=== PATIENT | female | born 1950 | race Caucasian/White ===

== ENCOUNTER 2023-09-10 13:25 | Inpatient (IN) | payer MEDICARE, OTHER, SELFPAY ==
[2023-09-10 09:55] VITALS: BP 156/87
--- NOTE | 2023-09-10 10:18 | ED.GENMED ---
History of Present Illness
General
Chief Complaint: Cough
Source: patient and family
Exam Limitations: none
Time Seen by Provider: 09/10/23 10:03
Nursing documentation reviewed up to this point in time: agreed with
Travel History
Have you had any contact with someone who has COVID-19?: No
Do you have any symptoms of coronavirus? Fever > 100 degrees, chills, cough, shortness of breath, sore throat, loss of taste or smell, muscle aches, or headache?: Yes
Symptoms:: cough
History of Present Illness
History of Present Illness:
73-year-old female with past medical history of cardiac disease CABG x 3 in 2012 as well as cardiac stents hypertension diabetes high cholesterol presenting to the emergency department today with concerns of a productive cough over the past 2 months
recently treated with azithromycin concluded today without relief. Has had generalized weakness fatigue and mainly concerned of coughing has a mild chest achiness only with coughing. Has had some mild shortness of breath has noted some wheezing.
Does occasionally use an inhaler has not been on steroids. Denies nausea vomiting or fevers.
Review of Systems
Review of Systems
Allergies reviewed?: Yes
All Other Systems: ROS reviewed and negative except as documented in HPI and ROS
Phy Exam
Physical Exam
Physical Exam:
GENERAL: Alert , in no apparent distress
EYE: pupils equal and reactive
NECK: Supple, no significant adenopathy.
ENT: o/p clr, mmm.
CARDIAC: Regular rate and rhythm .
LUNGS: Diffuse inspiratory and expiratory wheezing but good air movement otherwise able to speak in full sentences
ABDOMEN: Soft, without focal tenderness, no r/g, no cvat
NEUROLOGICAL: Alert and oriented, no focal neuro deficits
SKIN: Warm and dry, skin intact.
MUSCULOSKELETAL: No edema, well perfused.
PSYCH: Normal and appropriate interaction.
Course
Orders/Labs/Results
Orders:
Orders
03/08/24 10:05
Electrocardiogram (*1) Stat
Reason for Study: Other
Other Reason for Exam: chest pain
EKG- Treatment ONCE
CR Chest - 2 Views Urgent
Comment:
Reason For Exam: cough
09/10/23 10:17
Dexamethasone Sod Phosphate [Decadron] 10 mg IV NOW STA
Ipratropium/Albuterol Sulfate [Duoneb] 3 ml INH R NOW ONE
09/10/23 10:22
Thoracic Spine 3 Views CR [CR Thoracic Spine 3 Views] Urgent
Comment:
Reason For Exam: back pain
09/10/23 10:42
Complete Blood Count/With Diff Urgent
Comprehensive Metabolic Panel Urgent
Troponin I Urgent
09/10/23 10:58
Oxycodone [Roxicodone] 15 mg PO NOW STA
Abnormal Lab Results
09/10/23
10:42
RBC 3.30 L 10^6/uL
(4.20-5.40)
Hgb 8.4 L g/dL
(12.0-16.0)
Hct 27.0 L %
(37.0-47.0)
MCH 25.5 L pg
(27.0-31.0)
MCHC 31.1 L g/dL
(33.0-37.0)
RDW 25.2 H %
(11.5-14.5)
Absolute Neuts (auto) 7.8 H 10^3/uL
(1.4-6.5)
Absolute Lymphs (auto) 0.6 L 10^3/uL
(1.2-3.4)
Absolute Monos (auto) 0.8 H 10^3/uL
(0.1-0.6)
Neutrophils % 83.4 H %
(42.2-75.2)
Lymphocytes % 6.6 L %
(20.5-51.1)
Glucose 291 H mg/dl
(70-99)
AST 39 H U/L
(14-36)
Alkaline Phosphatase 402 H U/L
(38-126)
Albumin 3.3 L g/dl
(3.5-5.0)
09/10/23 10:42
09/10/23 10:42
Vital Signs
Initial and Last Documented VS:
Initial Vital Signs
Temp Pulse Resp BP Pulse Ox
98 F 87 16 156/87 97
09/10/23 09:55 09/10/23 09:55 09/10/23 09:55 09/10/23 09:55 09/10/23 09:55
Last Documented Vital Signs
Temp Pulse Resp BP Pulse Ox
98 F 87 16 156/87 97
09/10/23 09:55 09/10/23 09:55 09/10/23 09:55 09/10/23 09:55 09/10/23 09:55
MDM/Problems Addressed
MDM/Problems Addressed:
73-year-old female presenting to the emergency department today with concerns of ongoing cough wheezing over the past few months. Recently treated with azithromycin without relief. Claims to have some intermittent chest pain only with coughing
mainly to the left side of her chest. On arrival here vital signs are normal afebrile pulse ox in the high 90s blood pressure slightly elevated. Lungs have diffuse inspiratory next very wheezing. Patient started on steroid and given a DuoNeb
patient labs showing anemia of 8.4 she does have a history of such. Glucose elevated to 291 but no signs of DKA. Patient was reassessed after receiving treatments with some slight improvement pulse ox in the low 90s she was walks claims that she
did not feel well was lightheaded short of breath pulse ox into the 80s. Concerning this plan to admit for further treatment monitoring.
*Critical Care Note
Total Time (30-74mins, 75-104mins- exclusive of procedures): Not Applicable
ED Attending Note
-
Portions of this chart may have been created with voice recognition software.� Occasional wrong word or��sound alike� substitutions may have occurred due to the inherent limitations of voice recognition software.
Discharge Plan
Departure
Patient Disposition: Admit
Date of Disposition: 09/10/23
Time of Disposition: 12:31
Admit to: Med/Surg
Admit to doctor: Charou
Presentation/result/management discussed w/ accepting MD/DO: Hospitalist
Patient with high blood pressure during this ER visit?: No
Condition: Good
Covid-19: Not Applicable
Discharge Problem:
Diffuse wheezing
Referrals:
Jaspreet Echeverria, [Family Provider] -
Interventions
Interventions:
*Risk Screen - Suicide Last Done: 09/10/23 09:59
*General Assessment Last Done: 09/10/23 09:59
*Neglect/Abuse Screening Last Done: 09/10/23 09:59
*ED COVID-19 Vaccine History Last Done: 09/10/23 10:28
[2023-09-10 10:27] VITALS: BMI 22.3
[2023-09-10] MEDS: DECADRON 10 MG IV (10:38)
[2023-09-10] MEDS: DUONEB 3 ML INH ×3 (10:41→21:07)
[2023-09-10 10:54] LABS: % Basophils 0.5 % (0-2); % Eosinophils 0.7 % (0-6); % Immature Granulocytes 0.3 % (0-0.5); % Lymphocytes 6.6 % (20.5-51.1); % Monocytes 8.5 % (1.7-9.3); % Neutrophils 83.4 % (42.2-75.2); Absolute Basophils 0.1 10^3/uL (0-0.2); Absolute Eosinophils 0.1 10^3/uL (0-0.7); Absolute Lymphocytes 0.6 10^3/uL (1.2-3.4); Absolute Monocytes 0.8 10^3/uL (0.1-0.6); Absolute Neutrophils 7.8 10^3/uL (1.4-6.5); Hemoglobin 8.4 g/dL (12.0-16.0); Mean Corp Hgb Conc. 31.1 g/dL (33.0-37.0); Mean Corpuscular Hgb 25.5 pg (27.0-31.0); Mean Corpuscular Volume 81.8 fL (81.0-99.0); Nucleated Red Blood Cells % 0 %; Platelet Count 170 10^3/uL (130-400); Red Cell Dist. Width 25.2 % (11.5-14.5); White Blood Cell Count 9.4 10^3/uL (4.8-10.8)
[2023-09-10 11:07] LABS: ALT (SGPT) 22 U/L (0-35); AST (SGOT) 39 U/L (14-36); Albumin 3.3 g/dl (3.5-5.0); Alkaline Phosphatase 402 U/L (38-126); Blood Urea Nitrogen 14 mg/dl (7-17); Carbon Dioxide 26 mmol/L (22-30); Chloride 106 mmol/L (98-107); Estimated Creatinine Clearance 60 ml/min; Glucose 291 mg/dl (70-99); Potassium 4.1 mmol/L (3.5-5.1); Sodium 135 mmol/L (135-145); Total Protein 6.6 g/dl (6.3-8.2); eGFR > 60.00
[2023-09-10] MEDS: ROXICODONE 15 MG PO ×2 (11:12→20:51)
[2023-09-10 11:13] LABS: Anisocytosis 1+; Hypochromasia 1+; Normal RBC Morphology No
[2023-09-10 11:14] LABS: Polychromasia Slight; Troponin I 0.025 ng/ml
--- NOTE | 2023-09-10 13:13 | HPS.HSE ---
Family Physician
-
Family Physician: Jaspreet Echeverria
Chief Complaint
-
shortness breath/cough
History of Present Illness
Patient is a 73F with past medical history of nonalcoholic fatty liver disease and cirrhosis, history of GI bleed and multiple endoscopic procedure, coronary disease and bypass, history of peripheral artery disease, tobacco use, hypertension,
hypothyroidism came to ER with ongoing shortness of breath for 2 months. Patient usually gets her medical care at [facility]. For last 2 months patient has been noticing progressive shortness of breath and unable to walk 15-20 feet without
getting short of breath. Patient also having excessive cough up to the point where having bilateral lower rib cage pain. Patient also noted herself wheezing at times. Patient also having some balance problems and a mechanical fall. Patient has
been losing weight for some time and primary care physician ordered protein supplements. No abdominal pain/nausea/vomiting.
Medical History
Past Medical History
Past Medical History: Reports Other
Additional Past Medical History:
nonalcoholic fatty liver disease and cirrhosis, history of GI bleed and multiple endoscopic procedure, coronary disease and bypass, history of peripheral artery disease, tobacco use, hypertension, hypothyroidism
Past Surgical History: Reports Other
Social History
Tobacco: Smoker
Alcohol: None
Living: With Family
Family History
Family History: Not pertinent
Allergies / Home Medications
Allergies reflects when Allergies were last updated in [facility].
Home Medications with original date entered in [facility]
Allergy/Medication List:
Allergies
Allergy/AdvReac Type Severity Reaction Status Date / Time
No Known Allergies Allergy Unverified 09/10/23 09:55
Home Medications
albuterol sulfate 90 mcg/actuation aerosol inhaler 2 puff inhalation R Q4HPRN PRN sob/wheezing 09/10/23
azithromycin 250 mg tablet 0 mg PO .COMPLEX 09/10/23
diazepam 10 mg tablet 10 mg PO BIDPRN PRN anxiety 09/10/23
ezetimibe 10 mg tablet 10 mg PO DAILY 09/10/23
furosemide 20 mg tablet 20 mg PO DAILY@1400 09/10/23
gabapentin 100 mg capsule 100 mg PO TID PRN nerve pain 09/10/23
insulin glargine 100 unit/mL (3 mL) subcutaneous pen (Lantus Solostar U-100 Insulin) 12 - 15 unit SC HS 09/10/23
insulin lispro 100 unit/mL subcutaneous pen (Humalog KwikPen (U-100) Insulin) 15 unit SC AC 09/10/23
lactulose 10 gram/15 mL oral solution 15 ml PO .SEE BELOW 09/10/23
levothyroxine 50 mcg tablet 50 mcg PO DAILY 09/10/23
metoprolol succinate 25 mg tablet,extended release 24 hr 25 mg PO DAILY 09/10/23
omeprazole 20 mg capsule,delayed release 20 mg PO DAILY 09/10/23
oxycodone 15 mg tablet 15 mg PO QID 09/10/23
rifaximin 550 mg tablet (Xifaxan) 550 mg PO Q12H 09/10/23
Review of Systems
-
A 12 point ROS was completed and negative except as noted: Yes
Physical Exam
Vital Signs
Vital Signs
Temp Pulse Resp BP Pulse Ox
98 F 87 16 156/87 97
09/10/23 09:55 09/10/23 09:55 09/10/23 09:55 09/10/23 09:55 09/10/23 09:55
Physical Exam
General: No Apparent Distress
HEENT: Atraumatic; No Oxygen
Respiratory: Wheezes; No Crackles
Cardiac: S1/S2 and Regular Rhythm; No Murmur or Rub
GI: Soft, Non Tender, Non Distended and Normal Bowel Sounds; No Organomegaly
Musculoskeletal: No Clubbing, No Cyanosis and No Edema
Skin: No Rash
Neuro: Awake, Alert, Oriented and Nonfocal/grossly intact
Laboratory Results
-
09/10/23 10:42
09/10/23 10:42
Laboratory Results
Total Bilirubin 1.0 mg/dl (0.2-1.3) 09/10/23 10:42
AST 39 U/L (14-36) H 09/10/23 10:42
ALT 22 U/L (0-35) 09/10/23 10:42
Alkaline Phosphatase 402 U/L (38-126) H 09/10/23 10:42
Troponin I 0.025 ng/ml 09/10/23 10:42
Data Reviewed
-
Lab Data: Labs Reviewed by me, Discussed with Patient and Discussed with Family
Impression/Plan
-
1. COPD flare up
Tobacco use disorder
-Patient active smoker and has been smoking for many years
-Patient was provided course of azithromycin by primary care physician without much help
-Chest x-ray relatively clear besides small trace pleural effusion
-Patient wheezing on examination
-No formal diagnosis of COPD although likely have it with history of smoking and ongoing wheezing
-Patient got IV dexamethasone 10 mg in ER, continue 4 mg every 8 hours
-Provide nebulizer therapy
2. Nonalcoholic fatty liver disease
Cirrhosis
-Maintain on home dose of rifaximin/lactulose
-No signs of decompensated cirrhosis
3. Chronic normocytic anemia
History of GI bleed
-Patient have history of recurrent GI bleed requiring Endoscopic intervention
-Patient gets her care at [facility] usually
4. Essential HTN
-Continue metoprolol, once pharmacy confirms dose
5. Hypothyroidism
-Continue home dose of Euthyrox and
DVT PPX - lovenox
Full code
Total time spent : 77 mins
I personally saw and examined the patient.
I have reviewed all diagnostic interpretations and treatment plans as written.
Time includes patient management by me, time spent at the patients bedside, time to review lab and imaging results, discussing patient care, documentation in the medical record, and time spent with the family or caregiver and discussing care plan
with RN/Consultants.
[2023-09-10 13:34] LABS: NT-proBNP 7190 pg/ml
[2023-09-10] MEDS: ROCEPHIN 2000 MG IV (14:00)
[2023-09-10 15:45] VITALS: BP 120/85
[2023-09-10 15:46] LABS: Glucose - Point of Care 417 mg/dl (70-99)
[2023-09-10 16:34] LABS: Glucose 397 mg/dl (70-99)
--- NOTE | 2023-09-10 16:44 | PTCARENOTE ---
Rec'd Pt from ED to Room 419-1, [address]. Pt is AAOx3. Oriented to room with call pacheco in place.
[2023-09-10] MEDS: NOVOLOG FLEXPEN 5 UNITS SC (16:48)
[2023-09-10] MEDS: NOVOLOG FLEXPEN-LOW RESISTANCE 5 UNITS SC (16:51)
[2023-09-10] MEDS: LOVENOX 40 MG SC (16:52)
--- NOTE | 2023-09-10 18:32 | PTCARENOTE ---
BG check upon txfr from ED- finger stick was 417. STAT Glucose was 397. Pt got 10 units of insulin. Asymptomatic. Dr. Reyes notified via TT.
[2023-09-10 18:41] LABS: Glucose - Point of Care 490 mg/dl (70-99)
[2023-09-10 19:25] LABS: Glucose 490 mg/dl (70-99)
[2023-09-10] MEDS: NOVOLOG FLEXPEN 6 UNITS SC (20:35)
[2023-09-10] MEDS: XIFAXAN 550 MG PO (20:51)
[2023-09-10 21:39] LABS: Glucose - Point of Care 513 mg/dl (70-99)
[2023-09-10 21:43] LABS: Glucose - Point of Care 503 mg/dl (70-99)
[2023-09-10] MEDS: DUPHALAC/CHRONULAC 15 GRAMS PO (21:54)
[2023-09-10 22:38] LABS: Glucose - Point of Care 476 mg/dl (70-99)
[2023-09-10 22:40] LABS: Glucose - Point of Care 535 mg/dl (70-99)
[2023-09-10 23:00] VITALS: BP 140/72
[2023-09-10 23:59] LABS: Glucose 457 mg/dl (70-99)
[2023-09-11] VITALS (8 sets, daily range): BP systolic 126–174; BP diastolic 57–79; PULSE 89; O2SAT 98
[2023-09-11] MEDS: NOVOLOG FLEXPEN 6 UNITS SC (00:16)
[2023-09-11] MEDS: LANTUS 0.149999999999999994 UNITS SC (00:16)
[2023-09-11 02:40] LABS: Glucose - Point of Care 351 mg/dl (70-99)
[2023-09-11 03:59] LABS: % Basophils 0.1 % (0-2); % Immature Granulocytes 0.3 % (0-0.5); % Lymphocytes 7.7 % (20.5-51.1); % Monocytes 11.9 % (1.7-9.3); Absolute Lymphocytes 0.6 10^3/uL (1.2-3.4); Absolute Monocytes 0.9 10^3/uL (0.1-0.6); Absolute Neutrophils 5.8 10^3/uL (1.4-6.5); Hemoglobin 7.1 g/dL (12.0-16.0); Mean Corp Hgb Conc. 30.9 g/dL (33.0-37.0); Mean Corpuscular Hgb 25.4 pg (27.0-31.0); Mean Corpuscular Volume 82.1 fL (81.0-99.0); Mean Platelet Volume 10.1 fL (7.4-10.4); Nucleated Red Blood Cells % 0 %; Platelet Count 147 10^3/uL (130-400); Red Cell Dist. Width 24.9 % (11.5-14.5); White Blood Cell Count 7.2 10^3/uL (4.8-10.8)
[2023-09-11 04:16] LABS: Blood Urea Nitrogen 24 mg/dl (7-17); Calcium 8.9 mg/dl (8.4-10.2); Carbon Dioxide 25 mmol/L (22-30); Chloride 105 mmol/L (98-107); Estimated Creatinine Clearance 38 ml/min; Glucose 285 mg/dl (70-99); Potassium 4.5 mmol/L (3.5-5.1); Sodium 137 mmol/L (135-145); eGFR 53.39
[2023-09-11] MEDS: SYNTHROID 50 MCG PO (06:08)
[2023-09-11 07:50] LABS: Glucose - Point of Care 268 mg/dl (70-99)
[2023-09-11] MEDS: DUPHALAC/CHRONULAC 15 GRAMS PO ×2 (07:51→21:08)
[2023-09-11] MEDS: ZETIA 10 MG PO (07:51)
[2023-09-11] MEDS: XIFAXAN 550 MG PO ×2 (07:51→21:09)
[2023-09-11] MEDS: DECADRON 4 MG IV ×3 (07:52→23:23)
[2023-09-11] MEDS: NOVOLOG FLEXPEN-LOW RESISTANCE 3 UNITS SC ×3 (07:53→15:50)
[2023-09-11] MEDS: NOVOLOG FLEXPEN 5 UNITS SC (07:53)
[2023-09-11] MEDS: TOPROL XL 25 MG PO (07:54)
[2023-09-11] MEDS: PROTONIX 40 MG PO (07:54)
[2023-09-11] MEDS: DUONEB 3 ML INH ×4 (08:10→20:19)
[2023-09-11] MEDS: ROXICODONE 15 MG PO ×2 (08:38→14:43)
[2023-09-11 09:39] LABS: Glycohemoglobin (HgbA1c) 7.4 % (4.0-5.6)
--- NOTE | 2023-09-11 11:13 | W.PN.HOSP.TC ---
Today's Communication/Plan
-
see note
Assessment / Plan
Assessment / Plan
1. COPD flare up
� � Tobacco use disorder
-Patient active smoker and has been smoking for many years
-Patient was provided course of azithromycin by primary care physician without much help
-Chest x-ray relatively clear besides small trace pleural effusion
-Continues to wheeze on exam
-No formal diagnosis of COPD although likely have it with history of smoking and ongoing wheezing
-Patient got IV dexamethasone 10 mg in ER, continue 4 mg every 8 hours
-Provide nebulizer therapy
2.� Nonalcoholic fatty liver disease
�� � Cirrhosis
-Maintain on home dose of rifaximin/lactulose
-No signs of decompensated cirrhosis
3.� Acute on chronic normocytic anemia
�� � History of GI bleed
-Patient have history of recurrent GI bleed requiring Endoscopic intervention
-Patient gets her care at [facility] usually
-Hemoglobin drifted down to 7.1 today. No reported melena/emesis
-Check Hemoccult stool test
-Providing 1 unit of blood transfusion
4. Essential HTN
-Continue metoprolol, once pharmacy confirms dose
5.� Hypothyroidism
-Continue home dose of Euthyrox and
6. IDDM - uncontrolled
-Blood glucose significantly elevated due to IV steroid use in ER
-Increasing insulin Premeal and lantus dose
DVT PPX - lovenox
Full code
Anticipated Discharge: 24 - 48 hours
Subjective/Interval History
-
Date of Service: September 11, 2023
Patient having ongoing cough and bilateral flank pain from excessive coughing
Breathing subjectively bit better although not much improvement
No hypoxia overnight
Objective Data
-
Labs:
Laboratory Results
09/10/23 09/11/23 09/11/23
23:16 03:40 03:40
WBC 7.2
Hgb 7.1 L
Hct 23.0 L
Plt Count 147
Sodium Cancelled 137
Potassium Cancelled
Chloride
Carbon Dioxide
BUN
Creatinine
Glucose 457 H*
Calcium
09/11/23 09/11/23 09/11/23
03:40 03:40 03:40
WBC
Hgb
Hct
Plt Count
Sodium
Potassium 4.5
Chloride Cancelled 105
Carbon Dioxide Cancelled 25
BUN Cancelled
Creatinine
Glucose
Calcium
09/11/23 09/11/23 09/11/23
03:40 03:40 03:40
WBC
Hgb
Hct
Plt Count
Sodium
Potassium
Chloride
Carbon Dioxide
BUN 24 H
Creatinine Cancelled 1.1 H
Glucose Cancelled 285 H
Calcium Cancelled
09/11/23
03:40
WBC
Hgb
Hct
Plt Count
Sodium
Potassium
Chloride
Carbon Dioxide
BUN
Creatinine
Glucose
Calcium 8.9
Vital Signs:
Vital Signs
Temp Pulse Resp BP Pulse Ox
97.9 F 89 18 126/70 98
09/11/23 08:17 09/11/23 10:48 09/11/23 10:48 09/11/23 10:48 09/11/23 08:17
I&O
09/10/23 09/11/23 09/12/23
06:59 06:59 07:59
Intake Total 480 / 480
Balance 480 / 480
Review of Systems
-
Respiratory: Reports Cough
Cardiac: Reports No Symptoms
Abdomen/GI: Reports No Symptoms
Physical Exam
-
General: No Apparent Distress and Comfortable
HEENT: Negative Oxygen
Respiratory: Wheezes
Cardiac: Regular Rhythm and S1/S2; Negative Murmur or Rub
GI: Soft, Nontender and Nondistended
Musculoskeletal: No Edema
Neuro: Awake, Alert, Oriented, No Motor Deficits and Nonfocal/Grossly Intact
Psych: Calm
[2023-09-11 11:25] LABS: Glucose - Point of Care 299 mg/dl (70-99)
[2023-09-11] MEDS: ALDACTONE 25 MG PO (11:54)
[2023-09-11] MEDS: NOVOLOG FLEXPEN 10 UNITS SC ×2 (11:56→15:50)
--- NOTE | 2023-09-11 15:24 | CM ---
IA completed with pt at bedside.
Pt is a 73yr old female admitted with COPD Flare up.
At baseline, pt lives in her own home that has 6 steps to enter and a 1st floor set up. Pts daughter and nephew live with her and provide support with cooking and cleaning.
Pt is independent with mobility without device but does have a cane, RW, W/c, and shower bars.
Per pt, her granddaughter is a caregiver to her through the [employer] and is in the home to assist with ADLs, transportation, and supervision 8a-3p daily.
Pt has not been to SNF, and does not think she has used VN in the past.
Pt will need nebulizer at dc.
SW did place call and voicemail to daughter to confirm dc details.
PCP; Jaspreet Echeverria
Pharm; Curt Carroll
PLAN; Dc to home with VN
*needs nebulizer machine
[2023-09-11 15:58] LABS: Glucose - Point of Care 297 mg/dl (70-99)
[2023-09-11] MEDS: LOVENOX 40 MG SC (16:53)
[2023-09-11 21:04] LABS: Glucose - Point of Care 322 mg/dl (70-99)
[2023-09-11] MEDS: LANTUS 0.200000000000000011 UNITS SC (21:10)
[2023-09-12] MEDS: SYNTHROID 50 MCG PO (06:00)
[2023-09-12 06:16] LABS: % Basophils 0.1 % (0-2); % Immature Granulocytes 0.6 % (0-0.5); % Lymphocytes 3.9 % (20.5-51.1); % Monocytes 2.6 % (1.7-9.3); % Neutrophils 92.8 % (42.2-75.2); Absolute Immature Granulocytes 0.1 10^3/uL (0-0.05); Absolute Lymphocytes 0.4 10^3/uL (1.2-3.4); Absolute Monocytes 0.3 10^3/uL (0.1-0.6); Absolute Neutrophils 10.2 10^3/uL (1.4-6.5); Hematocrit 26.6 % (37.0-47.0); Hemoglobin 8.5 g/dL (12.0-16.0); Mean Corpuscular Hgb 26.5 pg (27.0-31.0); Mean Corpuscular Volume 82.9 fL (81.0-99.0); Mean Platelet Volume 10.4 fL (7.4-10.4); Nucleated Red Blood Cells % 0 %; Platelet Count 141 10^3/uL (130-400); Red Blood Cell Count 3.21 10^6/uL (4.20-5.40); Red Cell Dist. Width 22.7 % (11.5-14.5)
[2023-09-12 06:48] LABS: Blood Urea Nitrogen 31 mg/dl (7-17); Calcium 8.8 mg/dl (8.4-10.2); Carbon Dioxide 25 mmol/L (22-30); Chloride 105 mmol/L (98-107); Estimated Creatinine Clearance 38 ml/min; Glucose 347 mg/dl (70-99); Potassium 4.7 mmol/L (3.5-5.1); Sodium 133 mmol/L (135-145); eGFR 53.39
[2023-09-12 07:00] VITALS: BP 172/80
[2023-09-12] MEDS: DUONEB 3 ML INH ×4 (07:53→19:46)
[2023-09-12 08:09] LABS: Glucose - Point of Care 373 mg/dl (70-99)
[2023-09-12] MEDS: ZETIA 10 MG PO (09:05)
[2023-09-12] MEDS: PROTONIX 40 MG PO (09:05)
[2023-09-12] MEDS: XIFAXAN 550 MG PO ×2 (09:05→21:15)
[2023-09-12] MEDS: TOPROL XL 25 MG PO (09:06)
[2023-09-12] MEDS: ALDACTONE 25 MG PO (09:06)
[2023-09-12] MEDS: DUPHALAC/CHRONULAC 15 GRAMS PO (09:06)
[2023-09-12] MEDS: DECADRON 4 MG IV ×3 (09:06→23:19)
[2023-09-12] MEDS: NOVOLOG FLEXPEN SC (09:14)
[2023-09-12] MEDS: ROXICODONE 15 MG PO (09:17)
[2023-09-12] MEDS: NOVOLOG FLEXPEN-LOW RESISTANCE 5 UNITS SC (09:19)
[2023-09-12] MEDS: NOVOLOG FLEXPEN 15 UNITS SC ×3 (09:19→18:21)
[2023-09-12] MEDS: TYLENOL 650 MG PO (10:30)
[2023-09-12 11:46] LABS: Glucose - Point of Care 189 mg/dl (70-99)
[2023-09-12] MEDS: ROBITUSSIN DM 10 ML PO ×2 (11:49→18:11)
--- NOTE | 2023-09-12 11:52 | W.PN.HOSP.TC ---
Today's Communication/Plan
-
Continue steroids/neb
Symptomatic care for cough
Increase dose of insulin
Assessment / Plan
Assessment / Plan
1. COPD flare up
� � Tobacco use disorder
-Patient active smoker and has been smoking for many years
-Patient was provided course of azithromycin by primary care physician without much help
-Chest x-ray relatively clear besides small trace pleural effusion
-Continues to wheeze on exam
-No formal diagnosis of COPD although likely have it with history of smoking and ongoing wheezing
-Patient got IV dexamethasone 10 mg in ER, continue 4 mg every 8 hours
-Provide nebulizer therapy
-Significant cough and causing bilateral flank pain. Cough medication/lidocaine patch ordered
2.� Nonalcoholic fatty liver disease
�� � Cirrhosis
-Maintain on home dose of rifaximin/lactulose
-No signs of decompensated cirrhosis
3.� Acute on chronic normocytic anemia
�� � History of GI bleed
-Patient have history of recurrent GI bleed requiring Endoscopic intervention
-Patient gets her care at [facility] usually
-Hemoglobin drifted down to 7.1. No reported melena/emesis
-Check Hemoccult stool test - pending
-s/p 1 U prbc on sat. hbg 8.5 , continue monitor.
4. Essential HTN
-Continue metoprolol, once pharmacy confirms dose
5.� Hypothyroidism
-Continue home dose of Euthyrox and
6. IDDM - uncontrolled
-Blood glucose significantly elevated due to IV steroid use in ER
-Continue Lantus/Premeal insulin further. Diabetic nurse petitioner consulted.
DVT PPX - lovenox
Full code
Anticipated Discharge: > 48 hours
Subjective/Interval History
-
Date of Service: September 12, 2023
Continues to have significant cough and dyspnea
No reported melena
No acute issues
Objective Data
-
Labs:
Laboratory Results
09/12/23
05:39
WBC 11.0 H
Hgb 8.5 L
Hct 26.6 L
Plt Count 141
Sodium 133 L
Potassium 4.7
Chloride 105
Carbon Dioxide 25
BUN 31 H
Creatinine 1.1 H
Glucose 347 H
Calcium 8.8
Vital Signs:
Vital Signs
Temp Pulse Resp BP Pulse Ox
97.8 F 86 16 172/80 96
09/12/23 07:00 09/12/23 11:20 09/12/23 11:20 09/12/23 07:00 09/12/23 08:00
I&O
09/11/23 09/12/23 09/13/23
05:59 06:59 06:59
Intake Total
Balance
Review of Systems
-
Respiratory: Reports Cough, Trouble Breathing, Wheezing and Pleurisy
Cardiac: Reports No Symptoms
Abdomen/GI: Reports No Symptoms
Physical Exam
-
General: No Apparent Distress and Comfortable
HEENT: Negative Oxygen
Respiratory: Wheezes
Cardiac: Regular Rhythm and S1/S2; Negative Murmur or Rub
GI: Soft, Nontender and Nondistended
Musculoskeletal: No Edema
Neuro: Awake, Alert, Oriented, No Motor Deficits and Nonfocal/Grossly Intact
Psych: Calm
[2023-09-12] MEDS: NOVOLOG FLEXPEN-LOW RESISTANCE 1 UNITS SC (11:54)
[2023-09-12] MEDS: LIDOCAINE 4% PATCH 2 PATCH TOPICAL (12:08)
[2023-09-12 13:55] VITALS: BMI 22.3
[2023-09-12] MEDS: TESSALON PERLES 200 MG PO ×2 (14:57→23:19)
[2023-09-12 15:45] VITALS: BP 132/71
[2023-09-12 16:19] LABS: Glucose - Point of Care 89 mg/dl (70-99)
[2023-09-12] MEDS: NOVOLOG FLEXPEN-LOW RESISTANCE SC (16:48)
[2023-09-12] MEDS: LOVENOX 40 MG SC (18:11)
[2023-09-12 18:16] LABS: Glucose - Point of Care 143 mg/dl (70-99)
[2023-09-12 21:05] LABS: Glucose - Point of Care 113 mg/dl (70-99)
[2023-09-12] MEDS: LANTUS 0.25 UNITS SC (21:15)
[2023-09-12] MEDS: DUPHALAC/CHRONULAC PO (21:15)
[2023-09-12 23:04] VITALS: BP 128/73
[2023-09-13] MEDS: ROBITUSSIN DM 10 ML PO ×2 (02:12→10:53)
[2023-09-13] MEDS: SYNTHROID 50 MCG PO (06:06)
[2023-09-13] MEDS: DUONEB 3 ML INH ×4 (07:36→19:49)
[2023-09-13 07:43] LABS: Glucose - Point of Care 179 mg/dl (70-99)
[2023-09-13 07:45] VITALS: BP 157/101
[2023-09-13 08:14] LABS: % Basophils 0.1 % (0-2); % Immature Granulocytes 0.7 % (0-0.5); % Lymphocytes 3.8 % (20.5-51.1); % Monocytes 3.6 % (1.7-9.3); % Neutrophils 91.8 % (42.2-75.2); Absolute Immature Granulocytes 0.1 10^3/uL (0-0.05); Absolute Lymphocytes 0.6 10^3/uL (1.2-3.4); Absolute Monocytes 0.5 10^3/uL (0.1-0.6); Absolute Neutrophils 13.5 10^3/uL (1.4-6.5); Hematocrit 29.4 % (37.0-47.0); Hemoglobin 9.2 g/dL (12.0-16.0); Mean Corp Hgb Conc. 31.3 g/dL (33.0-37.0); Mean Corpuscular Volume 83.1 fL (81.0-99.0); Nucleated Red Blood Cells % 0 %; Platelet Count 173 10^3/uL (130-400); Red Blood Cell Count 3.54 10^6/uL (4.20-5.40); Red Cell Dist. Width 22.7 % (11.5-14.5); White Blood Cell Count 14.7 10^3/uL (4.8-10.8)
[2023-09-13 08:54] LABS: Blood Urea Nitrogen 34 mg/dl (7-17); Calcium 9.2 mg/dl (8.4-10.2); Carbon Dioxide 23 mmol/L (22-30); Chloride 103 mmol/L (98-107); Estimated Creatinine Clearance 42 ml/min; Glucose 156 mg/dl (70-99); Potassium 4.5 mmol/L (3.5-5.1); Sodium 135 mmol/L (135-145); eGFR 59.86
[2023-09-13] MEDS: NOVOLOG FLEXPEN 15 UNITS SC ×3 (10:00→18:03)
[2023-09-13] MEDS: NOVOLOG FLEXPEN-LOW RESISTANCE 1 UNITS SC ×3 (10:01→18:04)
[2023-09-13] MEDS: ZETIA 10 MG PO (10:02)
[2023-09-13] MEDS: ALDACTONE 25 MG PO (10:02)
[2023-09-13] MEDS: PROTONIX 40 MG PO (10:02)
[2023-09-13] MEDS: TESSALON PERLES 200 MG PO ×3 (10:03→21:30)
[2023-09-13] MEDS: LIDOCAINE 4% PATCH 2 PATCH TOPICAL (10:03)
[2023-09-13] MEDS: TOPROL XL 25 MG PO (10:03)
[2023-09-13] MEDS: XIFAXAN 550 MG PO ×2 (10:05→21:29)
[2023-09-13] MEDS: DECADRON 4 MG IV ×2 (10:05→18:05)
[2023-09-13] MEDS: DUPHALAC/CHRONULAC PO ×3 (10:08→22:06)
--- NOTE | 2023-09-13 10:27 | PN.DE.MGMTRT ---
Insulin Management
- -
09/13/2023: Diabetes Management Consult
73 year old male presented to the ER on 09/09 with SOB due to COPD flare up with know active Tobacco use.
PMH includes: CAD s/p stent, HTN, PAD, Hypothyroidism, NAFLD, Cirrhosis, H/o GI bleed and IDDM, A1C 7.4%.
Pt seen this morning, sitting up in bed, c/o back pain from coughing.
Pt states she routinely follows with Endo- doesn't remember the name.
Reports was taking Lantus 20 units @HS and NovoLog 15 units AC, and uses a CGM-Mary 2 for glucose monitoring at home.
Glucose on admission was 291, trended up to 490 with initiation of IV steroids use.
Her insulin regimen was adjusted and glucose has improved to FBG of 156 this AM and premeal 89 to 189
She remains on Dexamethasone 4mg Q8h with plans to taper dose to q12H.
Will make no changes to current regimen: Cont Lantus 25 units @ HS and AC NovoLog 15 units with low corrective
Diabetes History
- -
Type of Diabetes: 2 requiring insulin
Pre-Admission Diabetes Regimen
09/13/23
07:32
Creatinine 1.0
Lab Results
Hemoglobin A1c 7.4 % (4.0-5.6) H 09/11/23 03:40
Insulin Pump Settings
IP Diabetes Regimen
09/12/23 09/12/23 09/12/23
11:45 16:18 18:14
Glucose
POC Glucose 189 H 89 143 H
09/12/23 09/13/23 09/13/23
21:04 07:14 07:32
Glucose 156 H
POC Glucose 113 H 179 H
Meal type: Lunch
Amount consumed: 100%
Patient Education
[2023-09-13 11:00] VITALS: BP 146/55
--- NOTE | 2023-09-13 11:25 | W.PN.HOSP.TC ---
Today's Communication/Plan
-
Decrease steroids
CT chest non con
ECHO pending
Assessment / Plan
Assessment / Plan
1. COPD flare up
� � Tobacco use disorder
-Patient active smoker and has been smoking for many years
-Patient was provided course of azithromycin by primary care physician without much help
-Chest x-ray There are small bilateral pleural effusions There is mild hazy soft tissue density in the posterior inferior aspect of the right middle layering along the major fissure which may be pneumonia or loculated effusion.
-Check CT chest non contrast to better assess effusion. If with loculation may need Pulm/CT
-No formal diagnosis of COPD although likely have it with history of smoking and ongoing wheezing
-Patient got IV dexamethasone 10 mg in ER, decrease to 4mg q12h.
-Provide nebulizer therapy
-Significant cough and causing bilateral flank pain. Cough medication/lidocaine patch ordered
2.� Nonalcoholic fatty liver disease
�� � Cirrhosis
-Maintain on home dose of rifaximin/lactulose and diuretics lasix/aldactone
-No signs of decompensated cirrhosis
3.� Acute on chronic normocytic anemia
�� � History of GI bleed
-Patient have history of recurrent GI bleed requiring Endoscopic intervention
-Patient gets her care at [facility] usually
-Hemoglobin drifted down to 7.1. No reported melena/emesis
-Check Hemoccult stool test - pending
-s/p 1 U prbc on sat. hbg 9.2 , continue monitor.
4. Essential HTN
-Continue metoprolol, once pharmacy confirms dose
5.� Hypothyroidism
-Continue home dose of Euthyrox and
6. IDDM - uncontrolled
-Blood glucose significantly elevated due to IV steroid use in ER
-Continue 25u Lantus/15unites Premeal insulin. Diabetic nurse petitioner consulted.
DVT PPX - lovenox
Full code
Anticipated Discharge: > 48 hours
Subjective/Interval History
-
Date of Service: September 13, 2023
states of feeling jittery and tremors
did not sleep much overnight
Objective Data
-
Labs:
Laboratory Results
09/13/23
07:32
WBC 14.7 H
Hgb 9.2 L
Hct 29.4 L
Plt Count 173 D
Sodium 135
Potassium 4.5
Chloride 103
Carbon Dioxide 23
BUN 34 H
Creatinine 1.0
Glucose 156 H
Calcium 9.2
Vital Signs:
Vital Signs
Temp Pulse Resp BP Pulse Ox
97.6 F 88 16 157/101 97
09/13/23 07:45 09/13/23 11:22 09/13/23 11:22 09/13/23 10:02 09/13/23 11:22
I&O
09/12/23 09/13/23 09/14/23
06:59 06:59 06:59
Intake Total 1440 / 1440
Balance 1440 / 1440
Physical Exam
-
General: Well Developed and No Apparent Distress
HEENT: Normocephalic, Atraumatic and Moist Mucous Membranes
Respiratory: Rales
Cardiac: Regular Rhythm and S1/S2; Negative Murmur, Rub or Gallop
GI: Soft, Nontender, Nondistended and Normal Bowel Sounds; Negative Organomegaly
Rectal: Deferred by Provider
Musculoskeletal: No Clubbing, No Cyanosis and No Edema
Skin: Negative Rash
Neuro: Awake, Alert, Oriented, AO x 3, No Motor Deficits and Nonfocal/Grossly Intact
Psych: Calm
Data Reviewed
-
Total Time Spent with Patient (in minutes): 55
[2023-09-13 12:00] LABS: Glucose - Point of Care 197 mg/dl (70-99)
--- NOTE | 2023-09-13 12:04 | CM ---
Patient seen bedside.
PT recommending home with home care.
Patient declined home care needs, family member will assist.
Patient does not have a nebulizer, will need a script and will pick pulling machine tender at the pharmacy.
Plan: home with (needs) script for nebulizer.
[2023-09-13] MEDS: LASIX 20 MG PO (15:08)
[2023-09-13] MEDS: ROXICODONE 15 MG PO ×2 (15:11→21:29)
[2023-09-13 17:03] LABS: Glucose - Point of Care 192 mg/dl (70-99)
[2023-09-13] MEDS: LOVENOX 40 MG SC (18:05)
[2023-09-13 21:25] LABS: Glucose - Point of Care 88 mg/dl (70-99)
[2023-09-13] MEDS: LANTUS SC (22:30)
[2023-09-13] MEDS: TYLENOL 650 MG PO (22:44)
[2023-09-13 23:00] VITALS: BP 154/74
[2023-09-14] MEDS: SYNTHROID 50 MCG PO (06:09)
[2023-09-14] MEDS: DECADRON 4 MG IV ×2 (06:10→17:45)
[2023-09-14 06:58] LABS: Glucose - Point of Care 362 mg/dl (70-99)
[2023-09-14 07:00] VITALS: BP 189/97
[2023-09-14] MEDS: DUONEB 3 ML INH ×4 (07:29→19:37)
--- NOTE | 2023-09-14 08:08 | PN.DE.MGMTRT ---
Insulin Management
- -
09/14/2023: Diabetes Management F/U:
73 year old female with COPD flare up, PMH includes: Active Tobacco use and T2DM, A1C 7.4%.
Pt seen this morning, sitting up in bed, c/o generalized body aches from coughing.
FBG 395, Lantus was held last night due to HS blood sugar of 88.
She remains on Dexamethasone 4mg Q12H. Spoke to nursing staff and instructed NOT to hold Lantus if pt is not hypoglycemic at <70 and is eating all her meals
Will make no changes to current regimen: Cont Lantus 25 units @ HS and AC NovoLog 15 units with low corrective
Diabetes History
- -
Type of Diabetes: 2 requiring insulin
Pre-Admission Diabetes Regimen
09/13/23
07:32
Creatinine 1.0
Lab Results
Hemoglobin A1c 7.4 % (4.0-5.6) H 09/11/23 03:40
Insulin Pump Settings
IP Diabetes Regimen
09/13/23 09/13/23 09/13/23
07:32 11:58 17:01
Glucose 156 H
POC Glucose 197 H 192 H
09/13/23 09/14/23
21:24 06:54
Glucose
POC Glucose 88 362 H
Meal type: Breakfast
Amount consumed: 100%
Patient Education
[2023-09-14] MEDS: NOVOLOG FLEXPEN-LOW RESISTANCE 5 UNITS SC (08:13)
[2023-09-14] MEDS: NOVOLOG FLEXPEN 15 UNITS SC ×3 (08:13→17:44)
[2023-09-14] MEDS: LIDOCAINE 4% PATCH 2 PATCH TOPICAL (08:14)
[2023-09-14] MEDS: ALDACTONE 25 MG PO (08:15)
[2023-09-14] MEDS: ZETIA 10 MG PO (08:15)
[2023-09-14] MEDS: TESSALON PERLES 200 MG PO ×3 (08:15→20:30)
[2023-09-14] MEDS: DUPHALAC/CHRONULAC PO ×3 (08:15→20:32)
[2023-09-14] MEDS: PROTONIX 40 MG PO (08:15)
[2023-09-14] MEDS: XIFAXAN 550 MG PO ×2 (08:15→20:31)
[2023-09-14] MEDS: TOPROL XL 25 MG PO (08:15)
[2023-09-14 08:33] LABS: % Basophils 0.1 % (0-2); % Immature Granulocytes 0.8 % (0-0.5); % Lymphocytes 2.8 % (20.5-51.1); % Monocytes 6.1 % (1.7-9.3); % Neutrophils 90.2 % (42.2-75.2); Absolute Immature Granulocytes 0.1 10^3/uL (0-0.05); Absolute Lymphocytes 0.4 10^3/uL (1.2-3.4); Absolute Monocytes 0.9 10^3/uL (0.1-0.6); Hematocrit 30.9 % (37.0-47.0); Hemoglobin 9.8 g/dL (12.0-16.0); Mean Corp Hgb Conc. 31.7 g/dL (33.0-37.0); Mean Corpuscular Hgb 26.6 pg (27.0-31.0); Mean Corpuscular Volume 83.7 fL (81.0-99.0); Mean Platelet Volume 10.3 fL (7.4-10.4); Nucleated Red Blood Cells % 0 %; Platelet Count 176 10^3/uL (130-400); Red Blood Cell Count 3.69 10^6/uL (4.20-5.40); Red Cell Dist. Width 22.7 % (11.5-14.5); White Blood Cell Count 15.5 10^3/uL (4.8-10.8)
--- NOTE | 2023-09-14 09:02 | CON.PUL ---
Consultation
Consultation Request
Date/Time Consultation Requested: 09/14/2023747
Date/Time Consultation Performed: 09/14/2023899
Requesting Provider: Dr. Bruno
Performing Provider: Dr. Sharif
Reason for Consultation: COPD exacerbation
Medical History
-
Chief Complaint: SOB/Cough
History of Present Illness:
73-year-old female with a past medical history of tobacco use disorder, ?COPD, nonalcoholic fatty liver disease with cirrhosis, and CAD s/p CABG who presents with shortness of breath ongoing for 2 months. Patient reported a productive cough with a
'cold' for 2 months and then developed severe left-sided rib/back pain. She had completed a Z-Fredrick prior to arrival but she's not feeling any better. Patient also endorsed increased generalized weakness. In the ER patient was afebrile to 98 �F,
pulse rate 87, respiratory rate 16 and BP 156/87. SpO2 was 97% on room air. Labs showed glucose 291, ALP elevated at 402, WBC normal at 9.4, Hb 8.4 and platelets [address] Chest CT was performed showing paraseptal emphysema, patchy groundglass
opacities in the right upper lobe and in lingula, and a mild�moderate sized right pleural effusion, trace left-sided pleural effusion and fluid in the right horizontal fissure. Patient was given DuoNebs, Decadron and oxycodone and admitted to the
hospital service. Pulmonary now consulted for additional management/recommendations regarding her abnormal imaging.
When I saw the patient she was sitting up in bed, in no acute distress, said that she was concerned because her blood pressure was elevated earlier today x 2. After I reviewed her EMR, it does appear that her SBP rises to the 170�180s infrequently.
She denies SOB during these events, but she does get scared/anxious. She says she last smoked a cigarette 10 days ago and that she is serious about quitting this time. When I spoke about her diagnosis of COPD, she said that she was not quite sure
if she had that. She says she had PFTs done at [facility], but she was not sure when she had that done. She also had gone to [place] in the past as well, but she was not able to tell me if she saw a waste oil pumper there or had PFTs there.
She denies shortness of breath/chest pain currently, denies abdominal pain, fevers or chills.
PMHx: Nonalcoholic fatty liver disease and cirrhosis, history of GI bleed, CAD s/p CABG x3, history of PAD, tobacco use disorder, hypertension, hypothyroidism, DM type II, hyperlipidemia
PSHx: CABG, Coronary stents, tonsillectomy
Past Medical History
Past Medical History: Other (Above as per HPI)
Past Surgical History: Other (Above as per HPI)
Social History
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
Alcohol: None
Drug: None
Living: With Family
Family History
Family History: Reviewed & Not Pertinent
Allergies / Home Medications
Allergies
Allergy/AdvReac Type Severity Reaction Status Date / Time
adhesive Allergy Itching Verified 09/10/23 17:59
Home Medications
Medication Instructions Recorded Confirmed Last Taken Type
albuterol sulfate 90 mcg/actuation 2 puff inhalation R Q4HPRN PRN 09/10/23 09/10/23 09/10/23 History
aerosol inhaler sob/wheezing
azithromycin 250 mg tablet 0 mg PO .COMPLEX Infection 09/10/23 09/10/23 09/10/23 History
diazepam 10 mg tablet 10 mg PO BIDPRN PRN anxiety 09/10/23 09/10/23 09/09/23 History
ezetimibe 10 mg tablet 10 mg PO DAILY High Cholesterol 09/10/23 09/10/23 09/10/23 History
furosemide 20 mg tablet 20 mg PO DAILY@1400 Fluid 09/10/23 09/10/23 09/09/23 History
Retention/Swelling
gabapentin 100 mg capsule 100 mg PO TID PRN nerve pain 09/10/23 09/10/23 3 Days Ago History
~09/07/23
insulin glargine 100 unit/mL (3 12 - 15 unit SC HS diabetes 09/10/23 09/10/23 09/08/23 History
mL) subcutaneous pen (Lantus
Solostar U-100 Insulin)
insulin lispro 100 unit/mL 15 unit SC AC diabetes 09/10/23 09/10/23 09/09/23 History
subcutaneous pen (Humalog KwikPen
(U-100) Insulin)
lactulose 10 gram/15 mL oral 15 ml PO .SEE BELOW fatty 09/10/23 09/10/23 Unknown History
solution liver disease/cirrhosis
levothyroxine 50 mcg tablet 50 mcg PO DAILY Thyroid 09/10/23 09/10/23 09/10/23 History
metoprolol succinate 25 mg 25 mg PO DAILY Blood Pressure 09/10/23 09/10/23 09/10/23 History
tablet,extended release 24 hr
omeprazole 20 mg capsule,delayed 20 mg PO DAILY Gastrointestinal 09/10/23 09/10/23 09/10/23 History
release Issue
oxycodone 15 mg tablet 15 mg PO QID pain 09/10/23 09/10/23 09/10/23 History
rifaximin 550 mg tablet (Xifaxan) 550 mg PO Q12H fatty liver 09/10/23 09/10/23 09/10/23 History
disease/cirrhosis
Review of Systems
-
History Source: Patient
All other systems: Negative unless noted (12 point ROS performed and is negative unless mentioned above.)
Vitals / Labs / Diagnostic Testing
Vital Signs
Temp Pulse Resp BP Pulse Ox
97.3 F 87 20 164/71 96
09/14/23 07:00 09/14/23 11:40 09/14/23 11:40 09/14/23 09:28 09/14/23 11:40
Lab Data
09/14/23 07:59
09/14/23 07:59
Diagnostic Testing:
Physical Exam
-
HEENT: Normocephalic and Anicteric
Cardiovascular: S1/S2 and Peripheral Edema (negative)
Respiratory: Wheeze (negative), Rales (negative), Rhonchi (negative), Non-Labored Respirations and Other (Coarse breath sounds bilaterally)
GI: Soft, Non Distended and Non Tender
Neurology: Awake and Alert
Skin: Warm and Dry
General: Comfortable, Chills (negative) and Sweats (negative)
Assessment
-
Assessment: 73-year-old female with a past medical history of tobacco use disorder, ?COPD, nonalcoholic fatty liver disease with reported history of cirrhosis, and CAD s/p CABG who presents with shortness of breath ongoing for 2 months. Patient
reported a productive cough for 2 months and now developed left-sided rib pain. He had completed a Z-Fredrick prior to arrival but is not feeling any better. Patient is also endorsing increased generalized weakness. In the ER patient was afebrile to
98 �F, pulse rate 87, respiratory rate 16 and BP 156/87. SpO2 was 97% on room air. Labs showed glucose 291, ALP elevated at 402, WBC normal at 9.4, Hb 8.4 and platelets 170. Chest CT was performed showing paraseptal emphysema, patchy groundglass
opacities in the right upper lobe and in lingula, and a mild�moderate sized right pleural effusion, trace left-sided pleural effusion and fluid in the right horizontal fissure. Patient was given DuoNebs, Decadron and oxycodone and admitted to the
hospital service. Pulmonary consulted on 09/12 for additional management/recommendations regarding her abnormal imaging.
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
Impression:
#COPD exacerbation (no PFTs on file, but there is paraseptal emphysema seen on CT chest)
#RUL 7mm solid nodule with GGO in RUL and reticular/nodular opacities in lingula - seen on CT Chest from 09/13/2023
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
#Leukocytosis
#Hyperglycemia
#Acute kidney injury
#Hypothyroidism
#KRAFT cirrhosis
#DM type II (uncontrolled - A1C: 7.4)
#Former tobacco use disorder - quit 10 days ago, as per patient
Plan:
- Continue systemic steroids and wean as tolerated - currently on Decadron 4mg IV q12hr (started 09/12 s/p 4mg IV q8hr from 09/10 - 09/12) --> can change to prednisone tomorrow starting at 40mg with taper by 10mg every 4th day until off
- continue prn Duonebs in addition to standing Duonebs QID --> once she is ready for discharge, would DC on Stiolto respimat and I will arrange for outpatient follow up with me
- Maintain SpO2 >88% and <96%
- Encourage incentive spirometer 10x/hr for at least 4 hrs a day
- She will need repeat chest CT (without contrast) imaging in 6 weeks to assure the GGO/reticular opacities and RUL nodule are stable
- Considering pt has RLL pleural effusion in setting of cirrhosis, would check abd US to assess for ascites as this is likely a hepatohydrothorax
- If patient spikes fever then start Abx w/ rocephin x7 days and azithromycin x 5 days with ware-Cx prior to starting Abx; check procal (for trending purposes)
- Maintain MAP>65
- Goal BG 140-180
- Replete electrolytes with goal K>4, Mg>2
- ProBNP elevated --> TTE shows stage II diastolic dysfunction with abnormal relaxation and increased pulm pressures. PASP 49 mmHg, normal LV function with septal hypokinesis. Normal RA size and normal RV size/function --> it would not be
unreasonable to diurese more aggressively over next 1-2 days given her echo findings with proBNP of 7190
- Pt will need outpatient follow up for full PFTs
- DVT ppx
Pulmonary service will continue to follow along. Outpatient follow-up is recommended for PFTs and management of her suspected COPD. She lives in [place] so she would like to remain local, however she says she would not be opposed to seeing us
at [facility]. Our office information will be placed into her chart and then she can decide following discharge if she wants to see us or not.
A moderate level of medical decision making was utilized for this encounter.
Data:
CT Chest w/o IV contrast 09-13-2023:
Impression:
1. Trace left and small right pleural effusions.
2. Right upper lobe solid and groundglass nodules, likely infectious/inflammatory in etiology. Recommend follow-up imaging after treatment. Follow-up noncontrast CT chest could be obtained in 6-10 weeks.
CXR 09-10-2023:
There are small bilateral pleural effusions
There is mild hazy soft tissue density in the posterior inferior aspect of the right middle layering along the major fissure which may be pneumonia or loculated effusion.
TTE 09-13-2023:
Normal LV size and function with septal hypokinesis.
�EF of 55 to 60% by visual estimation.
�No LVH.
�Stage II diastolic dysfunction suggestive of abnormal relaxation and increased
�filling pressures.
�Mildly dilated left atrium.
�Mild to moderate mitral regurgitation.
�Mild tricuspid regurgitation.
�Mildly elevated estimated PASP of 49 mmHg assuming a right atrial pressure of 3
�mmHg.
�No prior study for comparison.
[2023-09-14 09:04] LABS: Blood Urea Nitrogen 40 mg/dl (7-17); Calcium 9.2 mg/dl (8.4-10.2); Carbon Dioxide 24 mmol/L (22-30); Chloride 98 mmol/L (98-107); Estimated Creatinine Clearance 35 ml/min; Glucose 395 mg/dl (70-99); Potassium 5.2 mmol/L (3.5-5.1); Sodium 130 mmol/L (135-145); eGFR 48.09
[2023-09-14 09:28] VITALS: BP 164/71
[2023-09-14] MEDS: APRESOLINE 10 MG IV (09:35)
--- NOTE | 2023-09-14 10:52 | W.PN.HOSP.TC ---
Today's Communication/Plan
-
IV steroids
monitor BP
monitor mentation
Pulm eval
sputum sample
Assessment / Plan
Assessment / Plan
#COPD flare up
#Tobacco use disorder
-Patient active smoker and has been smoking for many years
-Patient was provided course of azithromycin by primary care physician without much help
-Chest x-ray There are small bilateral pleural effusions There is mild hazy soft tissue density in the posterior inferior aspect of the right middle layering along the major fissure which may be pneumonia or loculated effusion.
-Check CT chest Right upper lobe solid and groundglass nodules, likely infectious/inflammatory in etiology. Recommend follow-up imaging after treatment. Follow-up noncontrast CT chest could be obtained in 6-10 weeks.
-No formal diagnosis of COPD although likely have it with history of smoking and ongoing wheezing
-Patient got IV dexamethasone 10 mg in ER, decrease to 4mg q12h.
-Provide nebulizer therapy
-Significant cough and causing bilateral flank pain. Cough medication/lidocaine patch ordered
-Sputum sample. Acapella
-Pulm eval.
#Nonalcoholic fatty liver disease
# Cirrhosis
-Maintain on home dose of rifaximin/lactulose and diuretics lasix/aldactone
-No signs of decompensated cirrhosis
#Acute on chronic normocytic anemia
#History of GI bleed
-Patient have history of recurrent GI bleed requiring Endoscopic intervention
-Patient gets her care at [facility] usually
-Hemoglobin drifted down to 7.1. No reported melena/emesis
-Check Hemoccult stool test - pending
-s/p 1 U prbc on sat. hbg 9.2 , continue monitor.
#Essential HTN-elevated.
-Continue metoprolol and increase dose 37.5mg
-Cont aldactone/lasix.
-may need to adjust dose further
-prn meds
#Hypothyroidism
-Continue home dose of Euthyrox and
#IDDM - uncontrolled
-Blood glucose significantly elevated due to IV steroid use in ER
-Continue 25u Lantus/15unites Premeal insulin. Diabetic nurse petitioner consulted.
#Chronic HFpEF
-Cont lasix. euvolemic.
-cont bb.
-ECHO noted
DVT PPX - lovenox
Full code
Anticipated Discharge: 24 - 48 hours
Subjective/Interval History
-
Date of Service: September 14, 2023
states of persistent dry cough
Objective Data
-
Labs:
Laboratory Results
09/14/23
07:59
WBC 15.5 H
Hgb 9.8 L
Hct 30.9 L
Plt Count 176
Sodium 130 L
Potassium 5.2 H
Chloride 98
Carbon Dioxide 24
BUN 40 H
Creatinine 1.2 H
Glucose 395 H
Calcium 9.2
Vital Signs:
Vital Signs
Temp Pulse Resp BP Pulse Ox
97.3 F 91 18 164/71 100
09/14/23 07:00 09/14/23 07:00 09/14/23 07:00 09/14/23 09:28 09/14/23 07:00
I&O
09/13/23 09/14/23 09/15/23
06:59 06:59 06:59
Intake Total 1440 / 1440 480 / 480
Balance 1440 / 1440 480 / 480
Physical Exam
-
General: Well Developed and No Apparent Distress
HEENT: Normocephalic, Atraumatic and Moist Mucous Membranes
Respiratory: Rales
Cardiac: Regular Rhythm and S1/S2; Negative Murmur, Rub or Gallop
GI: Soft, Nontender, Nondistended and Normal Bowel Sounds; Negative Organomegaly
Rectal: Deferred by Provider
Musculoskeletal: No Clubbing, No Cyanosis and No Edema
Skin: Negative Rash
Neuro: Awake, Alert, Oriented, AO x 3, No Motor Deficits and Nonfocal/Grossly Intact
Psych: Calm
Data Reviewed
-
Total Time Spent with Patient (in minutes): 55
[2023-09-14] MEDS: TOPROL XL 12.5 MG PO (11:05)
--- NOTE | 2023-09-14 11:06 | PN.CDI ---
CDI
- -
CDI:
Physician Documentation Request
Admit Date: 09/10/23 13:25
Dear Doctor Damion,
Patient admitted for COPD.
Laboratory Tests
09/10/23 09/11/23 09/12/23
10:42 03:40 05:39
Creatinine 0.7 1.1 H 1.1 H
Clarify which of the following accurately represents the patient's renal status:
ALIX
Rise in creatinine only
Other
Criteria for ALIX*
1 Increase in serum creatinine by > or = to 0.3 mg/dL (> or = to 26.5 micromol/L) within 48 hours, OR
2 Increase in serum creatinine to > or = to 1.5 times baseline, which is known or presumed to have occurred within 7 days, OR
3 Urine volume < 0.5 nL/kg/hour for six hours
Use of terms such as suspected, likely, concern for, or probable (associated with a specific diagnosis that is being evaluated, monitored, or treated as if it exists) are acceptable and can be coded in the inpatient setting, when documented at the
time of discharge.
Thank you,
Suzan Gore RN, BSN
CDI Specialist
Available via [employer] text
Please use your independent medical judgment in providing your response.
*Source: Kidney Disease: Improving Global Outcomes (KDIGO) 2012
[2023-09-14 11:27] LABS: Glucose - Point of Care 261 mg/dl (70-99)
[2023-09-14] MEDS: NOVOLOG FLEXPEN-LOW RESISTANCE 3 UNITS SC (12:41)
[2023-09-14] MEDS: LASIX 20 MG PO (12:42)
[2023-09-14 13:05] VITALS: BP 134/78; BP 167/70; PULSE 94
[2023-09-14 15:00] VITALS: BP 128/51
--- NOTE | 2023-09-14 16:45 | PTCARENOTE ---
Per TT from Coating Machine Operator Tameka Douse- floor RN should not hold (or request order to hold) HS lantus 25 u dose unless Pt is Hypoglycemic with a blood sugar < 70. Will pass along in report to weight shifter.
--- NOTE | 2023-09-14 16:49 | PTCARENOTE ---
Pt w high BP @ 0700 this AM- 189/97. AM BP meds administered. Repeat BP 162/74. PRN Hydralazine administered per order for SBP >160. TT to Dr. Bruno to notify as well as advise that Pt is refusing Lactulose. New orders rec'd for increase in
Metoprolol. Repeat BP 125/60.
[2023-09-14 16:51] LABS: Glucose - Point of Care 132 mg/dl (70-99)
[2023-09-14] MEDS: NOVOLOG FLEXPEN-LOW RESISTANCE SC (16:54)
[2023-09-14] MEDS: LOVENOX 40 MG SC (17:43)
[2023-09-14 21:19] LABS: Glucose - Point of Care 86 mg/dl (70-99)
[2023-09-14 21:47] VITALS: BP 114/52
[2023-09-14] MEDS: LANTUS 0.25 UNITS SC (21:49)
[2023-09-14 23:23] VITALS: BP 145/59
[2023-09-14] MEDS: TYLENOL 650 MG PO (23:45)
[2023-09-15] MEDS: SYNTHROID 50 MCG PO (05:24)
[2023-09-15 07:00] VITALS: BP 174/76
[2023-09-15] MEDS: DUONEB 3 ML INH ×4 (07:28→19:59)
[2023-09-15 08:05] LABS: Glucose - Point of Care 218 mg/dl (70-99)
[2023-09-15] MEDS: NOVOLOG FLEXPEN-LOW RESISTANCE 2 UNITS SC (08:34)
[2023-09-15] MEDS: NOVOLOG FLEXPEN 15 UNITS SC ×3 (08:35→17:15)
[2023-09-15] MEDS: XIFAXAN 550 MG PO ×2 (08:36→21:23)
[2023-09-15] MEDS: TOPROL XL 37.5 MG PO (08:36)
[2023-09-15] MEDS: DELTASONE 40 MG PO (08:36)
[2023-09-15] MEDS: ZETIA 10 MG PO (08:36)
[2023-09-15] MEDS: LIDOCAINE 4% PATCH 2 PATCH TOPICAL (08:36)
[2023-09-15] MEDS: TESSALON PERLES 200 MG PO ×3 (08:36→21:23)
[2023-09-15] MEDS: TYLENOL 650 MG PO (08:37)
[2023-09-15] MEDS: PROTONIX 40 MG PO (08:37)
[2023-09-15] MEDS: DUPHALAC/CHRONULAC PO ×2 (08:38→21:24)
[2023-09-15] MEDS: ALDACTONE 25 MG PO (08:38)
[2023-09-15] MEDS: ROXICODONE 15 MG PO ×2 (08:50→21:23)
--- NOTE | 2023-09-15 09:08 | W.PN.PUL3 ---
Addendum entered and electronically signed by Damir Sharif MD 09/15/23 17:52:
She also has poor pulmonary toilet with inadequate cough. I believe that the RUL nodular opacities are due to mucoid impaction. She has areas of bronchial wall thickening as well on her CT chest from 09/13/2023. I will start with mucinex, but if
she still cannot effectly bring up her phlegm, then will try mucomyst with nebs and vest therapy.
Original Note:
Today's Communication / Plan
-
BP control
Check Chest US --> if significant pleural fluid seen then send to IR for thora
Just because there is minimal ascitic fluid does not mean it is not a hepatohydrothorax
Low sodium, fluid restricted diet
Would start to diurese given her echo findings and elevated BNP
If pt spikes fever then ware-cx and start Abx
Pulmonary will continue to follow.
Assessment
-
Assessment: 73-year-old female with a past medical history of tobacco use disorder, ?COPD, nonalcoholic fatty liver disease with reported history of cirrhosis, and CAD s/p CABG who presents with shortness of breath ongoing for 2 months. Patient
reported a productive cough for 2 months and now developed left-sided rib pain. He had completed a Z-Fredrick prior to arrival but is not feeling any better. Patient is also endorsing increased generalized weakness. In the ER patient was afebrile to
98 �F, pulse rate 87, respiratory rate 16 and BP 156/87. SpO2 was 97% on room air. Labs showed glucose 291, ALP elevated at 402, WBC normal at 9.4, Hb 8.4 and platelets [address]. Chest CT was performed showing paraseptal emphysema, patchy groundglass
opacities in the right upper lobe and in lingula, and a mild�moderate sized right pleural effusion, trace left-sided pleural effusion and fluid in the right horizontal fissure. Patient was given DuoNebs, Decadron and oxycodone and admitted to the
hospital service. Pulmonary consulted on 09/12 for additional management/recommendations regarding her abnormal imaging.
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
Impression:
#COPD exacerbation (no PFTs on file, but there is paraseptal emphysema seen on CT chest)
#RUL 7mm solid nodule with GGO in RUL and reticular/nodular opacities in lingula - seen on CT Chest from 09/13/2023
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
#Leukocytosis
#Hyperglycemia
#Acute kidney injury
#Hypothyroidism
#KRAFT cirrhosis
#DM type II (uncontrolled - A1C: 7.4)
#Former tobacco use disorder - quit 10 days ago, as per patient
Plan:
- Continue systemic steroids and wean as tolerated - currently on Decadron 4mg IV q12hr (started 09/12 s/p 4mg IV q8hr from 09/10 - 09/12) --> today I changed to prednisone starting at 40mg with taper by 10mg every 4th day until off
- continue prn Duonebs in addition to standing Duonebs QID --> once she is ready for discharge, would DC on Stiolto respimat and I will arrange for outpatient follow up with me (or she can see a technical services assistant near her in [place])
- Maintain SpO2 >88% and <96%
- Encourage incentive spirometer 10x/hr for at least 4 hrs a day
- She will need repeat chest CT (without contrast) imaging in 6 weeks to assure the GGO/reticular opacities and RUL nodule are stable
- Abd US does not show significant ascites, hence a paracentesis would not be possible or helpul here. Check Chest US to assess pleural effusions --> if large then would send to IR for thora
- If patient spikes fever then start Abx w/ rocephin x7 days and azithromycin x 5 days with ware-Cx prior to starting Abx; check procal (for trending purposes)
- Maintain MAP>65
- Goal BG 140-180
- Replete electrolytes with goal K>4, Mg>2
- ProBNP elevated --> TTE shows stage II diastolic dysfunction with abnormal relaxation and increased pulm pressures. PASP 49 mmHg, normal LV function with septal hypokinesis. Normal RA size and normal RV size/function --> it would not be
unreasonable to diurese more aggressively over next 1-2 days given her echo findings with proBNP of 7190
- Pt will need outpatient follow up for full PFTs
- DVT ppx
Pulmonary service will continue to follow along. Outpatient follow-up is recommended for PFTs and management of her suspected COPD. She lives in [place] so she would like to remain local, however she says she would not be opposed to seeing us
at [facility]. Our office information will be placed into her chart and then she can decide following discharge if she wants to see us or not.
A moderate level of medical decision making was utilized for this encounter.
Data:
CT Chest w/o IV contrast 09-13-2023:
Impression:
1. Trace left and small right pleural effusions.
2. Right upper lobe solid and groundglass nodules, likely infectious/inflammatory in etiology. Recommend follow-up imaging after treatment. Follow-up noncontrast CT chest could be obtained in 6-10 weeks.
CXR 09-10-2023:
There are small bilateral pleural effusions
There is mild hazy soft tissue density in the posterior inferior aspect of the right middle layering along the major fissure which may be pneumonia or loculated effusion.
TTE 09-13-2023:
Normal LV size and function with septal hypokinesis.
�EF of 55 to 60% by visual estimation.
�No LVH.
�Stage II diastolic dysfunction suggestive of abnormal relaxation and increased
�filling pressures.
�Mildly dilated left atrium.
�Mild to moderate mitral regurgitation.
�Mild tricuspid regurgitation.
�Mildly elevated estimated PASP of 49 mmHg assuming a right atrial pressure of 3
�mmHg.
�No prior study for comparison.
Abdominal US 09-15-2023:No significant ascites is identified with ultrasound.
Bilateral pleural effusions, right greater than left.
Subjective Data
-
Date of Service:
Date of Service: September 15, 2023
Chief Complaint: Pulmonary Follow Up
Subjective:
Patient seen and evaluated today at bedside. She still feels short of breath, has some phlegm within insufficient cough. Still having occasional episodes of hypertension. She denies any chest pain, headache, fevers or chills.
Review of Systems
General: Other (Negative unless mentioned above)
Objective Data
Data Reviewed
Vital Signs / I&O / Oxygen:
Vital Signs
Temp Pulse Resp BP Pulse Ox
98.0 F 82 16 174/76 98
09/15/23 07:00 09/15/23 11:31 09/15/23 11:31 09/15/23 07:00 09/15/23 11:31
Intake and Output
09/14/23 09/15/23 09/16/23
06:59 06:59 06:59
Intake Total 480 / 480
Balance 480 / 480
SaO2 98
Physical Exam
General: Comfortable and Sweats (negative)
HEENT: Normocephalic and Anicteric
Cardiovascular: S1-S2 and Peripheral Edema (negative)
Respiratory: Wheeze (negative), Crackles (negative), Rhonchi (negative), Non-Labored Respirations and Other (Coarse breath sounds bilaterally)
GI: Soft, Non Distended and Non Tender
Neurology: Awake and Alert
Skin: Warm and Dry
Labs/Micro/Reports
Lab Data
09/14/23 07:59
09/15/23 08:33
[2023-09-15 09:30] LABS: Blood Urea Nitrogen 48 mg/dl (7-17); Carbon Dioxide 24 mmol/L (22-30); Chloride 102 mmol/L (98-107); Estimated Creatinine Clearance 32 ml/min; Glucose 252 mg/dl (70-99); Potassium 5.3 mmol/L (3.5-5.1); Sodium 130 mmol/L (135-145); eGFR 43.69
[2023-09-15 11:00] VITALS: BP 146/55
[2023-09-15 11:20] VITALS: BP 173/76; PULSE 79; O2SAT 97
[2023-09-15 11:50] LABS: Glucose - Point of Care 180 mg/dl (70-99)
[2023-09-15] MEDS: LASIX 40 MG IV (11:53)
[2023-09-15] MEDS: NOVOLOG FLEXPEN-LOW RESISTANCE 1 UNITS SC (11:54)
--- NOTE | 2023-09-15 12:01 | PN.DE.MGMTRT ---
Insulin Management
- -
09/15/2023 Diabetes Management Follow up
73 year old female with COPD flare up, PMH includes: CABG x 3 2011, HTN, HCL, hypothyroid, KRAFT, GI bleed, active Tobacco use and T2DM, A1C 7.4%.
Prior to admission she reports she was taking 15 units of Humalog ac with 12 to 15 units lantus @ HS. Patient is receiving prednisone 40 mg daily po.
AC novolog remains @ 15 units, hs glucose 86. Lantus dose has been increased to 25 units last HS, fasting glucose this AM 252 venous. Will increase HS lantus to 28 units.
Will follow.
Diabetes History
- -
Type of Diabetes: 2 requiring insulin
Pre-Admission Diabetes Regimen
09/15/23
08:33
Creatinine 1.3 H
Lab Results
Hemoglobin A1c 7.4 % (4.0-5.6) H 09/11/23 03:40
Insulin Pump Settings
IP Diabetes Regimen
09/14/23 09/14/23 09/15/23
16:47 21:18 08:03
Glucose
POC Glucose 132 H 86 218 H
09/15/23 09/15/23
08:33 11:48
Glucose 252 H
POC Glucose 180 H
Patient Education
--- NOTE | 2023-09-15 12:21 | W.PN.HOSP.TC ---
Today's Communication/Plan
-
US chest
Hydralazine
po steroids
IV lasix
Assessment / Plan
Assessment / Plan
#COPD flare up
#Tobacco use disorder
-Patient active smoker and has been smoking for many years
-Patient was provided course of azithromycin by primary care physician without much help
-Chest x-ray There are small bilateral pleural effusions There is mild hazy soft tissue density in the posterior inferior aspect of the right middle layering along the major fissure which may be pneumonia or loculated effusion.
-Check CT chest Right upper lobe solid and groundglass nodules, likely infectious/inflammatory in etiology. Recommend follow-up imaging after treatment. Follow-up noncontrast CT chest could be obtained in 6-10 weeks.
-No formal diagnosis of COPD although likely have it with history of smoking and ongoing wheezing
-Patient got IV dexamethasone 10 mg in ER, decrease to 4mg q12h and now po [id number] with slow taper.
-Provide nebulizer therapy
-Significant cough and causing bilateral flank pain. Cough medication/lidocaine patch ordered
-Sputum sample. Acapella
-Check US chest to assess pleural effusions
-Pulm recs
#Nonalcoholic fatty liver disease
# Cirrhosis
-Maintain on home dose of rifaximin/lactulose and diuretics lasix/aldactone
-US abd to assess for ascites
#Acute on chronic normocytic anemia
#History of GI bleed
-Patient have history of recurrent GI bleed requiring Endoscopic intervention
-Patient gets her care at [facility] usually
-Hemoglobin drifted down to 7.1. No reported melena/emesis
-s/p 1 U prbc on sat. hbg 9.2 , continue monitor.
#Mild hyperkalemia
-IV lasix ordered
#Essential HTN-elevated.
-Continue metoprolol and increase dose 37.5mg
-Cont aldactone/lasix.
-may need to adjust dose further
-hydralazine standing added. reduce afterload
#Hypothyroidism
-Continue home dose of Euthyrox and
#Pseduhyponatremia
-trend bmp for now
#IDDM - uncontrolled
-Blood glucose significantly elevated due to IV steroid use in ER
-Continue 25u Lantus/15unites Premeal insulin. Diabetic nurse petitioner consulted.
#Acute on Chronic HFpEF
-dose of IV lasix today.
-cont bb.
-ECHO noted
#ALIX
-Probnp elevated
-Bladder scan
-IV lasix
-Trend cr
DVT PPX - lovenox
Full code
Anticipated Discharge: > 48 hours
Subjective/Interval History
-
Date of Service: September 15, 2023
states of severe cough
Objective Data
-
Labs:
Laboratory Results
09/15/23
08:33
Sodium 130 L
Potassium 5.3 H
Chloride 102
Carbon Dioxide 24
BUN 48 H
Creatinine 1.3 H
Glucose 252 H
Calcium 9.0
Vital Signs:
Vital Signs
Temp Pulse Resp BP Pulse Ox
98.0 F 82 16 174/76 98
09/15/23 07:00 09/15/23 11:31 09/15/23 11:31 09/15/23 07:00 09/15/23 11:31
I&O
09/14/23 09/15/23 09/16/23
06:59 06:59 06:59
Intake Total 480 / 480
Balance 480 / 480
Physical Exam
-
General: Well Developed and No Apparent Distress
HEENT: Normocephalic, Atraumatic and Moist Mucous Membranes
Respiratory: Rhonchi
Cardiac: Regular Rhythm and S1/S2; Negative Murmur, Rub or Gallop
GI: Soft, Nontender, Normal Bowel Sounds and Distended; Negative Organomegaly
Rectal: Deferred by Provider
Musculoskeletal: No Clubbing, No Cyanosis and No Edema
Skin: Negative Rash
Neuro: Awake, Alert, Oriented, AO x 3, No Motor Deficits and Nonfocal/Grossly Intact
Psych: Calm
Data Reviewed
-
Total Time Spent with Patient (in minutes): 55
--- NOTE | 2023-09-15 13:37 | CM ---
Patient seen bedside.
Patient off the floor this am for testing.
Plan: home with (needs) script for nebulizer.
[2023-09-15] MEDS: APRESOLINE 10 MG PO ×2 (14:14→21:23)
--- NOTE | 2023-09-15 15:24 | PTCARENOTE ---
TT To Dr. Bruno to advise that Pt K+ is 5.3 today. N/O for Lasix 40 mg IV now rec'd and administered.
[2023-09-15 16:00] VITALS: BP 150/69
[2023-09-15 17:01] LABS: Glucose - Point of Care 297 mg/dl (70-99)
[2023-09-15] MEDS: NOVOLOG FLEXPEN-LOW RESISTANCE 3 UNITS SC (17:14)
[2023-09-15] MEDS: LOVENOX 40 MG SC (17:17)
[2023-09-15 21:22] VITALS: BP 131/70
[2023-09-15] MEDS: MUCINEX 1200 MG PO (21:23)
[2023-09-15 21:43] LABS: Glucose - Point of Care 301 mg/dl (70-99)
[2023-09-15] MEDS: LANTUS 0.280000000000000027 UNITS SC (22:09)
[2023-09-15] MEDS: NOVOLOG FLEXPEN 10 UNITS SC (22:09)
[2023-09-15 23:23] VITALS: BP 124/64
[2023-09-16] MEDS: PHENERGAN WITH CODEINE SYRUP 5 ML PO (02:59)
[2023-09-16] MEDS: SYNTHROID 50 MCG PO (06:11)
[2023-09-16 07:32] LABS: Glucose - Point of Care 339 mg/dl (70-99)
[2023-09-16 07:50] VITALS: BP 155/59
[2023-09-16] MEDS: DUONEB 3 ML INH ×4 (08:00→19:48)
[2023-09-16] MEDS: NOVOLOG FLEXPEN-LOW RESISTANCE 4 UNITS SC (08:30)
[2023-09-16] MEDS: NOVOLOG FLEXPEN 15 UNITS SC (08:31)
[2023-09-16] MEDS: LIDOCAINE 4% PATCH 2 PATCH TOPICAL (08:32)
[2023-09-16] MEDS: MUCINEX 1200 MG PO ×2 (08:33→21:10)
[2023-09-16] MEDS: TOPROL XL 37.5 MG PO (08:33)
[2023-09-16] MEDS: DUPHALAC/CHRONULAC PO (08:34)
[2023-09-16] MEDS: TESSALON PERLES 200 MG PO ×3 (08:34→21:09)
[2023-09-16] MEDS: ZETIA 10 MG PO (08:34)
[2023-09-16] MEDS: APRESOLINE 10 MG PO ×2 (08:34→21:09)
[2023-09-16] MEDS: DELTASONE 40 MG PO (08:34)
[2023-09-16] MEDS: PROTONIX 40 MG PO (08:34)
[2023-09-16] MEDS: XIFAXAN 550 MG PO ×2 (08:34→21:10)
[2023-09-16] MEDS: ALDACTONE 25 MG PO (08:34)
--- NOTE | 2023-09-16 08:58 | W.PN.PUL3 ---
Today's Communication / Plan
-
BP control
Check Chest US --> if significant pleural fluid seen then send to IR for thora
Just because there is minimal ascitic fluid does not mean it is not a hepatohydrothorax
Low sodium, fluid restricted diet
Continue IV lasix given her echo findings and elevated BNP
Given her wet, ineffective cough, I will start mucomyst with vest as a trial
If pt spikes fever then ware-cx and start Abx
Pulmonary will continue to follow.
Assessment
-
Assessment: 73-year-old female with a past medical history of tobacco use disorder, ?COPD, nonalcoholic fatty liver disease with reported history of cirrhosis, and CAD s/p CABG who presents with shortness of breath ongoing for 2 months. Patient
reported a productive cough for 2 months and now developed left-sided rib pain. He had completed a Z-Fredrick prior to arrival but is not feeling any better. Patient is also endorsing increased generalized weakness. In the ER patient was afebrile to
98 �F, pulse rate 87, respiratory rate 16 and BP 156/87. SpO2 was 97% on room air. Labs showed glucose 291, ALP elevated at 402, WBC normal at 9.4, Hb 8.4 and platelets 170. Chest CT was performed showing paraseptal emphysema, patchy groundglass
opacities in the right upper lobe and in lingula, and a mild�moderate sized right pleural effusion, trace left-sided pleural effusion and fluid in the right horizontal fissure. Patient was given DuoNebs, Decadron and oxycodone and admitted to the ""hospital service. Pulmonary consulted on 09/12 for additional management/recommendations regarding her abnormal imaging.
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
Impression:
#COPD exacerbation (no PFTs on file, but there is paraseptal emphysema seen on CT chest)
#RUL 7mm solid nodule with GGO in RUL and reticular/nodular opacities in lingula - seen on CT Chest from 09/13/2023
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
#Leukocytosis
#Hyperglycemia
#Acute kidney injury
#Hypothyroidism
#KRAFT cirrhosis
#DM type II (uncontrolled - A1C: 7.4)
#Former tobacco use disorder - quit 10 days ago, as per patient
Plan:
- Continue systemic steroids and wean as tolerated - currently on Decadron 4mg IV q12hr (started 09/12 s/p 4mg IV q8hr from 09/10 - 09/12) --> today I changed to prednisone starting at 40mg with taper by 10mg every 4th day until off
- continue prn Duonebs in addition to standing Duonebs QID --> once she is ready for discharge, would DC on Stiolto respimat and I will arrange for outpatient follow up with me (or she can see a metal neutralizer near her in [place])
- Given her ineffective cough which sounds wet, I added mucinex that does not seem to be helping. I will thus order Mucomyst with Vest.
- Maintain SpO2 >88% and <96%
- Encourage incentive spirometer 10x/hr for at least 4 hrs a day
- She will need repeat chest CT (without contrast) imaging in 6 weeks to assure the GGO/reticular opacities and RUL nodule are stable
- Abd US does not show significant ascites, hence a paracentesis would not be possible or helpul here. Check Chest US to assess pleural effusions --> if large then would send to IR for thora
- If patient spikes fever then start Abx w/ rocephin x7 days and azithromycin x 5 days with ware-Cx prior to starting Abx; check procal (for trending purposes)
- Maintain MAP>65
- Goal BG 140-180
- Replete electrolytes with goal K>4, Mg>2
- ProBNP elevated --> TTE shows stage II diastolic dysfunction with abnormal relaxation and increased pulm pressures. PASP 49 mmHg, normal LV function with septal hypokinesis. Normal RA size and normal RV size/function --> it would not be
unreasonable to diurese more aggressively over next 1-2 days given her echo findings with proBNP of 7190 --> lasix 40mg IV lasix started since 09/14; trend UOP, I/O
- Pt will need outpatient follow up for full PFTs
- DVT ppx
Pulmonary service will continue to follow along. Outpatient follow-up is recommended for PFTs and management of her suspected COPD. She lives in [place] so she would like to remain local, however she says she would not be opposed to seeing us
at [facility]. Our office information will be placed into her chart and then she can decide following discharge if she wants to see us or not.
A moderate level of medical decision making was utilized for this encounter.
Data:
CT Chest w/o IV contrast 09-13-2023:
Impression:
1. Trace left and small right pleural effusions.
2. Right upper lobe solid and groundglass nodules, likely infectious/inflammatory in etiology. Recommend follow-up imaging after treatment. Follow-up noncontrast CT chest could be obtained in 6-10 weeks.
CXR 09-10-2023:
There are small bilateral pleural effusions
There is mild hazy soft tissue density in the posterior inferior aspect of the right middle layering along the major fissure which may be pneumonia or loculated effusion.
TTE 09-13-2023:
Normal LV size and function with septal hypokinesis.
�EF of 55 to 60% by visual estimation.
�No LVH.
�Stage II diastolic dysfunction suggestive of abnormal relaxation and increased
�filling pressures.
�Mildly dilated left atrium.
�Mild to moderate mitral regurgitation.
�Mild tricuspid regurgitation.
�Mildly elevated estimated PASP of 49 mmHg assuming a right atrial pressure of 3
�mmHg.
�No prior study for comparison.
Abdominal US 09-15-2023:No significant ascites is identified with ultrasound.
Bilateral pleural effusions, right greater than left.
Subjective Data
-
Date of Service:
Date of Service: September 16, 2023
Chief Complaint: Pulmonary Follow Up
Subjective:
Pt seen today. She says she still feels 'out of sorts.' She seems to be breathing comfortably. She is on room air. She still has a cough that she cannot bring up her phlegm. She denies chest pain, TOVAR, abd pain, N, V/f/c.
Review of Systems
General: Other (negative unless mentioned above)
Objective Data
Data Reviewed
Vital Signs / I&O / Oxygen:
Vital Signs
Temp Pulse Resp BP Pulse Ox
97.7 F 88 16 155/59 97
09/16/23 07:50 09/16/23 07:50 09/16/23 07:50 09/16/23 07:50 09/16/23 07:50
Intake and Output
09/15/23 09/16/23 09/17/23
06:59 06:59 06:59
Intake Total 480 / 480
Balance 480 / 480
SaO2 97
Physical Exam
General: Comfortable and Sweats (negative)
HEENT: Normocephalic and Anicteric
Cardiovascular: S1-S2 and Peripheral Edema (negative)
Respiratory: Wheeze (negative), Crackles (negative), Rhonchi (bilaterally (posterior lung brannon)), Non-Labored Respirations and Other (Coarse breath sounds bilaterally)
GI: Soft, Non Distended and Non Tender
Neurology: Awake and Alert
Skin: Warm and Dry
Labs/Micro/Reports
Lab Data
09/14/23 07:59
09/16/23 08:31
[2023-09-16 09:19] LABS: Procalcitonin 0.12 ng/ml (0.0-0.25)
[2023-09-16 09:38] LABS: Blood Urea Nitrogen 55 mg/dl (7-17); Calcium 9.1 mg/dl (8.4-10.2); Carbon Dioxide 27 mmol/L (22-30); Chloride 97 mmol/L (98-107); Estimated Creatinine Clearance 35 ml/min; Glucose 334 mg/dl (70-99); Sodium 132 mmol/L (135-145); eGFR 48.09
--- NOTE | 2023-09-16 10:01 | PN.DE.MGMTRT ---
Insulin Management
- -
09/16/2023 Diabetes Management Follow up
Spoke with patient this AM, she is awake alert and oriented. Discussed glucoses trending up to >300. She states that happens at home also.
73 year old female with COPD flare up, PMH includes: CABG x 3 2011, HTN, HCL, hypothyroid, KRAFT, GI bleed, active Tobacco use and T2DM, A1C 7.4%.
Prior to admission she reports she was taking 15 units of Humalog ac with 12 to 15 units lantus @ HS. Patient continues receiving prednisone 40 mg daily po.
Lantus dose increased to 28 units las hs, fasting glucose this AM 339. Will again increase hS lantus to 32 units and check 3AM glucose. Pre meal glucose yesterday trended up to 297, HS 301. Will increase AC novolog to 18 units with corrective
insulin. Will follow.
Diabetes History
- -
Type of Diabetes: 2 requiring insulin
Pre-Admission Diabetes Regimen
09/16/23
08:31
Creatinine 1.2 H
Lab Results
Hemoglobin A1c 7.4 % (4.0-5.6) H 09/11/23 03:40
Insulin Pump Settings
IP Diabetes Regimen
09/15/23 09/15/23 09/15/23
11:48 16:59 21:42
Glucose
POC Glucose 180 H 297 H 301 H
09/16/23 09/16/23
07:31 08:31
Glucose 334 H
POC Glucose 339 H
Patient Education
[2023-09-16 11:18] LABS: Glucose - Point of Care 207 mg/dl (70-99)
--- NOTE | 2023-09-16 11:29 | W.PN.HOSP.TC ---
Today's Communication/Plan
-
IV lasix again
US chest pending
Pulm recs
Assessment / Plan
Assessment / Plan
#COPD flare up
#Tobacco use disorder
-Patient active smoker and has been smoking for many years
-Patient was provided course of azithromycin by primary care physician without much help
-Chest x-ray There are small bilateral pleural effusions There is mild hazy soft tissue density in the posterior inferior aspect of the right middle layering along the major fissure which may be pneumonia or loculated effusion.
-Check CT chest Right upper lobe solid and groundglass nodules, likely infectious/inflammatory in etiology. Recommend follow-up imaging after treatment. Follow-up noncontrast CT chest could be obtained in 6-10 weeks.
-No formal diagnosis of COPD although likely have it with history of smoking and ongoing wheezing
-Patient got IV dexamethasone 10 mg in ER, decrease to 4mg q12h and now po [id number] with slow taper.
-Provide nebulizer therapy
-Significant cough and causing bilateral flank pain. Cough medication/lidocaine patch ordered
-Sputum sample. Acapella
-Check US chest to assess pleural effusions pending
-Pulm recs
#Nonalcoholic fatty liver disease
# Cirrhosis
-Maintain on home dose of rifaximin/lactulose and diuretics lasix/aldactone
-US abd to assess for ascites -negative.
#Acute on chronic normocytic anemia
#History of GI bleed
-Patient have history of recurrent GI bleed requiring Endoscopic intervention
-Patient gets her care at [facility] usually
-Hemoglobin drifted down to 7.1. No reported melena/emesis
-s/p 1 U prbc on sat. hbg 9.2 , continue monitor.
#Mild hyperkalemia
-IV lasix ordered
#Acute on Chronic HFpEF
-IV lasix 40mg again today.
-cont bb.
-ECHO noted
#Essential HTN-elevated.
-Continue metoprolol and increase dose 37.5mg
-Cont aldactone/lasix.
-may need to adjust dose further
-hydralazine standing added. reduce afterload
#Hypothyroidism
-Continue home dose of Euthyrox and
#Pseduhyponatremia
-trend bmp for now. Improving
#IDDM - uncontrolled
-Blood glucose significantly elevated due to IV steroid use in ER
-Continue 32 u Lantus/18 unites Premeal insulin. Diabetic nurse petitioner consulted.
#ALIX
-Probnp elevated
-Bladder scan
-IV lasix
-Trend cr
DVT PPX - lovenox
Full code
Anticipated Discharge: 24 - 48 hours
Subjective/Interval History
-
Date of Service: September 16, 2023
states of abd distention
intermittent cough
Objective Data
-
Labs:
Laboratory Results
09/16/23
08:31
Sodium 132 L
Potassium 5.0
Chloride 97 L
Carbon Dioxide 27
BUN 55 H
Creatinine 1.2 H
Glucose 334 H
Calcium 9.1
Vital Signs:
Vital Signs
Temp Pulse Resp BP Pulse Ox
97.7 F 88 16 155/59 97
09/16/23 07:50 09/16/23 07:50 09/16/23 07:50 09/16/23 07:50 09/16/23 07:50
I&O
09/15/23 09/16/23 09/17/23
06:59 06:59 06:59
Intake Total 480 / 480
Balance 480 / 480
Physical Exam
-
General: Well Developed and No Apparent Distress
HEENT: Normocephalic, Atraumatic and Moist Mucous Membranes
Respiratory: Rhonchi (improving )
Cardiac: Regular Rhythm and S1/S2; Negative Murmur, Rub or Gallop
GI: Soft, Nontender, Normal Bowel Sounds and Distended; Negative Organomegaly
Rectal: Deferred by Provider
Musculoskeletal: No Clubbing, No Cyanosis and No Edema
Skin: Negative Rash
Neuro: Awake, Alert, Oriented, AO x 3, No Motor Deficits and Nonfocal/Grossly Intact
Psych: Calm
Data Reviewed
-
Total Time Spent with Patient (in minutes): 55
[2023-09-16] MEDS: NOVOLOG FLEXPEN-LOW RESISTANCE 2 UNITS SC (12:03)
[2023-09-16] MEDS: NOVOLOG FLEXPEN 18 UNITS SC ×2 (12:03→17:09)
[2023-09-16] MEDS: LASIX 40 MG IV (12:09)
[2023-09-16 14:30] VITALS: BP 124/74; PULSE 78
[2023-09-16 14:57] VITALS: BP 124/62
[2023-09-16] MEDS: ROBITUSSIN 200 MG PO (16:28)
[2023-09-16 16:46] LABS: Glucose - Point of Care 151 mg/dl (70-99)
--- NOTE | 2023-09-16 16:50 | CM ---
Patient seen bedside.
Ambulating in room.
PT recommending outpatient therapy.
Plan: home with outpatient PT will need script, patient also needs a script for nebulizer.
Daughter will transport.
[2023-09-16] MEDS: LOVENOX 40 MG SC (17:05)
[2023-09-16] MEDS: NOVOLOG FLEXPEN-LOW RESISTANCE 1 UNITS SC (17:09)
[2023-09-16] MEDS: MUCOMYST 10% 4 ML INH (19:48)
[2023-09-16] MEDS: DUPHALAC/CHRONULAC 15 GRAMS PO (21:08)
[2023-09-16] MEDS: ROXICODONE 15 MG PO (21:15)
[2023-09-16 21:50] LABS: Glucose - Point of Care 91 mg/dl (70-99)
[2023-09-16] MEDS: LANTUS 0.320000000000000007 UNITS SC (21:50)
[2023-09-16 23:00] VITALS: BP 151/62
[2023-09-17] MEDS: TYLENOL 650 MG PO (01:20)
[2023-09-17 05:54] VITALS: BMI 23.8
[2023-09-17] MEDS: SYNTHROID 50 MCG PO (06:10)
[2023-09-17 06:35] LABS: Blood Urea Nitrogen 58 mg/dl (7-17); Calcium 8.7 mg/dl (8.4-10.2); Carbon Dioxide 28 mmol/L (22-30); Chloride 106 mmol/L (98-107); Estimated Creatinine Clearance 22 ml/min; Glucose 158 mg/dl (70-99); Potassium 4.8 mmol/L (3.5-5.1); Sodium 138 mmol/L (135-145); eGFR 27.71
--- NOTE | 2023-09-17 07:23 | PN.DE.MGMTRT ---
Insulin Management
- -
09/17/2023 Diabetes Management F/U:
73 year old female with COPD flare up, PMH includes: CAD/CABG x 3 2011, HTN, HCL, hypothyroid, KRAFT, GI bleed, active Tobacco use and T2DM, A1C 7.4%. 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
Pt A/O x3, resting in bed, offers no complaints. Remains on oral steroids- Prednisone 40 mg daily.
Lantus dose increased yesterday to 32 units @HS, Glucose improved, FBG 158 this AM. 3AM glucose was not checked.
Will make no changes to current regimen: Lantus to 32 units and AC NovoLog 18 units with corrective insulin.
Will follow.
Diabetes History
- -
Type of Diabetes: 2 requiring insulin
Pre-Admission Diabetes Regimen
09/16/23 09/17/23
08:31 05:42
Creatinine 1.2 H 1.9 H
Lab Results
Hemoglobin A1c 7.4 % (4.0-5.6) H 09/11/23 03:40
Insulin Pump Settings
IP Diabetes Regimen
09/16/23 09/16/23 09/16/23
07:31 08:31 11:17
Glucose 334 H
POC Glucose 339 H 207 H
09/16/23 09/16/23 09/17/23
16:45 21:48 05:42
Glucose 158 H
POC Glucose 151 H 91
Meal type: Lunch
Meal type: Breakfast
Amount consumed: 100%
Amount consumed: 100%
Amount consumed: 100%
Patient Education
[2023-09-17] MEDS: DUONEB 3 ML INH ×4 (07:38→19:34)
[2023-09-17] MEDS: MUCOMYST 10% 4 ML INH ×3 (07:38→19:34)
[2023-09-17 07:42] VITALS: BP 197/77
[2023-09-17] MEDS: XIFAXAN 550 MG PO ×2 (07:46→20:39)
[2023-09-17] MEDS: DUPHALAC/CHRONULAC 15 GRAMS PO ×2 (07:46→20:36)
[2023-09-17] MEDS: PROTONIX 40 MG PO (07:47)
[2023-09-17] MEDS: ZETIA 10 MG PO (07:47)
[2023-09-17] MEDS: TESSALON PERLES 200 MG PO ×3 (07:47→22:16)
[2023-09-17] MEDS: APRESOLINE 10 MG PO ×2 (07:48→12:02)
[2023-09-17] MEDS: ALDACTONE 25 MG PO (07:48)
[2023-09-17] MEDS: MUCINEX 1200 MG PO ×2 (07:48→20:38)
[2023-09-17] MEDS: DELTASONE 40 MG PO (07:49)
[2023-09-17] MEDS: TOPROL XL 37.5 MG PO (07:49)
[2023-09-17] MEDS: LASIX 40 MG IV (07:50)
[2023-09-17] MEDS: LIDOCAINE 4% PATCH 2 PATCH TOPICAL (07:53)
[2023-09-17] MEDS: NOVOLOG FLEXPEN-LOW RESISTANCE 1 UNITS SC (08:09)
[2023-09-17] MEDS: NOVOLOG FLEXPEN 18 UNITS SC (08:09)
[2023-09-17 08:10] LABS: Glucose - Point of Care 169 mg/dl (70-99)
[2023-09-17] MEDS: ROXICODONE 15 MG PO (08:47)
--- NOTE | 2023-09-17 08:57 | W.PN.PUL3 ---
Today's Communication / Plan
-
BP control
Low sodium, fluid restricted diet
Hold lasix and aldactone given her ALIX
Given her wet, ineffective cough, I started mucomyst with vest as a trial, and she seems to be benefiting from this
If pt spikes fever then ware-cx and start Abx
Pulmonary will continue to follow.
Assessment
-
Assessment: 73-year-old female with a past medical history of tobacco use disorder, ?COPD, nonalcoholic fatty liver disease with reported history of cirrhosis, and CAD s/p CABG who presents with shortness of breath ongoing for 2 months. Patient
reported a productive cough for 2 months and now developed left-sided rib pain. He had completed a Z-Fredrick prior to arrival but is not feeling any better. Patient is also endorsing increased generalized weakness. In the ER patient was afebrile to
98 �F, pulse rate 87, respiratory rate 16 and BP 156/87. SpO2 was 97% on room air. Labs showed glucose 291, ALP elevated at 402, WBC normal at 9.4, Hb 8.4 and platelets 170. Chest CT was performed showing paraseptal emphysema, patchy groundglass
opacities in the right upper lobe and in lingula, and a mild�moderate sized right pleural effusion, trace left-sided pleural effusion and fluid in the right horizontal fissure. Patient was given DuoNebs, Decadron and oxycodone and admitted to the
hospital service. Pulmonary consulted on 09/12 for additional management/recommendations regarding her abnormal imaging.
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
Impression:
#COPD exacerbation (no PFTs on file, but there is paraseptal emphysema seen on CT chest)
#RUL 7mm solid nodule with GGO in RUL and reticular/nodular opacities in lingula - seen on CT Chest from 09/13/2023
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
#Leukocytosis
#Hyperglycemia
#Acute kidney injury - worsening
#Hypothyroidism
#KRAFT cirrhosis
#DM type II (uncontrolled - A1C: 7.4)
#Former tobacco use disorder - quit 10 days ago, as per patient
Plan:
- Continue systemic steroids and wean as tolerated - currently on Decadron 4mg IV q12hr (started 09/12 s/p 4mg IV q8hr from 09/10 - 09/12) --> on 09/14 I changed to prednisone starting at 40mg with taper by 10mg every 4th day until off
- continue prn Duonebs in addition to standing Duonebs QID --> once she is ready for discharge, would DC on Stiolto respimat and I will arrange for outpatient follow up with me (or she can see a student assistance counselor near her in [place])
- Given her ineffective cough which sounds wet, I added mucinex, and mucomyst with Vest --> she is reporting a benefit with these interventions
- Maintain SpO2 >88% and <96%
- Encourage incentive spirometer 10x/hr for at least 4 hrs a day
- She will need repeat chest CT (without contrast) imaging in 6 weeks to assure the GGO/reticular opacities and RUL nodule are stable
- Abd US does not show significant ascites, hence a paracentesis would not be possible or helpul here. Chest US shows small right pleural effusion and trace left pleural effusion � too small to tap
- If patient spikes fever then start Abx w/ rocephin x7 days and azithromycin x 5 days with ware-Cx prior to starting Abx; procal 0.12 (09/16/2023)
- Maintain MAP>65
- Goal BG 140-180
- Replete electrolytes with goal K>4, Mg>2
- ProBNP elevated --> TTE shows stage II diastolic dysfunction with abnormal relaxation and increased pulm pressures. PASP 49 mmHg, normal LV function with septal hypokinesis. Normal RA size and normal RV size/function --> it would not be
unreasonable to diurese more aggressively given her echo findings with proBNP of 7190 --> lasix 40mg IV lasix started on 09/14, unfortunately she devleoped ALIX. Nephrology now consulted. Lasix on hold, so is aldactone. Trend UOP, I/O; Renal US is
pending. I am hopeful that holding her diuretics will result in her Cr coming back down .
- Pt will need outpatient follow up for full PFTs
- DVT ppx
Pulmonary service will continue to follow along. Outpatient follow-up is recommended for PFTs and management of her suspected COPD. She lives in [place] so she would like to remain local, however she says she would not be opposed to seeing us
at [facility]. Our office information will be placed into her chart and then she can decide following discharge if she wants to see us or not.
A moderate level of medical decision making was utilized for this encounter.
Data:
CT Chest w/o IV contrast 09-13-2023:
Impression:
1. Trace left and small right pleural effusions.
2. Right upper lobe solid and groundglass nodules, likely infectious/inflammatory in etiology. Recommend follow-up imaging after treatment. Follow-up noncontrast CT chest could be obtained in 6-10 weeks.
CXR 09-10-2023:
There are small bilateral pleural effusions
There is mild hazy soft tissue density in the posterior inferior aspect of the right middle layering along the major fissure which may be pneumonia or loculated effusion.
Chest US 09-16-2023: Small right pleural effusion. Trace left pleural effusion.
TTE 09-13-2023:
Normal LV size and function with septal hypokinesis.
�EF of 55 to 60% by visual estimation.
�No LVH.
�Stage II diastolic dysfunction suggestive of abnormal relaxation and increased
�filling pressures.
�Mildly dilated left atrium.
�Mild to moderate mitral regurgitation.
�Mild tricuspid regurgitation.
�Mildly elevated estimated PASP of 49 mmHg assuming a right atrial pressure of 3
�mmHg.
�No prior study for comparison.
Abdominal US 09-15-2023:No significant ascites is identified with ultrasound.
Bilateral pleural effusions, right greater than left.
Subjective Data
-
Date of Service:
Date of Service: September 17, 2023
Chief Complaint: Pulmonary Follow Up
Subjective:
Patient seen today. She says she is feeling much better today. Breathing better as well. The vest is helping her a lot. She denies any overnight events. Her creatinine is worsening. Nephrology consulted, renal ultrasound pending. Patient
denies chest pain, headache, abdominal pain, fevers or chills. Even her right-sided back pain is also improved. She is eager to go home.
Review of Systems
General: Other (Negative unless mentioned above)
Objective Data
Data Reviewed
Vital Signs / I&O / Oxygen:
Vital Signs
Temp Pulse Resp BP Pulse Ox
97.7 F 69 16 143/55 99
09/17/23 11:51 09/17/23 12:02 09/17/23 11:51 09/17/23 12:02 09/17/23 11:51
Intake and Output
09/16/23 09/17/23 09/18/23
06:59 06:59 06:59
Intake Total 480 / 480 600 / 600
Balance 480 / 480 600 / 600
SaO2 99
Physical Exam
General: Comfortable and Sweats (negative)
HEENT: Normocephalic and Anicteric
Cardiovascular: S1-S2 and Peripheral Edema (negative)
Respiratory: Wheeze (negative), Crackles (Bibasilar), Rhonchi (bilaterally in bases (posterior lung brannon)), Non-Labored Respirations and Other (Coarse breath sounds bilaterally)
GI: Soft, Non Distended and Non Tender
Neurology: Awake and Alert
Skin: Warm and Dry
Labs/Micro/Reports
Lab Data
09/14/23 07:59
09/17/23 05:42
[2023-09-17 10:08] LABS: Urine Albumin Trace (Neg - Trace); Urine Bilirubin Negative (Negative); Urine Character Clear (Clear); Urine Color Yellow; Urine Glucose Negative (Negative); Urine Ketone Negative (Negative); Urine Leukocyte Negative (Negative); Urine Nitrite Negative (Negative); Urine Occult Blood Negative (Negative); Urine Urobilinogen Negative (Neg - 1+)
[2023-09-17 10:28] LABS: Urine Sodium 138 mmol/L (30-90)
[2023-09-17 11:23] LABS: Glucose - Point of Care 62 mg/dl (70-99)
[2023-09-17] MEDS: NOVOLOG FLEXPEN SC (11:24)
[2023-09-17] MEDS: NOVOLOG FLEXPEN-LOW RESISTANCE SC (11:25)
--- NOTE | 2023-09-17 11:29 | W.PN.HOSP.TC ---
Today's Communication/Plan
-
Adjust BP meds
hold lasix
nephro
vest therapy
cont steroids
Assessment / Plan
Assessment / Plan
#COPD flare up
#Tobacco use disorder
-Patient active smoker and has been smoking for many years
-Patient was provided course of azithromycin by primary care physician without much help
-Chest x-ray There are small bilateral pleural effusions There is mild hazy soft tissue density in the posterior inferior aspect of the right middle layering along the major fissure which may be pneumonia or loculated effusion.
-Check CT chest Right upper lobe solid and groundglass nodules, likely infectious/inflammatory in etiology. Recommend follow-up imaging after treatment. Follow-up noncontrast CT chest could be obtained in 6-10 weeks.
-No formal diagnosis of COPD although likely have it with history of smoking and ongoing wheezing
-Patient got IV dexamethasone 10 mg in ER, decrease to 4mg q12h and now po prednisone 40mg with slow taper.
-Provide nebulizer therapy
-On vest therapy
-cough is improving. Cough medication/lidocaine patch ordered
-Sputum sample. Acapella
-Ultrasound chest with small right and trace left pleural effusion
-Pulm recs
#Nonalcoholic fatty liver disease
# Cirrhosis
-Maintain on home dose of rifaximin/lactulose. Refusing lactulose intermittently.
-US abd to assess for ascites -negative.
#Acute on chronic normocytic anemia
#History of GI bleed
-Patient have history of recurrent GI bleed requiring Endoscopic intervention
-Patient gets her care at [facility] usually
-Hemoglobin drifted down to 7.1. No reported melena/emesis
-s/p 1 U prbc on sat. hbg 9.2 , continue monitor.
#ALIX on likely CKD.
-Unknown baseline. Obtain records.
-Doubt HRS.
-Probnp elevated
-Bladder scan
-Cr bumped to 1.9.
-Trend cr
-FENA with intrinsic. Eos pending. Holding diuretics.
-Ua with no cast. [place].
-ask nephro for input.
#Mild hyperkalemia
-resolved
#Acute on Chronic HFpEF
-hold lasix
-cont bb.
-ECHO noted
#Essential HTN-elevated.
-Continue metoprolol and increase dose 37.5mg
-Cont aldactone/lasix.
-may need to adjust dose further
-hydralazine standing added and will increase dose. reduce afterload
#Hypothyroidism
-Continue home dose of synthroid
#Pseduhyponatremia
-resolved.
#IDDM - uncontrolled
-Blood glucose significantly elevated due to IV steroid use in ER
-Continue 32 u Lantus/18 unites Premeal insulin. Diabetic nurse petitioner consulted.
-POC am 169. Lunch 62 may need to decrease insulin.
DVT PPX - lovenox
Full code
Anticipated Discharge: > 48 hours
Subjective/Interval History
-
Date of Service: September 17, 2023
States improvement in cough
States overall weakness
States passing increasing amount of urine
Objective Data
-
Labs:
Laboratory Results
09/17/23
05:42
Sodium 138
Potassium 4.8
Chloride 106
Carbon Dioxide 28
BUN 58 H
Creatinine 1.9 H
Glucose 158 H
Calcium 8.7
Vital Signs:
Vital Signs
Temp Pulse Resp BP Pulse Ox
97.9 F 78 16 197/77 97
09/17/23 07:42 09/17/23 07:42 09/17/23 07:42 09/17/23 07:42 09/17/23 07:45
I&O
09/16/23 09/17/23 09/18/23
06:59 06:59 06:59
Intake Total 480 / 480 600 / 600
Balance 480 / 480 600 / 600
Physical Exam
-
General: Well Developed and No Apparent Distress
HEENT: Normocephalic, Atraumatic and Moist Mucous Membranes
Respiratory: Rhonchi (improving )
Cardiac: Regular Rhythm and S1/S2; Negative Murmur, Rub or Gallop
GI: Soft, Nontender, Normal Bowel Sounds and Distended; Negative Organomegaly
Rectal: Deferred by Provider
Musculoskeletal: No Clubbing, No Cyanosis and No Edema
Skin: Negative Rash
Neuro: Awake, Alert, Oriented, AO x 3, No Motor Deficits and Nonfocal/Grossly Intact
Psych: Calm
Data Reviewed
-
Total Time Spent with Patient (in minutes): 54
[2023-09-17 11:42] LABS: Glucose - Point of Care 72 mg/dl (70-99)
[2023-09-17 11:51] VITALS: BP 143/55
[2023-09-17 12:08] LABS: Glucose - Point of Care 99 mg/dl (70-99)
[2023-09-17 15:10] VITALS: BP 144/54
--- NOTE | 2023-09-17 15:31 | W.CON.NEPH ---
Consultation
-
Date/Time Consultation Requested: 09/17/23 1140
Date/Time Consultation Performed: 09/17/23 1400
Requesting Provider: Sukumar Hou
Performing Provider: Suze Avila
Reason for Consultation: ALIX
Medical History
-
Chief Complaint: SOB, cough
History of Present Illness:
Yesenia is a 73-year-old female with a history of nonalcoholic fatty liver, cirrhosis on Lasix, spironolactone, rifaximin, lactulose follows at [place], insulin-dependent diabetes mellitus, known history of GI bleeding and multiple endoscopies and
colonoscopy, CAD with prior history of CABG, PAd, active smoker hypertension on metoprolol, hypothyroidism on levothyroxine who usually gets her care at [facility].� For last 2 months patient has been noticing progressive shortness of breath
and unable to walk 15-20 feet without getting short of breath.� Patient also having excessive cough up to the point where having bilateral lower rib cage pain.� Patient also noted herself wheezing at times.� Patient also having some balance problems
and had a mechanical fall.� Patient has been losing weight for some time and primary care physician ordered protein supplements. No abdominal pain/nausea/vomiting.She was diagnosed with a COPD exacerbation and also noted pleural effusion receiving
IV Lasix for CHF noted to have elevated creatinine on admission 09/11 was at 0.7-1, now up to 1.9 hence nephrology consulted and Lasix has been held. Patient reports mild lightheadedness but no dizziness. Denies any chest pain. Shortness of breath
is improving, denies any dysuria. She also mentions of increasing abdominal girth prior to the admission and ultrasound found no significant ascites to tap.
Past Medical History
nonalcoholic fatty liver disease and cirrhosis, history of GI bleed and multiple endoscopic procedure, coronary disease and bypass, history of peripheral artery disease, tobacco use, hypertension, hypothyroidism
Social History
Tobacco: Smoker
Alcohol: None
Living: With Family
Family History
no h/o CKD
Family History: Not Pertinent
Allergies / Home Medications
Allergy/AdvReac Type Severity Reaction Status Date / Time
adhesive Allergy Itching Verified 09/10/23 17:59
Medication Instructions Recorded Confirmed Type
albuterol sulfate 90 mcg/actuation 2 puff inhalation R Q4HPRN PRN 09/10/23 09/10/23 History
aerosol inhaler sob/wheezing
azithromycin 250 mg tablet 0 mg PO .COMPLEX Infection 09/10/23 09/10/23 History
diazepam 10 mg tablet 10 mg PO BIDPRN PRN anxiety 09/10/23 09/10/23 History
ezetimibe 10 mg tablet 10 mg PO DAILY High Cholesterol 09/10/23 09/10/23 History
furosemide 20 mg tablet 20 mg PO DAILY@1400 Fluid 09/10/23 09/10/23 History
Retention/Swelling
gabapentin 100 mg capsule 100 mg PO TID PRN nerve pain 09/10/23 09/10/23 History
insulin glargine 100 unit/mL (3 12 - 15 unit SC HS diabetes 09/10/23 09/10/23 History
mL) subcutaneous pen (Lantus
Solostar U-100 Insulin)
insulin lispro 100 unit/mL 15 unit SC AC diabetes 09/10/23 09/10/23 History
subcutaneous pen (Humalog KwikPen
(U-100) Insulin)
lactulose 10 gram/15 mL oral 15 ml PO .SEE BELOW fatty 09/10/23 09/10/23 History
solution liver disease/cirrhosis
levothyroxine 50 mcg tablet 50 mcg PO DAILY Thyroid 09/10/23 09/10/23 History
metoprolol succinate 25 mg 25 mg PO DAILY Blood Pressure 09/10/23 09/10/23 History
tablet,extended release 24 hr
omeprazole 20 mg capsule,delayed 20 mg PO DAILY Gastrointestinal 09/10/23 09/10/23 History
release Issue
oxycodone 15 mg tablet 15 mg PO QID pain 09/10/23 09/10/23 History
rifaximin 550 mg tablet (Xifaxan) 550 mg PO Q12H fatty liver 09/10/23 09/10/23 History
disease/cirrhosis
Review of Systems
-
All complete 12 point of ROS have been inquired and found negative other than stated in HPI
Physical Exam
Vital Signs
Vital Signs
Temp Pulse Resp BP Pulse Ox
97.7 F 69 16 143/55 99
09/17/23 11:51 09/17/23 12:02 09/17/23 11:51 09/17/23 12:02 09/17/23 11:51
Lab Results
WBC 15.5 10^3/uL (4.8-10.8) H 09/14/23 07:59
RBC 3.69 10^6/uL (4.20-5.40) L 09/14/23 07:59
Hgb 9.8 g/dL (12.0-16.0) L 09/14/23 07:59
Hct 30.9 % (37.0-47.0) L 09/14/23 07:59
Plt Count 176 10^3/uL (130-400) 09/14/23 07:59
Sodium 138 mmol/L (135-145) 09/17/23 05:42
Potassium 4.8 mmol/L (3.5-5.1) 09/17/23 05:42
Chloride 106 mmol/L (98-107) 09/17/23 05:42
Carbon Dioxide 28 mmol/L (22-30) 09/17/23 05:42
BUN 58 mg/dl (7-17) H 09/17/23 05:42
Creatinine 1.9 mg/dL (0.6-1.0) H 09/17/23 05:42
eGFR 27.71 09/17/23 05:42
Glucose 158 mg/dl (70-99) H 09/17/23 05:42
Calcium 8.7 mg/dl (8.4-10.2) 09/17/23 05:42
Oen-V-Slsewxgzieg Pept 7190 pg/ml 09/10/23 10:42
Albumin 3.3 g/dl (3.5-5.0) L 09/10/23 10:42
Exams:� US Abdomen Limited
EXAMINATION: Ultrasound abdomen limited.
INDICATION: 73-year-old with cirrhosis and pleural effusion. Evaluation for ascites.
COMPARISON: CT of the chest from September 13, 2023.
FINDINGS: Ultrasound of the abdomen is performed, with evaluation of all 4 quadrants to assess for ascites.
Bilateral pleural effusions are noted, right greater than left.
No significant ascites is identified by ultrasound. Of note, there was a small amount of ascites within the right and left upper quadrants adjacent to the liver and spleen on CT scan on September 13, 2023.
IMPRESSION: No significant ascites is identified with ultrasound.
Bilateral pleural effusions, right greater than left.
�
Electronically signed by Brian Riley MD 09/15/2023 11:12 AM
chest US:
FINDINGS/IMPRESSION:
Small right pleural effusion. Trace left pleural effusion.
Electronically signed by Car Jones 09/16/2023 9:[address] chest:
IMPRESSION:
1. Trace left and small right pleural effusions.
2. Right upper lobe solid and groundglass nodules, likely infectious/inflammatory in etiology. Recommend follow-up imaging after treatment. Follow-up noncontrast CT chest could be obtained in 6-10 weeks.
Electronically signed by Juve Clements 09/13/2023 1:58 PM
Echo:
CONCLUSIONS
�Normal LV size and function with septal hypokinesis.
�EF of 55 to 60% by visual estimation.
�No LVH.
�Stage II diastolic dysfunction suggestive of abnormal relaxation and increased
�filling pressures.
�Mildly dilated left atrium.
�Mild to moderate mitral regurgitation.
�Mild tricuspid regurgitation.
�Mildly elevated estimated PASP of 49 mmHg assuming a right atrial pressure of 3
�mmHg.
�No prior study for comparison.
Physical Exam
General: Awake, Alert, Oriented, AOx3, No Distress and Nontoxic
HEENT: EOMI and Anicteric
Respiratory: Wheezes, Crackels, Normal Excursion and Nonlabored Respirations
Cardiac: S1/S2 and Regular Rate/Rhythm
Abdomen: Soft and Nontender (distended)
Musculoskeletal: No Cyanosis and No Edema
Skin: No Rash
Neuro: Nonfocal/Grossly Intact
Psych: Mood/afflect pleasant, Insight/judgement good and Appropriate
Assessment/Plan
-
IMP:
ALIX-baseline cr unknown but on admit was 0.7
COPD exacerbation
Tobacco use disorder
small bilateral pleural effusions
Nonalcoholic fatty liver disease with Cirrhosis
Acute on chronic normocytic anemia
History of GI bleed
Mild hyperkalemia-resolved
Pseudohyponatremia from hyperglycemia
Acute on Chronic HFpEF
Essential HTN
Hypothyroidism
IDDM - uncontrolled
Plan:
A/w COPD flare and CHF
cr no clear baseline but has been 0.7 on admit
significantly increased today at 1.9, suspect from diuresis unlikely HRS
UA is bland, U na high with lasix
BP stable with out hypotension
check renal US and follow bladder scan
cont to hold Aldactone, k normalized
avoid nephrotoxins
hb stable pos t pRBC
d/w pt
Data Reviewed
-
Radiology: Report Reviewed by me
CT Scan: Report Reviewed by me
Ultrasound: Report Reviewed by me
Labs: Labs Reviewed by me and Discussed with Patient
Old Records: Reviewed
[2023-09-17 16:54] LABS: Glucose - Point of Care 224 mg/dl (70-99)
[2023-09-17] MEDS: NOVOLOG FLEXPEN 16 UNITS SC (17:04)
[2023-09-17] MEDS: NOVOLOG FLEXPEN-LOW RESISTANCE 2 UNITS SC (17:04)
[2023-09-17] MEDS: LOVENOX SC ×2 (17:05→17:08)
--- NOTE | 2023-09-17 18:49 | CM ---
patiient with copd exac,cont duonebs,prednisone,vest therapy,adjusting bp meds.plan is dc home with op physical therapy.
[2023-09-17] MEDS: APRESOLINE 20 MG PO (20:36)
[2023-09-17 22:11] LABS: Glucose - Point of Care 267 mg/dl (70-99)
[2023-09-17] MEDS: LANTUS 0.320000000000000007 UNITS SC (22:15)
[2023-09-17 23:00] VITALS: BP 135/52
[2023-09-18] MEDS: TYLENOL 650 MG PO (01:05)
[2023-09-18 01:11] LABS: Glucose - Point of Care 205 mg/dl (70-99)
[2023-09-18 05:06] VITALS: BMI 23.8
[2023-09-18] MEDS: SYNTHROID 50 MCG PO (06:01)
[2023-09-18 07:00] VITALS: BP 158/67
[2023-09-18] MEDS: DUPHALAC/CHRONULAC 15 GRAMS PO ×2 (07:17→20:34)
[2023-09-18] MEDS: MUCINEX 1200 MG PO ×2 (07:18→20:33)
[2023-09-18] MEDS: ZETIA 10 MG PO (07:18)
[2023-09-18] MEDS: TOPROL XL 37.5 MG PO (07:19)
[2023-09-18] MEDS: DELTASONE 30 MG PO (07:19)
[2023-09-18] MEDS: PROTONIX 40 MG PO (07:19)
[2023-09-18 07:22] LABS: Glucose - Point of Care 120 mg/dl (70-99)
[2023-09-18] MEDS: XIFAXAN 550 MG PO ×2 (07:22→20:33)
[2023-09-18] MEDS: APRESOLINE 20 MG PO ×2 (07:22→20:33)
[2023-09-18] MEDS: TESSALON PERLES 200 MG PO ×3 (07:23→22:06)
[2023-09-18] MEDS: LIDOCAINE 4% PATCH 2 PATCH TOPICAL (07:23)
[2023-09-18] MEDS: LOVENOX SC (07:24)
[2023-09-18] MEDS: NOVOLOG FLEXPEN-LOW RESISTANCE SC ×2 (07:26→12:29)
[2023-09-18] MEDS: NOVOLOG FLEXPEN 16 UNITS SC ×2 (07:27→17:07)
[2023-09-18] MEDS: DUONEB 3 ML INH ×4 (07:56→19:35)
[2023-09-18] MEDS: MUCOMYST 10% 4 ML INH ×3 (07:56→19:35)
[2023-09-18 08:21] LABS: Blood Urea Nitrogen 55 mg/dl (7-17); Calcium 8.7 mg/dl (8.4-10.2); Carbon Dioxide 27 mmol/L (22-30); Chloride 107 mmol/L (98-107); Estimated Creatinine Clearance 30 ml/min; Glucose 90 mg/dl (70-99); Potassium 4.4 mmol/L (3.5-5.1); Sodium 137 mmol/L (135-145); eGFR 39.97
[2023-09-18 08:26] LABS: Body Fluid for Eosinophils No Eosinophils seen
--- NOTE | 2023-09-18 11:16 | W.PN.NEPH.PH ---
Today's Communication / Plan
-
observe off lasix
Assessment/Plan
-
IMP:
ALIX-baseline cr unknown but on admit was 0.7
COPD exacerbation
Tobacco use disorder
small bilateral pleural effusions
Nonalcoholic fatty liver disease with Cirrhosis
Acute on chronic normocytic anemia
History of GI bleed
Mild hyperkalemia-resolved
Pseudohyponatremia from hyperglycemia
Acute on Chronic HFpEF
Essential HTN
Hypothyroidism
IDDM - uncontrolled
Plan:
A/w COPD flare and CHF
cr no clear baseline but has been 0.7 on admit
ALIX felt to be from overdiuresis
cr improving with holding lasix and Aldactone
UA is bland, U na high with lasix
normal renal US, no hydro
BP mildly elevated expect to improve with weaning steroids
avoid nephrotoxins
d/w pt
-
-
Date of Service: September 18, 2023
CC / HPI / ROS
-
Chief Complaint:
ALIX
History of Present Illness:
cr improving to 1.4, UO P not recorded
wt no change
BP mildly high
Review of Systems:
feels well, still with cough
abd distension better since BMx2
no n/v
Labs
-
Labs:
WBC 15.5 10^3/uL (4.8-10.8) H 09/14/23 07:59
RBC 3.69 10^6/uL (4.20-5.40) L 09/14/23 07:59
Hgb 9.8 g/dL (12.0-16.0) L 09/14/23 07:59
Hct 30.9 % (37.0-47.0) L 09/14/23 07:59
Plt Count 176 10^3/uL (130-400) 09/14/23 07:59
Sodium 137 mmol/L (135-145) 09/18/23 07:03
Potassium 4.4 mmol/L (3.5-5.1) 09/18/23 07:03
Chloride 107 mmol/L (98-107) 09/18/23 07:03
Carbon Dioxide 27 mmol/L (22-30) 09/18/23 07:03
BUN 55 mg/dl (7-17) H 09/18/23 07:03
Creatinine 1.4 mg/dL (0.6-1.0) H 09/18/23 07:03
eGFR 39.97 09/18/23 07:03
Glucose 90 mg/dl (70-99) 09/18/23 07:03
Calcium 8.7 mg/dl (8.4-10.2) 09/18/23 07:03
Elr-U-Gwthxbeiedo Pept 7190 pg/ml 09/10/23 10:42
Albumin 3.3 g/dl (3.5-5.0) L 09/10/23 10:42
Physical Exam
-
Vital Signs:
Vital Signs
Temp Pulse Resp BP Pulse Ox
97.5 F 74 16 158/67 99
09/18/23 07:00 09/18/23 08:02 09/18/23 08:02 09/18/23 07:19 09/18/23 08:02
Cardiovascular:: Regular rate and rhythm
Respiratory:: Bilateral: Coarse
Lung Excursion:: Normal
Abdomen:: Nontender and Soft
Extremity Edema:: None: Bilateral:
Bravo Catheter: No
[2023-09-18 11:42] LABS: Glucose - Point of Care 91 mg/dl (70-99)
--- NOTE | 2023-09-18 12:02 | W.PN.HOSP.TC ---
Today's Communication/Plan
-
IRAD for para
holding lasix/aldactone
trend bp
Assessment / Plan
Assessment / Plan
#COPD flare up
#Tobacco use disorder
-Patient active smoker and has been smoking for many years
-Patient was provided course of azithromycin by primary care physician without much help
-Chest x-ray There are small bilateral pleural effusions There is mild hazy soft tissue density in the posterior inferior aspect of the right middle layering along the major fissure which may be pneumonia or loculated effusion.
-Check CT chest Right upper lobe solid and groundglass nodules, likely infectious/inflammatory in etiology. Recommend follow-up imaging after treatment. Follow-up noncontrast CT chest could be obtained in 6-10 weeks.
-No formal diagnosis of COPD although likely have it with history of smoking and ongoing wheezing
-Patient got IV dexamethasone 10 mg in ER, decrease to 4mg q12h and now po prednisone 30mg with slow taper.
-Provide nebulizer therapy
-On vest therapy
-cough is improving. Cough medication/lidocaine patch ordered
-Sputum sample. Acapella
-Ultrasound chest with small right and trace left pleural effusion
-Pulm recs
#Nonalcoholic fatty liver disease
# Cirrhosis
-Maintain on home dose of rifaximin/lactulose. Refusing lactulose intermittently.
-Renal US with ascites-Will ask IRAD for para.
#Acute on chronic normocytic anemia
#History of GI bleed
-Patient have history of recurrent GI bleed requiring Endoscopic intervention
-Patient gets her care at [facility] usually
-Hemoglobin drifted down to 7.1. No reported melena/emesis
-s/p 1 U prbc on sat. hbg 9.2 , continue monitor.
#ALIX on likely CKD.
-Unknown baseline. Obtain records.
-Doubt HRS.
-Probnp elevated
-Bladder scan
-Cr slowly downtrending. Cr 1.4.
-Trend cr
-FENA with intrinsic. Eos pending. Holding diuretics.
-Ua with no cast. [place].
-nephro on board.
#Mild hyperkalemia
-resolved
#Acute on Chronic HFpEF
-hold lasix
-cont bb.
-ECHO noted
#Essential HTN-elevated.
-Continue metoprolol and increase dose 37.5mg
-Cont aldactone/lasix.
-may need to adjust dose further
-hydralazine standing added and will increase dose. reduce afterload
#Hypothyroidism
-Continue home dose of synthroid
#Pseduhyponatremia
-resolved.
#IDDM - uncontrolled
-Blood glucose significantly elevated due to IV steroid use in ER
-Continue 32 u Lantus/18 unites Premeal insulin. Diabetic nurse petitioner consulted.
-POC am 169. Lunch 62 may need to decrease insulin.
DVT PPX - lovenox
Full code
Anticipated Discharge: 24 - 48 hours
Subjective/Interval History
-
Date of Service: September 18, 2023
states feeling better
Objective Data
-
Labs:
Laboratory Results
09/18/23
07:03
Sodium 137
Potassium 4.4
Chloride 107
Carbon Dioxide 27
BUN 55 H
Creatinine 1.4 H
Glucose 90
Calcium 8.7
Vital Signs:
Vital Signs
Temp Pulse Resp BP Pulse Ox
97.5 F 74 16 158/67 99
09/18/23 07:00 09/18/23 08:02 09/18/23 08:02 09/18/23 07:19 09/18/23 08:02
I&O
09/17/23 09/18/23 09/19/23
06:59 06:59 06:59
Intake Total 600 / 600 1020 / 1020
Balance 600 / 600 1020 / 1020
Physical Exam
-
General: Well Developed and No Apparent Distress
HEENT: Normocephalic, Atraumatic and Moist Mucous Membranes
Respiratory: Rhonchi (improved)
Cardiac: Regular Rhythm and S1/S2; Negative Murmur, Rub or Gallop
GI: Soft, Nontender, Normal Bowel Sounds and Distended; Negative Organomegaly
Rectal: Deferred by Provider
Musculoskeletal: No Clubbing, No Cyanosis and No Edema
Skin: Negative Rash
Neuro: Awake, Alert, Oriented, AO x 3, No Motor Deficits and Nonfocal/Grossly Intact
Psych: Calm
Data Reviewed
-
Total Time Spent with Patient (in minutes): 55
[2023-09-18] MEDS: NOVOLOG FLEXPEN SC (12:28)
[2023-09-18 14:58] VITALS: PULSE 78; O2SAT 96
[2023-09-18 15:00] VITALS: BP 174/77
--- NOTE | 2023-09-18 15:58 | W.PN.PUL3 ---
Today's Communication / Plan
-
Continue nebulizer therapy
Mucomyst nebulized as well
Continue to hold antibiotics
For paracentesis
Pleural effusion not amenable for thoracentesis
Continue secretion clearance interventions- VEST etc
Prednisone taper
Assessment
-
Assessment: 73-year-old female with a past medical history of tobacco use disorder, ?COPD, nonalcoholic fatty liver disease with reported history of cirrhosis, and CAD s/p CABG who presents with shortness of breath ongoing for 2 months. Patient
reported a productive cough for 2 months and now developed left-sided rib pain. He had completed a Z-Fredrick prior to arrival but is not feeling any better. Patient is also endorsing increased generalized weakness. In the ER patient was afebrile to
98 �F, pulse rate 87, respiratory rate 16 and BP 156/87. SpO2 was 97% on room air. Labs showed glucose 291, ALP elevated at 402, WBC normal at 9.4, Hb 8.4 and platelets 170. Chest CT was performed showing paraseptal emphysema, patchy groundglass
opacities in the right upper lobe and in lingula, and a mild�moderate sized right pleural effusion, trace left-sided pleural effusion and fluid in the right horizontal fissure. Patient was given DuoNebs, Decadron and oxycodone and admitted to the
hospital service. Pulmonary consulted on 09/12 for additional management/recommendations regarding her abnormal imaging.
Chronic conditions RECORDER GRAVITY PROSPECTING: Nonalcoholic fatty liver disease and cirrhosis, history of GI bleed, CAD s/p CABG x3, history of PAD, tobacco use disorder, hypertension, hypothyroidism, DM type II, hyperlipidemia
Impression:
#COPD exacerbation (no PFTs on file, but there is paraseptal emphysema seen on CT chest)
#RUL 7mm solid nodule with GGO in RUL and reticular/nodular opacities in lingula - seen on CT Chest from 09/13/2023
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
#Leukocytosis
#Hyperglycemia
#Acute kidney injury - worsening
#Hypothyroidism
#KRAFT cirrhosis
#DM type II (uncontrolled - A1C: 7.4)
#Former tobacco use disorder - quit 10 days ago, as per patient
Plan:
Clinically better, reports improvement in cough and wheezing.
Not requiring oxygen supplementation.
She likely has chronic bronchitis component.
- Continue systemic steroids and wean as tolerated - on 09/14-changed to prednisone starting at 40mg with taper by 10mg every 4th day until off
- continue prn Duonebs in addition to standing Duonebs QID --> once she is ready for discharge, would DC on Stiolto respimat and I will arrange for outpatient follow up with me (or she can see a bull rider near her in [place])
Continue antitussives.
Monitor blood sugars on high-dose of steroids- Goal BG 140-180
- Given her ineffective cough which sounds wet continue: mucinex, and mucomyst nebulizer with Vest --> she is reporting a benefit with these interventions-can continue while in the hospital.
- Maintain SpO2 >88% and <96%
- Encourage incentive spirometer 10x/hr for at least 4 hrs a day
-
- She will need repeat chest CT (without contrast) imaging in 6 weeks to assure the GGO/reticular opacities and RUL nodule are stable-patient aware.
So far No evidence for infection. Monitor for fevers. No indication for antibiotics at this point.
-
Small bilateral pleural effusions. Not amenable for thoracentesis.
Patient is going for paracentesis
-
ProBNP elevated --> TTE shows stage II diastolic dysfunction with abnormal relaxation and increased pulm pressures. PASP 49 mmHg, normal LV function with septal hypokinesis. Normal RA size and normal RV size/function -status post diuresis
currently on hold. Follow electrolytes and renal function.
-
Ongoing smoking cessation encouraged. Quit smoking before coming to the hospital.
-
In the outpatient setting:will need outpatient follow up for full PFTs
- DVT ppx
Pulmonary service will continue to follow along. Outpatient follow-up is recommended for PFTs and management of her suspected COPD. She lives in [place] so she would like to remain local, however she says she would not be opposed to seeing us
at [facility]. Our office information will be placed into her chart and then she can decide following discharge if she wants to see us or not.
A moderate level of medical decision making was utilized for this encounter.

Data:
CT Chest w/o IV contrast 09-13-2023:
Impression:
1. Trace left and small right pleural effusions.
2. Right upper lobe solid and groundglass nodules, likely infectious/inflammatory in etiology. Recommend follow-up imaging after treatment. Follow-up noncontrast CT chest could be obtained in 6-10 weeks.
CXR 09-10-2023:
There are small bilateral pleural effusions
There is mild hazy soft tissue density in the posterior inferior aspect of the right middle layering along the major fissure which may be pneumonia or loculated effusion.
Chest US 09-16-2023: Small right pleural effusion. Trace left pleural effusion.
TTE 09-13-2023:
Normal LV size and function with septal hypokinesis.
�EF of 55 to 60% by visual estimation.
�No LVH.
�Stage II diastolic dysfunction suggestive of abnormal relaxation and increased
�filling pressures.
�Mildly dilated left atrium.
�Mild to moderate mitral regurgitation.
�Mild tricuspid regurgitation.
�Mildly elevated estimated PASP of 49 mmHg assuming a right atrial pressure of 3
�mmHg.
�No prior study for comparison.
Abdominal US 09-15-2023:No significant ascites is identified with ultrasound.
Bilateral pleural effusions, right greater than left.
Subjective Data
-
Date of Service:
Date of Service: September 18, 2023
Chief Complaint: Pulmonary Follow Up
Subjective:
Patient reports that the cough is improving.
Sputum production also better.
Review of Systems
Cardiopulmonary: Cough, Sputum Production and Chest Pain (n)
Objective Data
Data Reviewed
Vital Signs / I&O / Oxygen:
Vital Signs
Temp Pulse Resp BP Pulse Ox
97.5 F 74 16 158/67 99
09/18/23 07:00 09/18/23 08:02 09/18/23 08:02 09/18/23 07:19 09/18/23 08:02
Intake and Output
09/17/23 09/18/23 09/19/23
06:59 06:59 06:59
Intake Total 600 / 600 1020 / 1020
Balance 600 / 600 1020 / 1020
SaO2 99
Physical Exam
General: Comfortable and Sweats (negative)
HEENT: Normocephalic and Anicteric
Cardiovascular: S1-S2 and Peripheral Edema (negative)
Respiratory: Wheeze (negative), Crackles (Bibasilar), Rhonchi (bilaterally in bases (posterior lung brannon)), Non-Labored Respirations and Other (Coarse breath sounds bilaterally)
GI: Soft, Non Distended and Non Tender
Neurology: Awake and Alert
Skin: Warm and Dry
Labs/Micro/Reports
Lab Data
09/14/23 07:59
09/18/23 07:03
[2023-09-18 17:06] LABS: Glucose - Point of Care 323 mg/dl (70-99)
[2023-09-18] MEDS: NOVOLOG FLEXPEN-LOW RESISTANCE 4 UNITS SC (17:07)
[2023-09-18] MEDS: ROXICODONE 15 MG PO (20:38)
[2023-09-18 21:37] LABS: Glucose - Point of Care 212 mg/dl (70-99)
[2023-09-18] MEDS: LANTUS 0.320000000000000007 UNITS SC (22:06)
[2023-09-18 23:00] VITALS: BP 175/74
[2023-09-19 03:46] VITALS: BMI 24.0
[2023-09-19] MEDS: SYNTHROID 50 MCG PO (06:19)
[2023-09-19 07:35] VITALS: BP 137/75
[2023-09-19] MEDS: DUONEB 3 ML INH ×4 (07:56→19:33)
[2023-09-19] MEDS: MUCOMYST 10% 4 ML INH ×3 (07:56→19:33)
[2023-09-19] MEDS: DUPHALAC/CHRONULAC 15 GRAMS PO (07:59)
[2023-09-19] MEDS: MUCINEX 1200 MG PO ×2 (08:00→19:32)
[2023-09-19] MEDS: DELTASONE 30 MG PO (08:01)
[2023-09-19] MEDS: PROTONIX 40 MG PO (08:01)
[2023-09-19] MEDS: TESSALON PERLES 200 MG PO ×3 (08:01→21:39)
[2023-09-19] MEDS: XIFAXAN 550 MG PO ×2 (08:01→19:32)
[2023-09-19] MEDS: TOPROL XL 37.5 MG PO (08:01)
[2023-09-19] MEDS: APRESOLINE 20 MG PO ×2 (08:03→19:32)
[2023-09-19] MEDS: ZETIA 10 MG PO (08:03)
[2023-09-19] MEDS: NOVOLOG FLEXPEN 16 UNITS SC ×3 (08:04→17:03)
[2023-09-19] MEDS: LIDOCAINE 4% PATCH 2 PATCH TOPICAL (08:06)
[2023-09-19] MEDS: LOVENOX SC (08:08)
[2023-09-19 08:10] LABS: Glucose - Point of Care 93 mg/dl (70-99)
[2023-09-19] MEDS: NOVOLOG FLEXPEN-LOW RESISTANCE SC ×3 (08:11→17:04)
[2023-09-19] MEDS: ROXICODONE 15 MG PO ×3 (09:15→23:19)
[2023-09-19 09:16] LABS: Blood Urea Nitrogen 55 mg/dl (7-17); Calcium 8.9 mg/dl (8.4-10.2); Carbon Dioxide 25 mmol/L (22-30); Chloride 107 mmol/L (98-107); Estimated Creatinine Clearance 35 ml/min; Glucose 95 mg/dl (70-99); Potassium 4.1 mmol/L (3.5-5.1); Sodium 139 mmol/L (135-145); eGFR 48.09
--- NOTE | 2023-09-19 09:25 | W.PN.UPDATE ---
Update Note
Progress Note Update
- Imaging reviewed. Trace ascites on recent Renal US. Not enough fluid to safely perform paracentesis.
[2023-09-19 11:18] LABS: Glucose - Point of Care 116 mg/dl (70-99)
--- NOTE | 2023-09-19 12:10 | W.PN.HOSP.TC ---
Today's Communication/Plan
-
diuretics on hold
Nephro recs
monitor bp
start dispo
Assessment / Plan
Assessment / Plan
#COPD flare up
#Tobacco use disorder
-Patient active smoker and has been smoking for many years
-Patient was provided course of azithromycin by primary care physician without much help
-Chest x-ray There are small bilateral pleural effusions There is mild hazy soft tissue density in the posterior inferior aspect of the right middle layering along the major fissure which may be pneumonia or loculated effusion.
-Check CT chest Right upper lobe solid and groundglass nodules, likely infectious/inflammatory in etiology. Recommend follow-up imaging after treatment. Follow-up noncontrast CT chest could be obtained in 6-10 weeks.
-No formal diagnosis of COPD although likely have it with history of smoking and ongoing wheezing
-Patient got IV dexamethasone 10 mg in ER, decrease to 4mg q12h and now po prednisone 30mg with slow taper.
-Provide nebulizer therapy
-On vest therapy
-cough is improving. Cough medication/lidocaine patch ordered
-Sputum sample. Acapella
-Ultrasound chest with small right and trace left pleural effusion
-Pulm recs
#Nonalcoholic fatty liver disease
# Cirrhosis
-Maintain on home dose of rifaximin/lactulose. Refusing lactulose intermittently.
-Renal US with ascites-d/w with IRAD not enough fluid for paracentesis
#Acute on chronic normocytic anemia
#History of GI bleed
-Patient have history of recurrent GI bleed requiring Endoscopic intervention
-Patient gets her care at [facility] usually
-Hemoglobin drifted down to 7.1. No reported melena/emesis
-s/p 1 U prbc on sat. hbg 9.2 , continue monitor.
#ALIX on likely CKD.
-Unknown baseline. Obtain records.
-Doubt HRS.
-Probnp elevated
-Bladder scan
-Cr slowly downtrending. Cr 1.42
-Trend cr
-FENA with intrinsic. Eos pending. Holding diuretics.
-Ua with no cast. [place].
-nephro on board.
#Mild hyperkalemia
-resolved
#Acute on Chronic HFpEF
-hold lasix
-cont bb.
-ECHO noted
#Essential HTN-elevated.
-Continue metoprolol and increase dose 37.5mg
-holding aldactone/lasix.
-may need to adjust dose further
-hydralazine standing added and will increase dose. reduce afterload. BP improved.
#Hypothyroidism
-Continue home dose of synthroid
#Pseduhyponatremia
-resolved.
#IDDM - uncontrolled
-Blood glucose significantly elevated due to IV steroid use in ER
-Continue 32 u Lantus/18 unites Premeal insulin. Diabetic nurse petitioner consulted.
-POC am 169. Lunch 62 may need to decrease insulin.
DVT PPX - lovenox
Full code
Anticipated Discharge: Within 24 hours
Subjective/Interval History
-
Date of Service: September 19, 2023
severe cough overnight
Objective Data
-
Labs:
Laboratory Results
09/19/23
08:45
Sodium 139
Potassium 4.1
Chloride 107
Carbon Dioxide 25
BUN 55 H
Creatinine 1.2 H
Glucose 95
Calcium 8.9
Vital Signs:
Vital Signs
Temp Pulse Resp BP Pulse Ox
97.9 F 76 16 137/75 100
09/19/23 07:35 09/19/23 11:46 09/19/23 11:46 09/19/23 07:35 09/19/23 08:56
I&O
09/18/23 09/19/23 09/20/23
06:59 06:59 06:59
Intake Total 1020 / 1020 1500 / 1500
Balance 1020 / 1020 1500 / 1500
Physical Exam
-
General: Well Developed and No Apparent Distress
HEENT: Normocephalic, Atraumatic and Moist Mucous Membranes
Respiratory: Rhonchi (improvement )
Cardiac: Regular Rhythm and S1/S2; Negative Murmur, Rub or Gallop
GI: Soft, Nontender, Normal Bowel Sounds and Distended; Negative Organomegaly
Rectal: Deferred by Provider
Musculoskeletal: No Clubbing, No Cyanosis and No Edema
Skin: Negative Rash
Neuro: Awake, Alert, Oriented, AO x 3, No Motor Deficits and Nonfocal/Grossly Intact
Psych: Calm
--- NOTE | 2023-09-19 13:47 | W.PN.PUL3 ---
Today's Communication / Plan
-
Prednisone taper
Nebulizer
Secretion clearance interventions
Hopefully discharge soon
Assessment
-
Assessment: 73-year-old female with a past medical history of tobacco use disorder, ?COPD, nonalcoholic fatty liver disease with reported history of cirrhosis, and CAD s/p CABG who presents with shortness of breath ongoing for 2 months. Patient
reported a productive cough for 2 months and now developed left-sided rib pain. He had completed a Z-Fredrick prior to arrival but is not feeling any better. Patient is also endorsing increased generalized weakness. In the ER patient was afebrile to
98 �F, pulse rate 87, respiratory rate 16 and BP 156/87. SpO2 was 97% on room air. Labs showed glucose 291, ALP elevated at 402, WBC normal at 9.4, Hb 8.4 and platelets 170. Chest CT was performed showing paraseptal emphysema, patchy groundglass
opacities in the right upper lobe and in lingula, and a mild�moderate sized right pleural effusion, trace left-sided pleural effusion and fluid in the right horizontal fissure. Patient was given DuoNebs, Decadron and oxycodone and admitted to the
hospital service. Pulmonary consulted on 09/12 for additional management/recommendations regarding her abnormal imaging.
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
Impression:
#COPD exacerbation (no PFTs on file, but there is paraseptal emphysema seen on CT chest)
#RUL 7mm solid nodule with GGO in RUL and reticular/nodular opacities in lingula - seen on CT Chest from 09/13/2023
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
#Leukocytosis
#Hyperglycemia
#Acute kidney injury - worsening
#Hypothyroidism
#KRAFT cirrhosis
#DM type II (uncontrolled - A1C: 7.4)
#Former tobacco use disorder - quit 10 days ago, as per patient
Plan:
Clinically improved. Not bronchospastic on exam but has a wet cough. Suspect chronic bronchitic component from smoking. Quit smoking recently.
-
Not requiring oxygen supplementation.
-
Continue oral steroids on 09/14-changed to prednisone starting at 40mg with taper by 10mg every 4th day until off-currently 30 mg.
continue prn Duonebs in addition to standing Duonebs QID --> once she is ready for discharge, would DC on Stiolto respimat and I will arrange for outpatient follow up with Dr. Sharif (or she can see a machine grainer near her in [place])
information will be left in the chart.
Continue antitussives.
Monitor blood sugars on high-dose of steroids- Goal BG 140-180
Continue: mucinex, and mucomyst nebulizer with Vest --> she is reporting a benefit with these interventions-can continue while in the hospital.
- Encourage incentive spirometer
- She will need repeat chest CT (without contrast) imaging in 6 weeks to assure the GGO/reticular opacities and RUL nodule are stable-patient aware.
So far No evidence for infection. Monitor for fevers. No indication for antibiotics at this point.
-
Small bilateral pleural effusions. Not amenable for thoracentesis.
Abdominal fluid not significant enough for paracentesis.
-
ProBNP elevated --> TTE shows stage II diastolic dysfunction with abnormal relaxation and increased pulm pressures. PASP 49 mmHg, normal LV function with septal hypokinesis. Normal RA size and normal RV size/function
-status post diuresis currently on hold.
Follow electrolytes and renal function.
-
Ongoing smoking cessation encouraged. Quit smoking before coming to the hospital.
-
In the outpatient setting:will need outpatient follow up for full PFTs
- DVT ppx
Hopefully patient can be discharged soon. At that time we will decide whether she would benefit from long-acting bronchodilators. The complicating factor is that this patient does not follow-up in our office.
-
Outpatient follow-up is recommended for PFTs and management of her suspected COPD. She lives in [place] so she would like to remain local, however she says she would not be opposed to seeing us at [facility]. Our office information will be placed
into her chart and then she can decide following discharge if she wants to see us or not.

Data:
CT Chest w/o IV contrast 09-13-2023:
Impression:
1. Trace left and small right pleural effusions.
2. Right upper lobe solid and groundglass nodules, likely infectious/inflammatory in etiology. Recommend follow-up imaging after treatment. Follow-up noncontrast CT chest could be obtained in 6-10 weeks.
CXR 09-10-2023:
There are small bilateral pleural effusions
There is mild hazy soft tissue density in the posterior inferior aspect of the right middle layering along the major fissure which may be pneumonia or loculated effusion.
Chest US 09-16-2023: Small right pleural effusion. Trace left pleural effusion.
TTE 09-13-2023:
Normal LV size and function with septal hypokinesis.
�EF of 55 to 60% by visual estimation.
�No LVH.
�Stage II diastolic dysfunction suggestive of abnormal relaxation and increased
�filling pressures.
�Mildly dilated left atrium.
�Mild to moderate mitral regurgitation.
�Mild tricuspid regurgitation.
�Mildly elevated estimated PASP of 49 mmHg assuming a right atrial pressure of 3
�mmHg.
�No prior study for comparison.
Abdominal US 09-15-2023:No significant ascites is identified with ultrasound.
Bilateral pleural effusions, right greater than left.
Subjective Data
-
Date of Service:
Date of Service: September 19, 2023
Chief Complaint: Pulmonary Follow Up
Subjective:
Reports that wheezing has improved.
Denies significant hemoptysis.
Review of Systems
Cardiopulmonary: Dyspnea (n), Dyspnea on Exertion (n), Cough and Wheezing (improved)
GI: Abdominal Pain (n) and Nausea (n)
Neuro: Headache (n)
Objective Data
Data Reviewed
Vital Signs / I&O / Oxygen:
Vital Signs
Temp Pulse Resp BP Pulse Ox
97.9 F 76 16 137/75 100
09/19/23 07:35 09/19/23 11:46 09/19/23 11:46 09/19/23 07:35 09/19/23 08:56
Intake and Output
09/18/23 09/19/23 09/20/23
06:59 06:59 06:59
Intake Total 1020 / 1020 1500 / 1500
Balance 1020 / 1020 1500 / 1500
SaO2 100
Physical Exam
General: Comfortable and Sweats (negative)
HEENT: Normocephalic and Anicteric
Cardiovascular: S1-S2 and Peripheral Edema (negative)
Respiratory: Wheeze (negative), Crackles (Bibasilar), Rhonchi (bilaterally in bases (posterior lung brannon)), Non-Labored Respirations and Other (Coarse breath sounds bilaterally)
GI: Soft, Non Distended and Non Tender
Neurology: Awake and Alert
Skin: Warm and Dry
Labs/Micro/Reports
Lab Data
09/14/23 07:59
09/19/23 08:45
--- NOTE | 2023-09-19 15:09 | W.PN.NEPH.PH ---
Today's Communication / Plan
-
monitor labs
Assessment/Plan
-
IMP:
ALIX-baseline cr unknown but on admit was 0.7
COPD exacerbation
Tobacco use disorder
small bilateral pleural effusions
Nonalcoholic fatty liver disease with Cirrhosis
Acute on chronic normocytic anemia
History of GI bleed
Mild hyperkalemia-resolved
Pseudohyponatremia from hyperglycemia
Acute on Chronic HFpEF
Essential HTN
Hypothyroidism
IDDM - uncontrolled
Plan:
A/w COPD flare and CHF
cr no clear baseline but has been 0.7 on admit
ALIX felt to be from overdiuresis
cr improving with holding lasix and Aldactone
UA is bland, U na high with lasix
normal renal US, no hydro
BP stable
avoid nephrotoxins
resume po lasix when renal function return baseline
will s/o, call with ?s
-
-
Date of Service: September 19, 2023
CC / HPI / ROS
-
Chief Complaint:
ALIX
History of Present Illness:
cr improving to 1.2, UO P not recorded
wt no change
BP mildly high
Review of Systems:
abd distension and pain+
no n/v
Labs
-
Labs:
WBC 15.5 10^3/uL (4.8-10.8) H 09/14/23 07:59
RBC 3.69 10^6/uL (4.20-5.40) L 09/14/23 07:59
Hgb 9.8 g/dL (12.0-16.0) L 09/14/23 07:59
Hct 30.9 % (37.0-47.0) L 09/14/23 07:59
Plt Count 176 10^3/uL (130-400) 09/14/23 07:59
Sodium 139 mmol/L (135-145) 09/19/23 08:45
Potassium 4.1 mmol/L (3.5-5.1) 09/19/23 08:45
Chloride 107 mmol/L (98-107) 09/19/23 08:45
Carbon Dioxide 25 mmol/L (22-30) 09/19/23 08:45
BUN 55 mg/dl (7-17) H 09/19/23 08:45
Creatinine 1.2 mg/dL (0.6-1.0) H 09/19/23 08:45
eGFR 48.09 09/19/23 08:45
Glucose 95 mg/dl (70-99) 09/19/23 08:45
Calcium 8.9 mg/dl (8.4-10.2) 09/19/23 08:45
Yzf-B-Kvfcccxjcdt Pept 7190 pg/ml 09/10/23 10:42
Albumin 3.3 g/dl (3.5-5.0) L 09/10/23 10:42
Physical Exam
-
Vital Signs:
Vital Signs
Temp Pulse Resp BP Pulse Ox
97.9 F 76 16 137/75 100
09/19/23 07:35 09/19/23 11:46 09/19/23 11:46 09/19/23 07:35 09/19/23 08:56
Cardiovascular:: Regular rate and rhythm
Lung Excursion:: Normal (decreased)
Abdomen:: Distended and Soft
Extremity Edema:: None: Bilateral:
Bravo Catheter: No
[2023-09-19 15:36] VITALS: BP 128/54
[2023-09-19 15:50] VITALS: BP 130/85
--- NOTE | 2023-09-19 15:50 | PTCARENOTE ---
09/18- Patient reports clamminess, chills and new lower abdominal pain. She states her abdomen is getting more distended and firm. Skin=warm/pink but mildly clammy; Skin=dry, no tremors or shakes currently observed; HX=349/85; HR=85; T=98;
POX=99%. Abdomen is increased in distention, nontender to touch, soft but less soft that prior assessment; +BSX4. Notified Physician. Continue to Monitor.
[2023-09-19 15:58] LABS: Glucose - Point of Care 148 mg/dl (70-99)
[2023-09-19] MEDS: ZOFRAN 4 MG IV (17:08)
[2023-09-19] MEDS: DUPHALAC/CHRONULAC PO (19:24)
[2023-09-19] MEDS: TYLENOL 650 MG PO (19:38)
[2023-09-19 21:38] LABS: Glucose - Point of Care 216 mg/dl (70-99)
[2023-09-19] MEDS: LANTUS 0.320000000000000007 UNITS SC (21:39)
[2023-09-19 22:50] VITALS: BP 137/56
[2023-09-20] MEDS: SYNTHROID 50 MCG PO (04:59)
[2023-09-20 06:00] VITALS: BMI 24.4
[2023-09-20 07:30] VITALS: BP 140/92
[2023-09-20 07:46] LABS: Glucose - Point of Care 125 mg/dl (70-99)
[2023-09-20] MEDS: DUONEB 3 ML INH ×2 (07:48→19:46)
[2023-09-20] MEDS: MUCOMYST 10% 4 ML INH (07:48)
[2023-09-20] MEDS: NOVOLOG FLEXPEN-LOW RESISTANCE SC ×2 (07:58→11:06)
--- NOTE | 2023-09-20 08:06 | PN.DE.MGMTRT ---
Insulin Management
- -
09/20/2023 Diabetes Management F/U:
73 year old female with COPD flare up, PMH includes: CAD/CABG x 3 2011, HTN, HCL, hypothyroid, KRAFT, GI bleed, active Tobacco use and T2DM, A1C 7.4%. 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
Pt A/O x3, resting in bed, offers no complaints. Remains on oral steroids- reduced to Prednisone 30 mg daily.
NovoLog AC dose decreased to 16 units over the weekend.
Glucose stable with elevation at HS >200, receive Lantus 32 units @HS, FBG 126 this AM
Will cont Lantus 32 units @HS and NovoLog 18 units AC with corrective insulin. Will follow.
Diabetes History
- -
Type of Diabetes: 2 requiring insulin
Pre-Admission Diabetes Regimen
09/19/23
08:45
Creatinine 1.2 H
Lab Results
Hemoglobin A1c 7.4 % (4.0-5.6) H 09/11/23 03:40
Insulin Pump Settings
IP Diabetes Regimen
09/19/23 09/19/23 09/19/23
08:09 08:45 11:17
Glucose 95
POC Glucose 93 116 H
09/19/23 09/19/23 09/20/23
15:56 21:36 07:44
Glucose
POC Glucose 148 H 216 H 125 H
Meal type: Lunch
Meal type: Breakfast
Amount consumed: 90%
Amount consumed: 100%
Patient Education
[2023-09-20] MEDS: NOVOLOG FLEXPEN 16 UNITS SC (08:16)
[2023-09-20] MEDS: DUPHALAC/CHRONULAC 15 GRAMS PO ×2 (08:16→19:28)
[2023-09-20] MEDS: ZETIA 10 MG PO (08:16)
[2023-09-20] MEDS: DELTASONE 30 MG PO (08:17)
[2023-09-20] MEDS: MUCINEX 1200 MG PO (08:17)
[2023-09-20] MEDS: APRESOLINE 20 MG PO ×2 (08:17→19:27)
[2023-09-20] MEDS: TESSALON PERLES 200 MG PO ×3 (08:17→21:33)
[2023-09-20] MEDS: PROTONIX 40 MG PO (08:17)
[2023-09-20] MEDS: XIFAXAN 550 MG PO ×2 (08:17→19:28)
[2023-09-20] MEDS: TOPROL XL 37.5 MG PO (08:18)
[2023-09-20] MEDS: LIDOCAINE 4% PATCH 2 PATCH TOPICAL (08:20)
[2023-09-20 09:06] LABS: % Basophils 0.1 % (0-2); % Eosinophils 2.5 % (0-6); % Immature Granulocytes 0.5 % (0-0.5); % Lymphocytes 9.6 % (20.5-51.1); % Monocytes 9.5 % (1.7-9.3); % Neutrophils 77.8 % (42.2-75.2); Absolute Eosinophils 0.3 10^3/uL (0-0.7); Absolute Immature Granulocytes 0.1 10^3/uL (0-0.05); Absolute Lymphocytes 1.2 10^3/uL (1.2-3.4); Absolute Monocytes 1.2 10^3/uL (0.1-0.6); Absolute Neutrophils 9.7 10^3/uL (1.4-6.5); Hematocrit 32.6 % (37.0-47.0); Hemoglobin 9.8 g/dL (12.0-16.0); Mean Corp Hgb Conc. 30.1 g/dL (33.0-37.0); Mean Corpuscular Hgb 25.2 pg (27.0-31.0); Mean Corpuscular Volume 83.8 fL (81.0-99.0); Nucleated Red Blood Cells % 0 %; Platelet Count 145 10^3/uL (130-400); Red Blood Cell Count 3.89 10^6/uL (4.20-5.40); Red Cell Dist. Width 22.9 % (11.5-14.5); White Blood Cell Count 12.4 10^3/uL (4.8-10.8)
--- NOTE | 2023-09-20 09:12 | W.PN.PUL3 ---
Today's Communication / Plan
-
Decrease prednisone to 20 mg, continue taper
PT/OT, ambulate
No indication for antibiotics
Plan for resuming outpatient regimen, see below
Follow blood sugars
Disposition efforts
Assessment
-
Assessment: 73-year-old female with a past medical history of tobacco use disorder, ?COPD, nonalcoholic fatty liver disease with reported history of cirrhosis, and CAD s/p CABG who presents with shortness of breath ongoing for 2 months. Patient
reported a productive cough for 2 months and now developed left-sided rib pain. He had completed a Z-Fredrick prior to arrival but is not feeling any better. Patient is also endorsing increased generalized weakness. In the ER patient was afebrile to
98 �F, pulse rate 87, respiratory rate 16 and BP 156/87. SpO2 was 97% on room air. Labs showed glucose 291, ALP elevated at 402, WBC normal at 9.4, Hb 8.4 and platelets 170. Chest CT was performed showing paraseptal emphysema, patchy groundglass
opacities in the right upper lobe and in lingula, and a mild�moderate sized right pleural effusion, trace left-sided pleural effusion and fluid in the right horizontal fissure. Patient was given DuoNebs, Decadron and oxycodone and admitted to the
hospital service. Pulmonary consulted on 09/12 for additional management/recommendations regarding her abnormal imaging.
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
Impression:
#COPD exacerbation (no PFTs on file, but there is paraseptal emphysema seen on CT chest)
#RUL 7mm solid nodule with GGO in RUL and reticular/nodular opacities in lingula - seen on CT Chest from 09/13/2023
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
#Leukocytosis
#Hyperglycemia
#Acute kidney injury - worsening
#Hypothyroidism
#KRAFT cirrhosis
#DM type II (uncontrolled - A1C: 7.4)
#Former tobacco use disorder - quit 10 days ago, as per patient
Plan:
At this time, patient appears to be comfortable, currently on room air
Primary complaint is fatigue, dry cough, feeling weak
Presently on in no respiratory distress
Chest exam is clear with minimal wheeze
patient quit smoking 10 days ago
Moving forward
Continue with steroid taper, currently on 30 mg, taper down from 40 mg 09/14
Decreased to 20 mg, decrease by 10 mg every 3 days until off
continue prn Duonebs in addition to standing Duonebs QID --> once she is ready for discharge, would DC on Stiolto respimat and I will arrange for outpatient follow up with Dr. Sharif (or she can see a handwriting expert near her in [place])
information will be left in the chart.
Continue antitussives.
Monitor blood sugars on high-dose of steroids- Goal BG 140-180
Continue: mucinex, and mucomyst nebulizer with Vest --> she is reporting a benefit with these interventions-can continue while in the hospital.
Encourage incentive spirometer
PT/OT, ambulate
She will need repeat chest CT (without contrast) imaging in 6 weeks to assure the GGO/reticular opacities and RUL nodule are stable-patient aware.
No indication for antibiotics
Follow-up pleural effusions as outpatient
Abdominal fluid not significant enough for paracentesis.
ProBNP elevated --> TTE shows stage II diastolic dysfunction with abnormal relaxation and increased pulm pressures. PASP 49 mmHg, normal LV function with septal hypokinesis. Normal RA size and normal RV size/function
Follow electrolytes and renal function.
Check ambulatory saturation
Ongoing smoking cessation encouraged. Quit smoking before coming to the hospital.
In the outpatient setting:will need outpatient follow up for full PFTs
DVT prophylaxis: Remains on Lovenox
GI prophylaxis: On Protonix while on steroids
Hopefully patient can be discharged soon. At that time we will decide whether she would benefit from long-acting bronchodilators. The complicating factor is that this patient does not follow-up in our office.
Outpatient follow-up is recommended for PFTs and management of her suspected COPD. She lives in [place] so she would like to remain local, however she says she would not be opposed to seeing us at [facility]. Our office information will be placed
into her chart and then she can decide following discharge if she wants to see us or not.
Disposition efforts

Data:
CT Chest w/o IV contrast 09-13-2023:
Impression:
1. Trace left and small right pleural effusions.
2. Right upper lobe solid and groundglass nodules, likely infectious/inflammatory in etiology. Recommend follow-up imaging after treatment. Follow-up noncontrast CT chest could be obtained in 6-10 weeks.
CXR 09-10-2023:
There are small bilateral pleural effusions
There is mild hazy soft tissue density in the posterior inferior aspect of the right middle layering along the major fissure which may be pneumonia or loculated effusion.
Chest US 09-16-2023: Small right pleural effusion. Trace left pleural effusion.
TTE 09-13-2023:
Normal LV size and function with septal hypokinesis.
�EF of 55 to 60% by visual estimation.
�No LVH.
�Stage II diastolic dysfunction suggestive of abnormal relaxation and increased
�filling pressures.
�Mildly dilated left atrium.
�Mild to moderate mitral regurgitation.
�Mild tricuspid regurgitation.
�Mildly elevated estimated PASP of 49 mmHg assuming a right atrial pressure of 3
�mmHg.
�No prior study for comparison.
Abdominal US 09-15-2023:No significant ascites is identified with ultrasound.
Bilateral pleural effusions, right greater than left.
Subjective Data
-
Date of Service:
Date of Service: September 20, 2023
Chief Complaint: Pulmonary Follow Up
Subjective:
Patient not feeling well, did not sleep. Remains fatigued. Complaining of dry cough. Otherwise denies nausea, abdominal pain, diarrhea
Objective Data
Data Reviewed
Vital Signs / I&O / Oxygen:
Vital Signs
Temp Pulse Resp BP Pulse Ox
97.6 F 80 14 140/92 97
09/20/23 07:30 09/20/23 07:51 09/20/23 07:51 09/20/23 07:30 09/20/23 07:51
Intake and Output
09/19/23 09/20/23 09/21/23
06:59 06:59 06:59
Intake Total 1500 / 1500 1800 / 1800
Balance 1500 / 1500 1800 / 1800
SaO2 97
Physical Exam
General: Comfortable
HEENT: Normocephalic, Anicteric and Other (Edentulous)
Cardiovascular: S1-S2, Regular Rhythm, Murmur (n), Rub (n) and Peripheral Edema (negative)
Respiratory: Wheeze (Few), Crackles (Bibasilar), Rhonchi (bilaterally in bases (posterior lung brannon)), Non-Labored Respirations and Stridor (n)
GI: Soft, Distended (Slightly distended) and Non Tender
Neurology: Awake, Alert and No Motor Deficits
Skin: Cyanosis (n), Jaundice (n) and Rash (n)
[2023-09-20 09:52] LABS: Blood Urea Nitrogen 51 mg/dl (7-17); Calcium 8.1 mg/dl (8.4-10.2); Carbon Dioxide 24 mmol/L (22-30); Chloride 109 mmol/L (98-107); Estimated Creatinine Clearance 32 ml/min; Glucose 126 mg/dl (70-99); Potassium 4.9 mmol/L (3.5-5.1); Sodium 133 mmol/L (135-145); eGFR 43.69
[2023-09-20 10:49] LABS: Glucose - Point of Care 38 mg/dl (70-99)
[2023-09-20 11:06] LABS: Glucose - Point of Care 103 mg/dl (70-99)
[2023-09-20] MEDS: DUONEB INH ×3 (11:09→15:29)
[2023-09-20] MEDS: MUCOMYST 10% INH (11:12)
--- NOTE | 2023-09-20 11:54 | CM ---
Chart reviewed and community case manager will follow with patient progress to assist with discharge planning needs, patient will need script for Nebulizer and out patient physical therapy.
Plan; Home when stable.
--- NOTE | 2023-09-20 12:07 | W.PN.HOSP.TC ---
Today's Communication/Plan
-
dedicated abdominal US
resume lasix with increased distention
decreasing prednisone dose
decrease lantus to home dosing
Assessment / Plan
Assessment / Plan
#COPD flare up
#Tobacco use disorder
-Patient active smoker and has been smoking for many years
-Patient was provided course of azithromycin by primary care physician without much help
-Chest x-ray There are small bilateral pleural effusions There is mild hazy soft tissue density in the posterior inferior aspect of the right middle layering along the major fissure which may be pneumonia or loculated effusion.
-Check CT chest Right upper lobe solid and groundglass nodules, likely infectious/inflammatory in etiology. Recommend follow-up imaging after treatment. Follow-up noncontrast CT chest could be obtained in 6-10 weeks.
-No formal diagnosis of COPD although likely have it with history of smoking and ongoing wheezing
-s/p IV steroids; continue prednisone taper
-Provide nebulizer therapy
-On vest therapy
-cough is improving. Cough medication/lidocaine patch ordered
-Sputum sample. Acapella
-Ultrasound chest with small right and trace left pleural effusion
-Pulm recs
#Nonalcoholic fatty liver disease
# Cirrhosis
-Maintain on home dose of rifaximin/lactulose. Refusing lactulose intermittently.
-with increased abdominal distention will repeat dedicated US
-resume CAUSTICISER lasix
#Acute on chronic normocytic anemia
#History of GI bleed
-Patient have history of recurrent GI bleed requiring Endoscopic intervention
-Patient gets her care at [facility] usually
-Hemoglobin drifted down to 7.1. No reported melena/emesis
-s/p 1 U prbc on sat. hbg 9.2 , continue monitor.
#ALIX on likely CKD.
-Unknown baseline. Obtain records.
-creatinine stable
-resume diuretics given increased distention
-Ua with no cast. [place].
-appreciate renal consult
-repeat BMP tomorrow AM
#Mild hyperkalemia
-resolved
#Acute on Chronic HFpEF
-resume lasix
-cont bb.
-ECHO noted
#Essential HTN-elevated.
-Continue metoprolol and increase dose 37.5mg
-holding aldactone
-resume lasix
-may need to adjust dose further
-hydralazine standing added and will increase dose. reduce afterload. BP improved.
#Hypothyroidism
-Continue home dose of synthroid
#Pseduhyponatremia
-resolved.
#IDDM - uncontrolled
-Blood glucose significantly elevated due to IV steroid use in ER
-A1c 7.4
-with decreasing prednisone dose will resume home regimen (episosde hypoglycemia this AM)
DVT PPX - lovenox
Full code
Anticipated Discharge: 24 - 48 hours
Subjective/Interval History
-
Date of Service: September 20, 2023
felt unwell this morning with BGL 30's
eating and drinking OK
states over past few days abdomen significantly more distended, usually it's flat
Objective Data
-
Labs:
Laboratory Results
09/20/23
08:29
WBC 12.4 H
Hgb 9.8 L
Hct 32.6 L
Plt Count 145
Sodium 133 L
Potassium 4.9
Chloride 109 H
Carbon Dioxide 24
BUN 51 H
Creatinine 1.3 H
Glucose 126 H
Calcium 8.1 L
Vital Signs:
Vital Signs
Temp Pulse Resp BP Pulse Ox
97.6 F 82 14 140/92 97
09/20/23 07:30 09/20/23 11:09 09/20/23 11:09 09/20/23 07:30 03/18/24 07:51
I&O
09/19/23 09/20/23 09/21/23
06:59 06:59 06:59
Intake Total 1500 / 1500 1800 / 1800
Balance 1500 / 1500 1800 / 1800
Review of Systems
-
History Source: Patient
All other systems: Reviewed and negative
Physical Exam
-
General: Well Developed and No Apparent Distress
HEENT: Normocephalic, Atraumatic and Moist Mucous Membranes
Respiratory: Rhonchi (improvement )
Cardiac: Regular Rhythm and S1/S2; Negative Murmur, Rub or Gallop
GI: Soft, Nontender, Normal Bowel Sounds and Distended; Negative Organomegaly
Rectal: Deferred by Provider
Musculoskeletal: No Clubbing, No Cyanosis and No Edema
Skin: Negative Rash
Neuro: Awake, Alert, Oriented, AO x 3, No Motor Deficits and Nonfocal/Grossly Intact
Psych: Calm
Data Reviewed
-
Diagnostic Radiology: Report Reviewed by me
Labs: Labs Reviewed by me
[2023-09-20] MEDS: LASIX 20 MG PO (13:13)
[2023-09-20] MEDS: NOVOLOG FLEXPEN 12 UNITS SC (13:14)
[2023-09-20 13:18] VITALS: BP 166/61
[2023-09-20 14:53] VITALS: BP 146/31; BP_SYST 71
[2023-09-20 15:26] VITALS: BP 139/44; BP_SYST 70
[2023-09-20 16:18] LABS: Body Fluid Mononuclear 68.8 %; Body Fluid Polymorphonuclear 31.2 %; Body Fluid WBC 266 /CUMM
[2023-09-20 16:19] LABS: Body Fluid Second Tech EYM
[2023-09-20 16:54] LABS: Glucose - Point of Care 162 mg/dl (70-99)
[2023-09-20 17:04] LABS: Body Fluid Albumin < 1.0 g/dl; Body Fluid LDH < 90 U/L; Body Fluid Protein < 2.0 g/dl
[2023-09-20] MEDS: NOVOLOG FLEXPEN SC (17:58)
[2023-09-20] MEDS: LOVENOX 40 MG SC (18:24)
[2023-09-20] MEDS: NOVOLOG FLEXPEN-LOW RESISTANCE 1 UNITS SC (18:25)
[2023-09-20] MEDS: ZOFRAN 4 MG IV (18:37)
[2023-09-20 21:23] LABS: Glucose - Point of Care 221 mg/dl (70-99)
[2023-09-20] MEDS: LANTUS 0.149999999999999994 UNITS SC (21:33)
[2023-09-20 23:35] VITALS: BP 125/49
[2023-09-21 06:00] VITALS: BMI 24.0
[2023-09-21] MEDS: SYNTHROID 50 MCG PO (06:31)
[2023-09-21] MEDS: DUONEB 3 ML INH (07:29)
[2023-09-21 07:47] LABS: Hematocrit 28.9 % (37.0-47.0); Mean Corp Hgb Conc. 31.1 g/dL (33.0-37.0); Mean Corpuscular Hgb 25.6 pg (27.0-31.0); Mean Corpuscular Volume 82.1 fL (81.0-99.0); Platelet Count 130 10^3/uL (130-400); Red Blood Cell Count 3.52 10^6/uL (4.20-5.40); Red Cell Dist. Width 22.5 % (11.5-14.5); White Blood Cell Count 9.4 10^3/uL (4.8-10.8)
[2023-09-21 08:01] LABS: Glucose - Point of Care 220 mg/dl (70-99)
[2023-09-21 08:05] LABS: ALT (SGPT) 53 U/L (0-35); AST (SGOT) 60 U/L (14-36); Albumin 2.7 g/dl (3.5-5.0); Alkaline Phosphatase 277 U/L (38-126); Blood Urea Nitrogen 53 mg/dl (7-17); Calcium 8.1 mg/dl (8.4-10.2); Carbon Dioxide 24 mmol/L (22-30); Chloride 107 mmol/L (98-107); Estimated Creatinine Clearance 30 ml/min; Glucose 205 mg/dl (70-99); Magnesium 2.7 mg/dl (1.6-2.3); Potassium 4.7 mmol/L (3.5-5.1); Sodium 131 mmol/L (135-145); Total Bilirubin 0.5 mg/dl (0.2-1.3); Total Protein 5.5 g/dl (6.3-8.2); eGFR 39.97
[2023-09-21 08:44] VITALS: BP 102/64
[2023-09-21 09:00] VITALS: BP 111/48
[2023-09-21] MEDS: NOVOLOG FLEXPEN-LOW RESISTANCE 2 UNITS SC (09:04)
[2023-09-21] MEDS: NOVOLOG FLEXPEN 12 UNITS SC ×3 (09:04→18:28)
[2023-09-21] MEDS: XIFAXAN 550 MG PO ×2 (09:05→19:57)
[2023-09-21] MEDS: LASIX 20 MG PO (09:05)
[2023-09-21] MEDS: TESSALON PERLES 200 MG PO ×3 (09:05→21:30)
[2023-09-21] MEDS: DUPHALAC/CHRONULAC 15 GRAMS PO ×2 (09:05→19:56)
[2023-09-21] MEDS: PROTONIX 40 MG PO (09:06)
[2023-09-21] MEDS: DELTASONE 20 MG PO (09:06)
[2023-09-21] MEDS: ZETIA 10 MG PO (09:06)
[2023-09-21] MEDS: LIDOCAINE 4% PATCH 2 PATCH TOPICAL (09:06)
[2023-09-21 09:10] VITALS: BP 169/65
[2023-09-21] MEDS: ROXICODONE 15 MG PO ×2 (09:20→18:35)
[2023-09-21] MEDS: ZOFRAN 4 MG IV (09:20)
[2023-09-21] MEDS: TOPROL XL PO (09:26)
[2023-09-21] MEDS: APRESOLINE PO (09:26)
--- NOTE | 2023-09-21 09:41 | W.PN.PUL3 ---
Today's Communication / Plan
-
continue with steroid taper
Hold off on maintenance inhaler therapy
Would recommend outpatient follow-up evaluation, spirometry/PFT
Tobacco cessation is critical
PT/OT
Recommend follow-up imaging as outpatient per below instructions
Assessment
-
Assessment: 73-year-old female with a past medical history of tobacco use disorder, ?COPD, nonalcoholic fatty liver disease with reported history of cirrhosis, and CAD s/p CABG who presents with shortness of breath ongoing for 2 months. Patient
reported a productive cough for 2 months and now developed left-sided rib pain. He had completed a Z-Fredrick prior to arrival but is not feeling any better. Patient is also endorsing increased generalized weakness. In the ER patient was afebrile to
98 �F, pulse rate 87, respiratory rate 16 and BP 156/87. SpO2 was 97% on room air. Labs showed glucose 291, ALP elevated at 402, WBC normal at 9.4, Hb 8.4 and platelets 170[address] CT was performed showing paraseptal emphysema, patchy groundglass
opacities in the right upper lobe and in lingula, and a mild�moderate sized right pleural effusion, trace left-sided pleural effusion and fluid in the right horizontal fissure. Patient was given DuoNebs, Decadron and oxycodone and admitted to the ""hospital service. Pulmonary consulted on 09/12 for additional management/recommendations regarding her abnormal imaging.
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
Impression:
#COPD exacerbation (no PFTs on file, but there is paraseptal emphysema seen on CT chest)
#RUL 7mm solid nodule with GGO in RUL and reticular/nodular opacities in lingula - seen on CT Chest from 09/13/2023
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
#Leukocytosis
#Hyperglycemia
#Acute kidney injury - worsening
#Hypothyroidism
#KRAFT cirrhosis
#DM type II (uncontrolled - A1C: 7.4)
#Former tobacco use disorder - quit 10 days ago, as per patient
Plan:
At this time, patient appears to be comfortable, currently on room air
Primary complaint is fatigue, dry cough, feeling weak
Presently on in no respiratory distress
Chest exam has improved
patient quit smoking 10 days ago
Abdominal distention noted, status post paracentesis 350 cc removed 09/19
Moving forward
Continue with steroid taper, currently on 30 mg, taper down from 40 mg 09/14
Decreased to 20 mg, decrease by 10 mg every 3 days until off
continue prn Duonebs in addition to standing Duonebs QID --> once she is ready for discharge, would DC on Stiolto respimat and I will arrange for outpatient follow up with Dr. Sharif (or she can see a plate glass installer helper near her in [place])
information will be left in the chart.
Continue antitussives.
Monitor blood sugars on high-dose of steroids- Goal BG 140-180
Continue: mucinex, and mucomyst nebulizer with Vest --> she is reporting a benefit with these interventions-can continue while in the hospital.
Encourage incentive spirometer
PT/OT, ambulate
She will need repeat chest CT (without contrast) imaging in 6 weeks to assure the GGO/reticular opacities and RUL nodule are stable-patient aware.
No indication for antibiotics
Follow-up pleural effusions as outpatient
Abdominal fluid not significant enough for paracentesis.
ProBNP elevated --> TTE shows stage II diastolic dysfunction with abnormal relaxation and increased pulm pressures. PASP 49 mmHg, normal LV function with septal hypokinesis. Normal RA size and normal RV size/function
Follow electrolytes and renal function.
Check ambulatory saturation
Ongoing smoking cessation encouraged. Quit smoking before coming to the hospital.
In the outpatient setting:will need outpatient follow up for full PFTs
DVT prophylaxis: Remains on Lovenox
GI prophylaxis: On Protonix while on steroids
Hopefully patient can be discharged soon.
Hold off on starting maintenance inhaler therapy for now
Instead would recommend follow-up in pulmonary office post discharge
Absolute critical that she stopped smoking
Outpatient follow-up is recommended for PFTs and management of her suspected COPD. She lives in [place] so she would like to remain local, however she says she would not be opposed to seeing us at [facility]. Our office information will be placed
into her chart and then she can decide following discharge if she wants to see us or not.
Disposition efforts

Data:
CT Chest w/o IV contrast 09-13-2023:
Impression:
1. Trace left and small right pleural effusions.
2. Right upper lobe solid and groundglass nodules, likely infectious/inflammatory in etiology. Recommend follow-up imaging after treatment. Follow-up noncontrast CT chest could be obtained in 6-10 weeks.
CXR 09-10-2023:
There are small bilateral pleural effusions
There is mild hazy soft tissue density in the posterior inferior aspect of the right middle layering along the major fissure which may be pneumonia or loculated effusion.
Chest US 09-16-2023: Small right pleural effusion. Trace left pleural effusion.
TTE 09-13-2023:
Normal LV size and function with septal hypokinesis.
�EF of 55 to 60% by visual estimation.
�No LVH.
�Stage II diastolic dysfunction suggestive of abnormal relaxation and increased
�filling pressures.
�Mildly dilated left atrium.
�Mild to moderate mitral regurgitation.
�Mild tricuspid regurgitation.
�Mildly elevated estimated PASP of 49 mmHg assuming a right atrial pressure of 3
�mmHg.
�No prior study for comparison.
Abdominal US 09-15-2023:No significant ascites is identified with ultrasound.
Bilateral pleural effusions, right greater than left.
Subjective Data
-
Date of Service:
Date of Service: September 21, 2023
Chief Complaint: Pulmonary Follow Up
Subjective:
Patient just completed physical therapy. States she felt like she was going fall down but did not fall down. He has mild abdominal discomfort, lower, denies nausea, diarrhea, hemoptysis. Still feeling fatigued but shortness of breath not bad
Objective Data
Data Reviewed
Vital Signs / I&O / Oxygen:
Vital Signs
Temp Pulse Resp BP Pulse Ox
97 F 82 20 102/64 95
09/21/23 08:44 09/21/23 08:44 09/21/23 08:44 09/21/23 08:44 09/21/23 08:44
Intake and Output
09/20/23 09/21/23 09/22/23
06:59 06:59 06:59
Intake Total 1800 / 1800 720 / 720
Balance 1800 / 1800 720 / 720
SaO2 95
Physical Exam
General: Comfortable
HEENT: Normocephalic, Anicteric and Other (Edentulous)
Cardiovascular: S1-S2, Regular Rhythm, Murmur (n), Rub (n) and Peripheral Edema (negative)
Respiratory: Wheeze (Few), Crackles ( minimal), Rhonchi ( improved), Non-Labored Respirations and Stridor (n)
GI: Soft, Distended (Slightly distended) and Non Tender
Neurology: Awake, Alert and No Motor Deficits
Skin: Cyanosis (n), Jaundice (n) and Rash (n)
Labs/Micro/Reports
Lab Data
09/21/23 07:13
09/21/23 07:13
Microbiology
09/20/23 15:20 Peritoneal Fluid Gram Stain - Preliminary
[2023-09-21 10:04] VITALS: BP 169/65
--- NOTE | 2023-09-21 11:05 | W.PN.HOSP.TC ---
Today's Communication/Plan
-
anticipate discharge tomorrow
montior BP off hydralazine
lasix resumed
Assessment / Plan
Assessment / Plan
#COPD flare up
#Tobacco use disorder
-Patient active smoker and has been smoking for many years
-Patient was provided course of azithromycin by primary care physician without much help
-Chest x-ray There are small bilateral pleural effusions There is mild hazy soft tissue density in the posterior inferior aspect of the right middle layering along the major fissure which may be pneumonia or loculated effusion.
-CT chest Right upper lobe solid and groundglass nodules, likely infectious/inflammatory in etiology. Recommend follow-up imaging after treatment. Follow-up noncontrast CT chest could be obtained in 6-10 weeks.
-No formal diagnosis of COPD although likely have it with history of smoking and ongoing wheezing
-s/p IV steroids; continue prednisone taper
-nebs
-acapella/vest therapy
-Ultrasound chest with small right and trace left pleural effusion
-Pulm recs appreciated
#Nonalcoholic fatty liver disease
# Cirrhosis
-Maintain on home dose of rifaximin/lactulose. Refusing lactulose intermittently.
-with increased abdominal distention will repeat dedicated US --> s/p paracentesis on 09/19; no e/o SBP
-resume ETCHER ENAMELING lasix
#Acute on chronic normocytic anemia
#History of GI bleed
-Patient have history of recurrent GI bleed requiring Endoscopic intervention
-Patient gets her care at [facility] usually
-Hemoglobin drifted down to 7.1. No reported melena/emesis
-s/p 1 U prbc on sat. hbg 9.2 , continue monitor.
#ALIX on likely CKD.
-Unknown baseline. Obtain records.
-creatinine stable; initial creatinine likely outlier? patient if anything now hypervolemic with build up ascitic fluid
-resume diuretics given increased distention (discussed briefly with renal)
-monitor renal function closely as outpatient (requested records but haven't come)
#Mild hyperkalemia
-resolved
#Acute on Chronic HFpEF
-resume lasix
-cont bb.
-ECHO noted
#Essential HTN-elevated.
-low BP this AM --> stop hydral and decrease metop back to home dose
-resume lasix
#Hypothyroidism
-Continue home dose of synthroid
#Pseduhyponatremia
-resolved.
#IDDM - uncontrolled
-Blood glucose significantly elevated due to IV steroid use in ER
-A1c 7.4
-with decreasing prednisone dose will resume home regimen (episosde hypoglycemia this AM); OK to have mildly elevated BGL in-house
DVT PPX - lovenox
Full code
Anticipated Discharge: Within 24 hours
Subjective/Interval History
-
Date of Service: September 21, 2023
she is feeling better
breathing is better
Objective Data
-
Labs:
Laboratory Results
09/21/23
07:13
WBC 9.4
Hgb 9.0 L
Hct 28.9 L
Plt Count 130
Sodium 131 L
Potassium 4.7
Chloride 107
Carbon Dioxide 24
BUN 53 H
Creatinine 1.4 H
Glucose 205 H
Calcium 8.1 L
Total Bilirubin 0.5
AST 60 H
ALT 53 H
Alkaline Phosphatase 277 H
Vital Signs:
Vital Signs
Temp Pulse Resp BP Pulse Ox
97 F 82 20 111/48 95
09/21/23 08:44 09/21/23 08:44 09/21/23 08:44 09/21/23 09:00 09/21/23 08:44
I&O
09/20/23 09/21/2309/21/24
06:59 06:59 06:59
Intake Total 1800 / 1800 720 / 720
Balance 1800 / 1800 720 / 720
Review of Systems
-
History Source: Patient
All other systems: Reviewed and negative
Physical Exam
-
General: Well Developed and No Apparent Distress
HEENT: Normocephalic, Atraumatic and Moist Mucous Membranes
Respiratory: Negative Wheezes
Cardiac: Regular Rhythm and S1/S2; Negative Murmur, Rub or Gallop
GI: Soft, Nontender, Normal Bowel Sounds and Distended; Negative Organomegaly
Rectal: Deferred by Provider
Musculoskeletal: No Clubbing, No Cyanosis and No Edema
Skin: Negative Rash
Neuro: Awake, Alert, Oriented, AO x 3, No Motor Deficits and Nonfocal/Grossly Intact
Psych: Calm
Data Reviewed
-
Diagnostic Radiology: Report Reviewed by me
Labs: Labs Reviewed by me
--- NOTE | 2023-09-21 11:55 | PN.DE.MGMTRT ---
Insulin Management
- -
09/21/2023 Diabetes Management Follow Up:
73 year old female with COPD flare up, PMH includes: CAD/CABG x 3 2011, HTN, HCL, hypothyroid, KRAFT, GI bleed, active Tobacco use and T2DM, A1C 7.4%. 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
Pt A/O x3, sitting on side of bed, offers no complaints. Remains on oral steroids- reduced to Prednisone 20 mg daily.
Steroids have been tapered down, insulin has also been reduced to pre admission doses. Patient refused dinner last evening, glucose stable with elevation at HS >201. Received Lantus 15 units @HS, FBG 220 this AM.
Will follow additional day before changing lantus dose.
Diabetes History
- -
Type of Diabetes: 2 requiring insulin
Pre-Admission Diabetes Regimen
09/21/23
07:13
Creatinine 1.4 H
Lab Results
Hemoglobin A1c 7.4 % (4.0-5.6) H 09/11/23 03:40
Insulin Pump Settings
IP Diabetes Regimen
09/20/23 09/20/23 09/21/23
16:52 21:22 07:13
Glucose 205 H
POC Glucose 162 H 221 H
09/21/23
07:59
Glucose
POC Glucose 220 H
Patient Education
[2023-09-21 11:58] LABS: Glucose - Point of Care 177 mg/dl (70-99)
[2023-09-21] MEDS: NOVOLOG FLEXPEN-LOW RESISTANCE 1 UNITS SC (12:26)
[2023-09-21 15:22] VITALS: BP 149/65
[2023-09-21 16:58] LABS: Glucose - Point of Care 123 mg/dl (70-99)
[2023-09-21] MEDS: NOVOLOG FLEXPEN-LOW RESISTANCE SC (17:03)
[2023-09-21] MEDS: LOVENOX 40 MG SC (18:29)
[2023-09-21 21:28] LABS: Glucose - Point of Care 203 mg/dl (70-99)
[2023-09-21] MEDS: LANTUS 0.149999999999999994 UNITS SC (21:30)
[2023-09-21 23:24] VITALS: BP 102/52
[2023-09-22 05:58] VITALS: BMI 24.5
[2023-09-22] MEDS: SYNTHROID 50 MCG PO (06:13)
[2023-09-22 07:30] VITALS: BP 110/51
[2023-09-22 07:51] LABS: Glucose - Point of Care 238 mg/dl (70-99)
[2023-09-22] MEDS: ZETIA 10 MG PO (08:00)
[2023-09-22] MEDS: PROTONIX 40 MG PO (08:00)
[2023-09-22] MEDS: NOVOLOG FLEXPEN-LOW RESISTANCE 2 UNITS SC (08:00)
[2023-09-22] MEDS: XIFAXAN 550 MG PO (08:00)
[2023-09-22] MEDS: NOVOLOG FLEXPEN 12 UNITS SC (08:00)
[2023-09-22] MEDS: DUPHALAC/CHRONULAC 15 GRAMS PO (08:00)
[2023-09-22] MEDS: TOPROL XL 25 MG PO (08:00)
[2023-09-22] MEDS: DELTASONE 20 MG PO (08:00)
[2023-09-22] MEDS: LASIX 20 MG PO (08:00)
[2023-09-22] MEDS: TESSALON PERLES 200 MG PO (08:00)
[2023-09-22] MEDS: LIDOCAINE 4% PATCH 2 PATCH TOPICAL (08:00)
--- NOTE | 2023-09-22 08:44 | W.PN.PUL3 ---
Today's Communication / Plan
-
Continue with prednisone taper as below. Chest exam is clear
PT/OT, muscle strengthening
Plan to start Stiolto inhaler at time of admission. Resp to review technique
Will need repeat CT chest in 6 weeks for nodular infiltrates and effusions
Reinforced importance of tobacco cessation
We will sign off. Please call with question
Assessment
-
Assessment: 73-year-old female with a past medical history of tobacco use disorder, ?COPD, nonalcoholic fatty liver disease with reported history of cirrhosis, and CAD s/p CABG who presents with shortness of breath ongoing for 2 months. Patient
reported a productive cough for 2 months and now developed left-sided rib pain. He had completed a Z-Fredrick prior to arrival but is not feeling any better. Patient is also endorsing increased generalized weakness. In the ER patient was afebrile to
98 �F, pulse rate 87, respiratory rate 16 and BP 156/87. SpO2 was 97% on room air. Labs showed glucose 291, ALP elevated at 402, WBC normal at 9.4, Hb 8.4 and platelets 170[address] CT was performed showing paraseptal emphysema, patchy groundglass
opacities in the right upper lobe and in lingula, and a mild�moderate sized right pleural effusion, trace left-sided pleural effusion and fluid in the right horizontal fissure. Patient was given DuoNebs, Decadron and oxycodone and admitted to the
hospital service. Pulmonary consulted on 09/12 for additional management/recommendations regarding her abnormal imaging.
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
Impression:
#COPD exacerbation (no PFTs on file, but there is paraseptal emphysema seen on CT chest)
#RUL 7mm solid nodule with GGO in RUL and reticular/nodular opacities in lingula - seen on CT Chest from 09/13/2023
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
#Leukocytosis
#Hyperglycemia
#Acute kidney injury - worsening
#Hypothyroidism
#KRAFT cirrhosis
#DM type II (uncontrolled - A1C: 7.4)
#Former tobacco use disorder - quit 10 days ago, as per patient
Plan:
At this time, patient appears to be comfortable, currently on room air
Chest exam is clear
Primary complaint is fatigue
Presently on in no respiratory distress
We will sign off. Please call with questions patient quit smoking 10 days ago
Abdominal distention noted, status post paracentesis 350 cc removed 09/19
Moving forward
Continue with steroid taper, currently on 30 mg, taper down from 40 mg 09/14
Decreased to 20 mg, decrease by 10 mg every 3 days until off
continue prn Duonebs in addition to standing Duonebs QID --> once she is ready for discharge, would DC on Stiolto respimat and I will arrange for outpatient follow up with Dr. Sharif (or she can see a cartography technician near her in [place])
information will be left in the chart.
Continue antitussives.
Monitor blood sugars on high-dose of steroids- Goal BG 140-180
Encourage incentive spirometer
PT/OT, ambulate
She will need repeat chest CT (without contrast) imaging in 6 weeks to assure the GGO/reticular opacities and RUL nodule are stable-patient aware.
No indication for antibiotics
Follow-up pleural effusions as outpatient
Abdominal fluid not significant enough for paracentesis.
Echocardiogram reviewed PASP 49 mmHg, normal LV function with septal hypokinesis. Normal RA size and normal RV size/function
Ongoing smoking cessation encouraged. Quit smoking before coming to the hospital.
Will need outpatient follow up for full PFTs
DVT prophylaxis: Remains on Lovenox
GI prophylaxis: On Protonix while on steroids
Hopefully patient can be discharged soon.
Absolute critical that she stopped smoking
Outpatient follow-up is recommended for PFTs and management of her suspected COPD. She lives in [place] so she would like to remain local, however she says she would not be opposed to seeing us at [facility]. Our office information will be placed
into her chart and then she can decide following discharge if she wants to see us or not.
Disposition efforts
We will sign off. Please call with questions

Data:
CT Chest w/o IV contrast 09-13-2023:
Impression:
1. Trace left and small right pleural effusions.
2. Right upper lobe solid and groundglass nodules, likely infectious/inflammatory in etiology. Recommend follow-up imaging after treatment. Follow-up noncontrast CT chest could be obtained in 6-10 weeks.
CXR 09-10-2023:
There are small bilateral pleural effusions
There is mild hazy soft tissue density in the posterior inferior aspect of the right middle layering along the major fissure which may be pneumonia or loculated effusion.
Chest US 09-16-2023: Small right pleural effusion. Trace left pleural effusion.
TTE 09-13-2023:
Normal LV size and function with septal hypokinesis.
�EF of 55 to 60% by visual estimation.
�No LVH.
�Stage II diastolic dysfunction suggestive of abnormal relaxation and increased
�filling pressures.
�Mildly dilated left atrium.
�Mild to moderate mitral regurgitation.
�Mild tricuspid regurgitation.
�Mildly elevated estimated PASP of 49 mmHg assuming a right atrial pressure of 3
�mmHg.
�No prior study for comparison.
Abdominal US 09-15-2023:No significant ascites is identified with ultrasound.
Bilateral pleural effusions, right greater than left.
Subjective Data
-
Date of Service:
Date of Service: September 22, 2023
Chief Complaint: Pulmonary Follow Up
Subjective:
Patient with persistent fatigue. Still has a variety complaints including nonspecific chest discomfort, lower abdominal pain. Patient slept okay. Feels breathing has improved since admission. Denies hemoptysis. On room air
Objective Data
Data Reviewed
Vital Signs / I&O / Oxygen:
Vital Signs
Temp Pulse Resp BP Pulse Ox
97.9 F 81 20 110/51 96
09/22/23 07:30 09/22/23 07:30 09/22/23 07:30 09/22/23 07:30 09/22/23 07:30
Intake and Output
09/21/23 09/22/23 09/23/23
06:59 06:59 06:59
Intake Total 720 / 720 360 / 360
Balance 720 / 720 360 / 360
SaO2 96
Physical Exam
General: Comfortable
HEENT: Normocephalic, Anicteric and Other (Edentulous)
Cardiovascular: S1-S2, Regular Rhythm, Murmur (n), Rub (n) and Peripheral Edema (negative)
Respiratory: Wheeze (n), Crackles (n), Rhonchi (n), Non-Labored Respirations and Stridor (n)
GI: Soft, Distended (Slightly distended) and Non Tender
Neurology: Awake, Alert and No Motor Deficits
Skin: Cyanosis (n), Jaundice (n) and Rash (n)
Labs/Micro/Reports
Lab Data
09/21/23 07:13
Microbiology
09/20/23 15:20 Peritoneal Fluid Body Fluid Culture - Preliminary
No Growth After 18-24 Hours
09/20/23 15:20 Peritoneal Fluid Gram Stain - Preliminary
[2023-09-22 09:04] LABS: ALT (SGPT) 53 U/L (0-35); AST (SGOT) 58 U/L (14-36); Albumin 2.7 g/dl (3.5-5.0); Alkaline Phosphatase 285 U/L (38-126); Blood Urea Nitrogen 56 mg/dl (7-17); Calcium 8.2 mg/dl (8.4-10.2); Carbon Dioxide 26 mmol/L (22-30); Chloride 102 mmol/L (98-107); Estimated Creatinine Clearance 30 ml/min; Glucose 221 mg/dl (70-99); Potassium 5.1 mmol/L (3.5-5.1); Sodium 132 mmol/L (135-145); Total Bilirubin 0.4 mg/dl (0.2-1.3); Total Protein 5.4 g/dl (6.3-8.2); eGFR 39.97
--- NOTE | 2023-09-22 09:32 | PN.DE.MGMTRT ---
Insulin Management
- -
09/22/2023 Diabetes Management Follow Up:
73 year old female with COPD flare up, PMH includes: CAD/CABG x 3 2011, HTN, HCL, hypothyroid, KRAFT, GI bleed, active Tobacco use and T2DM, A1C 7.4%. 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
Pt A/O x3, sitting on side of bed, offers no complaints. Remains on oral steroids- reduced to Prednisone 20 mg daily.
Steroids have been tapered down, insulin has also been reduced to pre admission doses.
Glucose stable with elevation at HS >203. Received Lantus 15 units @HS, FBG 220 this AM.
Per Hospitalist, pt for dc home today at tapered dose of steroids- will be on 2 more days of steroids.
Will make no changes to current regimen.
Diabetes History
- -
Type of Diabetes: 2 requiring insulin
Pre-Admission Diabetes Regimen
09/22/23
07:51
Creatinine 1.4 H
Lab Results
Hemoglobin A1c 7.4 % (4.0-5.6) H 09/11/23 03:40
Insulin Pump Settings
IP Diabetes Regimen
09/21/23 09/21/23 09/21/23
11:57 16:57 21:23
Glucose
POC Glucose 177 H 123 H 203 H
09/22/23 09/22/23
07:49 07:51
Glucose 221 H
POC Glucose 238 H
Meal type: Dinner
Meal type: Lunch
Amount consumed: 100%
Amount consumed: 100%
Patient Education
[2023-09-22] MEDS: ROXICODONE 15 MG PO (10:12)
--- NOTE | 2023-09-22 11:20 | CM ---
Patient seen bedside.
Per patient hoping for d/c home today, daughter will transport.
Patient will need script for Nebulizer and out patient physical therapy.
IMM completed.
Plan: Home when stable.
--- NOTE | 2023-09-22 12:04 | W.PN.HOSP.TC ---
Today's Communication/Plan
-
Ok for DC today
Assessment / Plan
Assessment / Plan
#COPD flare up
#Tobacco use disorder
-Patient active smoker and has been smoking for many years
-Patient was provided course of azithromycin by primary care physician without much help
-Chest x-ray There are small bilateral pleural effusions There is mild hazy soft tissue density in the posterior inferior aspect of the right middle layering along the major fissure which may be pneumonia or loculated effusion.
-CT chest Right upper lobe solid and groundglass nodules, likely infectious/inflammatory in etiology. Recommend follow-up imaging after treatment. Follow-up noncontrast CT chest could be obtained in 6-10 weeks.
-No formal diagnosis of COPD although likely have it with history of smoking and ongoing wheezing
-s/p IV steroids; continue prednisone taper
-nebs
-acapella/vest therapy
-Ultrasound chest with small right and trace left pleural effusion
-Pulm recs appreciated
#Nonalcoholic fatty liver disease
# Cirrhosis
-Maintain on home dose of rifaximin/lactulose. Refusing lactulose intermittently.
-with increased abdominal distention will repeat dedicated US --> s/p paracentesis on 09/19; no e/o SBP
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
#Acute on chronic normocytic anemia
#History of GI bleed
-Patient have history of recurrent GI bleed requiring Endoscopic intervention
-Patient gets her care at [facility] usually
-Hemoglobin drifted down to 7.1. No reported melena/emesis
-s/p 1 U prbc on sat. hbg 9.2 , continue monitor.
#ALIX on likely CKD.
-Unknown baseline. Obtain records.
-creatinine stable; initial creatinine likely outlier? patient if anything now hypervolemic with build up ascitic fluid
-resume diuretics given increased distention (discussed briefly with renal)
-monitor renal function closely as outpatient (requested records but haven't come)
#Mild hyperkalemia
-resolved
#Acute on Chronic HFpEF
-resume lasix
-cont bb.
-ECHO noted
#Essential HTN-elevated.
-low BP AM of 09/20 --> stop hydral and decrease metop back to home dose - BP has been OK on home regimen
-resume lasix
#Hypothyroidism
-Continue home dose of synthroid
#Pseduhyponatremia
-resolved.
#IDDM - uncontrolled
-Blood glucose significantly elevated due to IV steroid use in ER
-A1c 7.4
-with decreasing prednisone dose will resume home regimen (episosde hypoglycemia this AM); OK to have mildly elevated BGL in-house
DVT PPX - lovenox
Full code
Anticipated Discharge: Today
Subjective/Interval History
-
Date of Service: September 22, 2023
feeling well
no new complaints
feels ready to go home
Objective Data
-
Labs:
Laboratory Results
09/22/23
07:51
Sodium 132 L
Potassium 5.1
Chloride 102
Carbon Dioxide 26
BUN 56 H
Creatinine 1.4 H
Glucose 221 H
Calcium 8.2 L
Total Bilirubin 0.4
AST 58 H
ALT 53 H
Alkaline Phosphatase 285 H
Vital Signs:
Vital Signs
Temp Pulse Resp BP Pulse Ox
97.9 F 81 20 110/51 96
09/22/23 07:30 09/22/23 08:00 09/22/23 07:30 09/22/23 08:00 09/22/23 07:30
I&O
09/21/23 09/22/23 09/23/23
06:59 06:59 06:59
Intake Total 720 / 720 360 / 360
Balance 720 / 720 360 / 360
Review of Systems
-
History Source: Patient
All other systems: Reviewed and negative
Physical Exam
-
General: Well Developed and No Apparent Distress
HEENT: Normocephalic, Atraumatic and Moist Mucous Membranes
Respiratory: Negative Wheezes
Cardiac: Regular Rhythm and S1/S2; Negative Murmur, Rub or Gallop
GI: Soft, Nontender, Normal Bowel Sounds and Distended; Negative Organomegaly
Rectal: Deferred by Provider
Musculoskeletal: No Clubbing, No Cyanosis and No Edema
Skin: Negative Rash
Neuro: Awake, Alert, Oriented, AO x 3, No Motor Deficits and Nonfocal/Grossly Intact
Psych: Calm
Data Reviewed
-
Diagnostic Radiology: Report Reviewed by me
Labs: Labs Reviewed by me
[2023-09-22] MEDS: NOVOLOG FLEXPEN SC (12:07)
[2023-09-22 12:13] LABS: Glucose - Point of Care 60 mg/dl (70-99)
--- NOTE | 2023-09-22 12:17 | W.DS.TRANS ---
DC Summary - [employer]
-
Discharge Instructions:
Discharge Diagnosis/Procedures Acute COPD exacerbation
Leukocytosis
Acute kidney injury
Hypertension urgency
Groundglass opacity with lung nodules
Diabetes mellitus uncontrolled
Diet Diabetic, Carb Controlled
Activity With assistance,As tolerated
Blood Work BMP in 1 week with primary doctor
Others Tests repeat chest CT (without contrast) imaging in 6
weeks to assure the GGO/reticular opacities and
RUL nodule are stable (to be ordered by
Pulmonary)
Specialty Instructions Weigh Daily
Instructions:
Stand-Alone Forms:
Changes to Home Medications: Yes
Discharge Medications:
DC Medications w/original date entered in [employer]
albuterol sulfate 90 mcg/actuation aerosol inhaler 2 puff inhalation R Q4HPRN PRN sob/wheezing 09/10/23
diazepam 10 mg tablet 10 mg PO BIDPRN PRN anxiety 09/10/23
ezetimibe 10 mg tablet 10 mg PO DAILY High Cholesterol 09/10/23
furosemide 20 mg tablet 20 mg PO DAILY@1400 Fluid Retention/Swelling 09/10/23
gabapentin 100 mg capsule 100 mg PO TID PRN nerve pain 09/10/23
insulin glargine 100 unit/mL (3 mL) subcutaneous pen (Lantus Solostar U-100 Insulin) 12 - 15 unit SC HS diabetes 09/10/23
insulin lispro 100 unit/mL subcutaneous pen (Humalog KwikPen (U-100) Insulin) 15 unit SC AC diabetes 09/10/23
lactulose 10 gram/15 mL oral solution 15 ml PO .SEE BELOW fatty liver disease/cirrhosis 09/10/23
levothyroxine 50 mcg tablet 50 mcg PO DAILY Thyroid 09/10/23
metoprolol succinate 25 mg tablet,extended release 24 hr 25 mg PO DAILY Blood Pressure 09/10/23
omeprazole 20 mg capsule,delayed release 20 mg PO DAILY Gastrointestinal Issue 09/10/23
rifaximin 550 mg tablet (Xifaxan) 550 mg PO Q12H fatty liver disease/cirrhosis 09/10/23
lidocaine 4 % topical patch 1 patch topical DAILY #30 ea 09/22/23
oxycodone 15 mg tablet 15 mg PO QID PRN pain #0 tabs 09/22/23
prednisone 10 mg tablet 10 mg PO DIRECTED #5 tabs 09/22/23
umeclidinium 62.5 mcg-vilanterol 25 mcg/actuation powdr for inhalation (Anoro Ellipta) 1 inh inhalation DAILY #14 ea 09/22/23
Home Medication Changes
Only take Oxycodone as needed for pain.
You can also use a lidocaine patch for pain.
complete prednisone taper as prescribed. Take 20mg (2 tabs) tomorrow followed by 10mg (1 tab) daily x 3 days.
You are prescribed a new inhaler: Anoro Ellipta. Take one puff daily.
Continue your prior insulin regimen.
Pending Results: No
[2023-09-22 12:35] LABS: Glucose - Point of Care 98 mg/dl (70-99)
[2023-09-22] MEDS: NOVOLOG FLEXPEN-LOW RESISTANCE SC (12:36)
[2023-09-22 13:09] VITALS: BP 157/61
--- NOTE | 2023-09-22 14:50 | W.DCSUMMARY ---
Discharge Summary
Discharge Data
Date of Admission: 09/10/23
Date of Discharge: 09/22/23
-
Pending Results: No
Hospital Course
Discharging Physician : Dr. Sophie Nguyen
Disposition : Home with Home Health
Primary care physician : Dr. Jaspreet Echeverria
Principal Discharge diagnosis : Acute COPD exacerbation, Acute kidney injury, Groundglass opacity with lung nodules
Hospital Course :
Ms. Lucinda Patterson is a 73 yo woman with hx nonalcoholic fatty liver disease and cirrhosis, history of GI bleed and multiple endoscopic procedure, coronary disease and bypass, history of peripheral artery disease, tobacco use, hypertension,
hypothyroidism came to ER with ongoing shortness of breath for 2 months.�Vitals stable, SpO2 97% room air. Labs with hyperglycemia. Patient with wheezing on exam. CXR with small trace pleural effusion. �Chest CT was performed showing paraseptal
emphysema, patchy groundglass opacities in the right upper lobe and in lingula, and a mild�moderate sized right pleural effusion, trace left-sided pleural effusion and fluid in the right horizontal fissure.�She was admitted for acute COPD
exacerbation. Pulmonary consulted. Patient improved on IV steroids and nebs as well as mucus clearing techniques. She was transitioned to a prednisone taper and discharged with 4 final days of taper. She is newly prescribed Anoro Ellipta and
will have close follow up with pulmonary. She will obtain spirometry/PFT's as outpatient. Additionally, patient will need repeat CT in 6 weeks to assure GGO/reticular opacities and RUL stable.
Creatinine on admission 0.9 then increased to 1.1, peaked at 1.9. Etiology of ALIX thought pre-renal and improved with holding diuretics. Creatinine improved to 1.3-1.4 which is likely true baseline. She started retaining fluid and per nephrology,
OK to resume diuretics. She will have close follow up labs.
She had build up of ascitic fluid in-house and underwent paracentesis. PMN count = 79. SAAG suggestive portal hypertension.
She was hyperglycemic on high dose steroids, insulin adjusted and improved with decreasing prednisone dose. She will be discharged on her home insulin regimen, A1c = 7.4.
Time spent on discharge was 35 minutes.
Important imaging findings :
CXR 09/10/23
IMPRESSION:
There are small bilateral pleural effusions
There is mild hazy soft tissue density in the posterior inferior aspect of the right middle layering along the major fissure which may be pneumonia or loculated effusion.
CHEST CT 09/13/23
IMPRESSION:
1. Trace left and small right pleural effusions.
2. Right upper lobe solid and groundglass nodules, likely infectious/inflammatory in etiology. Recommend follow-up imaging after treatment. Follow-up noncontrast CT chest could be obtained in 6-10 weeks.
RENAL US 09/18/23
IMPRESSION:
Normal kidneys
Ascites.
Procedure findings :
Discharge Plan
-
Patient Disposition: Home with Home Care
Discharge Diagnosis/Procedures: Acute COPD exacerbation
Leukocytosis
Acute kidney injury
Hypertension urgency
Groundglass opacity with lung nodules
Diabetes mellitus uncontrolled
Condition: Fair
Diet: Diabetic, Carb Controlled
Activity: With assistance and As tolerated
Blood Work: BMP in 1 week with primary doctor
Others Tests: repeat chest CT (without contrast) imaging in 6 weeks to assure the GGO/reticular opacities and RUL nodule are stable (to be ordered by Pulmonary)
Specialty Instructions: Weigh Daily- Call MD for wt gain/loss 3 lbs overnight/5 lbs in 1 week
Referrals:
Jaspreet Echeverria, DO [Family Provider] - in less than 1 week
Cain Weiss MD [Active] -
(3-4 weeks ([place] or [place])
Will need follow up CT to confirm resolution of lung nodules given high risk for lung cancer)
Additional Discharge Medication Instructions: Only take Oxycodone as needed for pain.
You can also use a lidocaine patch for pain.
complete prednisone taper as prescribed. Take 20mg (2 tabs) tomorrow followed by 10mg (1 tab) daily x 3 days.
You are prescribed a new inhaler: Anoro Ellipta. Take one puff daily.
Continue your prior insulin regimen.
Prescriptions:
New
lidocaine 4 % Adhesive Patch,Medicated
1 patch topical DAILY Qty: 30 0RF
prednisone 10 mg tablet
10 mg PO DIRECTED Qty: 5 0RF
Rx Instructions:
Take 20mg (2 tabs) on 09/22 then 10mg (1 tab) x 3 days then stop
Anoro Ellipta 62.5-25 mcg/actuation blister with device
1 inh inhalation DAILY Qty: 14 0RF
Continued
levothyroxine 50 mcg Tablet
50 mcg PO DAILY
omeprazole 20 mg Capsule,Delayed Release(Dr/Ec)
20 mg PO DAILY
furosemide 20 mg Tablet
20 mg PO DAILY@1400
gabapentin 100 mg Capsule
100 mg PO TID PRN (Reason: nerve pain)
metoprolol succinate 25 mg Tablet Extended Release 24 Hr
25 mg PO DAILY
diazepam 10 mg Tablet
10 mg PO BIDPRN PRN (Reason: anxiety)
Patient Comments:
09/10/2023, pt. filled this med. on 08/31/2023 for 90 tablets per PDMP.
albuterol sulfate 90 mcg/actuation Hfa Aerosol Inhaler
2 puff INHALATION R Q4HPRN PRN (Reason: sob/wheezing)
insulin lispro [Humalog KwikPen Insulin] 100 unit/mL Insulin Pen
15 unit SC AC
ezetimibe 10 mg Tablet
10 mg PO DAILY
lactulose 10 gram/15 mL Solution
15 ml PO .SEE BELOW
Patient Comments:
09/10/2023, per daughter, pt. does not like taking this med.; it is prescribed TID but daughter states that pt. should be taking it BID but when daughter is not around, pt. does not take it.
insulin glargine [Lantus Solostar U-100 Insulin] 100 unit/mL (3 mL) Insulin Pen
12 - 15 unit SC HS
Xifaxan 550 mg Tablet
550 mg PO Q12H
Changed
oxycodone 15 mg Tablet
15 mg PO QID PRN (Reason: pain ) Qty: 0 0RF
Patient Comments:
09/10/2023, pt. filled this med. on 08/31/2023 for 150 tablets per PDMP.
Discontinued
azithromycin 250 mg Tablet
0 mg PO .COMPLEX
Patient Comments:
09/10/2023, per pt., last dose is tomorrow (09/11/2023).
Rx Instructions:
09/10/2023, for 250 mg dose pack: take 500 mg today (day 1), then 250 mg for 4 days (days 2-5).
Discharge Orders:
Discharge Patient (As Directed); Ordered 09/22/23
Ordered By: Sophie Nguyen
Discharge Date and Time
Discharge Date/Time: 09/22/23 13:26
== END 2023-09-22 13:26 | disposition home or self-care (01) | DRG 190 ==
LOC: 4 WEST ACU 13:25
PROVIDERS: Hospitalist; Physician Assistant; Radiology Vascular & Interventional Radiology; ADMITTING PHYSICIAN Hospitalist; ATTENDING PHYSICIAN Student in an Organized Health Care Education/Training Program; CONSULT PHYSICIAN Internal Medicine; CONSULT PHYSICIAN Internal Medicine Critical Care Medicine; EMERGENCY PHYSICIAN Emergency Medicine; FAMILY PHYSICIAN Family Medicine
PROC: 30233N1 Transfusion of Nonautologous Red Blood Cells into Peripheral Vein, Percutaneous Approach (ICD-10-PCS; 2023-09-11)
PROC: 0W9G3ZZ Drainage of Peritoneal Cavity, Percutaneous Approach (ICD-10-PCS; 2023-09-20)
DX: J43.8 Other emphysema (principal); I50.33 Acute on chronic diastolic (congestive) heart failure; N17.9 Acute kidney failure, unspecified; R18.8 Other ascites; J90 Pleural effusion, not elsewhere classified; I13.0 Hypertensive heart and chronic kidney disease with heart failure and stage 1 through stage 4 chronic kidney disease, or unspecified chronic kidney disease; E11.65 Type 2 diabetes mellitus with hyperglycemia; E78.00 Pure hypercholesterolemia, unspecified; D72.829 Elevated white blood cell count, unspecified; E87.5 Hyperkalemia; D64.9 Anemia, unspecified; F17.200 Nicotine dependence, unspecified, uncomplicated; E11.51 Type 2 diabetes mellitus with diabetic peripheral angiopathy without gangrene; K74.60 Unspecified cirrhosis of liver; I16.0 Hypertensive urgency; E11.22 Type 2 diabetes mellitus with diabetic chronic kidney disease; N18.9 Chronic kidney disease, unspecified; E03.9 Hypothyroidism, unspecified; I25.10 Atherosclerotic heart disease of native coronary artery without angina pectoris; K75.81 Nonalcoholic steatohepatitis (NASH); Z95.1 Presence of aortocoronary bypass graft; Z95.5 Presence of coronary angioplasty implant and graft; Z79.4 Long term (current) use of insulin; Z79.890 Hormone replacement therapy; Z91.048 Other nonmedicinal substance allergy status
CPT/HCPCS: 88305; 49083; 71046; 71250; 72072; 76604; 76705; 76775; 80048; 80053; 81003; 81099; 82042; 82570; 82947; 82962; 83036; 83615; 83735; 83880; 84145; 84157; 84300; 84484; 85025; 85027; 86850; 86900; 86901; 86920; 87015; 87070; 87205; 88112; 89051; 93005; 93306; 94640; 94669; 96374; 96375; 97116; 97162; 97165; 99285; P9016

== ENCOUNTER 2023-12-14 21:11 | Emergency (ER) | payer MEDICARE, OTHER, SELFPAY ==
[2023-12-14 21:11] VITALS: BMI 27.5
[2023-12-14 21:20] VITALS: BP 190/72
[2023-12-14 21:32] LABS: Glucose - Point of Care 401 mg/dl (70-99)
[2023-12-14 21:40] VITALS: BP 186/69
[2023-12-14 22:00] VITALS: BP 177/64
--- NOTE | 2023-12-14 22:21 | ED.GENMED ---
History of Present Illness
General
Chief Complaint: Fall
Source: patient and family (Daughter)
Exam Limitations: none
Time Seen by Provider: 12/14/23 21:53
Travel History
Have you had any contact with someone who has COVID-19?: No
Do you have any symptoms of coronavirus? Fever > 100 degrees, chills, cough, shortness of breath, sore throat, loss of taste or smell, muscle aches, or headache?: No
History of Present Illness
History of Present Illness:
This is a 73 year old female that comes in with c/o fall. State that she tripped in a hole in the yard falling. States that she has pain in the right ribs and her left foot and ankle. States that this happened at 5:30pm. Denies any LOC. States that
this was in the grass. Patient also states that she took her AM insulin but forgot to take her insulin at lunch and did not have dinner to she did not get her evening insulin. States that her blood sugar is always high. Denies any fever, chills,
chest pain, SOB, abd pain, nausea, vomiting, diarrhea, headache, dizziness, urinary burning.
Past History
Past History
ED Past Medical History: CAD, COPD, HTN, Hypercholesterolemia, IDDM, Hypothyroidism, Psychiatric (Anxiety, Depression) and Other (Back and neck pain, Cirrhosis of the liver, glaucoma, Anemia, )
ED Past Surgical History: Cardiac (CABG X 3, cardia stents) and Tonsilectomy
Social History
Tobacco: Smoker (2 daily)
Alcohol: None
Drug: None
Personal:
Living: with family
Review of Systems
Review of Systems
All Other Systems: ROS reviewed and negative except as documented in HPI and ROS
Constitutional: Reports no symptoms; Denies fever or chills
EENT: Reports no symptoms
Respiratory: Reports other (Right sided rib pain); Denies cough or trouble breathing
Cardiac: Reports no symptoms; Denies chest pain
ABD/GI: Reports no symptoms; Denies abdominal pain, nausea, vomiting or diarrhea
: Reports no symptoms; Denies dysuria, frequency or urgency
Musculoskeletal: Reports joint pain (Left ankle pain, foot pain)
Skin: Reports no symptoms
Neurological: Reports no symptoms; Denies dizzy or headache
Psychiatric: Reports no symptoms
Phy Exam
General Physical Exam
General Presentation: no apparent distress
General age: appears stated age
General Skin: warm and dry
General Habitus: elderly
General Mental: alert
General Hydration: dry mucous membranes
ENT Exam
ENT Exam: TM's normal, pharynx normal and neck supple
Eye Exam
Eye Exam: EOMI
Cardiovascular Exam
Cardiovascular Exam: regular rate/rhythm, no edema and normal peripheral pulses
Pulmonary Exam
Pulmonary Exam: no respiratory distress, chest non tender, no rhonchi, no cough and other (Exp wheezing throughout, Fine crackles at right base)
Gastrointestinal Exam
Gastrointestinal Exam: normal bowel sounds, non tender, soft, no organomegaly, no pulsatile mass and non distended
Musculoskeletal Exam
Musculoskeletal Exam: no edema and other (Limited ROM of the left foot. Negative for any spinal tenderness or low back with palpation. Right rib tenderness with palpation on the lower rib cage. )
Skin Exam
Skin Exam: normal color, warm/dry, no rash and no petechia
Psychiatric Exam
Psychiatric Exam: normal mood/affect
Course
Orders/Labs/Results
Orders:
Orders
12/14/23 22:20
Ankle, left 3 view CR [CR Ankle - Left Min 3 Views ] Urgent
Comment:
Reason For Exam: fall pain
Foot, Left 3 View [CR Foot - Left Min 3 Views] Urgent
Comment:
Reason For Exam: pain, fall
Ribs, Right 3 View W/PA Chest [CR Ribs-right 3 Vw W/pa Chest*] Urgent
Comment:
Reason For Exam: Right rib pain, fall
12/14/23 22:21
0.9% Sodium Chloride 1000 ml [Nss] 1,000 ml IV BOLUS
12/14/23 23:25
Ortho Boot Left- Treatment ONCE
Short or tall?: Short
Complete Blood Count/With Diff Urgent
Comprehensive Metabolic Panel Urgent
12/15/23 00:11
Insulin Aspart [NOVOLOG vial] 10 units SC NOW STA
12/15/23 00:35
Oxycodone [Roxicodone] 15 mg PO NOW STA
Abnormal Lab Results
12/14/23 12/14/23
21:30 23:25
RBC 3.36 L 10^6/uL
(4.20-5.40)
Hgb 8.7 L g/dL
(12.0-16.0)
Hct 27.6 L %
(37.0-47.0)
MCH 25.9 L pg
(27.0-31.0)
MCHC 31.5 L g/dL
(33.0-37.0)
RDW 23.1 H %
(11.5-14.5)
Absolute Lymphs (auto) 0.8 L 10^3/uL
(1.2-3.4)
Absolute Monos (auto) 0.9 H 10^3/uL
(0.1-0.6)
Neutrophils % 75.3 H %
(42.2-75.2)
Lymphocytes % 10.0 L %
(20.5-51.1)
Monocytes % 11.0 H %
(1.7-9.3)
BUN 21 H mg/dl
(7-17)
Glucose 356 H mg/dl
(70-99)
AST 46 H U/L
(14-36)
Alkaline Phosphatase 327 H U/L
(38-126)
Total Protein 6.1 L g/dl
(6.3-8.2)
Albumin 3.0 L g/dl
(3.5-5.0)
POC Glucose 401 H mg/dl
(70-99)
12/14/23 23:25
12/14/23 23:25
H/H low but consistent with prior labs, Dehydration. Hyperglycemia, AST mildly elevated. Alk phos elevation. Total protein slightly low. Albumin slightly low.
Vital Signs
Initial and Last Documented VS:
Initial Vital Signs
Temp Pulse Resp BP Pulse Ox
99 F 83 20 190/72 98
12/14/23 21:20 12/14/23 21:20 12/14/23 21:20 12/14/23 21:20 12/14/23 21:20
Last Documented Vital Signs
Temp Pulse Resp BP Pulse Ox
98.4 F 83 20 186/69 98
12/14/23 23:40 12/14/23 21:20 12/14/23 21:20 12/14/23 21:40 12/14/23 21:45
MDM/Problems Addressed
Differential Diagnosis Includes:
Foot sprain, Ankle sprain. Rib Fracture. DKA
MDM/Problems Addressed:
This is a 73 year old female that comes in with c/o fall in her yard. Patient also states that she forgot to take her insulin in the afternoon and then she didn't eat dinner so she did not have her Insulin at night.
Will check labs, Give IV fluids and X-rays of the left foot, ankle and right ribs.
Back into see patient and daughter. Explained that there is no rib fractures. There is a very small fracture in the left foot. Will place patient in a boot. Will check labs, give IV fluids and get her blood sugar down.
Back into see patient. Patient is going to go home and take her HS insulin. Daughter is with patient and explained that she may need an insulin pump that will give her the insulin if she is going to forget to take her Insulin. Patient to increase
her water intake to 8-8oz glasses daily. Follow up with the fire fighting equipment specialist. Patient to return with any concerns.
Chronic conditions affecting care: DM
Acute Exacerbation and/or Progression of Chronic Illness: DM
*Radiology
Radiology exam reviewed: radiology read reviewed (Ribs-No radiographic evidence for an acute, displaced rib fracture within the limitations of diffuse osseous demineralization Foot-Small displaced fracture of the dorsal talar head. Ankle-Small
displaced fracture of the dorsal talar head )
*Pulse Oximetry
Patient hypoxic: no
*EKG
Interpreted by ED Provider?: NA
Rate: EKG- N/A
*Bandmill Operator Interpretation
Rate: Bandmill Operator- N/A
*Critical Care Note
Total Time (30-74mins, 75-104mins- exclusive of procedures): Not Applicable
ED Attending Note
-
Portions of this chart may have been created with voice recognition software.� Occasional wrong word or��sound alike� substitutions may have occurred due to the inherent limitations of voice recognition software.
Discharge Plan
Departure
Patient Disposition: Home (Routine Discharge)
Date of Disposition: 12/15/23
Time of Disposition: 01:10
Patient with high blood pressure during this ER visit?: Yes
Condition: Good
Covid-19: Not Applicable
Discharge Problem:
Fracture of left foot, Acute hyperglycemia, Contusion of rib on right side
Instructions: Type 1 diabetes, Foot Fracture (DC), Bruised Rib (DC), BLOOD PRESSURE, RICE Therapy
Prescriptions:
No Action
levothyroxine 50 mcg Tablet
50 mcg PO DAILY
omeprazole 20 mg Capsule,Delayed Release(Dr/Ec)
20 mg PO DAILY
furosemide 20 mg Tablet
20 mg PO DAILY@1400
gabapentin 100 mg Capsule
100 mg PO TID PRN (Reason: nerve pain)
metoprolol succinate 25 mg Tablet Extended Release 24 Hr
25 mg PO DAILY
diazepam 10 mg Tablet
10 mg PO BIDPRN PRN (Reason: anxiety)
Patient Comments:
09/10/2023, pt. filled this med. on 08/31/2023 for 90 tablets per PDMP.
albuterol sulfate 90 mcg/actuation Hfa Aerosol Inhaler
2 puff INHALATION R Q4HPRN PRN (Reason: sob/wheezing)
insulin lispro [Humalog KwikPen Insulin] 100 unit/mL Insulin Pen
15 unit SC AC
ezetimibe 10 mg Tablet
10 mg PO DAILY
lactulose 10 gram/15 mL Solution
15 ml PO .SEE BELOW
Patient Comments:
09/10/2023, per daughter, pt. does not like taking this med.; it is prescribed TID but daughter states that pt. should be taking it BID but when daughter is not around, pt. does not take it.
insulin glargine [Lantus Solostar U-100 Insulin] 100 unit/mL (3 mL) Insulin Pen
12 - 15 unit SC HS
Xifaxan 550 mg Tablet
550 mg PO Q12H
lidocaine 4 % Adhesive Patch,Medicated
1 patch topical DAILY Qty: 30 0RF
prednisone 10 mg tablet
10 mg PO DIRECTED Qty: 5 0RF
Rx Instructions:
Take 20mg (2 tabs) on 09/22 then 10mg (1 tab) x 3 days then stop
oxycodone 15 mg Tablet
15 mg PO QID PRN (Reason: pain ) Qty: 0 0RF
Patient Comments:
09/10/2023, pt. filled this med. on 08/31/2023 for 150 tablets per PDMP.
Anoro Ellipta 62.5-25 mcg/actuation blister with device
1 inh inhalation DAILY Qty: 14 0RF
Referrals:
NONE,* [Active] -
Regan Lacy MD [Active] - Follow up in 2-3 days
Activity Restrictions/Additional Instructions:
As discussed your blood work shows your anemia and there is some dehydration. You have Hyperglycemia. YOU NEED TO TAKE YOUR INSULIN DIRECTED. Please discuss with your provider about an insulin pump. Please take your HS insulin when you get home.
Follow up with the fire fighting equipment specialist for your foot fracture. You may use Ibuprofen as needed for any discomfort. Ice to any area that is sore tomorrow. Rest and elevated your foot. Keep the boat on until seen by the fire fighting equipment specialist. IF
YOU HAVE ANY OTHER CONCERNS PLEASE RETURN TO THE EMERGENCY ROOM.
Interventions
Interventions:
*Risk Screen - Suicide Last Done: 12/14/23 21:20
*General Assessment Last Done: 12/14/23 21:20
*Neglect/Abuse Screening Last Done: 12/14/23 21:20
ED- Fall Risk Assessment Last Done: 12/14/23 21:20
*ED COVID-19 Vaccine History Last Done: 12/14/23 21:20
ED-Musculoskeletal Assessment Last Done: 12/14/23 21:49
ED- Neurological Assessment Last Done: 12/14/23 21:49
ED-Skin Assessment Last Done: 12/14/23 21:49
Discharge Date and Time
Print Language: CYMRO
[2023-12-14] MEDS: NSS 1000 IV (23:31)
[2023-12-14 23:43] LABS: % Basophils 0.6 % (0-2); % Eosinophils 2.7 % (0-6); % Immature Granulocytes 0.4 % (0-0.5); % Neutrophils 75.3 % (42.2-75.2); Absolute Basophils 0.1 10^3/uL (0-0.2); Absolute Eosinophils 0.2 10^3/uL (0-0.7); Absolute Lymphocytes 0.8 10^3/uL (1.2-3.4); Absolute Monocytes 0.9 10^3/uL (0.1-0.6); Absolute Neutrophils 6.1 10^3/uL (1.4-6.5); Hematocrit 27.6 % (37.0-47.0); Hemoglobin 8.7 g/dL (12.0-16.0); Mean Corp Hgb Conc. 31.5 g/dL (33.0-37.0); Mean Corpuscular Hgb 25.9 pg (27.0-31.0); Mean Corpuscular Volume 82.1 fL (81.0-99.0); Mean Platelet Volume 10.4 fL (7.4-10.4); Nucleated Red Blood Cells % 0 %; Platelet Count 135 10^3/uL (130-400); Red Blood Cell Count 3.36 10^6/uL (4.20-5.40); Red Cell Dist. Width 23.1 % (11.5-14.5); White Blood Cell Count 8.1 10^3/uL (4.8-10.8)
[2023-12-14 23:56] LABS: ALT (SGPT) 22 U/L (0-35); AST (SGOT) 46 U/L (14-36); Alkaline Phosphatase 327 U/L (38-126); Blood Urea Nitrogen 21 mg/dl (7-17); Calcium 8.7 mg/dl (8.4-10.2); Carbon Dioxide 28 mmol/L (22-30); Chloride 106 mmol/L (98-107); Estimated Creatinine Clearance 46 ml/min; Glucose 356 mg/dl (70-99); Sodium 138 mmol/L (135-145); Total Bilirubin 0.4 mg/dl (0.2-1.3); Total Protein 6.1 g/dl (6.3-8.2); eGFR 59.86
[2023-12-15 00:24] LABS: Normal RBC Morphology No
[2023-12-15 00:30] LABS: Anisocytosis 2+; Hypochromasia 2+
[2023-12-15 00:31] LABS: Polychromasia Occasional
[2023-12-15 00:32] LABS: Ovalocytes Occasional; Schistocytes Occasional; Target Cells 1+; Tear Drop Red Blood Cells Occasional
[2023-12-15] MEDS: NOVOLOG vial 10 UNITS SC (00:32)
[2023-12-15] MEDS: ROXICODONE 15 MG PO (00:59)
[2023-12-15 01:05] LABS: Glucose - Point of Care 363 mg/dl (70-99)
[2023-12-15 01:19] VITALS: BP 165/56
== END 2023-12-15 01:28 | disposition home or self-care (01) ==
LOC: EMR 21:11
PROVIDERS: Clinical Nurse Specialist Family Health; EMERGENCY PHYSICIAN Emergency Medicine; FAMILY PHYSICIAN Family Medicine
DX: S92.122A Displaced fracture of body of left talus, initial encounter for closed fracture (principal); S20.211A Contusion of right front wall of thorax, initial encounter; W01.0XXA Fall on same level from slipping, tripping and stumbling without subsequent striking against object, initial encounter; F17.200 Nicotine dependence, unspecified, uncomplicated; E11.65 Type 2 diabetes mellitus with hyperglycemia; I10 Essential (primary) hypertension
CPT/HCPCS: 99285; 96360; 96361; 96372; 71101; 73610; 73630; 80053; 82962; 85025

== ENCOUNTER 2024-02-29 05:40 | Inpatient (IN) | payer MEDICARE, SELFPAY ==
[2024-02-28 22:52] VITALS: BP 138/56
[2024-02-29] VITALS (25 sets, daily range): BP systolic 71–187; BP diastolic 40–84; PULSE 78–84; BMI 26.8
--- NOTE | 2024-02-29 01:59 | ED.GENMED ---
History of Present Illness
General
Chief Complaint: Abdominal Symptoms
Source: patient and family
Exam Limitations: none
Time Seen by Provider: 02/29/24 01:37
Nursing documentation reviewed up to this point in time: agreed with
History of Present Illness
History of Present Illness:
73-year-old female history of nonalcoholic cirrhosis presents with shortness of breath abdominal distention was at [facility] few weeks ago had a cardiac stent placed, some GI bleeding currently had esophageal varices which were banded,
paracentesis, prior smoker never drinker feels that her abdomen is getting distended she had a hard time breathing, but overall improved from when she was in [facility] a few weeks ago
Past History
Past History
ED Past Medical History: CAD, COPD, HTN, Hypercholesterolemia, IDDM, Hypothyroidism, Psychiatric (Anxiety, Depression) and Other (Back and neck pain, Cirrhosis of the liver, glaucoma, Anemia, )
ED Past Surgical History: Cardiac (CABG X 3, cardia stents) and Tonsilectomy
Social History
Tobacco: Smoker (2 daily)
Alcohol: None
Drug: None
Personal:
Living: with family
Employment: Retired
Review of Systems
Review of Systems
Other source history: family
All Other Systems: Not applicable
Constitutional: Denies fever or fatigue
Respiratory: Reports trouble breathing; Denies cough
Cardiac: Denies chest pain
ABD/GI: Reports abdominal pain; Denies nausea or vomiting
: Reports no symptoms
Musculoskeletal: Reports no symptoms
Skin: Reports no symptoms
Neurological: Reports no symptoms
Endocrine: Reports no symptoms
Phy Exam
Physical Exam
Physical Exam:
Physical Exam
General: Chronically ill-appearing female
Neck: No jaundice
Heart: Regular
Lungs: Bibasilar
Abdomen: Distended with ascites nontender
Rectal: External hemorrhoids, not excoriated dark brown guaiac positive stool
Neuro: alert and oriented. no focal neurological deficits
Skin: no rash
Psychiatric: cooperative
Extremities: Trace edema
Course
Orders/Labs/Results
Orders:
Orders
02/28/24 22:57
Complete Blood Count/With Diff Urgent
Comprehensive Metabolic Panel Urgent
02/28/24 22:58
Type+Screen Urgent
Electrocardiogram (*1) Urgent
Reason for Study: Shortness of Breath
EKG- Treatment ONCE
Prothrombin Time Urgent
02/29/24 01:52
CR Chest - 2 Views Urgent
Comment:
Reason For Exam: sob
02/29/24 02:41
Blood Bank Products [* Blood Bank Products] Urgent
Blood Bank Products: *Packed RBC Leuko(PRBC's)
Quantity: 1
Transfuse Today: Yes
Reason: Anemia
Abnormal Lab Results
02/29/24
02:09
RBC 2.12 L 10^6/uL
(4.20-5.40)
Hgb 5.8 L* g/dL
(12.0-16.0)
Hct 18.8 L* %
(37.0-47.0)
MCHC 30.9 L g/dL
(33.0-37.0)
RDW 16.9 H %
(11.5-14.5)
MPV 11.4 H fL
(7.4-10.4)
Absolute Neuts (auto) 6.6 H 10^3/uL
(1.4-6.5)
Absolute Lymphs (auto) 0.7 L 10^3/uL
(1.2-3.4)
Absolute Monos (auto) 1.0 H 10^3/uL
(0.1-0.6)
Lymphocytes % 8.2 L %
(20.5-51.1)
Monocytes % 11.6 H %
(1.7-9.3)
PT 15.4 H Sec
(11.4-14.6)
BUN 31 H mg/dl
(7-17)
Creatinine 1.3 H mg/dL
(0.6-1.0)
Glucose 231 H mg/dl
(70-99)
AST 103 H U/L
(14-36)
ALT 50 H U/L
(0-35)
Alkaline Phosphatase 338 H U/L
(38-126)
Albumin 3.0 L g/dl
(3.5-5.0)
02/29/24 02:09
02/29/24 02:09
Vital Signs
Initial and Last Documented VS:
Initial Vital Signs
Temp Pulse Resp BP Pulse Ox
98.8 F 82 18 138/56 100
02/28/24 22:52 02/28/24 22:52 02/28/24 22:52 02/28/24 22:52 02/28/24 22:52
Last Documented Vital Signs
Temp Pulse Resp BP Pulse Ox
98.8 F 83 20 145/54 99
02/28/24 22:52 02/29/24 02:53 02/29/24 02:53 02/29/24 02:01 02/29/24 02:53
MDM/Problems Addressed
Differential Diagnosis Includes:
Ascites, heart failure pneumonia less likely ACS SBP
MDM/Problems Addressed:
Abdominal distention
Chronic conditions affecting care:
Liver disease heart disease
Chronic conditions affecting care: CAD
Acute Exacerbation and/or Progression of Chronic Illness: CAD
*Radiology
Radiology exam reviewed: preliminary read by ED provider
*Pulse Oximetry
Patient hypoxic: no
*[employer] Interpretation
Rate: normal and tachycardiac
Interpretation: normal
Heart Rate: 78
Rhythm: sinus
*Critical Care Note
Total Time (30-74mins, 75-104mins- exclusive of procedures): 30
Update Note
Update Note:
Records from [facility] have been requested apparently not available at this time today
H&H noted reviewed granddaughter who is an RN, consented for blood
ED Attending Note
-
Portions of this chart may have been created with voice recognition software.� Occasional wrong word or��sound alike� substitutions may have occurred due to the inherent limitations of voice recognition software.
Discharge Plan
Departure
Patient Disposition: Admit
Date of Disposition: 02/29/24
Time of Disposition: 02:59
Admit to: Telemetry
Presentation/result/management discussed w/ accepting MD/DO: Hospitalist
Patient with high blood pressure during this ER visit?: No
Condition: Fair
Covid-19: Not Applicable
Discharge Problem:
Anemia, Ascites
Prescriptions:
No Action
levothyroxine 50 mcg Tablet
50 mcg PO DAILY
omeprazole 20 mg Capsule,Delayed Release(Dr/Ec)
20 mg PO DAILY
furosemide 20 mg Tablet
20 mg PO DAILY@1400
gabapentin 100 mg Capsule
100 mg PO TID PRN (Reason: nerve pain)
metoprolol succinate 25 mg Tablet Extended Release 24 Hr
25 mg PO DAILY
diazepam 10 mg Tablet
10 mg PO BIDPRN PRN (Reason: anxiety)
Patient Comments:
09/10/2023, pt. filled this med. on 08/31/2023 for 90 tablets per PDMP.
albuterol sulfate 90 mcg/actuation Hfa Aerosol Inhaler
2 puff INHALATION R Q4HPRN PRN (Reason: sob/wheezing)
insulin lispro [Humalog KwikPen Insulin] 100 unit/mL Insulin Pen
15 unit SC AC
ezetimibe 10 mg Tablet
10 mg PO DAILY
lactulose 10 gram/15 mL Solution
15 ml PO .SEE BELOW
Patient Comments:
09/10/2023, per daughter, pt. does not like taking this med.; it is prescribed TID but daughter states that pt. should be taking it BID but when daughter is not around, pt. does not take it.
insulin glargine [Lantus Solostar U-100 Insulin] 100 unit/mL (3 mL) Insulin Pen
12 - 15 unit SC HS
Xifaxan 550 mg Tablet
550 mg PO Q12H
lidocaine 4 % Adhesive Patch,Medicated
1 patch topical DAILY Qty: 30 0RF
prednisone 10 mg tablet
10 mg PO DIRECTED Qty: 5 0RF
Rx Instructions:
Take 20mg (2 tabs) on 09/22 then 10mg (1 tab) x 3 days then stop
oxycodone 15 mg Tablet
15 mg PO QID PRN (Reason: pain ) Qty: 0 0RF
Patient Comments:
09/10/2023, pt. filled this med. on 08/31/2023 for 150 tablets per PDMP.
Anoro Ellipta 62.5-25 mcg/actuation blister with device
1 inh inhalation DAILY Qty: 14 0RF
Referrals:
Jaspreet Echeverria, DO [Family Provider] -
Interventions
Interventions:
*Risk Screen - Suicide Last Done: 02/28/24 22:52
*General Assessment Last Done: 02/28/24 22:52
*Neglect/Abuse Screening Last Done: 02/28/24 22:52
LJ-Hpbajx-[id number] Assessment Last Done: 02/29/24 02:32
Discharge Date and Time
Print Language: BARBADIAN
[2024-02-29 02:29] LABS: INR 1.24; PT 15.4 Sec (11.4-14.6)
[2024-02-29 02:32] LABS: % Basophils 0.6 % (0-2); % Eosinophils 5.2 % (0-6); % Immature Granulocytes 0.3 % (0-0.5); % Lymphocytes 8.2 % (20.5-51.1); % Monocytes 11.6 % (1.7-9.3); % Neutrophils 74.1 % (42.2-75.2); Absolute Basophils 0.1 10^3/uL (0-0.2); Absolute Eosinophils 0.5 10^3/uL (0-0.7); Absolute Lymphocytes 0.7 10^3/uL (1.2-3.4); Absolute Neutrophils 6.6 10^3/uL (1.4-6.5); Hematocrit 18.8 % (37.0-47.0); Hemoglobin 5.8 g/dL (12.0-16.0); Mean Corp Hgb Conc. 30.9 g/dL (33.0-37.0); Mean Corpuscular Hgb 27.4 pg (27.0-31.0); Mean Corpuscular Volume 88.7 fL (81.0-99.0); Mean Platelet Volume 11.4 fL (7.4-10.4); Nucleated Red Blood Cells % 0 %; Platelet Count 209 10^3/uL (130-400); Red Blood Cell Count 2.12 10^6/uL (4.20-5.40); Red Cell Dist. Width 16.9 % (11.5-14.5); White Blood Cell Count 8.9 10^3/uL (4.8-10.8)
[2024-02-29 02:39] LABS: ALT (SGPT) 50 U/L (0-35); AST (SGOT) 103 U/L (14-36); Alkaline Phosphatase 338 U/L (38-126); Blood Urea Nitrogen 31 mg/dl (7-17); Calcium 8.6 mg/dl (8.4-10.2); Carbon Dioxide 23 mmol/L (22-30); Chloride 107 mmol/L (98-107); Estimated Creatinine Clearance 34 ml/min; Glucose 231 mg/dl (70-99); Potassium 4.6 mmol/L (3.5-5.1); Sodium 139 mmol/L (135-145); Total Bilirubin 0.7 mg/dl (0.2-1.3); Total Protein 6.3 g/dl (6.3-8.2); eGFR 43.69
[2024-02-29] MEDS: TYLENOL 650 MG PO (04:28)
[2024-02-29 05:10] LABS: NT-proBNP 2000 pg/ml; Troponin I 0.028 ng/ml
--- NOTE | 2024-02-29 05:11 | HPS.HSE ---
Family Physician
-
Family Physician: Jaspreet Echeverria
Chief Complaint
-
Abdominal Distention
History of Present Illness
Patient is a 73y F with PMH significant for NAFLD, cirrhosis, hypertension and DM-II who presents to ED complaining of abdominal distention. Patient states that she presented to about 2 weeks ago with similar complaints. She
underwent a paracentesis at that facility where they removed '4 bottles' of fluid. This was her first paracentesis. Also during that stay, she underwent percutaneous angiography with stent placement. She knows that they accessed the L groin, but
she cannot say where the stent was placed (coronary or peripheral artery). She states that they changed many medications - though she does not have the list with her at this time (family reportedly gave list to someone earlier, but it is not on her
chart and her medication list in the computer has not been updated).
On evaluation here, patient is noted to have abdominal distention / evident ascites, LE edema and on labs has significant anemia - Hgb decreased from prior baseline.
Patient states that her bowels have been at times red and at times very dark, black.
She has tightness in the abdomen and complains of lower back discomfort.
Medical History
Past Medical History
Past Medical History: Reports Other
Additional Past Medical History:
ASCVD
Hypertension
DM-II
NAFLD
Cirrhosis with Ascites
Chronic HFpEF
Hypothyroidism
History of GI Bleeding
Past Surgical History: Reports Other
Additional Past Surgical History:
CABG
Bilateral Humerus ORIF
Percutaneous Angiography with Stent (2 weeks ago)
Left Foot Surgery (one month ago)
Social History
Tobacco: Former Smoker (Quit smoking 1 month ago. > 40 pack years total use.)
Alcohol: None
Drug: None
Family History
Family History: Not pertinent
Allergies / Home Medications
Allergies reflects when Allergies were last updated in [employer].
Home Medications with original date entered in [employer]
Allergy/Medication List:
Patient cannot recite her current medications and notes that several changes were mad during recent hospital stay at [facility].
If medication reconciliation has not been performed, why?: Medication List N/A
Review of Systems
-
History Source: Patient
A 12 point ROS was completed and negative except as noted: Yes
Constitutional: Reports Fatigue; Denies Fever or Chills
EENT: Denies Sore Throat
Respiratory: Reports Trouble Breathing (especially when lying flat or bent at the waist - better with standing upright.); Denies Cough
Cardiac: Denies Chest Pain or Syncope
Abdomen/GI: Reports Abdominal Pain, Bloody Stools and Black Stools; Denies Nausea, Vomiting or Diarrhea
: Denies Dysuria, Frequency or Flank Pain
Musculoskeletal: Reports Edema and Other (Back Pain.); Denies Joint Pain
Neurological: Denies Dizzy or Headache
Psych: Denies Depression or Anxiety
Physical Exam
Vital Signs
Vital Signs
Temp Pulse Resp BP Pulse Ox
98.3 F 81 18 149/54 97
02/29/24 04:24 02/29/24 04:24 02/29/24 04:24 02/29/24 04:24 02/29/24 04:24
Physical Exam
General: Other (73y F in no acute distress.)
HEENT: Moist mucous membranes and PERRLA
Respiratory: Clear; No Wheezes, Rales or Rhonchi
Cardiac: S1/S2 and Regular Rhythm; No Murmur
GI: Other (Abdomen is markedly distended with pos fluid wave. Pos diffuse / mild tenderness. Pos BS.)
Musculoskeletal: No Clubbing, No Cyanosis and Other (2+ pitting edema b/l LEs.)
Neuro: AO x 3
Psych: No Anxious or Depressed
Laboratory Results
-
02/29/24 02:09
02/29/24 02:09
Laboratory Results
PT 15.4 Sec (11.4-14.6) H 02/29/24 02:09
INR 1.24 02/29/24 02:09
Total Bilirubin 0.7 mg/dl (0.2-1.3) 02/29/24 02:09
AST 103 U/L (14-36) H 02/29/24 02:09
ALT 50 U/L (0-35) H 02/29/24 02:09
Alkaline Phosphatase 338 U/L (38-126) H 02/29/24 02:09
Troponin I 0.028 ng/ml 02/29/24 02:09
Impression/Plan
-
A/P: Patient is a 73y F with PMH significant for ASCVD, cirrhosis with ascites, HTN and DM-II who presents to ED complaining of abdominal fullness and discomfort.
Acute on Chronic Anemia
Heme Positive Stool
History of GI Bleeding
- Admit for further evaluation and treatment.
- Hgb = 5.8 compared to baseline between 8-9.
- Suspect due to GI losses - very likely related to recent angio / stent and probable DAPT?
- Need to confirm recent procedure, meds, etc. Sent to [facility] for records.
- Transfusion ordered in the ED.
- Follow H&H and provide additional blood products if needed.
- IV PPI BID.
- GI evaluation for further recommendation / possible endoscopic exam.
Cirrhosis / Ascites
NAFLD
- Patient reports first ever paracentesis was about 2 weeks ago at [facility].
- Now with recurrent abdominal distention and discomfort.
- IR evaluation for probable repeat paracentesis.
- Increase Lasix dose and add spironolactone.
- Adjust medications as needed to prevent reaccumulation of fluid.
- GI evaluation as noted above.
ASCVD
- Prior h/o CABG. Recent intravascular stent - likely coronary but patient cannot confirm this.
- Obtain records from [facility] for review.
- Continue ASA alone for now given very recent stent placement.
- Confirm other medications and resume appropriate meds.
- No current complaints of chest pain, palpitations, etc.
Benign Hypertension
- Stable. Adjust usual med regimen as needed to allow for increase in diuretic dosing / ascites control.
DM-II
- Stable. Continue basal insulin.
- Follow glucose and cover with SSI as needed.
- Update A1C.
Hypothyroidism
- Confirm T4 dose and resume.
- Update TFTs.
DVT Prophylaxis: SCDs
Code Status: Full
[2024-02-29 08:55] LABS: Glucose - Point of Care 172 mg/dl (70-99)
--- NOTE | 2024-02-29 10:02 | CM ---
Patient seen at bedside. Patient states that she lives in her own home with granddaughter living with her and providing care 8a-3p via [employer]. Patient Daughter brought her to following recent stay at [facility] 2 weeks ago. Patient
stated that she does not need a cane. Per chart review patient was given nebulizer after last hospitalization but patient states she does not have one. Patient with no SNF in the past. CM will call to Patient daughter to review full assessment.
Patient PCP Dr. Jaspreet Echeverria, and he uses the [facility] on [address]. CM will continue to follow for discharge planning needs.
Plan; home with no needs; watch for VN needs.
[2024-02-29 10:05] LABS: Hematocrit 22.5 % (37.0-47.0); Hemoglobin 7.1 g/dL (12.0-16.0)
[2024-02-29 10:09] LABS: TSH Reflex To Free T4 4.36 uIU/ml (0.47-4.68)
[2024-02-29] MEDS: STRIVERDI RESPIMAT 2 PUFF INH (10:15)
[2024-02-29] MEDS: SPIRIVA RESPIMAT 2.5 MCG 2 PUFF INH (10:15)
[2024-02-29] MEDS: ALDACTONE 25 MG PO (10:16)
[2024-02-29] MEDS: DUPHALAC/CHRONULAC 20 GRAMS PO ×2 (10:16→19:46)
[2024-02-29] MEDS: ASPIR LOW (ENTERIC COATED) 81 MG PO (10:16)
[2024-02-29] MEDS: TOPROL XL 25 MG PO (10:16)
--- NOTE | 2024-02-29 10:16 | W.PN.HOSP.TC ---
Today's Communication/Plan
-
await GI
await ID
await records
Assessment / Plan
Assessment / Plan
pt is a 73 year old female
Acute on Chronic Anemia with Heme Positive Stool and History of GI Bleeding--HGB 5.8 on admission s/p pRBC, up to 7.7--await GI input--Suspect due to GI losses--very likely related to recent angio/stent and probable DAPT--await records from [facility]
Hospital--Transfusion ordered in the ED--IV PPI BID--GI evaluation for further recommendation/possible endoscopic exam.
Cirrhosis/Ascites due to NAFLD --Patient reports first ever paracentesis was about 2 weeks ago at [facility]--appears to be reaccumulated--await IR for repeat paracentesis--Increase Lasix dose and add spironolactone.
ASCVD--Prior h/o CABG. Recent intravascular stent - likely coronary but patient cannot confirm this--Obtain records from [facility] for review--Continue ASA alone for now given very recent stent placement--Confirm other medications and resume
appropriate meds.
Essential Hypertension- Stable. Adjust usual med regimen as needed to allow for increase in diuretic dosing / ascites control.
DM-II- Stable. Continue basal insulin- Follow glucose and cover with SSI as needed- - Update A1C.
Hypothyroidism- Confirm T4 dose and resume- Update TFTs.
appears to have severe protein calorie malnutrition--CM reports pt uses vanilla boost--await dietary input
DVT Prophylaxis: SCDs
Code Status: Full
Anticipated Discharge: > 48 hours
Subjective/Interval History
-
Date of Service: February 29, 2024
pt does not know her medical history and cannot help--only knows she was in [facility] 2 weeks ago for paracentesis
Objective Data
-
Labs:
Laboratory Results
02/29/24 02/29/24 02/29/24
02:09 09:04 14:52
WBC 8.9
Hgb 5.8 L* 7.1 L D Pending
Hct 18.8 L* 22.5 L Pending
Plt Count 209
PT 15.4 H
INR 1.24
Sodium 139
Potassium 4.6
Chloride 107
Carbon Dioxide 23
BUN 31 H
Creatinine 1.3 H
Glucose 231 H
Calcium 8.6
Total Bilirubin 0.7
AST 103 H
ALT 50 H
Alkaline Phosphatase 338 H
02/29/24
20:52
WBC
Hgb Pending
Hct Pending
Plt Count
PT
INR
Sodium
Potassium
Chloride
Carbon Dioxide
BUN
Creatinine
Glucose
Calcium
Total Bilirubin
AST
ALT
Alkaline Phosphatase
Vital Signs:
max temp for 24 hours
02/28/24
22:52
Temp 98.8 F
Vital Signs
Temp Pulse Resp BP Pulse Ox
97.4 F 74 18 158/77 95
02/29/24 08:35 02/29/24 08:35 02/29/24 08:35 02/29/24 08:35 02/29/24 08:35
I&O
02/28/24 02/29/24 03/01/24
06:59 06:59 06:59
Intake Total 0 / 0 250 / 250
Balance 0 / 0 250 / 250
Review of Systems
-
All other systems: Reviewed and negative
Physical Exam
-
General: Cachectic
HEENT: Normocephalic and Atraumatic
Respiratory: Clear to Auscultation; Negative Wheezes or Rhonchi
Cardiac: Regular Rhythm and S1/S2; Negative Murmur
GI: Soft, Nontender, Normal Bowel Sounds and Distended
Musculoskeletal: No Clubbing and No Cyanosis; Negative No Edema (bilateral LE edema )
Neuro: Awake and Alert
[2024-02-29] MEDS: XIFAXAN 550 MG PO ×2 (10:17→19:46)
[2024-02-29] MEDS: PROTONIX 100 IV ×2 (10:17→18:09)
[2024-02-29] MEDS: SYNTHROID 50 MCG PO (10:27)
--- NOTE | 2024-02-29 10:31 | PTCARENOTE ---
EKG complete. Forwarded via tiger text to Dr. Muñoz [id number]. Placed in chart
[2024-02-29 11:06] LABS: Glucose - Point of Care 163 mg/dl (70-99)
[2024-02-29] MEDS: NOVOLOG FLEXPEN-LOW RESISTANCE 1 UNITS SC (12:46)
[2024-02-29 12:51] LABS: Body Fluid Mononuclear 88.3 %; Body Fluid Polymorphonuclear 11.7 %; Body Fluid WBC 85 /CUMM
[2024-02-29 13:04] LABS: Body Fluid Albumin < 1.0 g/dl; Body Fluid LDH < 90 U/L; Body Fluid Protein < 2.0 g/dl; Body Fluid Second Tech AMA
[2024-02-29] MEDS: LASIX 40 MG PO (13:24)
--- NOTE | 2024-02-29 13:51 | CON.GI ---
Addendum entered and electronically signed by Pippa Medina Do, MD 02/29/24 16:29:
I saw and examined the patient.
The IT TEACHER's note was reviewed and I agree with the note.
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 Found to have Hbg of 5.8. She denies seeing blood in stools but not
good historian. She of note started on plavix 2 wks ago for stent in her leg she believes. She lives in [place] but was in [facility] to see daughter. Exam VSS edentulous chronically ill appearing. obese abd mild fluid wave. Labs noted Hbg
5.8
Impression
- Acute anemia
- Plavix use for LE stent 2 wks ago
- MASH cirrhosis MELD 13
- Recurrent ascites
- H/o EV s/p banding
- PSE
Recommendations
- Paracentesis today neg for SBP
- C/w diuretics (aldactone 25mg and lasix 40mg daily basis)
- C/w lactulose and xifaximin. Check ammonia level tomorrow AM labs
- Montior stool output
- C/w PPI IV BID
- Obtain records from [facility]
- Hold plavix. NPO at [facility] for EGD tomorrow
We will follow with you
Original Note:
Consultation
-
Date/Time Consultation Requested: 02/29/24 0850
Date/Time Consultation Performed: 02/29/24 1350
Requesting Provider: Dov Prince DO
Performing Provider: RON Al, Pippa Vega MD
Reason for Consultation: heme + anemia
Medical History
Chief Complaint / HPI
History of Present Illness:
Pt is a 73yo with with NAFLD, cirrhosis with ascites, esophageal varices with prior banding, prior GI bleeding, chronic anemia, HTN, prior CABG/stents, DM type II, COPD, PAD, tobacco abuse, ASCVD, hypothyroidism, and recent stent (peripheral vs
cardiac) placement with Plavix therapy with admission with abdominal distention and shortness of breath. Pt has completed paracentesis today but asked to see as also noted hbg 5.8. Prior hbg at 8.7 on 12/14/23. Creat 1.3, bili 0.7, AST 103,
ALT 50, alk phos 338, albumin 3, INR 1.24.
In reviewing with patient she is poor historian in exam but denies dysphagia, odynophagia, GERD, nausea, vomiting, abdominal pain, diarrhea, constipation or rectal bleeding. Per chart hx prior EGD/colon but pt unable to give any details.
Past Medical History
Past Medical History: CHF, COPD, HTN, Hypothyroidism, NIDDM and Other (NAFLD, cirrhosis with ascites, prior esophageal banding, ASCVD, hx GI bleed, tobacco abuse, PAD )
Past Surgical History: Cardiac (CABG, recent stent ), Orthopedic (left foot surgery ) and Other (percutaneous angiography with stent )
Social History
Tobacco: Former Smoker (quit 2 months ago )
Alcohol: None
Drug: None
Living: With Family (daughter tu)
Employment: Retired
Family History
Family History: Other (daughter with hx fatty liver )
Allergies / Home Medications
Allergy/AdvReac Type Severity Reaction Status Date / Time
adhesive Allergy Itching Verified 12/14/23 21:19
�Medication �Instructions �Recorded
albuterol sulfate 90 mcg/actuation 2 puff inhalation R Q4HPRN PRN 09/10/23
aerosol inhaler sob/wheezing
diazepam 10 mg tablet 10 mg PO BIDPRN PRN anxiety 09/10/23
furosemide 20 mg tablet 20 mg PO DAILY@1400 Fluid 09/10/23
Retention/Swelling
gabapentin 100 mg capsule 100 mg PO TID PRN nerve pain 09/10/23
insulin glargine 100 unit/mL (3 12 - 15 unit SC HS diabetes 09/10/23
mL) subcutaneous pen (Lantus
Solostar U-100 Insulin)
insulin lispro 100 unit/mL 15 unit SC AC diabetes 09/10/23
subcutaneous pen (Humalog KwikPen
(U-100) Insulin)
lactulose 10 gram/15 mL oral 15 ml PO BID fatty liver 09/10/23
solution disease/cirrhosis
levothyroxine 50 mcg tablet 50 mcg PO DAILY Thyroid 09/10/23
metoprolol succinate 25 mg 25 mg PO DAILY Blood Pressure 09/10/23
tablet,extended release 24 hr
omeprazole 20 mg capsule,delayed 20 mg PO DAILY Gastrointestinal 09/10/23
release Issue
rifaximin 550 mg tablet (Xifaxan) 550 mg PO Q12H fatty liver 09/10/23
disease/cirrhosis
oxycodone 15 mg tablet 15 mg PO QID PRN pain #0 tabs 09/22/23
aspirin 81 mg tablet,delayed 81 mg PO DAILY 02/29/24
release
atorvastatin 20 mg tablet (Lipitor) 20 mg PO QPM 02/29/24
clopidogrel 75 mg tablet (Plavix) 75 mg PO DAILY 02/29/24
lidocaine 4 % topical patch 1 patch topical DAILY PRN pain 02/29/24
umeclidinium 62.5 mcg-vilanterol 1 inh inhalation DAILY PRN 02/29/24
25 mcg/actuation powdr for shortness of breath
inhalation (Anoro Ellipta)
Review of Systems
-
History Source: Patient
Constitutional: Reports No Symptoms
EENT: Reports No Symptoms
Respiratory: Reports Trouble Breathing (at times )
Abdomen/GI: Reports Other (abd distention )
: Reports No Symptoms
Musculoskeletal: Reports No Symptoms
Skin: Reports No Symptoms
Neurological: Reports Weakness
Endocrine: Reports No Symptoms
Hematologic/Lymphatic: Reports No Symptoms
Vital Signs
Temp Pulse Resp BP Pulse Ox
97.5 F 84 18 165/71 95
02/29/24 12:51 02/29/24 13:24 02/29/24 12:51 02/29/24 13:24 02/29/24 12:51
Physical Exam
Exam
General: Other (no acute distress )
HEENT: Normocephalic and Anicteric
Respiratory: Clear
Cardiac: Regular Rhythm
GI: Soft and Distended (mild s/p para )
Rectal: Other (heme + brown in ER)
Musculoskeletal: No Clubbing and No Cyanosis
Skin: Warm and Dry
Neuro: Awake, Alert and Other (forgetful)
Psych: Calm
Results
WBC 8.9 10^3/uL (4.8-10.8) 02/29/24 02:09
Hgb 7.1 g/dL (12.0-16.0) L D 02/29/24 09:04
Hct 22.5 % (37.0-47.0) L 02/29/24 09:04
MCV 88.7 fL (81.0-99.0) 02/29/24 02:09
Plt Count 209 10^3/uL (130-400) 02/29/24 02:09
Absolute Neuts (auto) 6.6 10^3/uL (1.4-6.5) H 02/29/24 02:09
PT 15.4 Sec (11.4-14.6) H 02/29/24 02:09
INR 1.24 02/29/24 02:09
Sodium 139 mmol/L (135-145) 02/29/24 02:09
Potassium 4.6 mmol/L (3.5-5.1) 02/29/24 02:09
Chloride 107 mmol/L (98-107) 02/29/24 02:09
Carbon Dioxide 23 mmol/L (22-30) 02/29/24 02:09
BUN 31 mg/dl (7-17) H 02/29/24 02:09
Creatinine 1.3 mg/dL (0.6-1.0) H 02/29/24 02:09
Calcium 8.6 mg/dl (8.4-10.2) 02/29/24 02:09
Total Bilirubin 0.7 mg/dl (0.2-1.3) 02/29/24 02:09
AST 103 U/L (14-36) H 02/29/24 02:09
ALT 50 U/L (0-35) H 02/29/24 02:09
Alkaline Phosphatase 338 U/L (38-126) H 02/29/24 02:09
Diagnostic Image Results:
02/29/24- para - report pending
02/29/24 cxr Right upper and lower lobe patchy opacifications possibly pneumonia. Underlying pulmonary nodules not excluded. Clinical and laboratory correlation recommended. If findings persist after treatment in 2 weeks, chest CT examination
recommended
Small bilateral pleural effusions. New
09/2023 US limited -- Four-quadrant abdominal ascites.
Prior GI Procedures:
EGD: at [facility] in past
Colonoscopy: at [facility] in past
Assessment / Plan
-
Pt is a 73yo with with NAFLD, cirrhosis with ascites, esophageal varices with prior banding, prior GI bleeding, chronic anemia, HTN, prior CABG/stents, DM type II, COPD, PAD, tobacco abuse, ASCVD, hypothyroidism, and recent stent (peripheral vs
cardiac) placement with Plavix therapy with admission with abdominal distention and shortness of breath. Pt has completed paracentesis today but asked to see as also noted hbg 5.8. Prior hbg at 8.7 on 12/14/23. Creat 1.3, bili 0.7, AST 103,
ALT 50, alk phos 338, albumin 3, INR 1.24.
-symptomatic anemia with hx prior anemia
-MASH cirrhosis
-ascites s/p paracentesis 827 for 4700ml
-recent stenting on Plavix
-hx Esophageal varices with prior banding
mild increased creat on admission
other med problems:
-CABG and prior cardiac stents
-DM type II
-PAD
-tobacco abuse
-hypothyroidism
PLAN:
etiology of symptoms related to slow GI blood loss with hx chronic anemia now exacerbated with recent start of Plavix
Etiology of bleeding, portal gastropathy, AVM, PUD vs other
agree with transfusion
PPI gtt
trend hbg
await records as pt poor historian in exam
I left message for daughter to confirm history
currently no signs of aggressive GI bleeding-- no stools today and brown heme + in ER
will review with Dr. Vega for EGD and timing with recent Plavix therapy
if continued drop in hbg would need cardiac/vascular eval with evaluation with newly added Plavix
ok for diet
per staff 4700ml removed with para no albumin replacement needed with stable BP, Na 139, and creat 1.3
cont Lasix and aldactone with close watch of creat
MELD 3.0 --13
will need follow up with primary GI after discharge
-
-
Thank you for consultation and allowing me to participate in the patient's care. Please call the social contact worker GI physician during the after hours with any questions or concerns.
--- NOTE | 2024-02-29 15:44 | PTCARENOTE ---
Lab called about the ammonia being an added on lab. The order must be put in separately and the lab will not be able to draw the levels until tomorrow morning 03/01/24. Dr Jaimee Vega notified via tiger text [id number]
[2024-02-29 17:49] LABS: Glucose - Point of Care 260 mg/dl (70-99)
[2024-02-29] MEDS: NOVOLOG FLEXPEN-LOW RESISTANCE 3 UNITS SC ×2 (17:51→23:30)
[2024-02-29] MEDS: LIPITOR 20 MG PO (17:51)
[2024-02-29 19:36] LABS: Hematocrit 20.2 % (37.0-47.0); Hemoglobin 6.6 g/dL (12.0-16.0)
[2024-02-29 21:21] LABS: Glucose - Point of Care 386 mg/dl (70-99)
[2024-02-29] MEDS: LANTUS 0.1 UNITS SC (21:42)
[2024-02-29] MEDS: NOVOLOG FLEXPEN 5 UNITS SC (21:43)
[2024-02-29 23:27] LABS: Glucose - Point of Care 283 mg/dl (70-99)
[2024-02-29] MEDS: ROXICODONE 10 MG PO (23:29)
[2024-02-29] MEDS: COMPAZINE 5 MG IV (23:54)
[2024-03-01] VITALS (8 sets, daily range): BP systolic 121–158; BP diastolic 45–74; PULSE 67–75; O2SAT 97; BMI 23.8
[2024-03-01] MEDS: MYLICON 80 MG PO (00:23)
[2024-03-01 04:26] LABS: Hematocrit 24.8 % (37.0-47.0); Hemoglobin 8.1 g/dL (12.0-16.0); Mean Corp Hgb Conc. 32.7 g/dL (33.0-37.0); Mean Corpuscular Hgb 27.8 pg (27.0-31.0); Mean Corpuscular Volume 85.2 fL (81.0-99.0); Platelet Count 177 10^3/uL (130-400); Red Blood Cell Count 2.91 10^6/uL (4.20-5.40); Red Cell Dist. Width 15.8 % (11.5-14.5); White Blood Cell Count 6.9 10^3/uL (4.8-10.8)
[2024-03-01 04:51] LABS: ALT (SGPT) 40 U/L (0-35); AST (SGOT) 75 U/L (14-36); Albumin 2.5 g/dl (3.5-5.0); Alkaline Phosphatase 318 U/L (38-126); Blood Urea Nitrogen 26 mg/dl (7-17); Calcium 8.5 mg/dl (8.4-10.2); Carbon Dioxide 25 mmol/L (22-30); Chloride 109 mmol/L (98-107); Direct Bilirubin 0.3 mg/dl (0.0-0.4); Estimated Creatinine Clearance 37 ml/min; Glucose 141 mg/dl (70-99); Potassium 4.1 mmol/L (3.5-5.1); Sodium 140 mmol/L (135-145); Total Bilirubin 1.2 mg/dl (0.2-1.3); Total Protein 5.6 g/dl (6.3-8.2); eGFR 48.09
[2024-03-01] MEDS: PROTONIX 100 IV (05:40)
[2024-03-01] MEDS: SYNTHROID 50 MCG PO (05:41)
[2024-03-01 06:17] LABS: Glucose - Point of Care 132 mg/dl (70-99)
[2024-03-01] MEDS: NOVOLOG FLEXPEN-LOW RESISTANCE SC ×2 (06:38→23:36)
[2024-03-01] MEDS: STRIVERDI RESPIMAT 2 PUFF INH (07:30)
[2024-03-01] MEDS: SPIRIVA RESPIMAT 2.5 MCG 2 PUFF INH (07:30)
[2024-03-01 07:55] LABS: Glycohemoglobin (HgbA1c) 5.5 % (4.0-5.6)
[2024-03-01] MEDS: DUPHALAC/CHRONULAC 20 GRAMS PO ×2 (08:32→21:00)
[2024-03-01] MEDS: ASPIR LOW (ENTERIC COATED) 81 MG PO (08:32)
[2024-03-01] MEDS: XIFAXAN 550 MG PO ×2 (08:32→21:00)
[2024-03-01] MEDS: ALDACTONE 25 MG PO (08:32)
[2024-03-01] MEDS: TOPROL XL 25 MG PO (08:37)
[2024-03-01 12:20] LABS: Glucose - Point of Care 256 mg/dl (70-99)
[2024-03-01] MEDS: NOVOLOG FLEXPEN-LOW RESISTANCE 3 UNITS SC ×2 (12:24→16:48)
--- NOTE | 2024-03-01 13:08 | W.PN.GI.CBS2 ---
Today's Communication / Plan
-
Add ASA 81mg daily
Given improvement in Hbg off plavix and recent EGD/colon 2 wks ago at [facility] will defer repeat for now
GI will sign off please call for questions
Assessment / Plan
-
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 Found to have Hbg of 5.8. She denies seeing blood in stools but not good
historian. She of note started on plavix 2 wks ago for stent in her leg she believes. She lives in [place] but was in [facility] to see daughter. Exam VSS edentulous chronically ill appearing. obese abd mild fluid wave. Labs noted Hbg 5.8
Impression
- Acute anemia
- Plavix use for LE stent 2 wks ago
- MASH cirrhosis MELD 13
- CAD remote cardiac stents
- Recurrent ascites
- H/o EV s/p banding
- PSE
Recommendations
- Paracentesis 02/28 neg for SBP
- C/w diuretics (aldactone 25mg and lasix 40mg daily basis)
- C/w lactulose and xifaximin
- Montior stool output
- C/w PPI IV BID
- Obtain records from [facility] (EGD/colon 2wks ago
- Hold plavix, ok for ASA 81mg daily
At this juncture no new GI recs will sign off please call for questions
She lives [place] and needs to establish GI/hepatology care there
Subjective
Subjective
Date of Service: March 01, 2024
She denies abd pain. Tolerating regular diet without issues
Objective
Data Reviewed
Laboratory Data:
Laboratory Results
03/01/24 04:08
Laboratory Results
PT 15.4 Sec (11.4-14.6) H 02/29/24 02:09
INR 1.24 02/29/24 02:09
Total Bilirubin 1.2 mg/dl (0.2-1.3) 03/01/24 04:08
AST 75 U/L (14-36) H 03/01/24 04:08
ALT 40 U/L (0-35) H 03/01/24 04:08
Alkaline Phosphatase 318 U/L (38-126) H 03/01/24 04:08
Vital Signs and I&O:
Vital Signs
Temp Pulse Resp BP Pulse Ox
97.8 F 67 18 139/52 99
03/01/24 11:33 03/01/24 11:33 03/01/24 11:33 03/01/24 11:33 03/01/24 11:33
I&O
02/29/24 03/01/24 03/02/24
06:59 06:59 06:59
Intake Total 0 / 0 980 / 980
Balance 0 / 0 980 / 980
Physical Exam
Physical Exam
GEN: No acute distress, conversant, pleasant
HEENT: anicteric, edentulous extraocular movements intact, clear oropharynx without exudates
GI: soft, non-distended, not tender to palpation, normal active bowel sounds, no hepatosplenomegaly
EXT: warm, well perfused, no edema bilaterally
NEURO: AAOx3, non-focal
--- NOTE | 2024-03-01 13:30 | W.PN.HOSP.TC ---
Today's Communication/Plan
-
anticipate d/c tomorrow
Assessment / Plan
Assessment / Plan
pt is a 73 year old female
Acute on Chronic Anemia with Heme Positive Stool and History of GI Bleeding--HGB 5.8 on admission s/p pRBC, up to 7.7 and now 9.3--apprec GI input--Suspect due to GI losses--very likely related to recent angio/stent and probable DAPT, keep off
plavix, cont asa--await records from [facility]
Cirrhosis/Ascites due to NAFLD --Patient reports first ever paracentesis was about 2 weeks ago at [facility]--appears to be reaccumulated--apprec IR for repeat paracentesis--Increase Lasix dose and add spironolactone--4700mls removed--no need for albumin
ASCVD--Prior h/o CABG. Recent intravascular stent - likely coronary but patient cannot confirm this--Obtain records from [facility] for review--Continue ASA alone for now given very recent stent placement--Confirm other medications and resume
appropriate meds.
Essential Hypertension- Stable. Adjust usual med regimen as needed to allow for increase in diuretic dosing / ascites control.
DM-II- Stable. Continue basal insulin- Follow glucose and cover with SSI as needed- - Update A1C.
Hypothyroidism- Confirm T4 dose and resume- Update TFTs.
appears to have severe protein calorie malnutrition--CM reports pt uses vanilla boost--await dietary input
DVT Prophylaxis: SCDs
Code Status: Full
Anticipated Discharge: Within 24 hours
Subjective/Interval History
-
Date of Service: March 01, 2024
pt feels a little 'woozy' post paracentesis
Objective Data
-
Labs:
Laboratory Results
03/01/24 03/01/24 03/01/24
02:52 04:08 11:16
WBC 6.9
Hgb Cancelled 8.1 L D Cancelled
Hct Cancelled 24.8 L Cancelled
Plt Count 177
Sodium 140
Potassium 4.1
Chloride 109 H
Carbon Dioxide 25
BUN 26 H
Creatinine 1.2 H
Glucose 141 H
Calcium 8.5
Total Bilirubin 1.2
AST 75 H
ALT 40 H
Alkaline Phosphatase 318 H
03/01/24
13:18
WBC
Hgb Pending
Hct Pending
Plt Count
Sodium
Potassium
Chloride
Carbon Dioxide
BUN
Creatinine
Glucose
Calcium
Total Bilirubin
AST
ALT
Alkaline Phosphatase
Vital Signs:
max temp for 24 hours
03/01/24
07:15
Temp 98.9 F
Vital Signs
Temp Pulse Resp BP Pulse Ox
97.8 F 67 18 139/52 99
03/01/24 11:33 03/01/24 11:33 03/01/24 11:33 03/01/24 11:33 03/01/24 11:33
I&O
02/29/24 03/01/24 03/02/24
06:59 06:59 06:59
Intake Total 0 / 0 980 / 980
Balance 0 / 0 980 / 980
Review of Systems
-
All other systems: Reviewed and negative
Neuro: Reports Other (woozy)
Physical Exam
-
General: Appears Chronically Ill
HEENT: Normocephalic and Atraumatic
Respiratory: Clear to Auscultation; Negative Wheezes
Cardiac: Regular Rhythm and S1/S2; Negative Murmur
GI: Soft, Nontender, Nondistended and Normal Bowel Sounds
Musculoskeletal: No Clubbing and No Cyanosis; Negative No Edema
Neuro: Awake
[2024-03-01] MEDS: LASIX 40 MG PO (13:35)
[2024-03-01 13:42] LABS: Hematocrit 27.9 % (37.0-47.0); Hemoglobin 9.1 g/dL (12.0-16.0)
--- NOTE | 2024-03-01 14:29 | CM ---
Addendum entered by Lashaun Warren 03/01/24 16:20:
reviewed with daughter patient resistant to VN; Daughter aware of plan for probable discharge tomorrow.
Original Note:
Patient seen at bedside with physician. Plan is for discharge tentatively tomorrow. Patient declined VN supports at discharge. CM will call to patient daughter. CM will continue to follow for discharge planning needs.
Plan; home with VN vs. home with no needs.
[2024-03-01 16:47] LABS: Glucose - Point of Care 274 mg/dl (70-99)
[2024-03-01] MEDS: LIPITOR 20 MG PO (16:51)
[2024-03-01] MEDS: ROXICODONE 10 MG PO (21:07)
[2024-03-01 21:35] LABS: Glucose - Point of Care 322 mg/dl (70-99)
[2024-03-01] MEDS: LANTUS 0.1 UNITS SC (21:55)
[2024-03-02] VITALS (7 sets, daily range): BP systolic 138–177; BP diastolic 55–78; PULSE 68–77; BMI 23.8
[2024-03-02] MEDS: SYNTHROID 50 MCG PO (05:41)
[2024-03-02 06:58] LABS: Hemoglobin 8.8 g/dL (12.0-16.0); Mean Corp Hgb Conc. 32.6 g/dL (33.0-37.0); Mean Corpuscular Hgb 27.8 pg (27.0-31.0); Mean Corpuscular Volume 85.4 fL (81.0-99.0); Mean Platelet Volume 11.1 fL (7.4-10.4); Platelet Count 192 10^3/uL (130-400); Red Blood Cell Count 3.16 10^6/uL (4.20-5.40); Red Cell Dist. Width 15.9 % (11.5-14.5); White Blood Cell Count 7.6 10^3/uL (4.8-10.8)
[2024-03-02 07:32] LABS: Blood Urea Nitrogen 25 mg/dl (7-17); Calcium 8.5 mg/dl (8.4-10.2); Carbon Dioxide 27 mmol/L (22-30); Chloride 104 mmol/L (98-107); Estimated Creatinine Clearance 37 ml/min; Glucose 163 mg/dl (70-99); Magnesium 1.8 mg/dl (1.6-2.3); Potassium 4.6 mmol/L (3.5-5.1); Sodium 138 mmol/L (135-145); eGFR 48.09
[2024-03-02] MEDS: STRIVERDI RESPIMAT 2 PUFF INH (07:45)
[2024-03-02] MEDS: SPIRIVA RESPIMAT 2.5 MCG 2 PUFF INH (07:45)
[2024-03-02 07:51] LABS: Glucose - Point of Care 144 mg/dl (70-99)
[2024-03-02] MEDS: XIFAXAN 550 MG PO ×2 (08:02→20:43)
[2024-03-02] MEDS: TOPROL XL 25 MG PO (08:02)
[2024-03-02] MEDS: DUPHALAC/CHRONULAC 20 GRAMS PO ×2 (08:02→20:43)
[2024-03-02] MEDS: ASPIR LOW (ENTERIC COATED) 81 MG PO (08:02)
[2024-03-02] MEDS: ALDACTONE 25 MG PO (08:03)
[2024-03-02] MEDS: NOVOLOG FLEXPEN-LOW RESISTANCE SC (09:32)
[2024-03-02 11:36] LABS: Glucose - Point of Care 293 mg/dl (70-99)
[2024-03-02] MEDS: NOVOLOG FLEXPEN-LOW RESISTANCE 3 UNITS SC ×2 (12:14→21:34)
--- NOTE | 2024-03-02 13:41 | CM ---
Patient seen at bedside. Patient complaining of abdominal pain and dizziness. Patient physician updated and updated to nursing as well. CM will continue to follow for discharge planning needs.
Plan; home with no needs.
[2024-03-02] MEDS: LASIX 40 MG PO (13:54)
--- NOTE | 2024-03-02 15:31 | W.PN.HOSP.TC ---
Today's Communication/Plan
-
IV PPI
Follow HH
Assessment / Plan
Assessment / Plan
pt is a 73 year old female
Acute on Chronic Anemia with Heme Positive Stool and History of GI Bleeding--HGB 5.8 on admission s/p pRBC, up to 7.7 and now 8.8--apprec GI input--Suspect due to GI losses--very likely related to recent angio/stent and probable DAPT, keep off
plavix, cont asa--await records from [facility]
Cirrhosis/Ascites due to NAFLD --Patient reports first ever paracentesis was about 2 weeks ago at [facility]--appears to be reaccumulated--apprec IR for repeat paracentesis--Increase Lasix dose and add spironolactone--4700mls removed--no need for
albumin. Neg for SBP. Patient with burning pain in her abdomen. Will start on IV PPI BID and follow. If increasing pain might need to consider EGD - apparently had one recently . Obtain old info.
ASCVD--Prior h/o CABG. Recent intravascular stent - likely coronary but patient cannot confirm this--Obtain records from [facility] for review--Continue ASA alone for now given very recent stent placement
Essential Hypertension- Stable. Adjust usual med regimen as needed to allow for increase in diuretic dosing / ascites control.
DM-II- Stable. Continue basal insulin- Follow glucose and cover with SSI as needed- - Update A1C.
Hypothyroidism- Confirm T4 dose and resume- Update TFTs.
appears to have severe protein calorie malnutrition--CM reports pt uses vanilla boost--await dietary input
DVT Prophylaxis: SCDs
Code Status: Full
Anticipated Discharge: 24 - 48 hours
Subjective/Interval History
-
Date of Service: March 02, 2024
Patient complains of constant burning pain in her abdomen. Generalized. She feels bit nauseous. No fever or chills. Post abdominal tap she states she is noticing more swelling now.
Denies shortness of breath.
Objective Data
-
Labs:
Laboratory Results
03/02/24
05:57
WBC 7.6
Hgb 8.8 L
Hct 27.0 L
Plt Count 192
Sodium 138
Potassium 4.6
Chloride 104
Carbon Dioxide 27
BUN 25 H
Creatinine 1.2 H
Glucose 163 H
Calcium 8.5
Vital Signs:
Vital Signs
Temp Pulse Resp BP Pulse Ox
97.9 F 69 18 118/72 99
03/02/24 11:10 03/02/24 13:54 03/02/24 11:10 03/02/24 13:54 03/02/24 11:10
I&O
03/01/24 03/02/24 03/03/24
06:59 06:59 06:59
Intake Total 980 / 980 836 / 836
Balance 980 / 980 836 / 836
Review of Systems
-
Respiratory: Denies Trouble Breathing
Cardiac: Denies Chest Pain
Neuro: Reports Dizzy (at times)
Physical Exam
-
General: No Apparent Distress
HEENT: Moist Mucous Membranes
Respiratory: Clear to Auscultation
Cardiac: Regular Rhythm and S1/S2
GI: Soft, Normal Bowel Sounds, Tender (non specific discomfort in all quadrants - no rebound or guarding.) and Distended
Neuro: AO x 3
Psych: Calm
Data Reviewed
-
Labs: Labs Reviewed by me
[2024-03-02 17:16] LABS: Glucose - Point of Care 217 mg/dl (70-99)
[2024-03-02] MEDS: LIPITOR 20 MG PO (17:25)
[2024-03-02] MEDS: NOVOLOG FLEXPEN-LOW RESISTANCE 2 UNITS SC (17:25)
[2024-03-02 18:36] LABS: AFP Male/Tumor Marker 1.11 ng/ml
[2024-03-02 21:19] LABS: Glucose - Point of Care 258 mg/dl (70-99)
[2024-03-02] MEDS: LANTUS 0.1 UNITS SC (21:34)
[2024-03-03] VITALS (11 sets, daily range): BP systolic 68–175; BP diastolic 44–74; PULSE 64–67; O2SAT 96; BMI 23.4
[2024-03-03] MEDS: ROXICODONE 10 MG PO ×2 (01:02→08:31)
[2024-03-03] MEDS: SYNTHROID 50 MCG PO (05:54)
[2024-03-03] MEDS: SPIRIVA RESPIMAT 2.5 MCG 2 PUFF INH (07:44)
[2024-03-03] MEDS: STRIVERDI RESPIMAT 2 PUFF INH (07:44)
[2024-03-03 07:51] LABS: Glucose - Point of Care 80 mg/dl (70-99)
[2024-03-03] MEDS: NOVOLOG FLEXPEN-LOW RESISTANCE SC ×2 (08:04→12:22)
[2024-03-03] MEDS: TOPROL XL 25 MG PO (08:21)
[2024-03-03] MEDS: DUPHALAC/CHRONULAC 20 GRAMS PO ×2 (08:21→21:01)
[2024-03-03] MEDS: XIFAXAN 550 MG PO ×2 (08:21→21:01)
[2024-03-03] MEDS: ALDACTONE 25 MG PO (08:22)
[2024-03-03] MEDS: ASPIR LOW (ENTERIC COATED) 81 MG PO (08:22)
--- NOTE | 2024-03-03 10:42 | W.PN.HOSP.TC ---
Addendum entered and electronically signed by Malika Mckee MD 03/03/24 12:11:
Right upper lobe and lower lobe patchy opacifications-repeat chest x-ray no clinical signs of pneumonia. Likely atelectasis
Original Note:
Today's Communication/Plan
-
PPI twice daily
Ask GI to reevaluate
Request records again
Assessment / Plan
Assessment / Plan
Pt is a 73 year old female with anemia
CVS: S1-S2 normal
Chest: CTA B/L
Abdomen: Soft, discomfort in the epigastric area, distended abdomen, bowel sounds present
Extremities: No edema, normal pulses
DIRECTOR GEOTHERMAL OPERATIONS: Non focal exam
Doppler of the liver-normal size 15.4 cm with nodular/irregular subcapsular contour suggesting cirrhosis. Dampened pulsatile flow in the right hepatic vein suggesting elevated venous pressure as well as moderate perihepatic ascites. Cholelithiasis.
#Acute on Chronic Anemia with Heme Positive Stool and History of GI Bleeding
HGB 5.8 on admission s/p pRBC, up to 7.7 and now 8.8
Suspect due to acute GI losses--very likely related to recent angio/stent and probable DAPT, keep off Plavix, cont asa
Await records from [facility]
#Cirrhosis/Ascites due to NAFLD --Patient reports first ever paracentesis was about 2 weeks ago at [facility]
Increased Lasix dose and add spironolactone
Continue lactulose and Xifaxan
S/P Paracentesis 4700mls removed-no albumin.
Neg for SBP. Patient with burning pain in her abdomen. Started on PPI BID
# ASCVD--Prior h/o CABG. Recent intravascular stent - likely coronary but patient cannot confirm this--Obtain records from [facility] for review--Continue ASA and statin alone for now given very recent stent placement
# Essential Hypertension-patient was on metoprolol 25 mg daily, as outpatient.
# DM-II-with neuropathy-hemoglobin A1c not reliable because of anemia-continue Neurontin
Patient was on Lantus 12-15 units at night and 15 units of Humalog AC as outpatient
On Lantus 10 units. Add NovoLog 3 AC plus sliding scale coverage
# Hypothyroidism-continue Synthroid 50 mcg daily
# Elevated creatinine-CKD versus acute kidney injury-details unclear elevated LFTs noted
# RUL 7mm solid nodule with GGO in RUL and reticular/nodular opacities in lingula - seen on CT Chest from 09/13/2023-needs outpatient follow-up with pulmonary
# Emphysema-continue Anoro Ellipta or equivalent
# Hypoalbuminemia
# Ex Smoker
# DVT Prophylaxis: SCDs
# Code Status: Full
I called the number that I could find and left a message for listed as PCP
Discussed with PT and nursing at bedside
Patient still complaining of epigastric discomfort. Asking if she can get paracentesis again. We still do not have any records from [facility]. I specifically told the patient that she needs to keep care in the 1 system to avoid delays in her
care as well as missed information. She is aware that we still have not gotten any records from [facility]. She states that she does not like the other hospital. She does not know the name of the bandoleer straightener stamper who performed the procedure nor
what kind of procedure it was. She is also not sure what kind of GI procedure she had a ans.
Requested insulation power unit tender to fax request again.
Called daughter - Left message for daughter to call back.
Part of this note was created using voice recognition system. Occasional wrong word or��sound alike� substitutions may have inadvertently occurred due to the inherent limitations of voice recognition software. If noted kindly bring it to my
attention for correction.
Anticipated Discharge: Within 24 hours
Subjective/Interval History
-
Date of Service: March 03, 2024
Objective Data
-
Vital Signs:
Vital Signs
Temp Pulse Resp BP Pulse Ox
97.6 F 70 16 130/52 100
03/03/24 07:20 03/03/24 08:22 03/03/24 07:47 03/03/24 08:22 03/03/24 07:47
I&O
03/02/24 03/03/24 03/04/24
06:59 06:59 06:59
Intake Total 836 / 836 1130 / 1130
Balance 836 / 836 1130 / 1130
[2024-03-03] MEDS: PROTONIX 40 MG PO ×2 (11:54→21:01)
[2024-03-03 12:10] LABS: Glucose - Point of Care 89 mg/dl (70-99)
[2024-03-03] MEDS: NOVOLOG FLEXPEN SC (12:21)
--- NOTE | 2024-03-03 12:50 | W.PN.GI.CBS2 ---
Addendum entered and electronically signed by Gibson Draper MD 03/03/24 15:22:
I saw and examined the patient.
The PA's note was reviewed and I agree with the note.
Comment:
Requested to re-evaluate pt re: her symptoms of abdominal discomfort/burning pain. Had therapeutic para 02/28 with 4700 cc removed, -ve for SBP. She feels her ascites has reaccumulated quickly. She's on diuretics, however being underdosed with
lasix 40 mg and spironolactone 25 mg. Recommend a repeat therapeutic paracentesis and increasing spironolactone to 100 mg. Monitor electrolytes (K). Agree with continuing lasix 40 mg, lactulose/xifaxan.
Original Note:
Today's Communication / Plan
-
Assessment / Plan
-
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 Found to have Hbg of 5.8. She denies seeing blood in stools but not good
historian. She of note started on plavix 2 wks ago for stent in her leg she believes. She lives in [place] but was in [facility] to see daughter. Exam VSS edentulous chronically ill appearing. obese abd mild fluid wave. Labs noted Hbg 5.8
Doppler of the liver-normal size 15.4 cm with nodular/irregular subcapsular contour suggesting cirrhosis. Dampened pulsatile flow in the right hepatic vein suggesting elevated venous pressure as well as moderate perihepatic ascites.
Cholelithiasis.
GI is asked to see patient again as she is complaining off ongoing upper abdominal pain and distension, concerned the ascites is returning. She denies any nausea, vomiting, heartburn, fever or chills. She is on PPI BID. Initial plan for endoscopy
but this was deferred. No records have been received from [facility] for review.
IMPRESSION / PLAN:
Acute on Chronic Anemia, with history of esophageal varices - previously banded, heme-positive stools, was on DAPT with recent angio/stenting
- Hgb currently stable 8.8 (was 5.8 on admission, s/p PRBC)
- Plavix currently held, on ASA
- continue PPI (Protonix 40mg) BID
- attempting to get prior records from [facility] for review
- consider EGD to evaluate for varices/anemia and with ongoing complaints of abdominal pain - will discuss timing further with Dr. Draper
MASH Cirrhosis with ascites
- Patient reports first ever paracentesis was about 2 weeks ago at [facility]
- Had paracentesis on 02/29/24 with 4700ml removed, negative for SBP
- On Lasix 40mg, Aldactone 25mg now
- Continue lactulose and Xifaxan
- MELD 3.0 = 14
I discussed with patient the need to establish herself with a GI/Hepatology practice outpatient. 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
Subjective
Subjective
Date of Service: March 03, 2024
C/o vague, mild abdominal discomfort with sensation that the ascitic fluid is returning.
-no nausea, vomiting, fever, chills, hematemesis or coffee grounds emesis
Objective
Data Reviewed
Laboratory Data:
Laboratory Results
03/02/24 05:57
03/02/24 05:57
Laboratory Results
PT 15.4 Sec (11.4-14.6) H 02/29/24 02:09
INR 1.24 02/29/24 02:09
Magnesium 1.8 mg/dl (1.6-2.3) 03/02/24 05:57
Total Bilirubin 1.2 mg/dl (0.2-1.3) 03/01/24 04:08
AST 75 U/L (14-36) H 03/01/24 04:08
ALT 40 U/L (0-35) H 03/01/24 04:08
Alkaline Phosphatase 318 U/L (38-126) H 03/01/24 04:08
Vital Signs and I&O:
Vital Signs
Temp Pulse Resp BP Pulse Ox
97.7 F 65 18 144/54 97
03/03/24 11:44 03/03/24 11:44 03/03/24 11:44 03/03/24 11:44 03/03/24 11:44
I&O
03/02/24 03/03/24 03/04/24
06:59 06:59 06:59
Intake Total 836 / 836 1130 / 1130
Balance 836 / 836 1130 / 1130
Physical Exam
Physical Exam
HEENT: Anicteric
Pulmonary: Clear
GI: Soft, Distended, Non Tender and Normal Bowel Sounds
[2024-03-03] MEDS: LASIX 40 MG PO (13:30)
--- NOTE | 2024-03-03 16:54 | CM ---
Patient seen at bedside.
Awaiting paracentesis today.
PT recommends Home Health.
Discussed with patient & she states grand-daughters are nurses and they take care of her.
States one grand-daughter works for [employer].
PLAN: Discharge to home when medically stable.
[2024-03-03 17:09] LABS: Glucose - Point of Care 189 mg/dl (70-99)
[2024-03-03] MEDS: NOVOLOG FLEXPEN 3 UNITS SC (17:18)
[2024-03-03] MEDS: LIPITOR 20 MG PO (17:18)
[2024-03-03] MEDS: NOVOLOG FLEXPEN-LOW RESISTANCE 1 UNITS SC ×2 (17:19→21:10)
[2024-03-03 17:42] LABS: Body Fluid Albumin < 1.0 g/dl; Body Fluid Amylase < 30 U/L; Body Fluid Protein < 2.0 g/dl
[2024-03-03 18:28] LABS: Body Fluid Mononuclear 89.9 %; Body Fluid Polymorphonuclear 10.1 %; Body Fluid WBC 89 /CUMM
[2024-03-03 18:33] LABS: Body Fluid Second Tech LD
[2024-03-03 21:08] LABS: Glucose - Point of Care 181 mg/dl (70-99)
[2024-03-03] MEDS: LANTUS 0.1 UNITS SC (21:09)
[2024-03-04] VITALS (8 sets, daily range): BP systolic 110–142; BP diastolic 41–71; PULSE 66–70; BMI 22.0
[2024-03-04] MEDS: ROXICODONE 10 MG PO ×3 (03:14→21:11)
[2024-03-04] MEDS: SYNTHROID 50 MCG PO (06:42)
[2024-03-04 07:20] LABS: Glucose - Point of Care 297 mg/dl (70-99)
[2024-03-04] MEDS: SPIRIVA RESPIMAT 2.5 MCG 2 PUFF INH (07:29)
[2024-03-04] MEDS: STRIVERDI RESPIMAT 2 PUFF INH (07:30)
[2024-03-04] MEDS: ASPIR LOW (ENTERIC COATED) 81 MG PO (09:19)
[2024-03-04] MEDS: XIFAXAN 550 MG PO ×2 (09:19→21:11)
[2024-03-04] MEDS: PROTONIX 40 MG PO ×2 (09:19→21:11)
[2024-03-04] MEDS: DUPHALAC/CHRONULAC 20 GRAMS PO ×2 (09:19→21:11)
[2024-03-04] MEDS: ALDACTONE 100 MG PO (09:20)
[2024-03-04] MEDS: NOVOLOG FLEXPEN 3 UNITS SC (09:20)
[2024-03-04] MEDS: NOVOLOG FLEXPEN-LOW RESISTANCE 3 UNITS SC ×2 (09:20→11:51)
[2024-03-04] MEDS: TOPROL XL 25 MG PO (09:20)
[2024-03-04 09:27] LABS: Hematocrit 26.3 % (37.0-47.0); Hemoglobin 8.7 g/dL (12.0-16.0); Mean Corp Hgb Conc. 33.1 g/dL (33.0-37.0); Mean Corpuscular Hgb 28.7 pg (27.0-31.0); Mean Corpuscular Volume 86.8 fL (81.0-99.0); Mean Platelet Volume 11.4 fL (7.4-10.4); Platelet Count 159 10^3/uL (130-400); Red Blood Cell Count 3.03 10^6/uL (4.20-5.40); Red Cell Dist. Width 16.1 % (11.5-14.5)
--- NOTE | 2024-03-04 10:38 | W.PN.HOSP.TC ---
Today's Communication/Plan
-
Restart PLavix
Assessment / Plan
Assessment / Plan
Pt is a 73 year old female with anemia
CVS: S1-S2 normal
Chest: CTA B/L
Abdomen: Soft, No guarding.
Extremities: No edema,
Doppler of the liver-normal size 15.4 cm with nodular/irregular subcapsular contour suggesting cirrhosis. Dampened pulsatile flow in the right hepatic vein suggesting elevated venous pressure as well as moderate perihepatic ascites. Cholelithiasis.
#Acute on Chronic Anemia with Heme Positive Stool and History of GI Bleeding
HGB 5.8 on admission s/p pRBC, up to 7.7 and now 8.7
Suspect due to acute GI losses--very likely related to recent angio/stent and probable DAPT
[place]-Pre cath EGD 01/28/2024-Z-line irregular, grade 1, small less than 5 mm esophageal varices, portal hypertensive gastropathy, multiple nonbleeding angiectasia's in the stomach treated with APC, normal duodenal bulb, few nonbleeding angiectasias
in the duodenum treated with APC, discolored and texture changed mucosa in the greater curvature of the gastric body biopsied
[place]-EGD with push enteroscopy on 02/15/2024 was done-no variceal bleeding but with angiectasia in the duodenum and jejunum status post APC (Dr.Rajiv Elkins)
Restart Plavix -OK with GI
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
#Cirrhosis/Ascites due to NAFLD --Patient reports first ever paracentesis was about 2 weeks ago at [facility]
Increased Lasix dose and add spironolactone
Continue lactulose and Xifaxan
S/P Paracentesis 4700mls removed on 02/29/2024-no albumin.
Status post paracentesis again on 03/03/2024 with removal of 3500 mL ascitic fluid-no SBP
Continue PPI BID
# ASCVD--Prior h/o CABG 2012.
Coronary disease with drug-eluting stent placement 01/31/2024-admitted at [facility] for non-STEMI
On aspirin, statin
Restart Plavix (Discussed with GI)
# CHF-type unclear
# CKD-stage unclear, probably stage III
# Essential Hypertension-patient was on metoprolol 25 mg daily, as outpatient.
# DM-II-with neuropathy-hemoglobin A1c not reliable because of anemia-continue Neurontin
Patient was on Lantus 12-15 units at night and 15 units of Humalog AC as outpatient
On Lantus 15 units. NovoLog 8 AC plus sliding scale coverage
# Hypothyroidism-continue Synthroid 50 mcg daily
# RUL 7mm solid nodule with GGO in RUL and reticular/nodular opacities in lingula - seen on CT Chest from 09/13/2023-needs outpatient follow-up with pulmonary
# Emphysema-continue Anoro Ellipta or equivalent
# MALT lymphoma-got radiation 5 years ago. Sees
# Hypoalbuminemia
# Hepatic steatosis
# GERD
# Ex Smoker
# DVT Prophylaxis: SCDs
# Code Status: Full
I called the number that I could find and left a message for listed as PCP
Discussed with GI
D/W RN
Spoke to patient's daughter and updated
Outpatient records from [facility] reviewed-was scanned in and other healthcare facility information section.
-Patient has a history of coronary disease, chronic anemia, CKD, COPD, hypothyroidism, GERD, hypertension, hyperlipidemia, cirrhosis with ascites and portal hypertension, MALT lymphoma, diabetes, peripheral artery disease, esophageal varices as well
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
-Hemoglobin on admission 02/14/2024 was 6.6, creatinine was 1.95 potassium was 5.3 AST was 28 ALT was 52 alk phos was 240, lipase was 51.
-Patient was heme positive and also had melena and near syncope.
-She was given 2 units of blood, treated with octreotide and antibiotics
-Pre cath EGD 01/28/2024-Z-line irregular, grade 1, small less than 5 mm esophageal varices, portal hypertensive gastropathy, multiple nonbleeding angiectasia's in the stomach treated with APC, normal duodenal bulb, few nonbleeding angiectasias in
the duodenum treated with APC, discolored and texture changed mucosa in the greater curvature of the gastric body biopsied
-EGD with push enteroscopy on 02/15/2024 was done-no variceal bleeding but with angiectasia in the duodenum and jejunum status post APC (Dr.Rajiv Elkins)
-Paracentesis was done 4.6 L of fluid removed-no SBP. Cytology reactive mesothelial cells. No malignant cells
-Patient had significant stool burden-lactulose increased to 3 times daily
-Dual antiplatelets were continued because of the recent coronary stent
-Hemoglobin was 9.2 and creatinine was 1.77 at discharge, on 02/18/2024. INR was 1.1
-Gabapentin dose was decreased from 800 mg to 600 mg.
Also discharged on Lasix 20 mg daily, lactulose 30 mL 3 times daily, aspirin 81 mg daily, atorvastatin 80 mg daily, cetirizine 10 mg daily, Plavix 75 g daily, cyproheptadine 4 mg daily, Valium 10 mg, hydroxyzine 25 mg, Lantus insulin, lispro
insulin, Synthroid 50 mcg, metoprolol 25 mg, nitroglycerin 0.4 mg as needed, omeprazole 20 mg, oxycodone 15 mg, promethazine/dextromethorphan 6.25/15 mg per 5 mL syrup, Xifaxan 550 mg
Part of this note was created using voice recognition system. Occasional wrong word or��sound alike� substitutions may have inadvertently occurred due to the inherent limitations of voice recognition software. If noted kindly bring it to my
attention for correction.
Time spent over 57 minutes reviewing old records 77 pages, evaluating the patient, discussion with providers and management
Anticipated Discharge: Within 24 hours
Subjective/Interval History
-
Date of Service: March 04, 2024
Objective Data
-
Labs:
Laboratory Results
03/04/24
08:47
WBC 7.0
Hgb 8.7 L
Hct 26.3 L
Plt Count 159
Vital Signs:
Vital Signs
Temp Pulse Resp BP Pulse Ox
98 F 72 16 128/71 100
03/04/24 07:25 03/04/24 07:30 03/04/24 07:30 03/04/24 07:25 03/04/24 07:30
I&O
03/03/24 03/04/24 03/05/24
06:59 06:59 06:59
Intake Total 1130 / 1130 1320 / 1320
Balance 1130 / 1130 1320 / 1320
[2024-03-04] MEDS: NOVOLOG FLEXPEN 8 UNITS SC (11:14)
[2024-03-04 11:16] LABS: Glucose - Point of Care 256 mg/dl (70-99)
[2024-03-04] MEDS: NOVOLOG FLEXPEN 10 UNITS SC (11:53)
[2024-03-04] MEDS: PLAVIX 75 MG PO (11:56)
[2024-03-04 12:47] LABS: Blood Urea Nitrogen 26 mg/dl (7-17); Calcium 8.5 mg/dl (8.4-10.2); Carbon Dioxide 29 mmol/L (22-30); Chloride 102 mmol/L (98-107); Estimated Creatinine Clearance 34 ml/min; Glucose 139 mg/dl (70-99); Potassium 4.4 mmol/L (3.5-5.1); Sodium 137 mmol/L (135-145); eGFR 43.69
--- NOTE | 2024-03-04 14:10 | W.PN.GI.CBS2 ---
Today's Communication / Plan
-
resume plavix (DAPT), monitor for overt GI bleeding or falling Hgb
Assessment / Plan
-
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 Found to have Hbg of 5.8. She denies seeing blood in stools but not good
historian. She of note started on plavix 2 wks ago for stent in her leg she believes. She lives in [place] but was in [facility] to see daughter. Exam VSS edentulous chronically ill appearing. obese abd mild fluid wave. Labs noted Hbg 5.8
Doppler of the liver-normal size 15.4 cm with nodular/irregular subcapsular contour suggesting cirrhosis. Dampened pulsatile flow in the right hepatic vein suggesting elevated venous pressure as well as moderate perihepatic ascites.
Cholelithiasis.
GI is asked to see patient again as she is complaining off ongoing upper abdominal pain and distension, concerned the ascites is returning. She denies any nausea, vomiting, heartburn, fever or chills. She is on PPI BID. Initial plan for endoscopy
but this was deferred. No records have been received from [facility] for review.
She had repeat paracentesis yesterday with removal of approximately 3500 cc. Her spironolactone dosing was seen increased to 100 mg. She states her abdomen feels somewhat better after repeat paracentesis. Her records from [facility] was
reviewed. She was recently admitted to [facility] on 02/2024 for symptomatic anemia and reported melena. She had EGD/push enteroscopy on 02/14/2024 which showed nonbleeding small EV and multiple small to medium angiectasia's which were treated
with APC in stomach and duodenum. She had admission with similar complaint in 01/2024 and had EGD then which also showed angiectasia's. Given her recent MERE for her CAD, DAPT were continued throughout. During her hospitalization here her Plavix
was held. Her Plavix should be resumed. Her Hgb had remained stable and did not have any overt signs of GI bleeding. Would continue to monitor clinically for at least 1-2 more days on DAPT to see if she develops any overt GI bleeding, if so then
she should have repeat endoscopy.
Total Time Spent with Patient (in minutes): 35
Subjective
Subjective
Date of Service: March 04, 2024
She feels her abdomen feels like a better after paracentesis.
Objective
Data Reviewed
Laboratory Data:
Laboratory Results
03/04/24 08:47
03/04/24 12:16
Laboratory Results
PT 15.4 Sec (11.4-14.6) H 02/29/24 02:09
INR 1.24 02/29/24 02:09
Magnesium 1.8 mg/dl (1.6-2.3) 03/02/24 05:57
Total Bilirubin 1.2 mg/dl (0.2-1.3) 03/01/24 04:08
AST 75 U/L (14-36) H 03/01/24 04:08
ALT 40 U/L (0-35) H 03/01/24 04:08
Alkaline Phosphatase 318 U/L (38-126) H 03/01/24 04:08
Vital Signs and I&O:
Vital Signs
Temp Pulse Resp BP Pulse Ox
97.7 F 66 14 129/60 100
03/04/24 11:15 03/04/24 11:15 03/04/24 11:15 03/04/24 11:15 03/04/24 11:15
I&O
03/03/24 03/04/24 03/05/24
06:59 06:59 06:59
Intake Total 1130 / 1130 1320 / 1320
Balance 1130 / 1130 1320 / 1320
[2024-03-04] MEDS: LASIX 40 MG PO (15:16)
[2024-03-04] MEDS: LIPITOR 20 MG PO (17:11)
[2024-03-04] MEDS: NOVOLOG FLEXPEN SC (17:16)
[2024-03-04] MEDS: NOVOLOG FLEXPEN-LOW RESISTANCE SC (17:16)
[2024-03-04 17:17] LABS: Glucose - Point of Care 105 mg/dl (70-99)
[2024-03-04 21:24] LABS: Glucose - Point of Care 191 mg/dl (70-99)
[2024-03-04] MEDS: LANTUS 0.15 UNITS SC (23:34)
[2024-03-04] MEDS: NOVOLOG FLEXPEN-LOW RESISTANCE 1 UNITS SC (23:35)
[2024-03-05] VITALS (8 sets, daily range): BP systolic 102–140; BP diastolic 36–61; PULSE 68–76; BMI 22.1
[2024-03-05 03:50] LABS: Glucose - Point of Care 185 mg/dl (70-99)
[2024-03-05] MEDS: ROXICODONE 5 MG PO (04:54)
[2024-03-05] MEDS: SYNTHROID 50 MCG PO (04:55)
[2024-03-05] MEDS: MYLICON 80 MG PO (06:35)
[2024-03-05 06:38] LABS: Hematocrit 24.9 % (37.0-47.0); Hemoglobin 8.2 g/dL (12.0-16.0); Mean Corp Hgb Conc. 32.9 g/dL (33.0-37.0); Mean Corpuscular Hgb 27.8 pg (27.0-31.0); Mean Corpuscular Volume 84.4 fL (81.0-99.0); Mean Platelet Volume 10.3 fL (7.4-10.4); Platelet Count 159 10^3/uL (130-400); Red Blood Cell Count 2.95 10^6/uL (4.20-5.40); White Blood Cell Count 7.1 10^3/uL (4.8-10.8)
[2024-03-05 07:02] LABS: Blood Urea Nitrogen 28 mg/dl (7-17); Calcium 8.2 mg/dl (8.4-10.2); Carbon Dioxide 28 mmol/L (22-30); Chloride 99 mmol/L (98-107); Estimated Creatinine Clearance 26 ml/min; Glucose 164 mg/dl (70-99); Potassium 4.7 mmol/L (3.5-5.1); Sodium 136 mmol/L (135-145); eGFR 31.66
[2024-03-05] MEDS: SPIRIVA RESPIMAT 2.5 MCG 2 PUFF INH (07:38)
[2024-03-05] MEDS: STRIVERDI RESPIMAT 2 PUFF INH (07:38)
[2024-03-05 07:41] LABS: Glucose - Point of Care 160 mg/dl (70-99)
[2024-03-05] MEDS: ALDACTONE PO (09:08)
[2024-03-05] MEDS: DUPHALAC/CHRONULAC 20 GRAMS PO ×2 (09:09→19:49)
[2024-03-05] MEDS: ASPIR LOW (ENTERIC COATED) 81 MG PO (09:10)
[2024-03-05] MEDS: BACTROBAN 2% OINTMENT 1 APPLIC TOPICAL (09:10)
[2024-03-05] MEDS: TOPROL XL 25 MG PO (09:10)
[2024-03-05] MEDS: PROTONIX 40 MG PO ×2 (09:10→19:49)
[2024-03-05] MEDS: PLAVIX 75 MG PO (09:10)
[2024-03-05] MEDS: XIFAXAN 550 MG PO ×2 (09:10→19:49)
[2024-03-05] MEDS: NOVOLOG FLEXPEN-LOW RESISTANCE 1 UNITS SC (09:12)
[2024-03-05] MEDS: NOVOLOG FLEXPEN 10 UNITS SC ×3 (09:13→17:46)
[2024-03-05 11:04] LABS: Glucose - Point of Care 116 mg/dl (70-99)
[2024-03-05] MEDS: NOVOLOG FLEXPEN-LOW RESISTANCE SC ×3 (11:57→21:38)
--- NOTE | 2024-03-05 12:21 | W.PN.HOSP.TC ---
Addendum entered and electronically signed by Malika Mckee MD 03/05/24 12:35:
If creatinine is better-restart Aldactone at 50 mg tomorrow per discussion with GI.
Original Note:
Today's Communication/Plan
-
Monitor patient with Plavix and increased dose of Lasix, Aldactone
Hemoglobin slightly lower today. No bleeding noted
Creatinine 1.7 today
I will review with GI but creatinine should be goal for when we titrate diuretics.
Restart if okay with GI.
Assessment / Plan
Assessment / Plan
Pt is a 73 year old female with anemia
CVS: S1-S2 normal
Chest: CTA B/L
Abdomen: Soft, No guarding.
Extremities: No edema,
Doppler of the liver-normal size 15.4 cm with nodular/irregular subcapsular contour suggesting cirrhosis. Dampened pulsatile flow in the right hepatic vein suggesting elevated venous pressure as well as moderate perihepatic ascites. Cholelithiasis.
#Acute on Chronic Anemia with Heme Positive Stool and History of GI Bleeding
HGB 5.8 on admission s/p pRBC, up to 7.7 and now 8.7
Suspect due to acute GI losses--very likely related to recent angio/stent and probable DAPT
[place]-Pre cath EGD 01/28/2024-Z-line irregular, grade 1, small less than 5 mm esophageal varices, portal hypertensive gastropathy, multiple nonbleeding angiectasia's in the stomach treated with APC, normal duodenal bulb, few nonbleeding angiectasias
in the duodenum treated with APC, discolored and texture changed mucosa in the greater curvature of the gastric body biopsied
[place]-EGD with push enteroscopy on 02/15/2024 was done-no variceal bleeding but with angiectasia in the duodenum and jejunum status post APC (Dr.Rajiv Elkins)
Restarted Plavix
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
#Cirrhosis/Ascites due to NAFLD --Patient reports first ever paracentesis was about 2 weeks ago at [facility]
Increased Lasix dose and add spironolactone-held at today on 03/05/2024 until GI evaluates the patient as she felt slightly dizzy yesterday and also creatinine is up to 1.7 today.
Continue lactulose and Xifaxan
S/P Paracentesis 4700mls removed on 02/29/2024-no albumin.
Status post paracentesis again on 03/03/2024 with removal of 3500 mL ascitic fluid-no SBP
Continue PPI BID
# ASCVD--Prior h/o CABG 2012.
Coronary disease with drug-eluting stent placement 01/31/2024 when admitted at [facility] for non-STEMI
On aspirin, statin,Plavix
Restarted Plavix 03/04/24 (Discussed with GI)
# CHF-type unclear
# CKD-stage unclear, probably stage III
# Essential Hypertension-patient was on metoprolol 25 mg daily, as outpatient.
# DM-II-with neuropathy-hemoglobin A1c not reliable because of anemia-continue Neurontin
Patient was on Lantus 12-15 units at night and 15 units of Humalog AC as outpatient
On Lantus 15 units. NovoLog 10 AC plus sliding scale coverage
# Hypothyroidism-continue Synthroid 50 mcg daily
# RUL 7mm solid nodule with GGO in RUL and reticular/nodular opacities in lingula - seen on CT Chest from 09/13/2023-needs outpatient follow-up with pulmonary ( Daughter aware)
# Emphysema-continue Anoro Ellipta or equivalent
# MALT lymphoma-got radiation 5 years ago. Sees at [facility].
# Hypoalbuminemia
# Hepatic steatosis
# GERD
# Ex Smoker
# DVT Prophylaxis: SCDs
# Code Status: Full
I called the number that I could find and left a message for listed as PCP- not called back yet.
Discussed with GI
D/W RN
Spoke to patient's daughter and updated 03/04/24
Outpatient records from [facility] reviewed-was scanned in on 02/29/24 under ' other healthcare facility information section'.
-Patient has a history of coronary disease, chronic anemia, CKD, COPD, hypothyroidism, GERD, hypertension, hyperlipidemia, cirrhosis with ascites and portal hypertension, MALT lymphoma, diabetes, peripheral artery disease, esophageal varices as well
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
-Hemoglobin on admission 02/14/2024 was 6.6, creatinine was 1.95 potassium was 5.3 AST was 28 ALT was 52 alk phos was 240, lipase was 51.
-Patient was heme positive and also had melena and near syncope.
-She was given 2 units of blood, treated with octreotide and antibiotics
-Pre cath EGD 01/28/2024-Z-line irregular, grade 1, small less than 5 mm esophageal varices, portal hypertensive gastropathy, multiple nonbleeding angiectasia's in the stomach treated with APC, normal duodenal bulb, few nonbleeding angiectasias in
the duodenum treated with APC, discolored and texture changed mucosa in the greater curvature of the gastric body biopsied
-EGD with push enteroscopy on 02/15/2024 was done-no variceal bleeding but with angiectasia in the duodenum and jejunum status post APC (Dr.Rajiv Elkins)
-Paracentesis was done 4.6 L of fluid removed-no SBP. Cytology reactive mesothelial cells. No malignant cells
-Patient had significant stool burden-lactulose increased to 3 times daily
-Dual antiplatelets were continued because of the recent coronary stent
-Hemoglobin was 9.2 and creatinine was 1.77 at discharge, on 02/18/2024. INR was 1.1
-Gabapentin dose was decreased from 800 mg to 600 mg.
Also discharged on Lasix 20 mg daily, lactulose 30 mL 3 times daily, aspirin 81 mg daily, atorvastatin 80 mg daily, cetirizine 10 mg daily, Plavix 75 g daily, cyproheptadine 4 mg daily, Valium 10 mg, hydroxyzine 25 mg, Lantus insulin, lispro
insulin, Synthroid 50 mcg, metoprolol 25 mg, nitroglycerin 0.4 mg as needed, omeprazole 20 mg, oxycodone 15 mg, promethazine/dextromethorphan 6.25/15 mg per 5 mL syrup, Xifaxan 550 mg
Part of this note was created using voice recognition system. Occasional wrong word or��sound alike� substitutions may have inadvertently occurred due to the inherent limitations of voice recognition software. If noted kindly bring it to my
attention for correction.
Anticipated Discharge: Within 24 hours
Subjective/Interval History
-
Date of Service: March 05, 2024
Objective Data
-
Labs:
Laboratory Results
03/05/24
05:59
WBC 7.1
Hgb 8.2 L
Hct 24.9 L
Plt Count 159
Sodium 136
Potassium 4.7
Chloride 99
Carbon Dioxide 28
BUN 28 H
Creatinine 1.7 H
Glucose 164 H
Calcium 8.2 L
Vital Signs:
Vital Signs
Temp Pulse Resp BP Pulse Ox
97.8 F 68 16 140/61 99
03/05/24 11:05 03/05/24 11:05 03/05/24 11:05 03/05/24 11:05 03/05/24 11:05
I&O
03/04/24 03/05/24 03/06/24
06:59 06:59 06:59
Intake Total 1320 / 1320 1560 / 1560
Balance 1320 / 1320 1560 / 1560
--- NOTE | 2024-03-05 15:20 | W.PN.GI.CBS2 ---
Today's Communication / Plan
-
.
Assessment / Plan
-
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 Found to have Hbg of 5.8. She denies seeing blood in stools but not good
historian. She of note started on plavix 2 wks ago for stent in her leg she believes. She lives in [place] but was in [facility] to see daughter. Exam VSS edentulous chronically ill appearing. obese abd mild fluid wave. Labs noted Hbg 5.8
Doppler of the liver-normal size 15.4 cm with nodular/irregular subcapsular contour suggesting cirrhosis. Dampened pulsatile flow in the right hepatic vein suggesting elevated venous pressure as well as moderate perihepatic ascites.
Cholelithiasis.
She had repeat paracentesis with removal of approximately 3500 cc. She states her abdomen feels somewhat better after repeat paracentesis. Her records from [facility] was reviewed. She was recently admitted to [facility] on 02/2024 for
symptomatic anemia and reported melena. She had EGD/push enteroscopy on 02/14/2024 which showed nonbleeding small EV and multiple small to medium angiectasia's which were treated with APC in stomach and duodenum. She had admission with similar
complaint in 01/2024 and had EGD then which also showed angiectasia's. Given her recent MERE for her CAD, DAPT were continued throughout. During her hospitalization here her Plavix was held. Her Plavix should be resumed. Her Hgb had remained
stable and did not have any overt signs of GI bleeding. Would continue to monitor clinically for at least 1-2 more days on DAPT to see if she develops any overt GI bleeding, if so then she should have repeat endoscopy.
Her Cr up to 1.7 today, aldactone held. Hgb remains stable. No BMs o/n. If Cr improves tomorrow, can restart aldactone at 50 mg.
Total Time Spent with Patient (in minutes): 35
Subjective
Subjective
Date of Service: March 05, 2024
No events o/n.
Objective
Data Reviewed
Laboratory Data:
Laboratory Results
03/05/24 05:59
03/05/24 05:59
Laboratory Results
PT 15.4 Sec (11.4-14.6) H 02/29/24 02:09
INR 1.24 02/29/24 02:09
Magnesium 1.8 mg/dl (1.6-2.3) 03/02/24 05:57
Total Bilirubin 1.2 mg/dl (0.2-1.3) 03/01/24 04:08
AST 75 U/L (14-36) H 03/01/24 04:08
ALT 40 U/L (0-35) H 03/01/24 04:08
Alkaline Phosphatase 318 U/L (38-126) H 03/01/24 04:08
Vital Signs and I&O:
Vital Signs
Temp Pulse Resp BP Pulse Ox
97.8 F 68 16 140/61 99
03/05/24 11:05 03/05/24 11:05 03/05/24 11:05 03/05/24 11:05 03/05/24 11:05
I&O
03/04/24 03/05/24 03/06/24
06:59 06:59 06:59
Intake Total 1320 / 1320 1560 / 1560
Balance 1320 / 1320 1560 / 1560
--- NOTE | 2024-03-05 16:10 | CM ---
Reviewed the chart notes and spoke with the patient at the bedside. IMM reviewed. CM continues to be available to patient/family and is monitoring medical plan for needs at discharge.
Plan: Discharge to home when medically stable. Patient has declined VN, has granddaughter who cares for her.
[2024-03-05 16:50] LABS: Glucose - Point of Care 73 mg/dl (70-99)
[2024-03-05 17:19] LABS: Glucose - Point of Care 115 mg/dl (70-99)
[2024-03-05] MEDS: LIPITOR 20 MG PO (17:46)
[2024-03-05 21:30] LABS: Glucose - Point of Care 112 mg/dl (70-99)
[2024-03-05] MEDS: LANTUS 0.15 UNITS SC (21:38)
[2024-03-06] VITALS (8 sets, daily range): BP systolic 110–144; BP diastolic 43–60; PULSE 68–86; BMI 22.4
[2024-03-06] MEDS: MYLICON 80 MG PO (03:12)
[2024-03-06] MEDS: SYNTHROID 50 MCG PO (05:56)
[2024-03-06 07:29] LABS: Glucose - Point of Care 163 mg/dl (70-99)
[2024-03-06] MEDS: STRIVERDI RESPIMAT 2 PUFF INH (07:53)
[2024-03-06] MEDS: SPIRIVA RESPIMAT 2.5 MCG 2 PUFF INH (07:53)
[2024-03-06 07:55] LABS: Hematocrit 23.7 % (37.0-47.0); Hemoglobin 7.7 g/dL (12.0-16.0); Mean Corp Hgb Conc. 32.5 g/dL (33.0-37.0); Mean Corpuscular Hgb 27.6 pg (27.0-31.0); Mean Corpuscular Volume 84.9 fL (81.0-99.0); Mean Platelet Volume 11.9 fL (7.4-10.4); Platelet Count 153 10^3/uL (130-400); Red Blood Cell Count 2.79 10^6/uL (4.20-5.40); Red Cell Dist. Width 16.1 % (11.5-14.5); White Blood Cell Count 6.4 10^3/uL (4.8-10.8)
[2024-03-06] MEDS: ASPIR LOW (ENTERIC COATED) 81 MG PO (08:11)
[2024-03-06] MEDS: XIFAXAN 550 MG PO ×2 (08:11→20:19)
[2024-03-06] MEDS: PROTONIX 40 MG PO ×2 (08:11→20:18)
[2024-03-06] MEDS: PLAVIX 75 MG PO (08:12)
[2024-03-06] MEDS: TOPROL XL 25 MG PO (08:12)
[2024-03-06] MEDS: BACTROBAN 2% OINTMENT 1 APPLIC TOPICAL (08:12)
[2024-03-06] MEDS: DUPHALAC/CHRONULAC 20 GRAMS PO ×2 (08:12→20:18)
[2024-03-06] MEDS: NOVOLOG FLEXPEN 10 UNITS SC ×3 (08:12→17:34)
[2024-03-06] MEDS: NOVOLOG FLEXPEN-LOW RESISTANCE 1 UNITS SC ×2 (08:13→12:25)
[2024-03-06 08:25] LABS: Blood Urea Nitrogen 34 mg/dl (7-17); Calcium 8.3 mg/dl (8.4-10.2); Carbon Dioxide 29 mmol/L (22-30); Chloride 102 mmol/L (98-107); Estimated Creatinine Clearance 23 ml/min; Glucose 173 mg/dl (70-99); Magnesium 2.4 mg/dl (1.6-2.3); Potassium 5.1 mmol/L (3.5-5.1); Sodium 135 mmol/L (135-145); eGFR 27.71
--- NOTE | 2024-03-06 10:51 | W.PN.HOSP.TC ---
Today's Communication/Plan
-
Continue to hold diuretics. Follow creatinine.
Follow H&H.
Assessment / Plan
Assessment / Plan
Pt is a 73 year old female with anemia
Doppler of the liver-normal size 15.4 cm with nodular/irregular subcapsular contour suggesting cirrhosis. Dampened pulsatile flow in the right hepatic vein suggesting elevated venous pressure as well as moderate perihepatic ascites. Cholelithiasis.
#Acute on Chronic Anemia with Heme Positive Stool and History of GI Bleeding
HGB 5.8 on admission s/p pRBC, up to 7.7 and 7.7 today
Suspect due to acute GI losses--very likely related to recent angio/stent and probable DAPT
[place]-Pre cath EGD 01/28/2024-Z-line irregular, grade 1, small less than 5 mm esophageal varices, portal hypertensive gastropathy, multiple nonbleeding angiectasia's in the stomach treated with APC, normal duodenal bulb, few nonbleeding angiectasias
in the duodenum treated with APC, discolored and texture changed mucosa in the greater curvature of the gastric body biopsied
Moon-EGD with push enteroscopy on 02/15/2024 was done-no variceal bleeding but with angiectasia in the duodenum and jejunum status post APC (Dr.Rajiv Elkins)
Restarted Plavix - HH dropped but not significant and stools are brown - will repeat in AM and if continued drop might need EGD
Patient will need to follow-up with her certified executive chef to see when she can come off of Plavix as with angiectasia's she is always at risk for bleeding.
#Cirrhosis/Ascites due to NAFLD --Patient reports first ever paracentesis was about 2 weeks ago at [facility]
Increased Lasix dose and add spironolactone-held at today on 03/05/2024 until GI evaluates the patient as she felt slightly dizzy yesterday and also creatinine is up to 1.7 today.
Continue lactulose and Xifaxan
S/P Paracentesis 4700mls removed on 02/29/2024-no albumin.
Status post paracentesis again on 03/03/2024 with removal of 3500 mL ascitic fluid-no SBP
Continue PPI BID
# ASCVD--Prior h/o CABG 2012.
Coronary disease with drug-eluting stent placement 01/31/2024 when admitted at [facility] for non-STEMI
On aspirin, statin,Plavix
Restarted Plavix 03/04/24 (Discussed with GI)
# CHF-type unclear
# ALIX on CKD-stage unclear, probably stage III -continued rise of creatinine noted. She had a large-volume paracentesis and was put on diuretics. Concern was that this is related renal dysfunction-diuretics are on hold. Continue to follow
creatinine and if continued rise consult nephrology. Check a bladder scan.Check urine lytes.
# Essential Hypertension-patient was on metoprolol 25 mg daily, as outpatient.
# DM-II-with neuropathy-hemoglobin A1c not reliable because of anemia-continue Neurontin
Patient was on Lantus 12-15 units at night and 15 units of Humalog AC as outpatient
On Lantus 15 units. NovoLog 10 AC plus sliding scale coverage
# Hypothyroidism-continue Synthroid 50 mcg daily
# RUL 7mm solid nodule with GGO in RUL and reticular/nodular opacities in lingula - seen on CT Chest from 09/13/2023-needs outpatient follow-up with pulmonary ( Daughter aware)
# Emphysema-continue Anoro Ellipta or equivalent
# MALT lymphoma-got radiation 5 years ago. Sees at [facility].
# Hypoalbuminemia
# Hepatic steatosis
# GERD
# Ex Smoker
# DVT Prophylaxis: SCDs
# Code Status: Full
Not stable for discharge.
Total time spent on today's encounter was 52 minutes which included time spent in counseling the patient regarding diagnosis and treatment plan as listed above, goals of care, and symptom management. Case was discussed with nursing staff,
specialists . All labs and imaging personally reviewed by me. Remainder the time spent in detailed review of previous records, lab data, imaging, and other medical provider documentation.
Outpatient records from [facility] reviewed-was scanned in on 02/29/24 under ' other healthcare facility information section'.
-Patient has a history of coronary disease, chronic anemia, CKD, COPD, hypothyroidism, GERD, hypertension, hyperlipidemia, cirrhosis with ascites and portal hypertension, MALT lymphoma, diabetes, peripheral artery disease, esophageal varices as well
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
-Hemoglobin on admission 02/14/2024 was 6.6, creatinine was 1.95 potassium was 5.3 AST was 28 ALT was 52 alk phos was 240, lipase was 51.
-Patient was heme positive and also had melena and near syncope.
-She was given 2 units of blood, treated with octreotide and antibiotics
-Pre cath EGD 01/28/2024-Z-line irregular, grade 1, small less than 5 mm esophageal varices, portal hypertensive gastropathy, multiple nonbleeding angiectasia's in the stomach treated with APC, normal duodenal bulb, few nonbleeding angiectasias in
the duodenum treated with APC, discolored and texture changed mucosa in the greater curvature of the gastric body biopsied
-EGD with push enteroscopy on 02/15/2024 was done-no variceal bleeding but with angiectasia in the duodenum and jejunum status post APC (Dr.Rajiv Elkins)
-Paracentesis was done 4.6 L of fluid removed-no SBP. Cytology reactive mesothelial cells. No malignant cells
-Patient had significant stool burden-lactulose increased to 3 times daily
-Dual antiplatelets were continued because of the recent coronary stent
-Hemoglobin was 9.2 and creatinine was 1.77 at discharge, on 02/18/2024. INR was 1.1
-Gabapentin dose was decreased from 800 mg to 600 mg.
Also discharged on Lasix 20 mg daily, lactulose 30 mL 3 times daily, aspirin 81 mg daily, atorvastatin 80 mg daily, cetirizine 10 mg daily, Plavix 75 g daily, cyproheptadine 4 mg daily, Valium 10 mg, hydroxyzine 25 mg, Lantus insulin, lispro
insulin, Synthroid 50 mcg, metoprolol 25 mg, nitroglycerin 0.4 mg as needed, omeprazole 20 mg, oxycodone 15 mg, promethazine/dextromethorphan 6.25/15 mg per 5 mL syrup, Xifaxan 550 mg
Part of this note was created using voice recognition system. Occasional wrong word or��sound alike� substitutions may have inadvertently occurred due to the inherent limitations of voice recognition software. If noted kindly bring it to my
attention for correction.
Anticipated Discharge: 24 - 48 hours
Subjective/Interval History
-
Date of Service: March 06, 2024
Feels okay. Denies any abdominal pain today. No nausea vomiting.
She is now having brown stools.
No fever chills.
Denies any shortness of breath.
Objective Data
-
Labs:
Laboratory Results
03/06/24
06:41
WBC 6.4
Hgb 7.7 L
Hct 23.7 L
Plt Count 153
Sodium 135
Potassium 5.1
Chloride 102
Carbon Dioxide 29
BUN 34 H
Creatinine 1.9 H
Glucose 173 H
Calcium 8.3 L
Vital Signs:
Vital Signs
Temp Pulse Resp BP Pulse Ox
98.0 F 73 20 110/43 97
03/06/24 07:20 03/06/24 08:12 03/06/24 07:55 03/06/24 08:12 03/06/24 07:55
I&O
03/05/24 03/06/24 03/07/24
06:59 06:59 06:59
Intake Total 1560 / 1560 1560 / 1560
Balance 1560 / 1560 1560 / 1560
Review of Systems
-
EENT: Denies Sore Throat
Respiratory: Denies Cough
Cardiac: Denies Chest Pain
Neuro: Denies Dizzy
Physical Exam
-
General: No Apparent Distress
HEENT: Moist Mucous Membranes
Respiratory: Clear to Auscultation
Cardiac: Regular Rhythm and S1/S2
GI: Soft and Nontender
Neuro: AO x 3; Negative Tremors
Psych: Calm; Negative Confused
Data Reviewed
-
Labs: Labs Reviewed by me
[2024-03-06 11:50] LABS: Glucose - Point of Care 168 mg/dl (70-99)
--- NOTE | 2024-03-06 13:54 | PTCARENOTE ---
arrived in patients room to her foot bleeding all over the place. Normal saline used to clean off blood. Small skin tear on the third toe. Toe wrapped with bandaid and tape to keep in place. Pair of socks applied to both feet. Notified
--- NOTE | 2024-03-06 15:35 | W.PN.GI.CBS2 ---
Today's Communication / Plan
-
.
Assessment / Plan
-
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 Found to have Hbg of 5.8. She denies seeing blood in stools but not good
historian. She of note started on plavix 2 wks ago for stent in her leg she believes. She lives in [place] but was [facility] see daughter. Exam VSS edentulous chronically ill appearing. obese abd mild fluid wave. Labs noted Hbg 5.8
Doppler of the liver-normal size 15.4 cm with nodular/irregular subcapsular contour suggesting cirrhosis. Dampened pulsatile flow in the right hepatic vein suggesting elevated venous pressure as well as moderate perihepatic ascites.
Cholelithiasis.
She had repeat paracentesis with removal of approximately 3500 cc. She states her abdomen feels somewhat better after repeat paracentesis. Her records from [facility] was reviewed. She was recently admitted to [facility] on 02/2024 for
symptomatic anemia and reported melena. She had EGD/push enteroscopy on 02/14/2024 which showed nonbleeding small EV and multiple small to medium angiectasia's which were treated with APC in stomach and duodenum. She had admission with similar
complaint in 01/2024 and had EGD then which also showed angiectasia's. Given her recent MERE for her CAD, DAPT were continued throughout. During her hospitalization here her Plavix was held. Her Plavix should be resumed. Her Hgb had remained
stable and did not have any overt signs of GI bleeding. Would continue to monitor clinically for at least 1-2 more days on DAPT to see if she develops any overt GI bleeding, if so then she should have repeat endoscopy.
Her Cr up to 1.9 today. Will need to hold diuretics. Hgb down to 7.7, no signs of GI bleeding however. Encouraged hydration. Will follow.
Total Time Spent with Patient (in minutes): 35
Subjective
Subjective
Date of Service: March 06, 2024
no new events. abdo feels ok.
Objective
Data Reviewed
Laboratory Data:
Laboratory Results
03/06/24 06:41
03/06/24 06:41
Laboratory Results
PT 15.4 Sec (11.4-14.6) H 02/29/24 02:09
INR 1.24 02/29/24 02:09
Magnesium 2.4 mg/dl (1.6-2.3) H 03/06/24 06:41
Total Bilirubin 1.2 mg/dl (0.2-1.3) 03/01/24 04:08
AST 75 U/L (14-36) H 03/01/24 04:08
ALT 40 U/L (0-35) H 03/01/24 04:08
Alkaline Phosphatase 318 U/L (38-126) H 03/01/24 04:08
Vital Signs and I&O:
Vital Signs
Temp Pulse Resp BP Pulse Ox
98.1 F 75 16 124/44 98
03/06/24 11:05 03/06/24 11:05 03/06/24 11:05 03/06/24 11:05 03/06/24 11:05
I&O
03/05/24 03/06/24 03/07/24
06:59 06:59 06:59
Intake Total 1560 / 1560 1560 / 1560
Balance 1560 / 1560 1560 / 1560
[2024-03-06] MEDS: NOVOLOG FLEXPEN-LOW RESISTANCE 2 UNITS SC (17:34)
[2024-03-06] MEDS: LIPITOR 20 MG PO (17:34)
[2024-03-06 17:43] LABS: Glucose - Point of Care 238 mg/dl (70-99)
[2024-03-06 21:17] LABS: Glucose - Point of Care 235 mg/dl (70-99)
[2024-03-06] MEDS: LANTUS 0.15 UNITS SC (22:22)
[2024-03-06] MEDS: NOVOLOG FLEXPEN-LOW RESISTANCE 4 UNITS SC (22:23)
[2024-03-07] VITALS (12 sets, daily range): BP systolic 93–161; BP diastolic 47–64; PULSE 74–80; BMI 22.3
[2024-03-07] MEDS: MYLICON 80 MG PO (01:56)
[2024-03-07] MEDS: SYNTHROID 50 MCG PO (06:02)
[2024-03-07 07:41] LABS: Glucose - Point of Care 144 mg/dl (70-99)
[2024-03-07] MEDS: PLAVIX 75 MG PO (07:57)
[2024-03-07] MEDS: PROTONIX 40 MG PO ×2 (07:57→20:03)
[2024-03-07] MEDS: ASPIR LOW (ENTERIC COATED) 81 MG PO (07:57)
[2024-03-07] MEDS: NOVOLOG FLEXPEN-LOW RESISTANCE SC ×4 (07:57→21:22)
[2024-03-07] MEDS: TOPROL XL 25 MG PO (07:58)
[2024-03-07] MEDS: XIFAXAN 550 MG PO ×2 (07:58→20:03)
[2024-03-07] MEDS: DUPHALAC/CHRONULAC 20 GRAMS PO ×2 (07:59→20:03)
[2024-03-07] MEDS: BACTROBAN 2% OINTMENT 1 APPLIC TOPICAL (07:59)
[2024-03-07] MEDS: NOVOLOG FLEXPEN 10 UNITS SC ×3 (08:00→17:27)
[2024-03-07 08:26] LABS: Urine Sodium 89 mmol/L (30-90)
[2024-03-07] MEDS: SPIRIVA RESPIMAT 2.5 MCG 2 PUFF INH (08:33)
[2024-03-07] MEDS: STRIVERDI RESPIMAT 2 PUFF INH (08:33)
[2024-03-07 08:45] LABS: Hematocrit 24.2 % (37.0-47.0); Hemoglobin 7.9 g/dL (12.0-16.0); Mean Corp Hgb Conc. 32.6 g/dL (33.0-37.0); Mean Corpuscular Hgb 28.2 pg (27.0-31.0); Mean Corpuscular Volume 86.4 fL (81.0-99.0); Mean Platelet Volume 11.6 fL (7.4-10.4); Platelet Count 153 10^3/uL (130-400); Red Cell Dist. Width 16.5 % (11.5-14.5); White Blood Cell Count 9.5 10^3/uL (4.8-10.8)
[2024-03-07 09:02] LABS: Blood Urea Nitrogen 33 mg/dl (7-17); Calcium 8.7 mg/dl (8.4-10.2); Carbon Dioxide 28 mmol/L (22-30); Chloride 104 mmol/L (98-107); Estimated Creatinine Clearance 26 ml/min; Glucose 139 mg/dl (70-99); Potassium 5.4 mmol/L (3.5-5.1); Sodium 138 mmol/L (135-145); eGFR 31.66
[2024-03-07 12:18] LABS: Glucose - Point of Care 120 mg/dl (70-99)
--- NOTE | 2024-03-07 13:04 | CM ---
Patient seen at bedside.
Discussed PT recommended home health.
Patient declines home health, states both grand-daughter's are nurses and the one works at [employer].
PLAN: Discharge when stable, declined home health.
States daughter will transport home.
--- NOTE | 2024-03-07 14:10 | W.PN.HOSP.TC ---
Today's Communication/Plan
-
Transfuse one unit of PRBC.Follow HH.
Assessment / Plan
Assessment / Plan
Pt is a 73 year old female with anemia
Doppler of the liver-normal size 15.4 cm with nodular/irregular subcapsular contour suggesting cirrhosis. Dampened pulsatile flow in the right hepatic vein suggesting elevated venous pressure as well as moderate perihepatic ascites. Cholelithiasis.
#Acute on Chronic Anemia with Heme Positive Stool and History of GI Bleeding
HGB 5.8 on admission s/p pRBC, up to 7.7 and 7.9 today
Suspect due to acute GI losses--very likely related to recent angio/stent and probable DAPT
[place]emilvia-Pre cath EGD 01/28/2024-Z-line irregular, grade 1, small less than 5 mm esophageal varices, portal hypertensive gastropathy, multiple nonbleeding angiectasia's in the stomach treated with APC, normal duodenal bulb, few nonbleeding angiectasias
in the duodenum treated with APC, discolored and texture changed mucosa in the greater curvature of the gastric body biopsied
Jemilvia-EGD with push enteroscopy on 02/15/2024 was done-no variceal bleeding but with angiectasia in the duodenum and jejunum status post APC (Dr.Rajiv Elkins)
Restarted Plavix - HH dropped but not significant and stools are brown .
HH stable in last 24hr ; Pt feels weak and tired . HH has been persistently low <8 . Will transfuse one unit of PRBC as i feel she is symtomatic with weakness/fatigue.
Patient will need to follow-up with her hospital sales representative to see when she can come off of Plavix as with angiectasia's she is always at risk for bleeding.
#Cirrhosis/Ascites due to NAFLD --Patient reports first ever paracentesis was about [address] [facility]
Lasix and spironolactone on hold due to increased Cr. Resume when ok from GI.
Continue lactulose and Xifaxan
S/P Paracentesis 4700mls removed on 02/29/2024-no albumin.
Status post paracentesis again on 03/03/2024 with removal of 3500 mL ascitic fluid-no SBP
Continue PPI BID
# ASCVD--Prior h/o CABG 2012.
Coronary disease with drug-eluting stent placement 01/31/2024 when admitted at [place] for non-STEMI
On aspirin, statin,Plavix
Restarted Plavix 03/04/24 (Discussed with GI)
# CHF-type unclear
# ALIX on CKD-stage unclear, probably stage III -continued rise of creatinine noted. She had a large-volume paracentesis and was put on diuretics. Concern was that this is related renal dysfunction-diuretics are on hold. Continue to follow
creatinine -Improving.
FeNa 1.84 and Eleni >40 not going in favor of HR syndrome.
# Essential Hypertension-patient was on metoprolol 25 mg daily, as outpatient.
# DM-II-with neuropathy-hemoglobin A1c not reliable because of anemia-continue Neurontin
Patient was on Lantus 12-15 units at night and 15 units of Humalog AC as outpatient
On Lantus 15 units. NovoLog 10 AC plus sliding scale coverage
# Hypothyroidism-continue Synthroid 50 mcg daily
# RUL 7mm solid nodule with GGO in RUL and reticular/nodular opacities in lingula - seen on CT Chest from 09/13/2023-needs outpatient follow-up with pulmonary ( Daughter aware)
# Emphysema-continue Anoro Ellipta or equivalent
# MALT lymphoma-got radiation 5 years ago. Sees at [facility].
# Hypoalbuminemia
# Hepatic steatosis
# GERD
# Ex Smoker
# DVT Prophylaxis: SCDs
# Code Status: Full
Outpatient records from [place] reviewed-was scanned in on 02/29/24 under ' other healthcare facility information section'.
-Patient has a history of coronary disease, chronic anemia, CKD, COPD, hypothyroidism, GERD, hypertension, hyperlipidemia, cirrhosis with ascites and portal hypertension, MALT lymphoma, diabetes, peripheral artery disease, esophageal varices as well
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
-Hemoglobin on admission 02/14/2024 was 6.6, creatinine was 1.95 potassium was 5.3 AST was 28 ALT was 52 alk phos was 240, lipase was 51.
-Patient was heme positive and also had melena and near syncope.
-She was given 2 units of blood, treated with octreotide and antibiotics
-Pre cath EGD 01/28/2024-Z-line irregular, grade 1, small less than 5 mm esophageal varices, portal hypertensive gastropathy, multiple nonbleeding angiectasia's in the stomach treated with APC, normal duodenal bulb, few nonbleeding angiectasias in
the duodenum treated with APC, discolored and texture changed mucosa in the greater curvature of the gastric body biopsied
-EGD with push enteroscopy on 02/15/2024 was done-no variceal bleeding but with angiectasia in the duodenum and jejunum status post APC (Dr.Rajiv Elkins)
-Paracentesis was done 4.6 L of fluid removed-no SBP. Cytology reactive mesothelial cells. No malignant cells
-Patient had significant stool burden-lactulose increased to 3 times daily
-Dual antiplatelets were continued because of the recent coronary stent
-Hemoglobin was 9.2 and creatinine was 1.77 at discharge, on 02/18/2024. INR was 1.1
-Gabapentin dose was decreased from 800 mg to 600 mg.
Also discharged on Lasix 20 mg daily, lactulose 30 mL 3 times daily, aspirin 81 mg daily, atorvastatin 80 mg daily, cetirizine 10 mg daily, Plavix 75 g daily, cyproheptadine 4 mg daily, Valium 10 mg, hydroxyzine 25 mg, Lantus insulin, lispro
insulin, Synthroid 50 mcg, metoprolol 25 mg, nitroglycerin 0.4 mg as needed, omeprazole 20 mg, oxycodone 15 mg, promethazine/dextromethorphan 6.25/15 mg per 5 mL syrup, Xifaxan 550 mg
Part of this note was created using voice recognition system. Occasional wrong word or��sound alike� substitutions may have inadvertently occurred due to the inherent limitations of voice recognition software. If noted kindly bring it to my
attention for correction.
Anticipated Discharge: Within 24 hours
Subjective/Interval History
-
Date of Service: March 07, 2024
Today morning she felt nauseous and did not feel like having much of her oral diet diet.
She took a small amount of lunch. No abdominal pain. It was more nausea.
She had 2 good bowel movements today.
She can of feels weak and fatigued.
No lightheadedness.
No shortness of breath at rest. No chest pain.
Objective Data
-
Labs:
Laboratory Results
03/07/24
07:27
WBC 9.5
Hgb 7.9 L
Hct 24.2 L
Plt Count 153
Sodium 138
Potassium 5.4 H
Chloride 104
Carbon Dioxide 28
BUN 33 H
Creatinine 1.7 H
Glucose 139 H
Calcium 8.7
Vital Signs:
Vital Signs
Temp Pulse Resp BP Pulse Ox
98.1 F 76 16 133/64 98
03/07/24 11:46 03/07/24 11:46 03/07/24 11:46 03/07/24 11:46 03/07/24 11:46
I&O
03/06/24 03/07/24 03/08/24
06:59 06:59 06:59
Intake Total 1560 / 1560 1320 / 1320
Output Total 300 / 300
Balance 1560 / 1560 1020 / 1020
Review of Systems
-
Constitutional: Denies Fever
EENT: Denies Sore Throat
Respiratory: Denies Cough
Neuro: Denies Dizzy
Physical Exam
-
General: No Apparent Distress
HEENT: Moist Mucous Membranes
Respiratory: Clear to Auscultation
Cardiac: Regular Rhythm and S1/S2
GI: Soft, Nondistended, Normal Bowel Sounds and Tender (some discomfort in RUQ area)
Neuro: AO x 3; Negative Tremors
Psych: Calm; Negative Confused or Agitated
Data Reviewed
-
Labs: Labs Reviewed by me
--- NOTE | 2024-03-07 15:48 | W.PN.GI.CBS2 ---
Addendum entered and electronically signed by Gibson Draper MD 03/07/24 18:31:
I saw and examined the patient.
The PA's note was reviewed and I agree with the note.
Comment:
Denies melena, Hgb remains stable. Cr improving, diuretics being held due to ALIX. Can restart laxis 40 mg and aldactone 25 mg to start once Cr is at baseline (1.2-1.3). GI will s/o, pls call if Hgb drops/melena occurs, or ALIX worsens.
Addendum entered and electronically signed by Radha Man NP 03/07/24 16:34:
PSE: continue Lactulose 20g BID (titrate 2-3 BM daily) and Xifaxan 550mg BID
Original Note:
Today's Communication / Plan
-
Monitor H&H. Monitor for recurrent bleeding (melena, hematemesis). Trend renal function, continue to hold diuretics. Continue twice daily PPI.
Assessment / Plan
-
The pt a 73-year-old female with a past medical history significant for decompensated Lemus cirrhosis with ascites, esophageal varices with banding in the past, and PSE, history of GI bleed 2/2 gastric and duodenal AVM's and PHG, chronic anemia,
hypertension, CAD with CABG and prior cardiac stenting (most recent 01/31/24 @ aspirin and Plavix), type 2 diabetes, COPD, PAD, smoker, hypothyroidism, who was initially admitted to [facility] for abdominal distention and shortness of breath
on 02/28 found to have concerns for recurrent ascites. She also had a hemoglobin of 5.8 on admission with symptomatic anemia. She denied any signs of bleeding at the time of admission. She had been started on Plavix along with aspirin for recent
drug-eluting stent placement on 01/31/2024 at [place]. She underwent paracentesis upon admission which 4700 mL were removed. She had a repeat paracentesis on 03/03 with removal of 3500 mL of ascitic fluid. Fluid cell counts negative for SBP on both
taps. She has had persistently low hemoglobin and received 2 units of packed red blood cells during this admission. Her hemoglobin has been between 7.7 and 9.1 over the last several days. Records indicates she was at [facility] last month
where she underwent evaluation for symptomatic anemia and melena. She had an EGD with push enteroscopy on 02/14/2024 which showed a nonbleeding small EV and multiple small to medium angiectasia's which were treated with APC in the stomach and
duodenum. Her Plavix was held initially here but since resumed on 03/04. Diuretics were held as of 03/06 given her worsening renal function.
03/01/24 US doppler abdomen: IMPRESSION:
1). The liver is normal in size at 15.4 cm but there is a nodular/irregular subcapsular contour suggesting cirrhosis with dampened pulsatile flow in the right hepatic vein suggesting elevated venous pressures as well as moderate perihepatic ascites
2). Cholelithiasis
[facility] records:
--EGD 01/28/2024-Z-line irregular, grade 1, small less than 5 mm esophageal varices, portal hypertensive gastropathy, multiple nonbleeding angiectasia's in the stomach treated with APC, normal duodenal bulb, few nonbleeding angiectasias in the
duodenum treated with APC, discolored and texture changed mucosa in the greater curvature of the gastric body biopsied
--EGD with push enteroscopy on 02/15/2024 was done-no variceal bleeding but with angiectasia in the duodenum and jejunum status post APC (Dr.Rajiv Elkins)
Problem list:
-symptomatic anemia with hx prior anemia, likely 2/2 slow GI loss with AVM's v PHG v other
-MASH cirrhosis decompensated with ascites, PSE on Xifaxan, lactulose, MELD 3.0- 13
-Ascites s/p paracentesis 02/28 for 4700ml, 03/03 3500mL
-Recent cardiac stenting on Plavix/aspirin
-ALIX
-hx Esophageal varices with prior banding
Other med problems:
-CHF
-CABG and prior cardiac stents
-DM type II
-PAD
-tobacco abuse
-hypothyroidism
-MALT lymphoma
-COPD
-HTN
-emphysema
-lung nodule
-fatty liver
Recommendations:
-Etiology of current symptoms likely secondary to symptomatic anemia related to slow GI blood loss on top of chronic anemia exacerbated with the start of Plavix given hx of portal hypertensive gastropathy versus gastric and duodenal AVMs with APC
treatment in February versus other. See above reports from [facility].
-Would continue to monitor H&H and transfuse to keep hemoglobin around 8 (per medical team given recent stent). Avoid over transfusion.
-Continue PPI twice daily
-If she has any obvious signs of bleeding would proceed with repeat EGD. Her stool is brown at this time therefore will continue to monitoring.
-Plavix restarted on 03/04 with no signs of bleeding. Monitor for another day
-2g Na/low fat diet as tolerated
-PRN paracentesis for abdominal distention
-Diuretics have been held given her worsening renal function. Improving, Continue to monitor Cr, consider resuming pending labs tomorrow
-She will need follow up with primary GI after discharge. She is unsure who she follows with. Needs hepatology follow-up as well as GI.
-Further management pending above
Subjective
Subjective
Date of Service: March 07, 2024
The patient was seen and examined at the bedside. She offers no complaints today. She reports 'I am bored.' Her hemoglobin was 7.9 today. She denies any melena or hematochezia. She denies any vomiting. Her creatinine is slowly improving down
from 1.9-1.7 today. Her diuretics are on hold.
Objective
Data Reviewed
Laboratory Data:
Laboratory Results
03/07/24 07:27
03/07/24 07:27
Laboratory Results
PT 15.4 Sec (11.4-14.6) H 02/29/24 02:09
INR 1.24 02/29/24 02:09
Magnesium 2.4 mg/dl (1.6-2.3) H 03/06/24 06:41
Total Bilirubin 1.2 mg/dl (0.2-1.3) 03/01/24 04:08
AST 75 U/L (14-36) H 03/01/24 04:08
ALT 40 U/L (0-35) H 03/01/24 04:08
Alkaline Phosphatase 318 U/L (38-126) H 03/01/24 04:08
Vital Signs and I&O:
Vital Signs
Temp Pulse Resp BP Pulse Ox
98.1 F 76 16 133/64 98
03/07/24 11:46 03/07/24 11:46 03/07/24 11:46 03/07/24 11:46 03/07/24 11:46
I&O
03/06/24 03/07/24 03/08/24
06:59 06:59 06:59
Intake Total 1560 / 1560 1320 / 1320
Output Total 300 / 300
Balance 1560 / 1560 1020 / 1020
Physical Exam
Physical Exam
HEENT: Anicteric
Cardiology: S1 and S2 (Regular rate and rhythm)
Pulmonary: Clear
GI: Soft, Non Distended, Non Tender, Normal Bowel Sounds and Other (no overt ascites)
Extremities: No Edema and Other (no asterixis)
Neuro: Non Focal and Other (forgetful)
[2024-03-07 17:05] LABS: Glucose - Point of Care 145 mg/dl (70-99)
[2024-03-07] MEDS: LIPITOR 20 MG PO (17:27)
[2024-03-07 21:19] LABS: Glucose - Point of Care 120 mg/dl (70-99)
[2024-03-07] MEDS: LANTUS 0.15 UNITS SC (21:21)
[2024-03-08] VITALS (7 sets, daily range): BP systolic 122–179; BP diastolic 46–71; PULSE 64–72; BMI 22.3
--- NOTE | 2024-03-08 00:07 | PTCARENOTE ---
1 unit of PRBC transfused, tolerated well, no adverse effects noted. Pt reported brown/burgundy color stools, advised to notify staff if she has bowel movements to assess for blood.
[2024-03-08] MEDS: MELATONIN 5 MG PO (02:28)
[2024-03-08] MEDS: SYNTHROID 50 MCG PO (05:52)
[2024-03-08 07:24] LABS: Hematocrit 28.2 % (37.0-47.0); Hemoglobin 9.3 g/dL (12.0-16.0); Mean Corpuscular Hgb 28.3 pg (27.0-31.0); Mean Corpuscular Volume 85.7 fL (81.0-99.0); Mean Platelet Volume 11.3 fL (7.4-10.4); Platelet Count 160 10^3/uL (130-400); Red Blood Cell Count 3.29 10^6/uL (4.20-5.40); Red Cell Dist. Width 15.9 % (11.5-14.5); White Blood Cell Count 8.1 10^3/uL (4.8-10.8)
[2024-03-08] MEDS: SPIRIVA RESPIMAT 2.5 MCG 2 PUFF INH (07:28)
[2024-03-08] MEDS: STRIVERDI RESPIMAT 2 PUFF INH (07:28)
[2024-03-08 07:35] LABS: Blood Urea Nitrogen 32 mg/dl (7-17); Carbon Dioxide 25 mmol/L (22-30); Chloride 110 mmol/L (98-107); Estimated Creatinine Clearance 29 ml/min; Glucose 84 mg/dl (70-99); Potassium 5.1 mmol/L (3.5-5.1); Sodium 139 mmol/L (135-145)
[2024-03-08 09:32] LABS: Glucose - Point of Care 92 mg/dl (70-99)
[2024-03-08] MEDS: DUPHALAC/CHRONULAC 20 GRAMS PO ×2 (09:32→20:39)
[2024-03-08] MEDS: TOPROL XL 25 MG PO (09:32)
[2024-03-08] MEDS: NOVOLOG FLEXPEN-LOW RESISTANCE SC ×3 (09:32→16:36)
[2024-03-08] MEDS: PROTONIX 40 MG PO ×2 (09:37→20:38)
[2024-03-08] MEDS: XIFAXAN 550 MG PO ×2 (09:37→20:38)
[2024-03-08] MEDS: BACTROBAN 2% OINTMENT 1 APPLIC TOPICAL (09:38)
[2024-03-08] MEDS: NOVOLOG FLEXPEN 10 UNITS SC ×2 (09:48→13:58)
[2024-03-08] MEDS: ASPIR LOW (ENTERIC COATED) 81 MG PO (09:50)
[2024-03-08] MEDS: PLAVIX PO (09:50)
--- NOTE | 2024-03-08 09:56 | PTCARENOTE ---
MD made aware of night shift supervisor RN report of burgundy colored BM overnight, patient stated to this RN she noticed 'some blood' overnight with bowel movement. AM plavix held, aspirin given per MD.
--- NOTE | 2024-03-08 10:03 | W.PN.GI.CBS2 ---
Addendum entered and electronically signed by Gibson Draper MD 03/08/24 17:51:
I saw and examined the patient.
The PA's note was reviewed and I agree with the note.
Comment:
Pt having maroon colored stool. Hgb responded appropriately to pRBC transfusion. ALIX improving with Cr 1.5 today. Diuretics continue to be held. Will plan for egd/push enteroscopy, timing TBD.
Original Note:
Today's Communication / Plan
-
-Etiology of current symptoms likely secondary to symptomatic anemia related to slow GI blood loss on top of chronic anemia exacerbated with the start of Plavix given hx of portal hypertensive gastropathy versus gastric and duodenal AVMs with APC
treatment in February versus other. See above reports from [facility].
asked to reassess for burgundy stools today
hbtg stable 9.3 -- total 3 units PRBC's given since admission -- Avoid over transfusion.
-Continue PPI twice daily
I discussed with Dr. Flowers concern for Plavix with bleeding - consider review with cardiology where stent was placed--pt states alf follow with Dr. Christopher Carroll.
Plavix hold
consider repeat EGD +/- colon though pt has been scoped in January and february with noted multiple AVM's as noted
-2g Na/low fat diet as tolerated
-PRN paracentesis for abdominal distention
-Diuretics have been held given her worsening renal function follow creat daily for ability to restart creat 1.5 today down from 1.9
-She will need follow up with primary GI after discharge. She is unsure who she follows with. Needs hepatology follow-up as well as GI.
Assessment / Plan
-
The pt a 73-year-old female with a past medical history significant for decompensated Lemus cirrhosis with ascites, esophageal varices with banding in the past, and PSE, history of GI bleed 2/2 gastric and duodenal AVM's and PHG, chronic anemia,
hypertension, CAD with CABG and prior cardiac stenting (most recent 01/31/24 @ aspirin and Plavix), type 2 diabetes, COPD, PAD, smoker, hypothyroidism, who was initially admitted to [facility] for abdominal distention and shortness of breath
on 02/28 found to have concerns for recurrent ascites. She also had a hemoglobin of 5.8 on admission with symptomatic anemia. She denied any signs of bleeding at the time of admission. She had been started on Plavix along with aspirin for recent
drug-eluting stent placement on 01/31/2024 at [place]. She underwent paracentesis upon admission which 4700 mL were removed. She had a repeat paracentesis on 03/03 with removal of 3500 mL of ascitic fluid. Fluid cell counts negative for SBP on both
taps. She has had persistently low hemoglobin and received 2 units of packed red blood cells during this admission. Her hemoglobin has been between 7.7 and 9.1 over the last several days. Records indicates she was at [facility] last month
where she underwent evaluation for symptomatic anemia and melena. She had an EGD with push enteroscopy on 02/14/2024 which showed a nonbleeding small EV and multiple small to medium angiectasia's which were treated with APC in the stomach and
duodenum. Her Plavix was held initially here but since resumed on 03/04. Diuretics were held as of 03/06 given her worsening renal function.
03/01/24 US doppler abdomen: IMPRESSION:
1). The liver is normal in size at 15.4 cm but there is a nodular/irregular subcapsular contour suggesting cirrhosis with dampened pulsatile flow in the right hepatic vein suggesting elevated venous pressures as well as moderate perihepatic ascites
2). Cholelithiasis
[place]/[facility] records:
--EGD 01/28/2024-Z-line irregular, grade 1, small less than 5 mm esophageal varices, portal hypertensive gastropathy, multiple nonbleeding angiectasia's in the stomach treated with APC, normal duodenal bulb, few nonbleeding angiectasias in the
duodenum treated with APC, discolored and texture changed mucosa in the greater curvature of the gastric body biopsied
--EGD with push enteroscopy on 02/15/2024 was done-no variceal bleeding but with angiectasia in the duodenum and jejunum status post APC (Dr.Rajiv Elkins)
Problem list:
-symptomatic anemia with hx prior anemia, likely 2/2 slow GI loss with AVM's v PHG v other
-MASH cirrhosis decompensated with ascites, PSE on Xifaxan, lactulose, MELD 3.0- 13
-Ascites s/p paracentesis 02/28 for 4700ml, 03/03 3500mL
-Recent cardiac stenting on Plavix/aspirin
-ALIX
-hx Esophageal varices with prior banding
Other med problems:
-CHF
-CABG and prior cardiac stents
-DM type II
-PAD
-tobacco abuse
-hypothyroidism
-MALT lymphoma
-COPD
-HTN
-emphysema
-lung nodule
-fatty liver
Recommendations:
-Etiology of current symptoms likely secondary to symptomatic anemia related to slow GI blood loss on top of chronic anemia exacerbated with the start of Plavix given hx of portal hypertensive gastropathy versus gastric and duodenal AVMs with APC
treatment in February versus other. See above reports from [facility].
asked to reassess for burgundy stools today
hbtg stable 9.3 -- total 3 units PRBC's given since admission -- Avoid over transfusion.
-Continue PPI twice daily
I discussed with Dr. Flowers concern for Plavix with bleeding - consider review with cardiology where stent was placed-- pt states alf follow with Dr. Christopher Carroll.
Plavix hold
consider repeat EGD +/- colon though pt has been scoped in January and february with noted multiple AVM's as noted
-2g Na/low fat diet as tolerated
-PRN paracentesis for abdominal distention
-Diuretics have been held given her worsening renal function follow creat daily for ability to restart creat 1.5 today down from 1.9
-She will need follow up with primary GI after discharge. She is unsure who she follows with. Needs hepatology follow-up as well as GI.
Subjective
Subjective
Date of Service: March 08, 2024
asked for reconsult with burgundy stool today, on ADA diet feeling well
Objective
Data Reviewed
Laboratory Data:
Laboratory Results
03/08/24 06:06
03/08/24 06:06
Laboratory Results
PT 15.4 Sec (11.4-14.6) H 02/29/24 02:09
INR 1.24 02/29/24 02:09
Magnesium 2.4 mg/dl (1.6-2.3) H 03/06/24 06:41
Total Bilirubin 1.2 mg/dl (0.2-1.3) 03/01/24 04:08
AST 75 U/L (14-36) H 03/01/24 04:08
ALT 40 U/L (0-35) H 03/01/24 04:08
Alkaline Phosphatase 318 U/L (38-126) H 03/01/24 04:08
Vital Signs and I&O:
Vital Signs
Temp Pulse Resp BP Pulse Ox
97.6 F 78 18 141/69 100
03/08/24 08:00 03/08/24 09:32 03/08/24 08:00 03/08/24 09:32 03/08/24 08:00
I&O
03/07/24 03/08/24 03/09/24
06:59 06:59 06:59
Intake Total 1320 / 1320 1939
Output Total 300 / 300
Balance 1020 / 1020 1939
Physical Exam
Physical Exam
HEENT: Anicteric and Moist mucous membranes
Cardiology: Normal Sinus Rhythm
Pulmonary: Clear
GI: Soft, Distended (minimal ) and Non Tender
Extremities: No Edema
Neuro: Non Focal and Other (forgetful to questions)
--- NOTE | 2024-03-08 11:36 | CM ---
Patient seen at bedside.
Chart reviewed. Hgb 9.3
PT recommends home health. Last note 03/03
Patient stated grand-daughters are nurses & one works for [employer] & they take care of her.
PLAN: Discharge when medically stable. States grand-daughters care for her.
--- NOTE | 2024-03-08 11:36 | W.PN.HOSP.TC ---
Today's Communication/Plan
-
Reconsult GI. Hold Plavix. Continue aspirin.
Follow H&H.
Assessment / Plan
Assessment / Plan
Pt is a 73 year old female with anemia
Doppler of the liver-normal size 15.4 cm with nodular/irregular subcapsular contour suggesting cirrhosis. Dampened pulsatile flow in the right hepatic vein suggesting elevated venous pressure as well as moderate perihepatic ascites. Cholelithiasis.
#Acute on Chronic Anemia with Heme Positive Stool and History of GI Bleeding
HGB 5.8 on admission
s/p pRBC 3 units of PRBC on this adx
Suspect due to acute GI losses--very likely related to recent angio/stent and probable DAPT
([facility]-Pre cath EGD 01/28/2024-Z-line irregular, grade 1, small less than 5 mm esophageal varices, portal hypertensive gastropathy, multiple nonbleeding angiectasia's in the stomach treated with APC, normal duodenal bulb, few nonbleeding angiectasias
in the duodenum treated with APC, discolored and texture changed mucosa in the greater curvature of the gastric body biopsied
[facility]-EGD with push enteroscopy on 02/15/2024 was done-no variceal bleeding but with angiectasia in the duodenum and jejunum status post APC (Dr.Rajiv Elkins))
Restarted Plavix -patient with burgundy stools. Required PRBC transfusion yesterday.
Reconsult GI for further evaluation. Hold Plavix. Patient did not recent coronary artery stent apparently. Continue with aspirin.
Patient will need to follow-up with her map maker to see when she can come off of Plavix as with angiectasia's she is always at risk for bleeding.
#Cirrhosis/Ascites due to NAFLD --Patient reports first ever paracentesis was about 2 weeks ago at [facility]
Lasix and spironolactone on hold due to increased Cr. Resume once GI bleed issues are resolved.
Continue lactulose and Xifaxan
S/P Paracentesis 4700mls removed on 02/29/2024-no albumin.
Status post paracentesis again on 03/03/2024 with removal of 3500 mL ascitic fluid-no SBP
Continue PPI BID
# ASCVD--Prior h/o CABG 2012.
Coronary disease with drug-eluting stent placement 01/31/2024 when admitted at [place] for non-STEMI
On aspirin, statin,Plavix
Restarted Plavix 03/04/24 , back on hold today.CW ASA.
# CHF-type unclear
# ALIX on CKD-stage unclear, probably stage III -continued rise of creatinine noted. She had a large-volume paracentesis and was put on diuretics. Concern was that this is related renal dysfunction-diuretics are on hold. Continue to follow
creatinine -Improving.
FeNa 1.84 and Eleni >40 not going in favor of HR syndrome.
# Essential Hypertension-patient was on metoprolol 25 mg daily, as outpatient.
# DM-II-with neuropathy-hemoglobin A1c not reliable because of anemia-continue Neurontin
Patient was on Lantus 12-15 units at night and 15 units of Humalog AC as outpatient
On Lantus 15 units. NovoLog 10 AC plus sliding scale coverage
# Hypothyroidism-continue Synthroid 50 mcg daily
# RUL 7mm solid nodule with GGO in RUL and reticular/nodular opacities in lingula - seen on CT Chest from 09/13/2023-needs outpatient follow-up with pulmonary ( Daughter aware)
# Emphysema-continue Anoro Ellipta or equivalent
# MALT lymphoma-got radiation 5 years ago. Sees at [facility].
# Hypoalbuminemia
# Hepatic steatosis
# GERD
# Ex Smoker
# DVT Prophylaxis: SCDs
# Code Status: Full
DW GI today -will see her again.
Left message to his Coal Bagger for call back on plavix use Dr Christopher Byrd.
Left a message to her daughter on her voice mail.
Total time spent on today's encounter was 52 minutes which included time spent in counseling the patient/family regarding diagnosis and treatment plan as listed above, goals of care, and symptom management. Case was discussed with nursing staff,
specialists, and care coordinators/case management. All labs and imaging personally reviewed by me. Remainder the time spent in detailed review of previous records, lab data, imaging, and other medical provider documentation.
Outpatient records from [place] reviewed-was scanned in on 02/29/24 under ' other healthcare facility information section'.
-Patient has a history of coronary disease, chronic anemia, CKD, COPD, hypothyroidism, GERD, hypertension, hyperlipidemia, cirrhosis with ascites and portal hypertension, MALT lymphoma, diabetes, peripheral artery disease, esophageal varices as well
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
-Hemoglobin on admission 02/14/2024 was 6.6, creatinine was 1.95 potassium was 5.3 AST was 28 ALT was 52 alk phos was 240, lipase was 51.
-Patient was heme positive and also had melena and near syncope.
-She was given 2 units of blood, treated with octreotide and antibiotics
-Pre cath EGD 01/28/2024-Z-line irregular, grade 1, small less than 5 mm esophageal varices, portal hypertensive gastropathy, multiple nonbleeding angiectasia's in the stomach treated with APC, normal duodenal bulb, few nonbleeding angiectasias in
the duodenum treated with APC, discolored and texture changed mucosa in the greater curvature of the gastric body biopsied
-EGD with push enteroscopy on 02/15/2024 was done-no variceal bleeding but with angiectasia in the duodenum and jejunum status post APC (Dr.Rajiv Elkins)
-Paracentesis was done 4.6 L of fluid removed-no SBP. Cytology reactive mesothelial cells. No malignant cells
-Patient had significant stool burden-lactulose increased to 3 times daily
-Dual antiplatelets were continued because of the recent coronary stent
-Hemoglobin was 9.2 and creatinine was 1.77 at discharge, on 02/18/2024. INR was 1.1
-Gabapentin dose was decreased from 800 mg to 600 mg.
Also discharged on Lasix 20 mg daily, lactulose 30 mL 3 times daily, aspirin 81 mg daily, atorvastatin 80 mg daily, cetirizine 10 mg daily, Plavix 75 g daily, cyproheptadine 4 mg daily, Valium 10 mg, hydroxyzine 25 mg, Lantus insulin, lispro
insulin, Synthroid 50 mcg, metoprolol 25 mg, nitroglycerin 0.4 mg as needed, omeprazole 20 mg, oxycodone 15 mg, promethazine/dextromethorphan 6.25/15 mg per 5 mL syrup, Xifaxan 550 mg
Part of this note was created using voice recognition system. Occasional wrong word or��sound alike� substitutions may have inadvertently occurred due to the inherent limitations of voice recognition software. If noted kindly bring it to my
attention for correction.
Anticipated Discharge: > 48 hours
Subjective/Interval History
-
Date of Service: March 08, 2024
Burgundy stools last night.
Patient says she feels okay today. No abdominal discomfort. No nausea vomiting. Tolerating diet.
Objective Data
-
Labs:
Laboratory Results
03/08/24
06:06
WBC 8.1
Hgb 9.3 L
Hct 28.2 L
Plt Count 160
Sodium 139
Potassium 5.1
Chloride 110 H
Carbon Dioxide 25
BUN 32 H
Creatinine 1.5 H
Glucose 84
Calcium 9.0
Vital Signs:
Vital Signs
Temp Pulse Resp BP Pulse Ox
97.6 F 78 18 141/69 100
03/08/24 08:00 03/08/24 09:32 03/08/24 08:00 03/08/24 09:32 03/08/24 10:17
I&O
03/07/24 03/08/24 03/09/24
06:59 06:59 06:59
Intake Total 1320 / 1320 1940 / 1940
Output Total 300 / 300
Balance 1020 / 1020 1939 / 1939
Review of Systems
-
Constitutional: Denies Fever
Respiratory: Denies Trouble Breathing
Cardiac: Denies Chest Pain
Neuro: Denies Dizzy
Physical Exam
-
General: Comfortable
HEENT: Moist Mucous Membranes
Respiratory: Clear to Auscultation
Cardiac: Regular Rhythm and S1/S2
GI: Soft and Nontender
Neuro: AO x 3; Negative Tremors
Psych: Calm; Negative Confused
Data Reviewed
-
Labs: Labs Reviewed by me
[2024-03-08 13:57] LABS: Glucose - Point of Care 135 mg/dl (70-99)
[2024-03-08 16:28] LABS: Glucose - Point of Care 56 mg/dl (70-99)
[2024-03-08] MEDS: NOVOLOG FLEXPEN SC (16:36)
[2024-03-08 16:51] LABS: Glucose - Point of Care 86 mg/dl (70-99)
[2024-03-08] MEDS: LIPITOR 20 MG PO (17:43)
[2024-03-08 19:19] LABS: Glucose - Point of Care 184 mg/dl (70-99)
--- NOTE | 2024-03-08 19:22 | PTCARENOTE ---
Patient with moderate formed brown BM in toilet, slightly blood tinged. GI made aware via TT, patient made NPO for EGD in AM.
[2024-03-08 21:07] LABS: Glucose - Point of Care 217 mg/dl (70-99)
[2024-03-08] MEDS: LANTUS 0.15 UNITS SC (21:34)
[2024-03-08] MEDS: NOVOLOG FLEXPEN-LOW RESISTANCE 2 UNITS SC (21:34)
[2024-03-08] MEDS: ROXICODONE 10 MG PO (21:39)
[2024-03-09] VITALS (16 sets, daily range): BP systolic 14–182; BP diastolic 47–81; PULSE 63–70; BMI 21.7
[2024-03-09 03:28] LABS: Glucose - Point of Care 155 mg/dl (70-99)
[2024-03-09 05:44] LABS: Glucose - Point of Care 143 mg/dl (70-99)
[2024-03-09] MEDS: SYNTHROID 50 MCG PO (05:48)
[2024-03-09] MEDS: STRIVERDI RESPIMAT 2 PUFF INH (07:41)
[2024-03-09] MEDS: SPIRIVA RESPIMAT 2.5 MCG 2 PUFF INH (07:41)
[2024-03-09] MEDS: NOVOLOG FLEXPEN-LOW RESISTANCE SC (08:18)
[2024-03-09 08:22] LABS: Hematocrit 27.1 % (37.0-47.0); Hemoglobin 8.9 g/dL (12.0-16.0); Mean Corp Hgb Conc. 32.8 g/dL (33.0-37.0); Mean Corpuscular Hgb 28.3 pg (27.0-31.0); Mean Corpuscular Volume 86.3 fL (81.0-99.0); Mean Platelet Volume 11.7 fL (7.4-10.4); Platelet Count 157 10^3/uL (130-400); Red Blood Cell Count 3.14 10^6/uL (4.20-5.40); Red Cell Dist. Width 16.1 % (11.5-14.5)
[2024-03-09 08:43] LABS: Blood Urea Nitrogen 27 mg/dl (7-17); Calcium 8.8 mg/dl (8.4-10.2); Carbon Dioxide 20 mmol/L (22-30); Chloride 108 mmol/L (98-107); Estimated Creatinine Clearance 31 ml/min; Glucose 126 mg/dl (70-99); Potassium 5.6 mmol/L (3.5-5.1); Sodium 140 mmol/L (135-145); eGFR 39.97
[2024-03-09] MEDS: NOVOLOG FLEXPEN SC ×2 (12:02→16:25)
[2024-03-09 12:06] LABS: Glucose - Point of Care 139 mg/dl (70-99)
--- NOTE | 2024-03-09 13:02 | W.PN.HOSP.TC ---
Addendum entered and electronically signed by Juve Flowers MD 03/10/24 15:23:
Hyperkalemia - ordered lokelma
Original Note:
Today's Communication/Plan
-
EGD today
Follow HH .Hold plavix .CW ASA.
Assessment / Plan
Assessment / Plan
Pt is a 73 year old female with anemia
#Acute on Chronic Anemia with Heme Positive Stool and History of GI Bleeding
HGB 5.8 on admission
s/p pRBC 3 units of PRBC on this adx
HH stable today
Suspect due to acute GI losses--very likely related to recent angio/stent and probable DAPT
([facility]-Pre cath EGD 01/28/2024-Z-line irregular, grade 1, small less than 5 mm esophageal varices, portal hypertensive gastropathy, multiple nonbleeding angiectasia's in the stomach treated with APC, normal duodenal bulb, few nonbleeding angiectasias
in the duodenum treated with APC, discolored and texture changed mucosa in the greater curvature of the gastric body biopsied
[facility]-EGD with push enteroscopy on 02/15/2024 was done-no variceal bleeding but with angiectasia in the duodenum and jejunum status post APC (Dr.Rajiv Elkins))
Restarted Plavix -patient with burgundy stools. Required PRBC transfusion 03/07.
Reconsulted GI for further evaluation. Hold Plavix. Continue with aspirin.
For EGD today.
Patient will need to follow-up with her telecommunications line installer to see when she can come off of Plavix as with angiectasia's she is always at risk for bleeding.
#Cirrhosis/Ascites due to NAFLD --Patient reports first ever paracentesis was about 2 weeks ago at [facility]
Lasix and spironolactone on hold due to increased Cr. Resume once GI bleed issues are resolved.
Continue lactulose and Xifaxan
S/P Paracentesis 4700mls removed on 02/29/2024-no albumin.
Status post paracentesis again on 03/03/2024 with removal of 3500 mL ascitic fluid-no SBP
Continue PPI BID
# ASCVD--Prior h/o CABG 2012.
Coronary disease with drug-eluting stent placement 01/31/2024 when admitted at [facility] for non-STEMI
On aspirin, statin,Plavix
Restarted Plavix 03/04/24 , back on hold today.CW ASA.
# CHF-type unclear. compensated
# ALIX on CKD-stage unclear, probably stage III -continued rise of creatinine noted. She had a large-volume paracentesis and was put on diuretics. Concern was that this is related renal dysfunction-diuretics are on hold. Continue to follow
creatinine -Improving.
FeNa 1.84 and Eleni >40 not going in favor of HR syndrome.
Cr improved 1.4
# Essential Hypertension-patient was on metoprolol 25 mg daily, as outpatient.
# DM-II-with neuropathy-hemoglobin A1c not reliable because of anemia-continue Neurontin
Patient was on Lantus 12-15 units at night and 15 units of Humalog AC as outpatient
On Lantus 15 units. NovoLog 10 AC plus sliding scale coverage
# Hypothyroidism-continue Synthroid 50 mcg daily
# RUL 7mm solid nodule with GGO in RUL and reticular/nodular opacities in lingula - seen on CT Chest from 09/13/2023-needs outpatient follow-up with pulmonary ( Daughter aware)
# Emphysema-continue Anoro Ellipta or equivalent
# MALT lymphoma-got radiation 5 years ago. Sees at [facility].
# Hypoalbuminemia
# Hepatic steatosis
# GERD
# Ex Smoker
# DVT Prophylaxis: SCDs
# Code Status: Full
DW primary Senior Property Accountant Dr Byrd office -patient apparently had a coronary artery stent at [facility] in January of this year .The stent was not due to graft artery.
Outpatient records from [facility] reviewed-was scanned in on 02/29/24 under ' other healthcare facility information section'.
-Patient has a history of coronary disease, chronic anemia, CKD, COPD, hypothyroidism, GERD, hypertension, hyperlipidemia, cirrhosis with ascites and portal hypertension, MALT lymphoma, diabetes, peripheral artery disease, esophageal varices as well
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
-Hemoglobin on admission 02/14/2024 was 6.6, creatinine was 1.95 potassium was 5.3 AST was 28 ALT was 52 alk phos was 240, lipase was 51.
-Patient was heme positive and also had melena and near syncope.
-She was given 2 units of blood, treated with octreotide and antibiotics
-Pre cath EGD 01/28/2024-Z-line irregular, grade 1, small less than 5 mm esophageal varices, portal hypertensive gastropathy, multiple nonbleeding angiectasia's in the stomach treated with APC, normal duodenal bulb, few nonbleeding angiectasias in
the duodenum treated with APC, discolored and texture changed mucosa in the greater curvature of the gastric body biopsied
-EGD with push enteroscopy on 02/15/2024 was done-no variceal bleeding but with angiectasia in the duodenum and jejunum status post APC (Dr.Rajiv Elkins)
-Paracentesis was done 4.6 L of fluid removed-no SBP. Cytology reactive mesothelial cells. No malignant cells
-Patient had significant stool burden-lactulose increased to 3 times daily
-Dual antiplatelets were continued because of the recent coronary stent
-Hemoglobin was 9.2 and creatinine was 1.77 at discharge, on 02/18/2024. INR was 1.1
-Gabapentin dose was decreased from 800 mg to 600 mg.
Also discharged on Lasix 20 mg daily, lactulose 30 mL 3 times daily, aspirin 81 mg daily, atorvastatin 80 mg daily, cetirizine 10 mg daily, Plavix 75 g daily, cyproheptadine 4 mg daily, Valium 10 mg, hydroxyzine 25 mg, Lantus insulin, lispro
insulin, Synthroid 50 mcg, metoprolol 25 mg, nitroglycerin 0.4 mg as needed, omeprazole 20 mg, oxycodone 15 mg, promethazine/dextromethorphan 6.25/15 mg per 5 mL syrup, Xifaxan 550 mg
Part of this note was created using voice recognition system. Occasional wrong word or��sound alike� substitutions may have inadvertently occurred due to the inherent limitations of voice recognition software. If noted kindly bring it to my
attention for correction.
Anticipated Discharge: Within 24 hours
Subjective/Interval History
-
Date of Service: March 09, 2024
Voices no specific complaints.
She feels hungry. She is n.p.o. for endoscopy today.
Objective Data
-
Labs:
Laboratory Results
03/09/24
07:31
WBC 8.0
Hgb 8.9 L
Hct 27.1 L
Plt Count 157
Sodium 140
Potassium 5.6 H
Chloride 108 H
Carbon Dioxide 20 L
BUN 27 H
Creatinine 1.4 H
Glucose 126 H
Calcium 8.8
Vital Signs:
Vital Signs
Temp Pulse Resp BP Pulse Ox
97.6 F 70 16 157/67 99
03/09/24 11:43 03/09/24 11:43 03/09/24 11:43 03/09/24 11:43 03/09/24 11:43
I&O
03/08/24 03/09/24 03/10/24
06:59 06:59 06:59
Intake Total 1939 960 / 960
Balance 1939 960 / 960
Review of Systems
-
Constitutional: Denies Fever
Respiratory: Denies Trouble Breathing
Cardiac: Denies Chest Pain
Abdomen/GI: Denies Abdominal Pain, Nausea or Vomiting
Neuro: Denies Dizzy
Physical Exam
-
General: No Apparent Distress
HEENT: Moist Mucous Membranes
Respiratory: Clear to Auscultation
Cardiac: Regular Rhythm and S1/S2
GI: Soft, Nontender, Nondistended and Normal Bowel Sounds
Neuro: AO x 3
Psych: Calm
Data Reviewed
-
Labs: Labs Reviewed by me
--- NOTE | 2024-03-09 13:54 | PTCARENOTE ---
pt off unit for EGD study.
--- NOTE | 2024-03-09 14:20 | CM ---
Patient seen today.
EGD for today.
Patient reports 2 grand-daughter's are nurses take care of her at home.
One grand-daughter works for [employer].
PLAN: Discharge when medically stable. No needs anticipated.
--- NOTE | 2024-03-09 15:32 | PN.CDI ---
CDI
- -
CDI:
Physician Documentation Request
Admit Date: 02/29/24 05:40
Dear Doctor Lionel,
Please review the following and provide your response in the progress notes.
Clinical Indicators:
Documentation includes the diagnosis of malnutrition.
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
#Level of care note. Initial review as per 7 day length of stay protocol on 03-07.
#...'Pt reports lost 70 lbs over past two years.
#Records show >50% to >90% intakes since 03-04.
#A nutrition-focused physical exam shows moderate loss on orbital, temples,
#...clavicle, deltoid, calves.
#Due to poor intakes of <75% estimated energy requirement for greater than
#...or equal to 1 month and observations of appearance of fat/muscle loss various sites,
#...pt meeting criteria for moderate protein/calorie malnutrition
#...(ASPEN/AND guidelines, chronic illness).
To ensure the quality of the medical record, based on the above information, the recognized standards for malnutrition and your clinical assessment please verify in the progress notes which of the following responses best reflects the patient's
nutritional status:
Moderate Protein Calorie Malnutrition of chronic illness is present
Other (please specify)
[place] Criteria (ACP Hospitalist 2017)
2 or more criteria must be present for either
non severe or severe malnutrition
Note that the criteria differs related to the
presence of an acute or chronic illness
Chronic Illness
Energy Intake Non Severe: <75% for >1 month
Severe: <75% for >1 month
Weight Loss Non Severe: 5% over 1 month
7.5% over 3 months
10% over 6 months
20% over 1 year
Severe: >5% over 1 month
>7.5% over 3 months
>10% over 6 months
>20% over 1 year
Body Fat Non Severe: Mild Loss
Severe: Severe Loss
Muscle Mass Non Severe: Mild Loss
Severe: Severe Loss
Use of terms such as suspected, likely, concern for, or probable (associated with a specific diagnosis that is being evaluated, monitored, or treated as if it exists) are acceptable and can be coded in the inpatient setting, when documented at the
time of discharge.
Thank you,
Susy Henry RN BSN CCDS
CDI Specialist
please contact via tiger text
Please use your independent medical judgment in providing your response.
--- NOTE | 2024-03-09 15:42 | PN.CDI ---
CDI
- -
CDI:
Physician Documentation Request
Admit Date: 02/29/24 05:40
Dear Doctor Lionel,
Please review the following and provide your response in the progress notes.
Clinical Indicators:
Selected Entries
03/05/24
08:30
Pressure injury stage [Present on admission Generalized Sacrum] Stage 1
Physician documentation of the type and location of wounds is required for compliant documentation. Based on the above clinical findings and your assessment, please provide the following in your progress note:
Yes stage 1 sacrum pressure injury, POA
No, stage 1 pressure injury
Other(please specify)
1. Location of the ulcer/wound, including laterality.
2. Type (etiology) of ulcer/wound:
- Diabetic ulcer
- Arterial (ischemic) ulcer
- Traumatic wound
- Venous stasis ulcer
- Pressure (decubitus) ulcer
3. If a pressure ulcer, please also include the stage* of the ulcer:
- Stage 1 - Skin intact, non-blanchable redness
- Stage 2 - Partial thickness loss of dermis, includes intact or open blister
- Stage 3 - Full thickness tissue not including bone, tendon or muscle
- Stage 4 - Full thickness tissue loss, including exposed bone, tendon or muscle
Use of terms such as suspected, likely, concern for, or probable (associated with a specific diagnosis that is being evaluated, monitored, or treated as if it exists) are acceptable and can be coded in the inpatient setting, when documented at the
time of discharge.
Thank you,
Susy Henry RN BSN CCDS
CDI Specialist
please contact via tiger text
Please use your independent medical judgment in providing your response.
*Source: National Pressure Ulcer Advisory Panel (NPUAP)
[2024-03-09] MEDS: TOPROL XL 25 MG PO (15:45)
[2024-03-09] MEDS: ASPIR LOW (ENTERIC COATED) 81 MG PO (15:45)
[2024-03-09] MEDS: LOKELMA 5 GRAM PO (15:47)
[2024-03-09] MEDS: XIFAXAN 550 MG PO ×2 (15:52→20:00)
[2024-03-09] MEDS: ROXICODONE 10 MG PO (15:59)
[2024-03-09] MEDS: DUPHALAC/CHRONULAC PO (16:25)
[2024-03-09] MEDS: PROTONIX PO (16:25)
--- NOTE | 2024-03-09 16:27 | PTCARENOTE ---
15:45 pt returned form GI lab after EGD procedure, vitals taken and medications given as ordered.
[2024-03-09] MEDS: BACTROBAN 2% OINTMENT 1 APPLIC TOPICAL (16:40)
[2024-03-09 16:51] LABS: Glucose - Point of Care 135 mg/dl (70-99)
[2024-03-09] MEDS: NOVOLOG FLEXPEN 10 UNITS SC (17:25)
[2024-03-09] MEDS: ROCEPHIN 1000 MG IV (18:25)
[2024-03-09] MEDS: STERILE WATER FOR INJECTION 10 ML IV (18:25)
[2024-03-09] MEDS: LIPITOR 20 MG PO (18:26)
[2024-03-09] MEDS: DUPHALAC/CHRONULAC 20 GRAMS PO (20:00)
[2024-03-09] MEDS: PROTONIX 40 MG PO (20:00)
[2024-03-09 21:29] LABS: Glucose - Point of Care 211 mg/dl (70-99)
[2024-03-09] MEDS: LANTUS 0.15 UNITS SC (23:00)
[2024-03-10] VITALS (8 sets, daily range): BP systolic 118–156; BP diastolic 53–93; PULSE 64–71; BMI 22.1
[2024-03-10] MEDS: SYNTHROID 50 MCG PO (06:20)
[2024-03-10 06:36] LABS: Hematocrit 27.1 % (37.0-47.0); Mean Corp Hgb Conc. 33.2 g/dL (33.0-37.0); Mean Corpuscular Volume 87.4 fL (81.0-99.0); Mean Platelet Volume 11.2 fL (7.4-10.4); Platelet Count 139 10^3/uL (130-400); Red Cell Dist. Width 15.9 % (11.5-14.5); White Blood Cell Count 6.7 10^3/uL (4.8-10.8)
[2024-03-10 06:51] LABS: Blood Urea Nitrogen 26 mg/dl (7-17); Calcium 8.7 mg/dl (8.4-10.2); Carbon Dioxide 18 mmol/L (22-30); Chloride 108 mmol/L (98-107); Estimated Creatinine Clearance 34 ml/min; Glucose 64 mg/dl (70-99); Potassium 5.3 mmol/L (3.5-5.1); Sodium 138 mmol/L (135-145); eGFR 43.69
[2024-03-10] MEDS: SPIRIVA RESPIMAT 2.5 MCG 2 PUFF INH (07:23)
[2024-03-10] MEDS: STRIVERDI RESPIMAT 2 PUFF INH (07:23)
[2024-03-10 07:35] LABS: Glucose - Point of Care 81 mg/dl (70-99)
[2024-03-10] MEDS: TOPROL XL 25 MG PO (07:59)
[2024-03-10] MEDS: XIFAXAN 550 MG PO ×2 (07:59→19:33)
[2024-03-10] MEDS: NOVOLOG FLEXPEN-LOW RESISTANCE SC ×2 (07:59→16:49)
[2024-03-10] MEDS: ASPIR LOW (ENTERIC COATED) 81 MG PO (07:59)
[2024-03-10] MEDS: PROTONIX 40 MG PO ×2 (07:59→19:33)
[2024-03-10] MEDS: DUPHALAC/CHRONULAC 20 GRAMS PO ×2 (08:00→19:33)
[2024-03-10] MEDS: BACTROBAN 2% OINTMENT 1 APPLIC TOPICAL (08:00)
--- NOTE | 2024-03-10 08:27 | W.PN.GI.CBS2 ---
Addendum entered and electronically signed by Marylu Yi DO 03/10/24 10:37:
I saw and examined the patient.
The USED CAR LOT ATTENDANT or PA's note was reviewed and I agree with the note.
Comment: Agree with plan as outlined below. It is difficult to tell exactly what the source of her bleeding is, as she has multiple findings which could be causing her bleeding. She had evidence of varices, which have been seen before, however red
ck sign indicates high risk stigmata, these were banded. Additional findings of multiple AVMs treated with APC. She does report having a colonoscopy within the last year at [facility], we do not have reports from this. SBP prophylaxis was
started yesterday, she should complete 1 week of treatment with antibiotics. Resume Plavix tomorrow, per Dr. Draper's instructions following his endoscopy. She has a follow-up appointment with her machine stemmer next week, advised to discuss length of
Plavix treatment as she is very high risk for rebleeding. She needs a account receivable clerk, she lives in [place] so best for her to see someone close by, she is agreeable to going to [place], we provided multiple providers numbers to establish care,
previously seen at [facility], deemed not to be a transplant candidate. She should still be followed for management of her chronic decompensated liver disease.
Recommendations:
-Complete 1 week of abx for SBP prophylaxis
-Repeat EGD with Dr. Draper in 2-4 weeks
-currently on toprol xl 25 mg-- recommend discussion with her OP machine stemmer about changing to coreg 6.125 mg BID, if able, as this has the best evidence of lowering portal pressures
-hold diuretics, repeat CBC and BMP in 1 week
-prn paracentesis
-c/w lactulose, Xifaxin
-Resume plavix tomorrow-- remains high risk for rebleeding
-if unable to verify recent colonoscopy, should have as outpatient if persistent anemia, if considering palliaative care then should not have ongoing screening exams
-establish care with hepatology-- discussed with daughter
-t/c palliative care consultation, discussed with daughter
GI will sign off. Please call with questions.
Original Note:
Today's Communication / Plan
-
-Etiology of current symptoms likely secondary to symptomatic anemia related to slow GI blood loss on top of chronic anemia exacerbated with the start of Plavix given hx of s/p EGD with concern for EV, AVM's, portal HTN
hbg stable at 9
cont PPI
cont Ceftriaxone with GI bleeding and liver disease
Plavix remain on hold per Dr. Draper 48 hour hold post procedure
will need repeat HBG within 1 week of discharge with PCP
ok for 2 gram Na diet
if bleeding persists consider OP colonoscopy
-PRN paracentesis for abdominal distention
cont Xifaxan and Lactulose BID
-Diuretics have been held given her worsening renal function creat 1.3 today can consider resuming low dose on discharge with BMP follow up within 1 week
I had long discussion with patient daughter tu-- pt has been seen by [facility] in past. She believes she was not a liver transplant candidate. I discussed concern for decompensated liver disease and EV noted, HE with some confusion during
admission, ascites etc. -- daughter will try to schedule follow up with hepatology. She will call us if unable to schedule as recommended 2-4 week follow up EGD for reassessment of varices. She is scheduled cards in 2 weeks and recommended
discuss ongoing Plavix. We also discussed palliative care with multiple medical issues and advance liver disease if not transplant candidate will continued to progress.
Assessment / Plan
-
The pt a 73-year-old female with a past medical history significant for decompensated Lemus cirrhosis with ascites, esophageal varices with banding in the past, and PSE, history of GI bleed 2/2 gastric and duodenal AVM's and PHG, chronic anemia,
hypertension, CAD with CABG and prior cardiac stenting (most recent 01/31/24 @ aspirin and Plavix), type 2 diabetes, COPD, PAD, smoker, hypothyroidism, who was initially admitted to [facility] for abdominal distention and shortness of breath
on 02/28 found to have concerns for recurrent ascites. She also had a hemoglobin of 5.8 on admission with symptomatic anemia. She denied any signs of bleeding at the time of admission. She had been started on Plavix along with aspirin for recent
drug-eluting stent placement on 01/31/2024 at [facility]. She underwent paracentesis upon admission which 4700 mL were removed. She had a repeat paracentesis on 03/03 with removal of 3500 mL of ascitic fluid. Fluid cell counts negative for SBP on both
taps. She has had persistently low hemoglobin and received 2 units of packed red blood cells during this admission. Her hemoglobin has been between 7.7 and 9.1 over the last several days. Records indicates she was at [facility] last month
where she underwent evaluation for symptomatic anemia and melena. She had an EGD with push enteroscopy on 02/14/2024 which showed a nonbleeding small EV and multiple small to medium angiectasia's which were treated with APC in the stomach and
duodenum. Her Plavix was held initially here but since resumed on 03/04. Diuretics were held as of 03/06 given her worsening renal function.
03/01/24 US doppler abdomen: IMPRESSION:
1). The liver is normal in size at 15.4 cm but there is a nodular/irregular subcapsular contour suggesting cirrhosis with dampened pulsatile flow in the right hepatic vein suggesting elevated venous pressures as well as moderate perihepatic ascites
2). Cholelithiasis
[facility] records:
--EGD 01/28/2024-Z-line irregular, grade 1, small less than 5 mm esophageal varices, portal hypertensive gastropathy, multiple nonbleeding angiectasia's in the stomach treated with APC, normal duodenal bulb, few nonbleeding angiectasias in the
duodenum treated with APC, discolored and texture changed mucosa in the greater curvature of the gastric body biopsied
--EGD with push enteroscopy on 02/15/2024 was done-no variceal bleeding but with angiectasia in the duodenum and jejunum status post APC (Dr.Rajiv Elkins)
--EGD [facility] - Small (< 5 mm) esophageal varices with red ck
sign. Incompletely eradicated. Banded.
- Two non-bleeding angioectasias in the stomach.
Treated with argon plasma coagulation (APC).
- Portal hypertensive gastropathy.
- A single angioectasia in the duodenum. Treated with
argon plasma coagulation (APC).
- Three non-bleeding angioectasias in the jejunum.
Treated with argon plasma coagulation (APC).
- No specimens collected.
Problem list:
-symptomatic anemia with hx prior anemia, likely 2/2 slow GI loss with AVM's v PHG v other
-s/p EGD with small EV with red ck sign with banding, multiple non bleeding angioectasia treated with APC /portal HTN
-MASH cirrhosis decompensated with ascites, PSE on Xifaxan, lactulose, MELD 3.0- 13
-Ascites s/p paracentesis 02/28 for 4700ml, 03/03 3500mL
-Recent cardiac stenting on Plavix/aspirin
-ALIX
-hx Esophageal varices with prior banding
Other med problems:
-CHF
-CABG and prior cardiac stents
-DM type II
-PAD
-tobacco abuse
-hypothyroidism
-MALT lymphoma
-COPD
-HTN
-emphysema
-lung nodule
-fatty liver
Recommendations:
-Etiology of current symptoms likely secondary to symptomatic anemia related to slow GI blood loss on top of chronic anemia exacerbated with the start of Plavix given hx of s/p EGD with concern for EV, AVM's, portal HTN
hbg stable at 9
cont PPI
cont Ceftriaxone with GI bleeding and liver disease
Plavix remain on hold per Dr. Draper 48 hour hold post procedure
will need repeat HBG within 1 week of discharge with PCP
ok for 2 gram Na diet
if bleeding persists consider OP colonoscopy
-PRN paracentesis for abdominal distention
cont Xifaxan and Lactulose BID
-Diuretics have been held given her worsening renal function creat 1.3 today can consider resuming low dose on discharge with BMP follow up within 1 week
I had long discussion with patient daughter tu-- pt has been seen by [facility] in past. She believes she was not a liver transplant candidate. I discussed concern for decompensated liver disease and EV noted, HE with some confusion during
admission, ascites etc. -- daughter will try to schedule follow up with hepatology. She will call us if unable to schedule as recommended 2-4 week follow up EGD for reassessment of varices. She is scheduled cards in 2 weeks and recommended
discuss ongoing Plavix. We also discussed palliative care with multiple medical issues and advance liver disease if not transplant candidate will continued to progress.
Subjective
Subjective
Date of Service: March 10, 2024
brown/blood tinged stool 03/08, advancing to 2 gram Na diet
Objective
Data Reviewed
Laboratory Data:
Laboratory Results
03/10/24 05:02
03/10/24 05:02
Laboratory Results
PT 15.4 Sec (11.4-14.6) H 02/29/24 02:09
INR 1.24 02/29/24 02:09
Magnesium 2.4 mg/dl (1.6-2.3) H 03/06/24 06:41
Total Bilirubin 1.2 mg/dl (0.2-1.3) 03/01/24 04:08
AST 75 U/L (14-36) H 03/01/24 04:08
ALT 40 U/L (0-35) H 03/01/24 04:08
Alkaline Phosphatase 318 U/L (38-126) H 03/01/24 04:08
Vital Signs and I&O:
Vital Signs
Temp Pulse Resp BP Pulse Ox
97.9 F 74 16 131/58 96
03/10/24 07:20 03/10/24 07:59 03/10/24 07:26 03/10/24 07:59 03/10/24 07:26
I&O
03/09/24 03/10/24 03/11/24
06:59 06:59 06:59
Intake Total 960 / 960 620 / 620
Balance 960 / 960 620 / 620
Physical Exam
Physical Exam
HEENT: Anicteric and Moist mucous membranes
Cardiology: Normal Sinus Rhythm
Pulmonary: Clear
GI: Soft, Distended (minimal ) and Non Tender
Extremities: No Edema
Neuro: Non Focal
[2024-03-10] MEDS: NOVOLOG FLEXPEN 10 UNITS SC ×3 (09:37→17:10)
--- NOTE | 2024-03-10 12:05 | CM ---
Patient seen at bedside. IMM explained & signed. Placed in chart.
Ambulates with PT today in hallway.
Declines Home Health.
States grand-daughters who are nurses take care of her.
PLAN: Discharge when medically stable to home.
Daughter Bella to transport.
[2024-03-10 12:49] LABS: Glucose - Point of Care 150 mg/dl (70-99)
[2024-03-10] MEDS: NOVOLOG FLEXPEN-LOW RESISTANCE 1 UNITS SC (12:58)
--- NOTE | 2024-03-10 15:19 | W.PN.HOSP.TC ---
Today's Communication/Plan
-
DC planning
Assessment / Plan
Assessment / Plan
Pt is a 73 year old female with anemia
#Acute on Chronic Anemia with Heme Positive Stool and History of GI Bleeding
HGB 5.8 on admission
s/p pRBC 3 units of PRBC on this adx
HH stable
Suspect due to acute GI losses--very likely related to recent angio/stent and probable DAPT
([facility]-Pre cath EGD 01/28/2024-Z-line irregular, grade 1, small less than 5 mm esophageal varices, portal hypertensive gastropathy, multiple nonbleeding angiectasia's in the stomach treated with APC, normal duodenal bulb, few nonbleeding angiectasias
in the duodenum treated with APC, discolored and texture changed mucosa in the greater curvature of the gastric body biopsied
[facility]-EGD with push enteroscopy on 02/15/2024 was done-no variceal bleeding but with angiectasia in the duodenum and jejunum status post APC (Dr.Rajiv Elkins))
Restarted Plavix -patient with burgundy stools. Required PRBC transfusion 03/07.
Reconsulted GI for further evaluation. Hold Plavix. Continue with aspirin.
s/p EGD and variceal banding plus angioectasias treatments.
Hold plavix for 48hr and resume if no bleeding
Patient will need to follow-up with her residential collections to see when she can come off of Plavix as with angiectasia's she is always at risk for bleeding.
#Cirrhosis/Ascites due to NAFLD --Patient reports first ever paracentesis was about 2 weeks ago at [facility]
Lasix and spironolactone on hold due to increased Cr. Resume once GI bleed issues are resolved.
Continue lactulose and Xifaxan
S/P Paracentesis 4700mls removed on 02/29/2024-no albumin.
Status post paracentesis again on 03/03/2024 with removal of 3500 mL ascitic fluid-no SBP
Continue PPI BID
# ASCVD--Prior h/o CABG 2012.
Coronary disease with drug-eluting stent placement 01/31/2024 when admitted at [place] for non-STEMI
On aspirin, statin,Plavix
Restarted Plavix 03/04/24 , back on hold today.CW ASA.
# CHF-type unclear. compensated
# ALIX on CKD-stage unclear, probably stage III -continued rise of creatinine noted. She had a large-volume paracentesis and was put on diuretics. Concern was that this is related renal dysfunction-diuretics are on hold. Continue to follow
creatinine -Improving.
FeNa 1.84 and Eleni >40 not going in favor of HR syndrome.
Cr improved 1.3
Continue to hold diuretics now.
# Essential Hypertension-patient was on metoprolol 25 mg daily, as outpatient.
# DM-II-with neuropathy-hemoglobin A1c not reliable because of anemia-continue Neurontin
Patient was on Lantus 12-15 units at night and 15 units of Humalog AC as outpatient
On Lantus 15 units. NovoLog 10 AC plus sliding scale coverage
# Hypothyroidism-continue Synthroid 50 mcg daily
# RUL 7mm solid nodule with GGO in RUL and reticular/nodular opacities in lingula - seen on CT Chest from 09/13/2023-needs outpatient follow-up with pulmonary ( Daughter aware)
# Emphysema-continue Anoro Ellipta or equivalent
# MALT lymphoma-got radiation 5 years ago. Sees at [facility].
# Hypoalbuminemia
# Hepatic steatosis
# GERD
# Ex Smoker
# DVT Prophylaxis: SCDs
# Code Status: Full
DW 03/[address] Byrd office -patient apparently had a coronary artery stent at [facility] in January of this year .The stent was not due to graft artery.
DC home in am if stable
Outpatient records from [place] reviewed-was scanned in on 02/29/24 under ' other healthcare facility information section'.
-Patient has a history of coronary disease, chronic anemia, CKD, COPD, hypothyroidism, GERD, hypertension, hyperlipidemia, cirrhosis with ascites and portal hypertension, MALT lymphoma, diabetes, peripheral artery disease, esophageal varices as well
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
-Hemoglobin on admission 02/14/2024 was 6.6, creatinine was 1.95 potassium was 5.3 AST was 28 ALT was 52 alk phos was 240, lipase was 51.
-Patient was heme positive and also had melena and near syncope.
-She was given 2 units of blood, treated with octreotide and antibiotics
-Pre cath EGD 01/28/2024-Z-line irregular, grade 1, small less than 5 mm esophageal varices, portal hypertensive gastropathy, multiple nonbleeding angiectasia's in the stomach treated with APC, normal duodenal bulb, few nonbleeding angiectasias in
the duodenum treated with APC, discolored and texture changed mucosa in the greater curvature of the gastric body biopsied
-EGD with push enteroscopy on 02/15/2024 was done-no variceal bleeding but with angiectasia in the duodenum and jejunum status post APC (Dr.Rajiv Elkins)
-Paracentesis was done 4.6 L of fluid removed-no SBP. Cytology reactive mesothelial cells. No malignant cells
-Patient had significant stool burden-lactulose increased to 3 times daily
-Dual antiplatelets were continued because of the recent coronary stent
-Hemoglobin was 9.2 and creatinine was 1.77 at discharge, on 02/18/2024. INR was 1.1
-Gabapentin dose was decreased from 800 mg to 600 mg.
Also discharged on Lasix 20 mg daily, lactulose 30 mL 3 times daily, aspirin 81 mg daily, atorvastatin 80 mg daily, cetirizine 10 mg daily, Plavix 75 g daily, cyproheptadine 4 mg daily, Valium 10 mg, hydroxyzine 25 mg, Lantus insulin, lispro
insulin, Synthroid 50 mcg, metoprolol 25 mg, nitroglycerin 0.4 mg as needed, omeprazole 20 mg, oxycodone 15 mg, promethazine/dextromethorphan 6.25/15 mg per 5 mL syrup, Xifaxan 550 mg
Part of this note was created using voice recognition system. Occasional wrong word or��sound alike� substitutions may have inadvertently occurred due to the inherent limitations of voice recognition software. If noted kindly bring it to my
attention for correction.
Anticipated Discharge: Within 24 hours
Subjective/Interval History
-
Date of Service: March 10, 2024
Feeling improved.
Had good BM. Eating better.
Objective Data
-
Labs:
Laboratory Results
03/10/24
05:02
WBC 6.7
Hgb 9.0 L
Hct 27.1 L
Plt Count 139
Sodium 138
Potassium 5.3 H
Chloride 108 H
Carbon Dioxide 18 L
BUN 26 H
Creatinine 1.3 H
Glucose 64 L
Calcium 8.7
Vital Signs:
Vital Signs
Temp Pulse Resp BP Pulse Ox
98.0 F 66 16 118/53 98
03/10/24 11:44 03/10/24 11:44 03/10/24 11:44 03/10/24 11:44 03/10/24 11:44
I&O
03/09/24 03/10/24 03/11/24
06:59 06:59 06:59
Intake Total 960 / 960 620 / 620
Balance 960 / 960 620 / 620
Review of Systems
-
Constitutional: Denies Fever
EENT: Denies Sore Throat
Respiratory: Denies Trouble Breathing
Cardiac: Denies Chest Pain
Abdomen/GI: Denies Abdominal Pain
Neuro: Denies Dizzy
Physical Exam
-
General: No Apparent Distress
HEENT: Moist Mucous Membranes
Respiratory: Clear to Auscultation
Cardiac: Regular Rhythm and S1/S2
GI: Soft, Nontender, Normal Bowel Sounds and Distended
Neuro: Negative Tremors
Psych: Negative Confused
Data Reviewed
-
Labs: Labs Reviewed by me
[2024-03-10] MEDS: LOKELMA 5 GRAM PO (16:10)
[2024-03-10 16:41] LABS: Glucose - Point of Care 89 mg/dl (70-99)
[2024-03-10] MEDS: LIPITOR 20 MG PO (17:10)
[2024-03-10] MEDS: STERILE WATER FOR INJECTION 10 ML IV (17:10)
[2024-03-10] MEDS: ROCEPHIN 1000 MG IV (17:10)
--- NOTE | 2024-03-10 18:30 | PTCARENOTE ---
Patient reported 2 large brown formed BMs in toilet without blood this shift. Patient denies any abdominal pain/tenderness, states no concerns at this time.
[2024-03-10 21:21] LABS: Glucose - Point of Care 55 mg/dl (70-99)
[2024-03-10 21:43] LABS: Glucose - Point of Care 106 mg/dl (70-99)
[2024-03-10] MEDS: LANTUS SC (22:20)
[2024-03-10 23:26] LABS: Glucose - Point of Care 261 mg/dl (70-99)
[2024-03-11] VITALS (7 sets, daily range): BP systolic 108–178; BP diastolic 47–81; PULSE 83–85; BMI 22.2
[2024-03-11 02:44] LABS: Glucose - Point of Care 271 mg/dl (70-99)
[2024-03-11] MEDS: SYNTHROID 50 MCG PO (05:30)
[2024-03-11 07:20] LABS: Glucose - Point of Care 202 mg/dl (70-99)
[2024-03-11] MEDS: SPIRIVA RESPIMAT 2.5 MCG 2 PUFF INH (07:25)
[2024-03-11] MEDS: STRIVERDI RESPIMAT 2 PUFF INH (07:25)
[2024-03-11 07:48] LABS: Hemoglobin 8.4 g/dL (12.0-16.0); Mean Corp Hgb Conc. 33.6 g/dL (33.0-37.0); Mean Corpuscular Volume 83.3 fL (81.0-99.0); Red Cell Dist. Width 15.9 % (11.5-14.5); White Blood Cell Count 5.9 10^3/uL (4.8-10.8)
[2024-03-11] MEDS: ASPIR LOW (ENTERIC COATED) 81 MG PO (07:59)
[2024-03-11] MEDS: PROTONIX 40 MG PO ×2 (07:59→20:06)
[2024-03-11] MEDS: XIFAXAN 550 MG PO ×2 (07:59→20:06)
[2024-03-11] MEDS: DUPHALAC/CHRONULAC 20 GRAMS PO ×2 (07:59→20:06)
[2024-03-11] MEDS: BACTROBAN 2% OINTMENT 1 APPLIC TOPICAL (08:00)
[2024-03-11] MEDS: TOPROL XL 25 MG PO (08:00)
[2024-03-11 08:09] LABS: Blood Urea Nitrogen 27 mg/dl (7-17); Calcium 8.5 mg/dl (8.4-10.2); Carbon Dioxide 14 mmol/L (22-30); Chloride 107 mmol/L (98-107); Estimated Creatinine Clearance 31 ml/min; Glucose 215 mg/dl (70-99); Potassium 5.5 mmol/L (3.5-5.1); Sodium 135 mmol/L (135-145); eGFR 39.97
[2024-03-11] MEDS: NOVOLOG FLEXPEN 10 UNITS SC ×2 (08:48→12:00)
[2024-03-11] MEDS: NOVOLOG FLEXPEN-LOW RESISTANCE 2 UNITS SC ×2 (08:48→12:02)
[2024-03-11] MEDS: LOKELMA 10 GRAM PO (11:22)
[2024-03-11 12:00] LABS: Glucose - Point of Care 231 mg/dl (70-99)
--- NOTE | 2024-03-11 12:48 | W.PN.HOSP.TC ---
Today's Communication/Plan
-
Repeat Lokelma
Consult renal
Follow K/HH in am
Assessment / Plan
Assessment / Plan
Pt is a 73 year old female with anemia
#Acute on Chronic Anemia with Heme Positive Stool and History of GI Bleeding
HGB 5.8 on admission
s/p pRBC 3 units of PRBC on this adx
HH stable
Suspect due to acute GI losses--very likely related to recent angio/stent and probable DAPT
([facility]-Pre cath EGD 01/28/2024-Z-line irregular, grade 1, small less than 5 mm esophageal varices, portal hypertensive gastropathy, multiple nonbleeding angiectasia's in the stomach treated with APC, normal duodenal bulb, few nonbleeding angiectasias
in the duodenum treated with APC, discolored and texture changed mucosa in the greater curvature of the gastric body biopsied
[facility]-EGD with push enteroscopy on 02/15/2024 was done-no variceal bleeding but with angiectasia in the duodenum and jejunum status post APC (Dr.Rajiv Elkins))
Restarted Plavix -patient with burgundy stools. Required PRBC transfusion 03/07.
Reconsulted GI for further evaluation. Continue with aspirin.
s/p EGD and variceal banding plus angioectasias treatments.
Restart plavix as no obvious bleeding
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
#Cirrhosis/Ascites due to NAFLD --Patient reports first ever paracentesis was about 2 weeks ago at [facility]
Lasix and spironolactone on hold due to increased Cr. Resume once GI bleed issues are resolved.
Continue lactulose and Xifaxan
S/P Paracentesis 4700mls removed on 02/29/2024-no albumin.
Status post paracentesis again on 03/03/2024 with removal of 3500 mL ascitic fluid-no SBP
Continue PPI BID
# ASCVD--Prior h/o CABG 2012.
Coronary disease with drug-eluting stent placement 01/31/2024 when admitted at [place] for non-STEMI
On aspirin, statin,Plavix
Restarted Plavix 03/04/24 , back on hold today.CW ASA.
# CHF-type unclear. compensated
# ALIX on CKD-stage unclear, probably stage III -continued rise of creatinine noted. She had a large-volume paracentesis and was put on diuretics. Concern was that this is related renal dysfunction-diuretics are on hold. Continue to follow
creatinine -Improving.
FeNa 1.84 and Eleni >40 not going in favor of HR syndrome.
Cr improved 1.3
Continue to hold diuretics now.
# Hyperkalemia - unclear etiology . No obvious meds . Improving Cr . Lokelma *1 .consut Renal
# NAG met acidosis - no significant diarrhea - on Lacutlose - Cr improving -follow for now.
# Essential Hypertension-patient was on metoprolol 25 mg daily, as outpatient.
# DM-II-with neuropathy-hemoglobin A1c not reliable because of anemia-continue Neurontin
Patient was on Lantus 12-15 units at night and 15 units of Humalog AC as outpatient
On Lantus 15 units. NovoLog 10 AC plus sliding scale coverage
# Hypothyroidism-continue Synthroid 50 mcg daily
# RUL 7mm solid nodule with GGO in RUL and reticular/nodular opacities in lingula - seen on CT Chest from 09/13/2023-needs outpatient follow-up with pulmonary ( Daughter aware)
# Emphysema-continue Anoro Ellipta or equivalent
# MALT lymphoma-got radiation 5 years ago. Sees at [facility].
# Hypoalbuminemia
# Hepatic steatosis
# GERD
# Ex Smoker
# DVT Prophylaxis: SCDs
# Code Status: Full
DW 03/[address] Byrd office -patient apparently had a coronary artery stent at [facility] in January of this year .The stent was not due to graft artery.
DC home in am if remains stable from K standpoint
Outpatient records from [place] reviewed-was scanned in on 02/29/24 under ' other healthcare facility information section'.
-Patient has a history of coronary disease, chronic anemia, CKD, COPD, hypothyroidism, GERD, hypertension, hyperlipidemia, cirrhosis with ascites and portal hypertension, MALT lymphoma, diabetes, peripheral artery disease, esophageal varices as well
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
-Hemoglobin on admission 02/14/2024 was 6.6, creatinine was 1.95 potassium was 5.3 AST was 28 ALT was 52 alk phos was 240, lipase was 51.
-Patient was heme positive and also had melena and near syncope.
-She was given 2 units of blood, treated with octreotide and antibiotics
-Pre cath EGD 01/28/2024-Z-line irregular, grade 1, small less than 5 mm esophageal varices, portal hypertensive gastropathy, multiple nonbleeding angiectasia's in the stomach treated with APC, normal duodenal bulb, few nonbleeding angiectasias in
the duodenum treated with APC, discolored and texture changed mucosa in the greater curvature of the gastric body biopsied
-EGD with push enteroscopy on 02/15/2024 was done-no variceal bleeding but with angiectasia in the duodenum and jejunum status post APC (Dr.Rajiv Elkins)
-Paracentesis was done 4.6 L of fluid removed-no SBP. Cytology reactive mesothelial cells. No malignant cells
-Patient had significant stool burden-lactulose increased to 3 times daily
-Dual antiplatelets were continued because of the recent coronary stent
-Hemoglobin was 9.2 and creatinine was 1.77 at discharge, on 02/18/2024. INR was 1.1
-Gabapentin dose was decreased from 800 mg to 600 mg.
Also discharged on Lasix 20 mg daily, lactulose 30 mL 3 times daily, aspirin 81 mg daily, atorvastatin 80 mg daily, cetirizine 10 mg daily, Plavix 75 g daily, cyproheptadine 4 mg daily, Valium 10 mg, hydroxyzine 25 mg, Lantus insulin, lispro
insulin, Synthroid 50 mcg, metoprolol 25 mg, nitroglycerin 0.4 mg as needed, omeprazole 20 mg, oxycodone 15 mg, promethazine/dextromethorphan 6.25/15 mg per 5 mL syrup, Xifaxan 550 mg
Part of this note was created using voice recognition system. Occasional wrong word or��sound alike� substitutions may have inadvertently occurred due to the inherent limitations of voice recognition software. If noted kindly bring it to my
attention for correction.
Anticipated Discharge: Within 24 hours
Subjective/Interval History
-
Date of Service: March 11, 2024
Voicing no specific complaints.
Denies SOB or CP.
Objective Data
-
Labs:
Laboratory Results
03/11/24
06:17
WBC 5.9
Hgb 8.4 L
Hct 25.0 L
Plt Count
Sodium 135
Potassium 5.5 H
Chloride 107
Carbon Dioxide 14 L*
BUN 27 H
Creatinine 1.4 H
Glucose 215 H
Calcium 8.5
Vital Signs:
Vital Signs
Temp Pulse Resp BP Pulse Ox
97.6 F 71 16 140/56 98
03/11/24 11:55 03/11/24 11:55 03/11/24 11:55 03/11/24 11:55 03/11/24 11:55
I&O
03/10/24 03/11/24 03/12/24
06:59 06:59 06:59
Intake Total 620 / 620 1560 / 1560
Balance 620 / 620 1560 / 1560
Review of Systems
-
Constitutional: Denies Fever or Chills
Abdomen/GI: Denies Abdominal Pain, Nausea or Vomiting
Neuro: Denies Dizzy
Physical Exam
-
Respiratory: Non Labored Respirations; Negative Accessory Resp Muscle Use
Cardiac: Regular Rhythm and S1/S2
GI: Soft, Nontender and Distended
Neuro: AO x 3; Negative Tremors
Psych: Calm; Negative Confused
Data Reviewed
-
Labs: Labs Reviewed by me
--- NOTE | 2024-03-11 13:28 | W.CON.NEPH ---
Consultation
-
Date/Time Consultation Requested: 03/11/2024 1:00 PM
Date/Time Consultation Performed: 03/11/2024 1:30 PM
Requesting Provider: Dr. Flowers
Performing Provider: Dr. Burns
Reason for Consultation: Hyperkalemia/CKD 3/Non gapped Metabolic acidosis
Medical History
-
Chief Complaint: Hyperkalemia nongap metabolic acidosis chronic kidney disease stage III
History of Present Illness:
Patient is a 73y F with PMH significant for NAFLD, cirrhosis requiring recurrent paracentesis for ascites, hypertension (maintained on metoprolol) and DM-II (maintained on Insulin therapy) who presents to ED complaining of abdominal distention.
Patient states that she presented to [facility] about 2 weeks ago with similar complaints. She underwent a paracentesis at that facility where they removed '4 bottles' of fluid. This was her first paracentesis. Also during that stay, she
underwent percutaneous angiography with stent placement. She knows that they accessed the L groin, but she cannot say where the stent was placed (coronary or peripheral artery). She states that they changed many medications - though she does not
have the list with her at this time (family reportedly gave list to someone earlier, but it is not on her chart and her medication list in the computer has not been updated). On evaluation here, patient is noted to have abdominal distention /
evident ascites, LE edema and on labs has significant anemia - Hgb decreased from prior baseline.
Patient states that her bowels have been at times red and at times very dark, black. Over the course of her admission she became more progressively anemic requiring repeat variceal banding. She has now developed ongoing hyperkalemia and nongap
metabolic acidosis. She did receive Lasix for her hyperkalemia but this potentiated acute on chronic kidney disease and was withheld. She has now also been off her Aldactone due to ongoing hyperkalemia over the past few days. Nephrology was
consulted for her ongoing hyperkalemia, nongap metabolic acidosis, in the setting of her chronic kidney disease.
Past Medical History
ASCVD
Hypertension
DM-II
NAFLD
Cirrhosis with Ascites
Chronic HFpEF
Hypothyroidism
History of GI Bleeding
Chronic kidney disease with baseline creatinine of 1.3
History of prior banding for esophageal varices
History of coronary artery disease status post CABG
History of recent non-ST elevation NE with coronary artery stenting in January 2024
Social History
Tobacco: Smoker
Alcohol: None
Drug: None
Family History
no CKD
Allergies / Home Medications
Allergy/AdvReac Type Severity Reaction Status Date / Time
adhesive Allergy Itching Verified 12/14/23 21:19
�Medication �Instructions �Recorded �Confirmed �Type
albuterol sulfate 90 mcg/actuation 2 puff inhalation R Q4HPRN PRN 09/10/23 02/29/24 History
aerosol inhaler sob/wheezing
diazepam 10 mg tablet 10 mg PO BIDPRN PRN anxiety 09/10/23 02/29/24 History
furosemide 20 mg tablet 20 mg PO DAILY@1400 Fluid 09/10/23 02/29/24 History
Retention/Swelling
gabapentin 100 mg capsule 100 mg PO TID PRN nerve pain 09/10/23 02/29/24 History
insulin glargine 100 unit/mL (3 12 - 15 unit SC HS diabetes 09/10/23 02/29/24 History
mL) subcutaneous pen (Lantus
Solostar U-100 Insulin)
insulin lispro 100 unit/mL 15 unit SC AC diabetes 09/10/23 02/29/24 History
subcutaneous pen (Humalog KwikPen
(U-100) Insulin)
lactulose 10 gram/15 mL oral 15 ml PO BID fatty liver 09/10/23 02/29/24 History
solution disease/cirrhosis
levothyroxine 50 mcg tablet 50 mcg PO DAILY Thyroid 09/10/23 02/29/24 History
metoprolol succinate 25 mg 25 mg PO DAILY Blood Pressure 09/10/23 02/29/24 History
tablet,extended release 24 hr
omeprazole 20 mg capsule,delayed 20 mg PO DAILY Gastrointestinal 09/10/23 02/29/24 History
release Issue
rifaximin 550 mg tablet (Xifaxan) 550 mg PO Q12H fatty liver 09/10/23 02/29/24 History
disease/cirrhosis
oxycodone 15 mg tablet 15 mg PO QID PRN pain #0 tabs 09/22/23 02/29/24 Rx
aspirin 81 mg tablet,delayed 81 mg PO DAILY Blood Clot 02/29/24 02/29/24 History
release Prevention/Tx
atorvastatin 20 mg tablet (Lipitor) 20 mg PO QPM High Cholesterol 02/29/24 02/29/24 History
clopidogrel 75 mg tablet (Plavix) 75 mg PO DAILY Blood Clot 02/29/24 02/29/24 History
Prevention/Tx
lidocaine 4 % topical patch 1 patch topical DAILY PRN pain 02/29/24 02/29/24 History
umeclidinium 62.5 mcg-vilanterol 1 inh inhalation DAILY PRN 02/29/24 02/29/24 History
25 mcg/actuation powdr for shortness of breath
inhalation (Anoro Ellipta)
Review of Systems
-
History Source: Patient
All other systems: Negative unless noted
Constitutional: Fatigue
Abdomen/GI: Other (Ascites/distention)
Neurological: Numbness (Paresthesias of toes)
Physical Exam
Vital Signs
Vital Signs
Temp Pulse Resp BP Pulse Ox
97.6 F 71 16 140/56 98
03/11/24 11:55 03/11/24 11:55 03/11/24 11:55 03/11/24 11:55 03/11/24 11:55
Lab Results
03/11/24 06:17
03/11/24 06:17
WBC 5.9 10^3/uL (4.8-10.8) 03/11/24 06:17
RBC 3.00 10^6/uL (4.20-5.40) L 03/11/24 06:17
Hgb 8.4 g/dL (12.0-16.0) L 03/11/24 06:17
Hct 25.0 % (37.0-47.0) L 03/11/24 06:17
Plt Count 10^3/uL (130-400) 03/11/24 06:17
Sodium 135 mmol/L (135-145) 03/11/24 06:17
Potassium 5.5 mmol/L (3.5-5.1) H 03/11/24 06:17
Chloride 107 mmol/L (98-107) 03/11/24 06:17
Carbon Dioxide 14 mmol/L (22-30) L* 03/11/24 06:17
BUN 27 mg/dl (7-17) H 03/11/24 06:17
Creatinine 1.4 mg/dL (0.6-1.0) H 03/11/24 06:17
eGFR 39.97 03/11/24 06:17
Glucose 215 mg/dl (70-99) H 03/11/24 06:17
Calcium 8.5 mg/dl (8.4-10.2) 03/11/24 06:17
Bbj-U-Ebkjoixrxmi Pept 2000 pg/ml 02/29/24 02:09
Albumin 2.5 g/dl (3.5-5.0) L 03/01/24 04:08
Physical Exam
General: AOx3, Nontoxic , NAD, cachectic
HEENT: PERRL, EOMI, Anicteric, Conjunctivae Clear, Ear/Nose Intact, Hearing Normal, Oropharynx Clear/dry, Facial Symmetry, Neck Supple, Neck: Trachea Midline, No JVD and No Thyromegaly, no Bruits
Respiratory: Clear to auscultation bilaterally with normal lung excursion
Cardiac: S1/S2 and Regular Rate/Rhythm
Breast: Deferred by me
Abdomen: Soft, Nontender, distended, Normal Bowel Sounds and No Hepatosplenomegaly
Rectal: Deferred by Provider
Genito-urinary: No Costovertebral Tenderness
Extremities: No Clubbing, No Cyanosis and No Edema
Skin: No Rash or open lesions
Neuro: Nonfocal/Grossly Intact, CN II-XII (Intact) and Strength (Musculoskeletal exam 5 out of 5 both upper and lower extremities)
Hematologic/Lymphatic: No Cervical Lymphadenopathy, No Submandibular Lymphadenopathy and No Supraclavicular Lymphadenopathy
Psych: Mood/afflect pleasant, Insight/judgement good and Appropriate
Vascular: plus 2 pedal and radial pulses
Data Reviewed
-
Radiology: Image Personally Visualized and interpreted (Chest x-ray personally reviewed from me from 03/03/2024, sternal wires no evidence of congestive heart failure , ,bilateral humeral danette implants)
Medical Tests (Nuc Med, Echo etc): Other (EKG report reviewed from date 02/29/2024 left ventricular hypertrophy with repolarization abnormality with normal sinus rhythm at 71 bpm)
Labs: Labs Reviewed by me (BMP CBC)
Old Records: Reviewed (Potassium level 4.0 on 12/14/2023 creatinine level 1.0)
Assessment/Plan
-
Impression:
Hyperkalemia
Nongap metabolic acidosis
CKD stage III
Anemia with GI bleeding status post varices banding
Cirrhosis with recurrent ascites requiring chronic paracentesis
CAD with history of CABG 2012
Recent coronary artery stent placement 01/31/2024 in setting of non-ST elevation NE
History of HFpEF
COPD
Hypoalbuminemia
GERD
Hypothyroidism
History of hypertension
History of MALT lymphoma
Peripheral arterial disease
History of gastric and duodenal angioectasias
Plan:
Hyperkalemia:
-Likely a function of ongoing nongap metabolic acidosis as well as recent Aldactone administration
-Withholding Aldactone
-Will initiate sodium bicarbonate in setting of nongap metabolic acidosis
-Lokelma provided as needed
Nongap metabolic acidosis:
-Unsure of etiology no reported GI losses
-No evidence of hyperchloremic acidosis (i.e. diffusion acidosis)
-Hemodynamically stable
-Would suspect possibly type IV RTA given given diabetes and hyperkalemia although her metabolic acidosis has just emerged
-check UA (PH)
ALIX:
-Improving with discontinuation of Lasix
-Check urinalysis
-Obtain postvoid bladder scan to make sure there is no obstructive component especially in setting of ongoing hyperkalemia
[2024-03-11] MEDS: PLAVIX 75 MG PO (13:50)
[2024-03-11] MEDS: SODIUM BICARBONATE 650 MG PO ×2 (15:18→22:13)
[2024-03-11 16:53] LABS: Glucose - Point of Care 99 mg/dl (70-99)
--- NOTE | 2024-03-11 17:00 | PTCARENOTE ---
MD made aware of patient blood sugar of 99 taken after patient eating 75% of dinner, stated to hold scheduled 10 units of insulin for dinner. Insulin held - see SEP.
[2024-03-11] MEDS: NOVOLOG FLEXPEN SC (17:03)
[2024-03-11] MEDS: NOVOLOG FLEXPEN-LOW RESISTANCE SC (17:03)
[2024-03-11] MEDS: LIPITOR 20 MG PO (17:04)
[2024-03-11] MEDS: ROCEPHIN 1000 MG IV (17:04)
[2024-03-11] MEDS: STERILE WATER FOR INJECTION 10 ML IV (17:04)
[2024-03-11 17:49] LABS: Urine Albumin 1+ (Neg - Trace); Urine Bilirubin 1+ (Negative); Urine Character Clear (Clear); Urine Color Yellow; Urine Glucose Negative (Negative); Urine Ketone Negative (Negative); Urine Leukocyte 2+ (Negative); Urine Nitrite Negative (Negative); Urine Occult Blood Trace (Negative); Urine Specific Gravity 1.015 (<1.030); Urine Urobilinogen Negative (Neg - 1+)
[2024-03-11 18:06] LABS: Urine Squamous Cell >30 /LPF (Few)
[2024-03-11 18:08] LABS: Urine White Cell 16-20 /HPF (0-5); Urine Yeast Few (Negative)
[2024-03-11 18:09] LABS: Urine Red Blood Cell 0-2 /HPF (0-2)
--- NOTE | 2024-03-11 18:16 | PTCARENOTE ---
Patient voided in bathroom 100 ml yellow urine, sample sent down for UA; Patient bladder scanned post void per nephrology order, scan obtained with second RN Parvin at bedside for 352 ml. Patient states she has urinated in bathroom 5-6 times today and
feels she is emptying bladder each time, denies any abdominal pain or pressure. Belly round, full, ascites. + bowel sounds, patient reports no BM today. Nephrology made aware of bladder scan, no new orders at this time.
[2024-03-11 22:04] LABS: Glucose - Point of Care 272 mg/dl (70-99)
[2024-03-11] MEDS: LANTUS 0.15 UNITS SC (22:13)
[2024-03-12 03:11] VITALS: BP 106/51
[2024-03-12] MEDS: SYNTHROID 50 MCG PO (05:10)
[2024-03-12 05:56] VITALS: BMI 22.2
[2024-03-12 06:36] LABS: Hematocrit 25.6 % (37.0-47.0); Hemoglobin 8.3 g/dL (12.0-16.0); Mean Corp Hgb Conc. 32.4 g/dL (33.0-37.0); Mean Corpuscular Volume 86.5 fL (81.0-99.0); Mean Platelet Volume 12.2 fL (7.4-10.4); Platelet Count 148 10^3/uL (130-400); Red Blood Cell Count 2.96 10^6/uL (4.20-5.40); Red Cell Dist. Width 16.3 % (11.5-14.5); White Blood Cell Count 7.4 10^3/uL (4.8-10.8)
[2024-03-12 06:42] LABS: Lactic Acid 0.9 mmol/L (0.7-2.0)
[2024-03-12 07:02] LABS: Blood Urea Nitrogen 30 mg/dl (7-17); Calcium 8.3 mg/dl (8.4-10.2); Carbon Dioxide 20 mmol/L (22-30); Chloride 108 mmol/L (98-107); Estimated Creatinine Clearance 29 ml/min; Glucose 173 mg/dl (70-99); Potassium 5.2 mmol/L (3.5-5.1); Sodium 137 mmol/L (135-145)
[2024-03-12] MEDS: SPIRIVA RESPIMAT 2.5 MCG 2 PUFF INH (07:12)
[2024-03-12] MEDS: STRIVERDI RESPIMAT 2 PUFF INH (07:12)
[2024-03-12 07:15] VITALS: BP 107/50
[2024-03-12 07:43] LABS: Glucose - Point of Care 154 mg/dl (70-99)
[2024-03-12] MEDS: PLAVIX 75 MG PO (08:06)
[2024-03-12] MEDS: SODIUM BICARBONATE 650 MG PO ×3 (08:06→22:47)
[2024-03-12] MEDS: XIFAXAN 550 MG PO ×2 (08:07→20:58)
[2024-03-12] MEDS: ASPIR LOW (ENTERIC COATED) 81 MG PO (08:07)
[2024-03-12] MEDS: DUPHALAC/CHRONULAC 20 GRAMS PO ×2 (08:07→20:58)
[2024-03-12] MEDS: TOPROL XL 25 MG PO (08:07)
[2024-03-12] MEDS: BACTROBAN 2% OINTMENT 1 APPLIC TOPICAL (08:07)
[2024-03-12] MEDS: PROTONIX 40 MG PO ×2 (08:07→20:58)
[2024-03-12] MEDS: NOVOLOG FLEXPEN-LOW RESISTANCE 1 UNITS SC ×2 (08:09→17:18)
[2024-03-12] MEDS: NOVOLOG FLEXPEN 10 UNITS SC ×3 (08:09→17:17)
[2024-03-12 11:16] LABS: Glucose - Point of Care 258 mg/dl (70-99)
[2024-03-12 11:20] VITALS: BP 118/48; BP 128/51; BP 138/52; PULSE 73; PULSE 75; PULSE 77
--- NOTE | 2024-03-12 11:33 | W.PN.NEPH.PH ---
Today's Communication / Plan
-
Straight cath postvoid
Follow BMP
Maintain sodium bicarbonate
Holding Lasix
Assessment/Plan
-
Impression:
Hyperkalemia
Non gap metabolic acidosis
CKD stage III
Anemia with GI bleeding status post varices banding
Cirrhosis with recurrent ascites requiring chronic paracentesis
CAD with history of CABG 2012
Recent coronary artery stent placement 01/31/2024 in setting of non-ST elevation [place]
History of HFpEF
COPD
Hypoalbuminemia
GERD
Hypothyroidism
History of hypertension
History of MALT lymphoma
Peripheral arterial disease
History of gastric and duodenal angioectasias
Plan:
Hyperkalemia:
-Likely a function of ongoing nongap metabolic acidosis as well as recent Aldactone administration
-Withholding Aldactone
-initiated sodium bicarbonate in setting of nongap metabolic acidosis
-Lokelma provided as needed
Non gap metabolic acidosis:
-Unsure of etiology no reported GI losses
-No evidence of hyperchloremic acidosis (i.e. diffusion acidosis)
-Hemodynamically stable
-Would suspect possibly type IV RTA given given diabetes and hyperkalemia although her metabolic acidosis has just emerged over the course of her admission
-check UA (PH) : 6.0
ALIX:
-Improving with discontinuation of Lasix, now up to 1.5
-Urinalysis: Trace blood and 1+
-Will do a postvoid straight cath to assess for obstruction, very low threshold for Bravo catheter
-
-
Date of Service: March 12, 2024
CC / HPI / ROS
-
Chief Complaint:
CKD
Hyperkalemia
Nongap metabolic acidosis
History of Present Illness:
Creatinine up to 1.5
Hyperkalemia persisted 5.2 but improved
Metabolic acidosis improved to 20 with oral sodium bicarbonate administration
Review of Systems:
Incontinent
No chest pain or shortness of
No fevers
Weight stable
Labs
-
Labs:
WBC 7.4 10^3/uL (4.8-10.8) 03/12/24 06:13
RBC 2.96 10^6/uL (4.20-5.40) L 03/12/24 06:13
Hgb 8.3 g/dL (12.0-16.0) L 03/12/24 06:13
Hct 25.6 % (37.0-47.0) L 03/12/24 06:13
Plt Count 148 10^3/uL (130-400) 03/12/24 06:13
Sodium 137 mmol/L (135-145) 03/12/24 06:13
Potassium 5.2 mmol/L (3.5-5.1) H 03/12/24 06:13
Chloride 108 mmol/L (98-107) H 03/12/24 06:13
Carbon Dioxide 20 mmol/L (22-30) L 03/12/24 06:13
BUN 30 mg/dl (7-17) H 03/12/24 06:13
Creatinine 1.5 mg/dL (0.6-1.0) H 03/12/24 06:13
eGFR 36.80 03/12/24 06:13
Glucose 173 mg/dl (70-99) H 03/12/24 06:13
Calcium 8.3 mg/dl (8.4-10.2) L 03/12/24 06:13
Osl-B-Smrtvqdpcgz Pept 2000 pg/ml 02/29/24 02:09
Albumin 2.5 g/dl (3.5-5.0) L 03/01/24 04:08
Physical Exam
-
Vital Signs:
Vital Signs
Temp Pulse Resp BP Pulse Ox
97.9 F 75 16 118/48 98
03/12/24 11:20 03/12/24 11:20 03/12/24 11:20 03/12/24 11:20 03/12/24 11:20
Cardiovascular:: Regular rate and rhythm
Respiratory:: Bilateral: CTA
Lung Excursion:: Normal
Abdomen:: Distended
Bowel Sounds:: Decreased
Bravo Catheter: No
--- NOTE | 2024-03-12 11:52 | W.PN.HOSP.TC ---
Addendum entered and electronically signed by Juve Flowers MD 03/14/24 12:00:
stage 1 sacrum pressure injury, POA
#...'Pt reports lost 70 lbs over past two years.
#Records show >50% to >90% intakes since 03-04.
#A nutrition-focused physical exam shows moderate loss on orbital, temples,
#...clavicle, deltoid, calves.
#Due to poor intakes of <75% estimated energy requirement for greater than
#...or equal to 1 month and observations of appearance of fat/muscle loss various sites,
#...pt meeting criteria for moderate protein/calorie malnutrition
#...(ASPEN/AND guidelines, chronic illness).
Original Note:
Today's Communication/Plan
-
Follow BMP
DC planning
Assessment / Plan
Assessment / Plan
Pt is a 73 year old female with anemia
#Acute on Chronic Anemia with Heme Positive Stool and History of GI Bleeding
HGB 5.8 on admission
s/p pRBC 3 units of PRBC on this adx
HH stable
Suspect due to acute GI losses--very likely related to recent angio/stent and probable DAPT
(Jemilvia-Pre cath EGD 01/28/2024-Z-line irregular, grade 1, small less than 5 mm esophageal varices, portal hypertensive gastropathy, multiple nonbleeding angiectasia's in the stomach treated with APC, normal duodenal bulb, few nonbleeding angiectasias
in the duodenum treated with APC, discolored and texture changed mucosa in the greater curvature of the gastric body biopsied
Jeans-EGD with push enteroscopy on 02/15/2024 was done-no variceal bleeding but with angiectasia in the duodenum and jejunum status post APC (Dr.Rajiv Elkins))
Restarted Plavix -patient with burgundy stools. Required PRBC transfusion 03/07.
Reconsulted GI for further evaluation. Continue with aspirin.
s/p EGD and variceal banding plus angioectasias treatments.
Restarted plavix again 03/11 ; no obvious ext bleeding .HH stable.
Patient will need to follow-up with her mica paster to see when she can come off of Plavix as with angiectasia's she is always at risk for bleeding.
#Cirrhosis/Ascites due to NAFLD --Patient reports first ever paracentesis was about 2 weeks ago at [facility]
Lasix and spironolactone on hold due to increased Cr. Resume once GI bleed issues are resolved.
Continue lactulose and Xifaxan
S/P Paracentesis 4700mls removed on 02/29/2024-no albumin.
Status post paracentesis again on 03/03/2024 with removal of 3500 mL ascitic fluid-no SBP
Continue PPI BID
# ASCVD--Prior h/o CABG 2012.
Coronary disease with drug-eluting stent placement 01/31/2024 when admitted at [facility] for non-STEMI
On aspirin, statin,Plavix
Restarted Plavix 03/04/24 , back on hold today.CW ASA.
# CHF-type unclear. compensated
# ALIX on CKD-stage unclear, probably stage III - rise of creatinine noted. She had a large-volume paracentesis and was put on diuretics. Concern was that this is related renal dysfunction-diuretics are on hold.
FeNa 1.84 and Eleni >40 not going in favor of HR syndrome.
Cr with slight worsening in last 2 days -follow.
Continue to hold diuretics now.
# Hyperkalemia - unclear etiology . No obvious meds . Improving Cr . Herminioma *1 .appt renal input.
# NAG met acidosis - no significant diarrhea - on Lacutlose - initiated on NaHCO3 tabs - improving HC03
# Essential Hypertension-patient was on metoprolol 25 mg daily, as outpatient.
# DM-II-with neuropathy-hemoglobin A1c not reliable because of anemia-continue Neurontin
Patient was on Lantus 12-15 units at night and 15 units of Humalog AC as outpatient
On Lantus 15 units. NovoLog 10 AC plus sliding scale coverage
# Hypothyroidism-continue Synthroid 50 mcg daily
# RUL 7mm solid nodule with GGO in RUL and reticular/nodular opacities in lingula - seen on CT Chest from 09/13/2023-needs outpatient follow-up with pulmonary ( Daughter aware)
# Emphysema-continue Anoro Ellipta or equivalent
# MALT lymphoma-got radiation 5 years ago. Sees at [facility].
# Hypoalbuminemia
# Hepatic steatosis
# GERD
# Ex Smoker
# DVT Prophylaxis: SCDs
# Code Status: Full
DW 03/[address] Byrd office -patient apparently had a coronary artery stent at [facility] in January of this year .The stent was not due to graft artery.
DC home when ok from renal standpoint.
Outpatient records from [facility] reviewed-was scanned in on 02/29/24 under ' other healthcare facility information section'.
-Patient has a history of coronary disease, chronic anemia, CKD, COPD, hypothyroidism, GERD, hypertension, hyperlipidemia, cirrhosis with ascites and portal hypertension, MALT lymphoma, diabetes, peripheral artery disease, esophageal varices as well
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
-Hemoglobin on admission 02/14/2024 was 6.6, creatinine was 1.95 potassium was 5.3 AST was 28 ALT was 52 alk phos was 240, lipase was 51.
-Patient was heme positive and also had melena and near syncope.
-She was given 2 units of blood, treated with octreotide and antibiotics
-Pre cath EGD 01/28/2024-Z-line irregular, grade 1, small less than 5 mm esophageal varices, portal hypertensive gastropathy, multiple nonbleeding angiectasia's in the stomach treated with APC, normal duodenal bulb, few nonbleeding angiectasias in
the duodenum treated with APC, discolored and texture changed mucosa in the greater curvature of the gastric body biopsied
-EGD with push enteroscopy on 02/15/2024 was done-no variceal bleeding but with angiectasia in the duodenum and jejunum status post APC (Dr.Rajiv Elkins)
-Paracentesis was done 4.6 L of fluid removed-no SBP. Cytology reactive mesothelial cells. No malignant cells
-Patient had significant stool burden-lactulose increased to 3 times daily
-Dual antiplatelets were continued because of the recent coronary stent
-Hemoglobin was 9.2 and creatinine was 1.77 at discharge, on 02/18/2024. INR was 1.1
-Gabapentin dose was decreased from 800 mg to 600 mg.
Also discharged on Lasix 20 mg daily, lactulose 30 mL 3 times daily, aspirin 81 mg daily, atorvastatin 80 mg daily, cetirizine 10 mg daily, Plavix 75 g daily, cyproheptadine 4 mg daily, Valium 10 mg, hydroxyzine 25 mg, Lantus insulin, lispro
insulin, Synthroid 50 mcg, metoprolol 25 mg, nitroglycerin 0.4 mg as needed, omeprazole 20 mg, oxycodone 15 mg, promethazine/dextromethorphan 6.25/15 mg per 5 mL syrup, Xifaxan 550 mg
Part of this note was created using voice recognition system. Occasional wrong word or��sound alike� substitutions may have inadvertently occurred due to the inherent limitations of voice recognition software. If noted kindly bring it to my
attention for correction.
Anticipated Discharge: Within 24 hours
Subjective/Interval History
-
Date of Service: March 12, 2024
Complains of some general weakness. Able to walk in the hallways of the floor.
No nausea vomiting or abdominal pain. Tolerating diet.
Objective Data
-
Labs:
Laboratory Results
03/12/24
06:13
WBC 7.4
Hgb 8.3 L
Hct 25.6 L
Plt Count 148
Sodium 137
Potassium 5.2 H
Chloride 108 H
Carbon Dioxide 20 L
BUN 30 H
Creatinine 1.5 H
Glucose 173 H
Calcium 8.3 L
Vital Signs:
Vital Signs
Temp Pulse Resp BP Pulse Ox
97.9 F 75 16 118/48 98
03/12/24 11:20 03/12/24 11:20 03/12/24 11:20 03/12/24 11:20 03/12/24 11:20
I&O
03/11/24 03/12/24 03/13/24
06:59 06:59 06:59
Intake Total 1560 / 1560 1680 / 1680
Output Total 100 / 100
Balance 1560 / 1560 1580 / 1580
Review of Systems
-
Constitutional: Denies Fever
Respiratory: Denies Trouble Breathing
Cardiac: Denies Chest Pain
Genitourinary: Denies Difficulty Voiding
Neuro: Denies Dizzy
Physical Exam
-
General: No Apparent Distress
HEENT: Moist Mucous Membranes
Respiratory: Non Labored Respirations; Negative Accessory Resp Muscle Use
Cardiac: Regular Rhythm
GI: Soft, Nontender and Distended (mild)
Neuro: AO x 3; Negative Tremors
Psych: Calm; Negative Confused
Data Reviewed
-
Labs: Labs Reviewed by me
[2024-03-12] MEDS: NOVOLOG FLEXPEN-LOW RESISTANCE 3 UNITS SC (13:12)
[2024-03-12 15:27] VITALS: BP 154/67
[2024-03-12 17:16] LABS: Glucose - Point of Care 179 mg/dl (70-99)
[2024-03-12] MEDS: LIPITOR 20 MG PO (17:18)
[2024-03-12] MEDS: ROCEPHIN 1000 MG IV (17:18)
[2024-03-12] MEDS: STERILE WATER FOR INJECTION 10 ML IV (17:18)
[2024-03-12 17:38] LABS: Glucose - Point of Care 221 mg/dl (70-99)
[2024-03-12 19:35] VITALS: BP 131/54; BP 142/68; BP 148/69; PULSE 80; PULSE 83
[2024-03-12] MEDS: ROXICODONE 10 MG PO (21:07)
[2024-03-12 22:10] LABS: Glucose - Point of Care 306 mg/dl (70-99)
[2024-03-12] MEDS: LANTUS 0.15 UNITS SC (22:47)
[2024-03-12] MEDS: NOVOLOG FLEXPEN 4 UNITS SC (22:47)
[2024-03-12 23:12] VITALS: BP 155/61
[2024-03-13 00:57] LABS: Glucose - Point of Care 218 mg/dl (70-99)
[2024-03-13] MEDS: SYNTHROID 50 MCG PO (04:58)
[2024-03-13 06:00] VITALS: BMI 22.8
[2024-03-13 07:20] VITALS: BP 127/54
[2024-03-13] MEDS: STRIVERDI RESPIMAT 2 PUFF INH (07:35)
[2024-03-13] MEDS: SPIRIVA RESPIMAT 2.5 MCG 2 PUFF INH (07:35)
[2024-03-13 07:41] LABS: Glucose - Point of Care 217 mg/dl (70-99)
[2024-03-13] MEDS: XIFAXAN 550 MG PO (07:42)
[2024-03-13] MEDS: PROTONIX 40 MG PO (07:42)
[2024-03-13] MEDS: PLAVIX 75 MG PO (07:42)
[2024-03-13] MEDS: DUPHALAC/CHRONULAC 20 GRAMS PO (07:43)
[2024-03-13] MEDS: SODIUM BICARBONATE 650 MG PO ×2 (07:43→16:24)
[2024-03-13] MEDS: NOVOLOG FLEXPEN-LOW RESISTANCE 2 UNITS SC (07:43)
[2024-03-13] MEDS: TOPROL XL 25 MG PO (07:43)
[2024-03-13] MEDS: NOVOLOG FLEXPEN 10 UNITS SC ×3 (07:43→16:41)
[2024-03-13] MEDS: ASPIR LOW (ENTERIC COATED) 81 MG PO (07:43)
[2024-03-13] MEDS: BACTROBAN 2% OINTMENT 1 APPLIC TOPICAL (07:44)
[2024-03-13 09:35] LABS: Hematocrit 25.8 % (37.0-47.0); Mean Corpuscular Hgb 27.8 pg (27.0-31.0); Mean Corpuscular Volume 89.6 fL (81.0-99.0); Mean Platelet Volume 11.6 fL (7.4-10.4); Platelet Count 145 10^3/uL (130-400); Red Blood Cell Count 2.88 10^6/uL (4.20-5.40); Red Cell Dist. Width 16.6 % (11.5-14.5); White Blood Cell Count 7.5 10^3/uL (4.8-10.8)
--- NOTE | 2024-03-13 10:03 | W.PN.HOSP.TC ---
Today's Communication/Plan
-
discharge home today
Assessment / Plan
Assessment / Plan
73yo F with chronic anemia and history of GI bleeding and AVMs, decompensated KRAFT cirrhosis with ascites, esophageal varices, portal hypertensive gastropathy, ALIX, CAD with recent history of cardiac stenting on plavix/aspirin who presented to ED on
02/29/24 for abdominal distention and black/red stools.
#Acute on Chronic Anemia
#Acute blood loss secondary to GI bleeding
#Angiectasia s/p APC
#Nonbleeding esophageal varices s/p banding
- Hgb 5.8 on admission (baseline appears to be 8-9)
- s/p 3u pRBC (2u 02/28, 1u 03/07)
- Patient reported black and red stools while on plavix; heme positive
- Plavix held initially here. After restarting, patient had burgundy stools so it was again held.
- S/p EGD/push enteroscopy 03/09 with banding of small esophageal varices and APC treatment of multiple AVMs (Dr. Draper). She has known history of varices and AVMs, previously treated with APC 01/28/24 at [facility] (Dr. Adriel Elkins).
- Plavix restarted 03/11 with no further rectal bleeding
- Hgb remains stable, 8.0 today. No evidence of ongoing bleeding. Stable for discharge with close outpatient follow up.
- Continue plavix. Although she is at increased risk for bleeding given her history of angiectasias, the cardiac risk of discontinuing plavix permanently prematurely is thought to be greater. Discussed with patient that she needs to discuss with her
java websphere developer stopping plavix as soon as it is reasonable to do so.
#Decompensated cirrhosis secondary to KRAFT - ascites, esophageal varices, portal hypertensive gastropathy
- Patient reports first paracentesis about 2 weeks ago and [place]
- S/p paracentesis x2 this admission (4700mL on 02/28, 3500mL on 03/03). Labs consistent with transudative ascites secondary to portal hypertension. Negative for SBP.
- Continue lactulose, xifaxan, PPI. Resume lasix. Hold spironolactone due to Cr and hyperkalemia.
- Continue SBP prophylaxis for 7 days
#CAD, h/o CABG 2012
#h/o NSTEMI 01/2024 s/p drug eluting stent placement at [place]
- Home meds include aspirin, plavix, statin
- Plavix previously held, see above. Now continuing plavix, aspirin, statin.
# CHF-type unclear. compensated
# ALIX on CKD
- stage unclear, probably stage III - rise of creatinine noted.
- FeNa 1.84 and Eleni >40 not going in favor of HR syndrome.
- Cr stabilized, 1.5 today
- Nephrology following, will resume lasix
# Hyperkalemia, likely secondary to aldactone
# NAG met acidosis
- Nephrology following
- Lokelma prn, continue sodium bicarbonate
# Essential Hypertension
- Continue home metoprolol 25mg daily
# DM-II-with neuropathy
-hemoglobin A1c not reliable because of anemia
- continue home gabapentin
- Patient was on Lantus 12-15 units at night and 15 units of Humalog AC as outpatient
On Lantus 15 units. NovoLog 10 AC plus sliding scale coverage while inpatient.
- Diabetic diet
# Hypothyroidism
-continue Synthroid 50 mcg daily
# RUL 7mm solid nodule with GGO in RUL and reticular/nodular opacities in lingula - seen on CT Chest from 09/13/2023-needs outpatient follow-up with pulmonary (per chart review, this was previously discussed with Daughter)
# Emphysema-continue Anoro Ellipta or equivalent
# MALT lymphoma-got radiation 5 years ago. Sees at [facility].
# Hypoalbuminemia
# GERD
# Ex Smoker
Code status: full
VTE ppx: SCDs, ambulation as tolerated
Dispo planning: anticipate discharge home today
Anticipated Discharge: Today
Subjective/Interval History
-
Date of Service: March 13, 2024
No acute events overnight. She reports mild headache this morning. She denies lightheadedness, dizziness, chest pain, shortness of breath, nausea, vomiting, abdominal pain, diarrhea, constipation. Her last bowel movement was yesterday and was solid,
brown, easy to pass. She denies recent black or bloody stools. She is tolerating PO diet and ambulating as tolerated. She feels well overall and ready to go home. She lives with her daughter and nephew.
Objective Data
-
Labs:
Laboratory Results
03/13/24
07:30
WBC 7.5
Hgb 8.0 L
Hct 25.8 L
Plt Count 145
Sodium Pending
Potassium Pending
Chloride Pending
Carbon Dioxide Pending
BUN Pending
Creatinine Pending
Glucose Pending
Calcium Pending
Vital Signs:
Vital Signs
Temp Pulse Resp BP Pulse Ox
98.3 F 98 16 127/54 99
03/13/24 07:20 03/13/24 07:43 03/13/24 07:38 03/13/24 07:43 03/13/24 07:38
I&O
03/12/24 03/13/24 03/14/24
06:59 06:59 06:59
Intake Total 1680 / 1680 1800 / 1800
Output Total 100 / 100 105 / 105
Balance 1580 / 1580 1695 / 1695
Review of Systems
-
History Source: Patient
All other systems: Reviewed and negative
Physical Exam
-
General: Well Developed, No Apparent Distress and Comfortable
HEENT: Normocephalic, Atraumatic and Anicteric
Respiratory: Clear to Auscultation and Non Labored Respirations
Cardiac: Regular Rhythm and S1/S2
GI: Soft, Nontender, Normal Bowel Sounds and Distended
Musculoskeletal: No Cyanosis and No Edema
Skin: Warm and Dry
Neuro: Awake, Alert, Oriented and AO x 3
Psych: Calm and Intact Judgement/Insight
Data Reviewed
-
Diagnostic Radiology: Report Reviewed by me
CT Scan: Report Reviewed by me
Ultrasound: Report Reviewed by me
Labs: Labs Reviewed by me and Discussed with Physician
[2024-03-13 10:04] LABS: Blood Urea Nitrogen 29 mg/dl (7-17); Calcium 8.3 mg/dl (8.4-10.2); Carbon Dioxide 23 mmol/L (22-30); Chloride 106 mmol/L (98-107); Estimated Creatinine Clearance 29 ml/min; Glucose 208 mg/dl (70-99); Sodium 139 mmol/L (135-145)
[2024-03-13 11:12] LABS: Glucose - Point of Care 81 mg/dl (70-99)
[2024-03-13] MEDS: NOVOLOG FLEXPEN-LOW RESISTANCE SC ×2 (11:14→16:41)
--- NOTE | 2024-03-13 15:07 | W.PN.NEPH.PH ---
Today's Communication / Plan
-
see plan
Assessment/Plan
-
Impression:
Hyperkalemia
Non gap metabolic acidosis
CKD stage III
Anemia with GI bleeding status post varices banding
Cirrhosis with recurrent ascites requiring chronic paracentesis
CAD with history of CABG 2012
Recent coronary artery stent placement 01/31/2024 in setting of non-ST elevation [place]
History of HFpEF
COPD
Hypoalbuminemia
GERD
Hypothyroidism
History of hypertension
History of MALT lymphoma
Peripheral arterial disease
History of gastric and duodenal angioectasias
Plan:
Hyperkalemia: resolved
-Likely a function of ongoing nongap metabolic acidosis as well as recent Aldactone administration
cont to hold Aldactone
-initiated sodium bicarbonate in setting of nongap metabolic acidosis
-Lokelma provided as needed
Non gap metabolic acidosis:
-Unsure of etiology no reported GI losses
-No evidence of hyperchloremic acidosis (i.e. diffusion acidosis)
-Hemodynamically stable
-Would suspect possibly type IV RTA given given diabetes and hyperkalemia although her metabolic acidosis has just emerged over the course of her admission
-check UA (PH) : 6.0
ALIX:
-Improving with discontinuation of Lasix, cr stable at 1.5-close to baseline
-Urinalysis: Trace blood and 1+
SC only 5cc on PVR
ok to d/c with close f/u with PCP and GI
BMP in 2-3days after d/c
ok to resume lasix, hold Spironolactone
cont po bicarb
Nephro if needed
d/w ppt, primary
-
-
Date of Service: March 13, 2024
CC / HPI / ROS
-
Chief Complaint:
CKD
Hyperkalemia
Nongap metabolic acidosis
History of Present Illness:
Creatinine stable1.5
Hyperkalemia improved
Metabolic acidosis improved to 23 with oral sodium bicarbonate administration
Review of Systems:
No chest pain or shortness of
No fevers
Weight is up
Labs
-
Labs:
WBC 7.5 10^3/uL (4.8-10.8) 03/13/24 07:30
RBC 2.88 10^6/uL (4.20-5.40) L 03/13/24 07:30
Hgb 8.0 g/dL (12.0-16.0) L 03/13/24 07:30
Hct 25.8 % (37.0-47.0) L 03/13/24 07:30
Plt Count 145 10^3/uL (130-400) 03/13/24 07:30
Sodium 139 mmol/L (135-145) 03/13/24 07:30
Potassium 5.0 mmol/L (3.5-5.1) 03/13/24 07:30
Chloride 106 mmol/L (98-107) 03/13/24 07:30
Carbon Dioxide 23 mmol/L (22-30) 03/13/24 07:30
BUN 29 mg/dl (7-17) H 03/13/24 07:30
Creatinine 1.5 mg/dL (0.6-1.0) H 03/13/24 07:30
eGFR 36.80 03/13/24 07:30
Glucose 208 mg/dl (70-99) H 03/13/24 07:30
Calcium 8.3 mg/dl (8.4-10.2) L 03/13/24 07:30
Sfr-G-Brypeiscghn Pept 2000 pg/ml 02/29/24 02:09
Albumin 2.5 g/dl (3.5-5.0) L 03/01/24 04:08
Physical Exam
-
Vital Signs:
Vital Signs
Temp Pulse Resp BP Pulse Ox
98.3 F 98 16 127/54 99
03/13/24 07:20 03/13/24 07:43 03/13/24 07:38 03/13/24 07:43 03/13/24 07:38
Cardiovascular:: Regular rate and rhythm
Respiratory:: Bilateral: CTA
Lung Excursion:: Normal
Abdomen:: Distended, Nontender and Soft
Extremity Edema:: None: Bilateral:
Bravo Catheter: No
[2024-03-13 15:15] VITALS: BP 158/61
--- NOTE | 2024-03-13 16:21 | W.PN.UPDATE ---
Update Note
Progress Note Update
I personally performed a history and physical exam of the patient and discussed management with the resident. I reviewed the resident's note and agree with the documented findings and plan of care HPI/CC. except for changes in documentation
CVS: S1-S2 normal
Chest: CTA B/L
Abdomen: Soft, NT / Bowel sounds present, slightly distended.
Extremities: No edema,
#Acute on Chronic Anemia with Heme Positive Stool and History of GI Bleeding
HGB 5.8 on admission
s/p pRBC 3 units of PRBC on this adx
HH stable
Suspect due to acute GI losses--very likely related to recent angio/stent and probable DAPT
([facility]-Pre cath EGD 01/28/2024-Z-line irregular, grade 1, small less than 5 mm esophageal varices, portal hypertensive gastropathy, multiple nonbleeding angiectasia's in the stomach treated with APC, normal duodenal bulb, few nonbleeding angiectasias
in the duodenum treated with APC, discolored and texture changed mucosa in the greater curvature of the gastric body biopsied
[facility]-EGD with push enteroscopy on 02/15/2024 was done-no variceal bleeding but with angiectasia in the duodenum and jejunum status post APC (Dr.Rajiv Elkins))
Restarted Plavix -patient with burgundy stools. Required PRBC transfusion 03/07.
Reconsulted GI for further evaluation. Continue with aspirin.
s/p EGD and variceal banding plus angioectasia treatments.
Restarted plavix again 03/11 ; no obvious ext bleeding , had a normal bowel movement yesterday
Patient will need to follow-up with her staffing executive to see when she can come off of Plavix as with angiectasia's she is always at risk for bleeding.
#Cirrhosis/Ascites due to NAFLD --Patient reports first ever paracentesis was about 2 weeks ago at [facility]
Lasix and spironolactone on hold due to increased Cr. Resume once GI bleed issues are resolved.
Continue lactulose and Xifaxan
S/P Paracentesis 4700mls removed on 02/29/2024-no albumin.
Status post paracentesis again on 03/03/2024 with removal of 3500 mL ascitic fluid-no SBP
Continue PPI BID
# ASCVD--Prior h/o CABG 2012.
Coronary disease with drug-eluting stent placement 01/31/2024 when admitted at [place] for non-STEMI
On aspirin, statin,Plavix
Restarted Plavix 03/04/24 , back on hold today.CW ASA.
# CHF-type unclear. compensated. Continue Lasix
# ALIX on CKD-stage unclear, probably stage III - rise of creatinine noted. She had a large-volume paracentesis and was put on diuretics. Concern was that this is related renal dysfunction-diuretics are on hold.
FeNa 1.84 and Eleni >40 not going in favor of HR syndrome.
Restart Lasix
# Hyperkalemia - unclear etiology . Resolved. Will not restart Aldactone
# NAG met acidosis - no significant diarrhea - on Lacutlose - initiated on NaHCO3 tabs - improving HC03
# Essential Hypertension-patient was on metoprolol 25 mg daily, as outpatient.
# DM-II-with neuropathy-hemoglobin A1c not reliable because of anemia-continue Neurontin
Patient was on Lantus 12-15 units at night and 15 units of Humalog AC as outpatient
On Lantus 15 units. NovoLog 10 AC plus sliding scale coverage
# Hypothyroidism-continue Synthroid 50 mcg daily
# RUL 7mm solid nodule with GGO in RUL and reticular/nodular opacities in lingula - seen on CT Chest from 09/13/2023-needs outpatient follow-up with pulmonary ( Daughter aware)
# Emphysema-continue Anoro Ellipta or equivalent
# MALT lymphoma-got radiation 5 years ago. Sees at [facility].
# Hypoalbuminemia
# Hepatic steatosis
# GERD
# Ex Smoker
# DVT Prophylaxis: SCDs
# Code Status: Full
Dr Flowers -DW 03/[address] [employer] [address] Byrd office -patient apparently had a coronary artery stent at [facility] in January of this year .The stent was not due to graft artery.
DC home
D/W Nephrology
Spoke to patient's daughter and discussed about following labs weekly. She gets them drawn through oncologist office. Also aware about following up with cardiology to see if the duration of Plavix can be shortened.
Outpatient records from [place] reviewed-was scanned in on 02/29/24 under ' other healthcare facility information section'.
-Patient has a history of coronary disease, chronic anemia, CKD, COPD, hypothyroidism, GERD, hypertension, hyperlipidemia, cirrhosis with ascites and portal hypertension, MALT lymphoma, diabetes, peripheral artery disease, esophageal varices as well
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
-Hemoglobin on admission 02/14/2024 was 6.6, creatinine was 1.95 potassium was 5.3 AST was 28 ALT was 52 alk phos was 240, lipase was 51.
-Patient was heme positive and also had melena and near syncope.
-She was given 2 units of blood, treated with octreotide and antibiotics
-Pre cath EGD 01/28/2024-Z-line irregular, grade 1, small less than 5 mm esophageal varices, portal hypertensive gastropathy, multiple nonbleeding angiectasia's in the stomach treated with APC, normal duodenal bulb, few nonbleeding angiectasias in
the duodenum treated with APC, discolored and texture changed mucosa in the greater curvature of the gastric body biopsied
-EGD with push enteroscopy on 02/15/2024 was done-no variceal bleeding but with angiectasia in the duodenum and jejunum status post APC (Dr.Rajiv Elkins)
-Paracentesis was done 4.6 L of fluid removed-no SBP. Cytology reactive mesothelial cells. No malignant cells
-Patient had significant stool burden-lactulose increased to 3 times daily
-Dual antiplatelets were continued because of the recent coronary stent
-Hemoglobin was 9.2 and creatinine was 1.77 at discharge, on 02/18/2024. INR was 1.1
-Gabapentin dose was decreased from 800 mg to 600 mg.
Also discharged on Lasix 20 mg daily, lactulose 30 mL 3 times daily, aspirin 81 mg daily, atorvastatin 80 mg daily, cetirizine 10 mg daily, Plavix 75 g daily, cyproheptadine 4 mg daily, Valium 10 mg, hydroxyzine 25 mg, Lantus insulin, lispro
insulin, Synthroid 50 mcg, metoprolol 25 mg, nitroglycerin 0.4 mg as needed, omeprazole 20 mg, oxycodone 15 mg, promethazine/dextromethorphan 6.25/15 mg per 5 mL syrup, Xifaxan 550 mg
Part of this note was created using voice recognition system. Occasional wrong word or��sound alike� substitutions may have inadvertently occurred due to the inherent limitations of voice recognition software. If noted kindly bring it to my
attention for correction.
Total discharge planning and coordination time over 38 minutes
[2024-03-13 16:41] LABS: Glucose - Point of Care 100 mg/dl (70-99)
[2024-03-13] MEDS: STERILE WATER FOR INJECTION 10 ML IV (17:09)
[2024-03-13] MEDS: ROCEPHIN 1000 MG IV (17:09)
[2024-03-13] MEDS: LIPITOR 20 MG PO (17:09)
[2024-03-13] MEDS: PREVNAR 20 0.5 ML IM (18:19)
--- NOTE | 2024-03-13 18:42 | W.DCSUMMARY ---
Documented by User: Oumou Negron MD, Resident 03/13/24 19:01
Discharge Summary
Discharge Data
Date of Admission: 02/29/24
Date of Discharge: 03/13/24
-
Pending Results: No
Hospital Course
Discharging Physician : Dr. Negron, Dr. Mckee
Disposition : Home
Primary care physician : Jaspreet Echeverria
Principal Discharge diagnosis : Acute on chronic anemia, GI bleed, decompensated KRAFT cirrhosis, ascites s/p paracentesis, esophageal varices s/p banding, portal hypertensive gastropathy, AVMs s/p APC, ALIX, CAD with recent history of cardiac
stenting on plavix/aspirin, RUL lung nodule
Chronic Discharge diagnosis : CHF, CKD, HTN, DM2, neuropathy, hypothyroidism, emphysema, h/o MALT lymphoma s/p radiation, GERD, h/o smoking
Hospital Course : Presented to ED 02/28 for abdominal distention and black/red stools. She was found to have anemia with hgb 5.8 on admission. She received 3 units pRBC this admission, her home plavix was initially held, and she underwent EGD with
banding of small nonbleeding esophageal varices and APC treatment of angiectasias. Her hgb remained stable with no further rectal bleeding; her palvix was restarted given her cardiac history with recent NSTEMI and stenting. Her ascites was treated
with 2 paracentesis this admission (4700mL on 02/28 and 3500mL on 03/03). Fluid analysis was negative for SBP. Lactulose, xifaxan, and PPI were continued throughout admission. For her ALIX on CKD and hyperkalemia, spironolactone was discontinued; her
cr stabilized at 1.5 and her lasix was resumed. On day of discharge she was stable and she was discharged home.
Important imaging findings :
Chest xray 02/28
IMPRESSION:
Right upper and lower lobe patchy opacifications possibly pneumonia. Underlying pulmonary nodules not excluded. Clinical and laboratory correlation recommended. If findings persist after treatment in 2 weeks, chest CT examination recommended
Small bilateral pleural effusions. New
Abd US with doppler 03/01
IMPRESSION:
1). The liver is normal in size at 15.4 cm but there is a nodular/irregular subcapsular contour suggesting cirrhosis with dampened pulsatile flow in the right hepatic vein suggesting elevated venous pressures as well as moderate perihepatic ascites
2). Cholelithiasis
Chest xray 03/03
FINDINGS:
Lungs: There is no visualized pneumothorax. There is a tiny bilateral pleural effusions seen best on the lateral view. Both are improved. There is a small patchy opacification in the lateral right lung field superiorly which is stable. There is a
similar finding in the mid right lung field.
Heart: The heart is mildly enlarged. There is postsurgical change of the sternum and mediastinum. There is mild aortic arch calcification.
Osseous structures: There is hardware in the proximal humerus bilaterally.
Improved:
Improved tiny bilateral pleural effusions.
Mild cardiomegaly. New
Stable patchy right lung opacities as described above probably parenchymal scarring. Underlying masses not excluded. The finding in the right upper lobe is stable from 09/2023. The finding in the lower lobe is new from this prior chest CT. A
nonurgent repeat chest CT exam is recommended when the patient is able
Procedure findings :
Paracentesis 02/28
FINDINGS: 4700 cc of yellow ascitic fluid was evacuated. Samples sent for analysis as requested.
IMPRESSION: Successful ultrasound guided diagnostic and therapeutic paracentesis.
Paracentesis 03/03
IMPRESSION: Successful ultrasound-guided paracentesis, yielding 3500 milliliters of ascitic fluid. Fluid was sent for laboratory analysis.
Discharge Plan
-
Patient Disposition: Home (Routine Discharge)
Discharge Diagnosis/Procedures: Acute on chronic anemia, GI bleed, decompensated KRAFT cirrhosis, ascites s/p paracentesis, esophageal varices s/p banding, portal hypertensive gastropathy, AVMs s/p APC, ALIX, CAD with recent history of cardiac
stenting on plavix/aspirin, RUL lung nodule
Condition: Fair
Diet: Low Sodium
Activity: No restrictions and As tolerated
Driving Restrictions: As prior to admission
Bathing Restrictions: OK to Shower
Blood Work: will need repeat CBC and BMP within 3 days with PCP , then weekly X 4 times.
Activity Restrictions/Additional Instructions:
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 Please call them to schedule an appointment. You have a spot in the lung which needs follow-up CT In March 2024. This is very important otherwise
you may miss the an important diagnosis.
Instructions: Esophageal Varices (DC), Fluid in the Belly (Ascites) (DC), Clopidogrel, BLOOD PRESSURE
Referrals:
Jaspreet Echeverria DO [Family Provider] - in less than 1 week
Gibson Draper MD [Active] - in one month (if unable to follow up with hematology call to arrange 2-4 week follow up EGD for reassessment of varices. )
Washington Aguero MD [Non-Admitting Privileges] - in less than 1 week (call to arrange heptology follow up. Can try to see Dr. Aguero in [place] )
Israel Turner MD [Non-Admitting Privileges] -
Additional Discharge Medication Instructions: New medications:
- Your lactulose dose was doubled. You should now take 20 grams (30 mL) twice a day.
- Sodium bicarbonate 650mg: Take 1 tablet 3 times per day
- Cefuroxine 250mg: Take 1 tablet 2 times per day
Continue your other medications from before this hospitalization.
Keep taking your plavix once per day as long as you are not having more bleeding. You need to talk to your middle school math teacher about when you can safely stop the medication.
Prescriptions:
New
lactulose 20 gram/30 mL Solution
20 g PO BID Qty: 1500 0RF
sodium bicarbonate 650 mg Tablet
650 mg PO TID Qty: 90 0RF
cefuroxime axetil 250 mg tablet
250 mg PO BID Qty: 14 0RF
Continued
levothyroxine 50 mcg Tablet
50 mcg PO DAILY
omeprazole 20 mg Capsule,Delayed Release(Dr/Ec)
20 mg PO DAILY
furosemide 20 mg Tablet
20 mg PO DAILY@1400
gabapentin 100 mg Capsule
100 mg PO TID PRN (Reason: nerve pain)
metoprolol succinate 25 mg Tablet Extended Release 24 Hr
25 mg PO DAILY
diazepam 10 mg Tablet
10 mg PO BIDPRN PRN (Reason: anxiety)
Patient Comments:
09/10/2023, pt. filled this med. on 08/31/2023 for 90 tablets per PDMP.
albuterol sulfate 90 mcg/actuation Hfa Aerosol Inhaler
2 puff INHALATION R Q4HPRN PRN (Reason: sob/wheezing)
insulin lispro [Humalog KwikPen Insulin] 100 unit/mL Insulin Pen
15 unit SC AC
insulin glargine [Lantus Solostar U-100 Insulin] 100 unit/mL (3 mL) Insulin Pen
12 - 15 unit SC HS
Xifaxan 550 mg Tablet
550 mg PO Q12H
oxycodone 15 mg Tablet
15 mg PO QID PRN (Reason: pain ) Qty: 0 0RF
Patient Comments:
09/10/2023, pt. filled this med. on 08/31/2023 for 150 tablets per PDMP.
atorvastatin [Lipitor] 20 mg Tablet
20 mg PO QPM
clopidogrel [Plavix] 75 mg Tablet
75 mg PO DAILY
aspirin 81 mg Tablet,Delayed Release (Dr/Ec)
81 mg PO DAILY
lidocaine 4 % adhesive patch,medicated
1 patch topical DAILY PRN (Reason: pain)
Anoro Ellipta 62.5-25 mcg/actuation blister with device
1 inh inhalation DAILY PRN (Reason: shortness of breath )
Discontinued
lactulose 10 gram/15 mL Solution
15 ml PO BID
Patient Comments:
09/10/2023, per daughter, pt. does not like taking this med.; it is prescribed TID but daughter states that pt. should be taking it BID but when daughter is not around, pt. does not take it.
Discharge Orders:
Discharge Patient (As Directed); Ordered 03/13/24
Ordered By: Oumou Negron
Discharge Date and Time
Discharge Date/Time: 03/13/24 19:10
Print Language: EAST TIMORESE

Documented by User: Malika Mckee MD 03/14/24 18:47
Discharge Summary
Discharge Data
Date of Admission: 02/29/24
Date of Discharge: 03/14/24
Hospital Course
Discharging Physician : Dr. Negron, Dr. Mckee
Disposition : Home
Primary care physician : Jaspreet Echeverria
Principal Discharge diagnosis : Acute on chronic anemia, GI bleed, decompensated KRAFT cirrhosis, ascites s/p paracentesis, esophageal varices s/p banding, portal hypertensive gastropathy, AVMs s/p APC, ALIX, CAD with recent history of cardiac
stenting on plavix/aspirin, RUL lung nodule
Chronic Discharge diagnosis : CHF, CKD, HTN, DM2, neuropathy, hypothyroidism, emphysema, h/o MALT lymphoma s/p radiation, GERD, h/o smoking
Hospital Course : Presented to ED 02/28 for abdominal distention and black/red stools. She was found to have anemia with hgb 5.8 on admission. She received 3 units pRBC this admission, her home plavix was initially held, and she underwent EGD with
banding of small nonbleeding esophageal varices and APC treatment of angiectasias. Her hgb remained stable with no further rectal bleeding; her palvix was restarted given her cardiac history with recent NSTEMI and stenting. Her ascites was treated
with 2 paracentesis this admission (4700mL on 02/28 and 3500mL on 03/03). Fluid analysis was negative for SBP. Lactulose, xifaxan, and PPI were continued throughout admission. Patient was advised to follow-up with her middle school math teacher to see how long
she needs to take Plavix. Patient is at high risk for recurrent bleeding while on Plavix. She was started on Aldactone after which her potassium went up therefore Aldactone was discontinued and Lasix resumed.
Important imaging findings :
Chest xray 02/28
IMPRESSION:
Right upper and lower lobe patchy opacifications possibly pneumonia. Underlying pulmonary nodules not excluded. Clinical and laboratory correlation recommended. If findings persist after treatment in 2 weeks, chest CT examination recommended
Small bilateral pleural effusions. New
Abd US with doppler 03/01
IMPRESSION:
1). The liver is normal in size at 15.4 cm but there is a nodular/irregular subcapsular contour suggesting cirrhosis with dampened pulsatile flow in the right hepatic vein suggesting elevated venous pressures as well as moderate perihepatic ascites
2). Cholelithiasis
Chest xray 03/03
FINDINGS:
Lungs: There is no visualized pneumothorax. There is a tiny bilateral pleural effusions seen best on the lateral view. Both are improved. There is a small patchy opacification in the lateral right lung field superiorly which is stable. There is a
similar finding in the mid right lung field.
Heart: The heart is mildly enlarged. There is postsurgical change of the sternum and mediastinum. There is mild aortic arch calcification.
Osseous structures: There is hardware in the proximal humerus bilaterally.
Improved:
Improved tiny bilateral pleural effusions.
Mild cardiomegaly. New
Stable patchy right lung opacities as described above probably parenchymal scarring. Underlying masses not excluded. The finding in the right upper lobe is stable from 09/2023. The finding in the lower lobe is new from this prior chest CT. A
nonurgent repeat chest CT exam is recommended when the patient is able
Procedure findings :
Paracentesis 02/28
FINDINGS: 4700 cc of yellow ascitic fluid was evacuated. Samples sent for analysis as requested.
IMPRESSION: Successful ultrasound guided diagnostic and therapeutic paracentesis.
Paracentesis 03/03
IMPRESSION: Successful ultrasound-guided paracentesis, yielding 3500 milliliters of ascitic fluid. Fluid was sent for laboratory analysis.
Discharge Plan
-
Patient Disposition: Home (Routine Discharge)
Discharge Diagnosis/Procedures: Acute on chronic anemia, GI bleed, decompensated KRAFT cirrhosis, ascites s/p paracentesis, esophageal varices s/p banding, portal hypertensive gastropathy, AVMs s/p APC, ALIX, CAD with recent history of cardiac
stenting on plavix/aspirin, RUL lung nodule
Condition: Fair
Diet: Low Sodium
Activity: No restrictions and As tolerated
Driving Restrictions: As prior to admission
Bathing Restrictions: OK to Shower
Blood Work: will need repeat CBC and BMP within 3 days with PCP , then weekly X 4 times.
Activity Restrictions/Additional Instructions:
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 Please call them to schedule an appointment. You have a spot in the lung which needs follow-up CT In March 2024. This is very important otherwise
you may miss the an important diagnosis.
Instructions: Esophageal Varices (DC), Fluid in the Belly (Ascites) (DC), Clopidogrel, BLOOD PRESSURE
Referrals:
Jaspreet Echeverria, [Family Provider] - in less than 1 week
Gibson Draper MD [Active] - in one month (if unable to follow up with hematology call to arrange 2-4 week follow up EGD for reassessment of varices. )
Washington Aguero MD [Non-Admitting Privileges] - in less than 1 week (call to arrange heptology follow up. Can try to see Dr. Aguero in [place] )
Israel Turner MD [Non-Admitting Privileges] -
Additional Discharge Medication Instructions: New medications:
- Your lactulose dose was doubled. You should now take 20 grams (30 mL) twice a day.
- Sodium bicarbonate 650mg: Take 1 tablet 3 times per day
- Cefuroxine 250mg: Take 1 tablet 2 times per day
Continue your other medications from before this hospitalization.
Keep taking your plavix once per day as long as you are not having more bleeding. You need to talk to your middle school math teacher about when you can safely stop the medication.
Prescriptions:
New
lactulose 20 gram/30 mL Solution
20 g PO BID Qty: 1500 0RF
sodium bicarbonate 650 mg Tablet
650 mg PO TID Qty: 90 0RF
cefuroxime axetil 250 mg tablet
250 mg PO BID Qty: 14 0RF
Continued
levothyroxine 50 mcg Tablet
50 mcg PO DAILY
omeprazole 20 mg Capsule,Delayed Release(Dr/Ec)
20 mg PO DAILY
furosemide 20 mg Tablet
20 mg PO DAILY@1400
gabapentin 100 mg Capsule
100 mg PO TID PRN (Reason: nerve pain)
metoprolol succinate 25 mg Tablet Extended Release 24 Hr
25 mg PO DAILY
diazepam 10 mg Tablet
10 mg PO BIDPRN PRN (Reason: anxiety)
Patient Comments:
09/10/2023, pt. filled this med. on 08/31/2023 for 90 tablets per PDMP.
albuterol sulfate 90 mcg/actuation Hfa Aerosol Inhaler
2 puff INHALATION R Q4HPRN PRN (Reason: sob/wheezing)
insulin lispro [Humalog KwikPen Insulin] 100 unit/mL Insulin Pen
15 unit SC AC
insulin glargine [Lantus Solostar U-100 Insulin] 100 unit/mL (3 mL) Insulin Pen
12 - 15 unit SC HS
Xifaxan 550 mg Tablet
550 mg PO Q12H
oxycodone 15 mg Tablet
15 mg PO QID PRN (Reason: pain ) Qty: 0 0RF
Patient Comments:
09/10/2023, pt. filled this med. on 08/31/2023 for 150 tablets per PDMP.
atorvastatin [Lipitor] 20 mg Tablet
20 mg PO QPM
clopidogrel [Plavix] 75 mg Tablet
75 mg PO DAILY
aspirin 81 mg Tablet,Delayed Release (Dr/Ec)
81 mg PO DAILY
lidocaine 4 % adhesive patch,medicated
1 patch topical DAILY PRN (Reason: pain)
Anoro Ellipta 62.5-25 mcg/actuation blister with device
1 inh inhalation DAILY PRN (Reason: shortness of breath )
Discontinued
lactulose 10 gram/15 mL Solution
15 ml PO BID
Patient Comments:
09/10/2023, per daughter, pt. does not like taking this med.; it is prescribed TID but daughter states that pt. should be taking it BID but when daughter is not around, pt. does not take it.
Discharge Orders:
Discharge Patient (As Directed); Ordered 03/13/24
Ordered By: Oumou Negron
Discharge Date and Time
Discharge Date/Time: 03/13/24 19:10
Print Language: EAST [place]
== END 2024-03-13 19:10 | disposition home or self-care (01) | DRG 432 ==
LOC: 2 NORTH 05:40
PROVIDERS: Emergency Medicine; Internal Medicine; Internal Medicine Gastroenterology; Nurse Practitioner Adult Health; Physician Assistant; Radiology Vascular & Interventional Radiology; Student in an Organized Health Care Education/Training Program; ADMITTING PHYSICIAN Hospitalist; ATTENDING PHYSICIAN Hospitalist; CONSULT PHYSICIAN Internal Medicine Gastroenterology; CONSULT PHYSICIAN Specialist; EMERGENCY PHYSICIAN Emergency Medicine; FAMILY PHYSICIAN Family Medicine
PROC: 0W9G3ZZ Drainage of Peritoneal Cavity, Percutaneous Approach (ICD-10-PCS; 2024-02-29)
PROC: 30233N1 Transfusion of Nonautologous Red Blood Cells into Peripheral Vein, Percutaneous Approach (ICD-10-PCS; 2024-02-29)
PROC: 0D598ZZ Destruction of Duodenum, Via Natural or Artificial Opening Endoscopic (ICD-10-PCS; 2024-03-09)
PROC: 0D568ZZ Destruction of Stomach, Via Natural or Artificial Opening Endoscopic (ICD-10-PCS; 2024-03-09)
PROC: 0D5A8ZZ Destruction of Jejunum, Via Natural or Artificial Opening Endoscopic (ICD-10-PCS; 2024-03-09)
PROC: 06L38CZ Occlusion of Esophageal Vein with Extraluminal Device, Via Natural or Artificial Opening Endoscopic (ICD-10-PCS; 2024-03-09)
DX: K74.69 Other cirrhosis of liver (principal); I85.11 Secondary esophageal varices with bleeding; K31.811 Angiodysplasia of stomach and duodenum with bleeding; K55.21 Angiodysplasia of colon with hemorrhage; D62 Acute posthemorrhagic anemia; K76.6 Portal hypertension; I50.32 Chronic diastolic (congestive) heart failure; N17.9 Acute kidney failure, unspecified; R18.8 Other ascites; D68.32 Hemorrhagic disorder due to extrinsic circulating anticoagulants; E44.0 Moderate protein-calorie malnutrition; K31.89 Other diseases of stomach and duodenum; J44.9 Chronic obstructive pulmonary disease, unspecified; K75.81 Nonalcoholic steatohepatitis (NASH); I25.10 Atherosclerotic heart disease of native coronary artery without angina pectoris; N18.30 Chronic kidney disease, stage 3 unspecified; E11.22 Type 2 diabetes mellitus with diabetic chronic kidney disease; E03.9 Hypothyroidism, unspecified; E87.5 Hyperkalemia; L89.151 Pressure ulcer of sacral region, stage 1; Z95.5 Presence of coronary angioplasty implant and graft; Z79.82 Long term (current) use of aspirin; Z79.4 Long term (current) use of insulin; Z79.02 Long term (current) use of antithrombotics/antiplatelets; Z68.22 Body mass index [BMI] 22.0-22.9, adult
CPT/HCPCS: 88305; 36430; 49083; 71046; 76700; 80048; 80053; 80076; 81003; 81015; 82042; 82105; 82150; 82570; 82962; 83036; 83605; 83615; 83735; 83880; 84157; 84300; 84443; 84484; 85014; 85018; 85025; 85027; 85610; 86850; 86900; 86901; 86920; 87015; 87070; 87205; 88112; 89051; 90677; 93005; 93975; 94640; 97116; 97163; 97167; 97530; 97535; 99291; 99406; G0009; P9016

== ENCOUNTER 2024-05-05 18:55 | Inpatient (IN) | payer MEDICARE, SELFPAY ==
[2024-05-05 15:03] VITALS: BP 115/94
--- NOTE | 2024-05-05 16:06 | ED.GENMED ---
History of Present Illness
General
Chief Complaint: Breathing Problem
Time Seen by Provider: 05/05/24 15:51
History of Present Illness
History of Present Illness:
73-year-old female with history of COPD, CAD status post CABG, cirrhosis with ascites, hypertension, and hyperlipidemia presents for evaluation of increased work of breathing with exertion and hypoxia at home. The patient denies any shortness of
breath. She reports a dry cough and feels as though she cannot clear any mucus. No fever or chills. She receives weekly paracentesis and has been compliant with her treatments
Past History
Past History
ED Past Medical History: CAD, COPD, HTN, Hypercholesterolemia, IDDM, Hypothyroidism, Psychiatric (Anxiety, Depression) and Other (Back and neck pain, Cirrhosis of the liver, glaucoma, Anemia, )
ED Past Surgical History: Cardiac (CABG X 3, cardia stents) and Tonsilectomy
Social History
Tobacco: Smoker (2 daily)
Alcohol: None
Drug: None
Personal:
Living: with family
Employment: Retired
Review of Systems
Review of Systems
Allergies reviewed?: Yes
All Other Systems: ROS reviewed and negative except as documented in HPI and ROS
Phy Exam
Physical Exam
Physical Exam:
GEN: Well appearing, NAD, WDWN
HEENT: Oral mucosa moist, no scleral icterus
Cardiac: Regular rate
Lung: No respiratory distress, no tachypnea, diminished right breath sounds, no wheezes or rales
MSK: No gross deformity or injuries, no peripheral edema
Skin: Good color, no pallor or jaundice, no rashes
Neuro: AO x3, moves all extremities freely
Psych: Calm, cooperative
Scores
Heart Failure Risk
Heart Failure Risk Score: Not Applicable
Course
Orders/Labs/Results
Orders:
Orders
05/05/24 16:06
Electrocardiogram (*1) Urgent
Reason for Study: Shortness of Breath
EKG- Treatment ONCE
CR Chest - 2 Views Urgent
Comment:
Reason For Exam: SOB/hypoxia
05/05/24 17:07
Complete Blood Count/With Diff Urgent
Comprehensive Metabolic Panel Urgent
NT-proBNP Urgent
Troponin I Urgent
05/05/24 18:02
Type+Screen Urgent
Abnormal Lab Results
05/05/24
17:07
RBC 2.80 L 10^6/uL
(4.20-5.40)
Hgb 7.7 L g/dL
(12.0-16.0)
Hct 25.5 L %
(37.0-47.0)
MCHC 30.2 L g/dL
(33.0-37.0)
RDW 18.7 H %
(11.5-14.5)
Absolute Lymphs (auto) 0.7 L 10^3/uL
(1.2-3.4)
Absolute Monos (auto) 0.7 H 10^3/uL
(0.1-0.6)
Lymphocytes % 11.6 L %
(20.5-51.1)
Monocytes % 12.4 H %
(1.7-9.3)
BUN 30 H mg/dl
(7-17)
Creatinine 2.0 H mg/dL
(0.6-1.0)
Glucose 339 H mg/dl
(70-99)
Calcium 8.3 L mg/dl
(8.4-10.2)
AST 38 H U/L
(14-36)
Alkaline Phosphatase 235 H U/L
(38-126)
Total Protein 6.0 L g/dl
(6.3-8.2)
Albumin 2.6 L g/dl
(3.5-5.0)
05/05/24 17:07
05/05/24 17:07
Vital Signs
Initial and Last Documented VS:
Initial Vital Signs
Temp Pulse Resp BP Pulse Ox
99.2 F 102 16 115/94 89
05/05/24 15:03 05/05/24 15:03 05/05/24 15:03 05/05/24 15:03 05/05/24 15:03
Last Documented Vital Signs
Temp Pulse Resp BP Pulse Ox
99.2 F 96 18 129/53 93
05/05/24 15:03 05/05/24 17:00 05/05/24 17:00 05/05/24 17:00 05/05/24 17:47
MDM/Problems Addressed
MDM/Problems Addressed:
73-year-old female presents the emergency department for evaluation of shortness of breath and hypoxia. Her room air saturations are in the 80s. She is found to have complete opacification of the right hemithorax likely due to a large pleural
effusion. She has no gross infectious symptoms thus antibiotics are not given at this time. Will be admitted to the hospitalist service for IR consultation and potential thoracentesis if indicated
Comment
Comment:
EKG independently interpreted by me shows normal sinus rhythm with changes compatible with LVH, no changes compared to prior
*Critical Care Note
Total Time (30-74mins, 75-104mins- exclusive of procedures): Not Applicable
ED Attending Note
-
Portions of this chart may have been created with voice recognition software.� Occasional wrong word or��sound alike� substitutions may have occurred due to the inherent limitations of voice recognition software.
Discharge Plan
Departure
Patient Disposition: Admit
Date of Disposition: 05/05/24
Time of Disposition: 18:08
Presentation/result/management discussed w/ accepting MD/DO: Hospitalist
Discharge Problem:
Pleural effusion, Acute hypoxemic respiratory failure
Prescriptions:
No Action
levothyroxine 50 mcg Tablet
50 mcg PO DAILY
omeprazole 20 mg Capsule,Delayed Release(Dr/Ec)
20 mg PO DAILY
furosemide 20 mg Tablet
20 mg PO DAILY@1400
gabapentin 100 mg Capsule
100 mg PO TID PRN (Reason: nerve pain)
metoprolol succinate 25 mg Tablet Extended Release 24 Hr
25 mg PO DAILY
diazepam 10 mg Tablet
10 mg PO BIDPRN PRN (Reason: anxiety)
Patient Comments:
09/10/2023, pt. filled this med. on 08/31/2023 for 90 tablets per PDMP.
albuterol sulfate 90 mcg/actuation Hfa Aerosol Inhaler
2 puff INHALATION R Q4HPRN PRN (Reason: sob/wheezing)
insulin lispro [Humalog KwikPen Insulin] 100 unit/mL Insulin Pen
15 unit SC AC
insulin glargine [Lantus Solostar U-100 Insulin] 100 unit/mL (3 mL) Insulin Pen
12 - 15 unit SC HS
Xifaxan 550 mg Tablet
550 mg PO Q12H
oxycodone 15 mg Tablet
15 mg PO QID PRN (Reason: pain ) Qty: 0 0RF
Patient Comments:
09/10/2023, pt. filled this med. on 08/31/2023 for 150 tablets per PDMP.
atorvastatin [Lipitor] 20 mg Tablet
20 mg PO QPM
clopidogrel [Plavix] 75 mg Tablet
75 mg PO DAILY
aspirin 81 mg Tablet,Delayed Release (Dr/Ec)
81 mg PO DAILY
lidocaine 4 % adhesive patch,medicated
1 patch topical DAILY PRN (Reason: pain)
Anoro Ellipta 62.5-25 mcg/actuation blister with device
1 inh inhalation DAILY PRN (Reason: shortness of breath )
lactulose 20 gram/30 mL Solution
20 g PO BID Qty: 1500 0RF
sodium bicarbonate 650 mg Tablet
650 mg PO TID Qty: 90 0RF
cefuroxime axetil 250 mg tablet
250 mg PO BID Qty: 14 0RF
Referrals:
Jaspreet Echeverria, [Family Provider] -
Interventions
Interventions:
*Risk Screen - Suicide Last Done: 05/05/24 15:03
*General Assessment Last Done: 05/05/24 15:03
*Neglect/Abuse Screening Last Done: 05/05/24 15:03
*ED COVID-19 Vaccine History Last Done: 05/05/24 17:09
ED- Cardiac Assessment Last Done: 05/05/24 17:46
ED- Pulmonary Assessment Last Done: 05/05/24 17:47
Discharge Date and Time
Print Language: VINCENTIAN
[2024-05-05 16:55] VITALS: BMI 22.7
[2024-05-05 17:00] VITALS: BP 129/53
[2024-05-05 17:23] LABS: % Eosinophils 5.6 % (0-6); % Immature Granulocytes 0.3 % (0-0.5); % Lymphocytes 11.6 % (20.5-51.1); % Monocytes 12.4 % (1.7-9.3); % Neutrophils 69.1 % (42.2-75.2); Absolute Basophils 0.1 10^3/uL (0-0.2); Absolute Eosinophils 0.3 10^3/uL (0-0.7); Absolute Lymphocytes 0.7 10^3/uL (1.2-3.4); Absolute Monocytes 0.7 10^3/uL (0.1-0.6); Absolute Neutrophils 4.1 10^3/uL (1.4-6.5); Hematocrit 25.5 % (37.0-47.0); Hemoglobin 7.7 g/dL (12.0-16.0); Mean Corp Hgb Conc. 30.2 g/dL (33.0-37.0); Mean Corpuscular Hgb 27.5 pg (27.0-31.0); Mean Corpuscular Volume 91.1 fL (81.0-99.0); Nucleated Red Blood Cells % 0 %; Platelet Count 175 10^3/uL (130-400); Red Cell Dist. Width 18.7 % (11.5-14.5); White Blood Cell Count 5.9 10^3/uL (4.8-10.8)
[2024-05-05 17:47] LABS: ALT (SGPT) 20 U/L (0-35); AST (SGOT) 38 U/L (14-36); Albumin 2.6 g/dl (3.5-5.0); Alkaline Phosphatase 235 U/L (38-126); Blood Urea Nitrogen 30 mg/dl (7-17); Calcium 8.3 mg/dl (8.4-10.2); Carbon Dioxide 26 mmol/L (22-30); Chloride 103 mmol/L (98-107); Estimated Creatinine Clearance 21 ml/min; Glucose 339 mg/dl (70-99); Potassium 4.4 mmol/L (3.5-5.1); Sodium 138 mmol/L (135-145); Total Bilirubin 0.4 mg/dl (0.2-1.3); eGFR 26.05
[2024-05-05 17:58] LABS: NT-proBNP 494 pg/ml; Troponin I 0.014 ng/ml
--- NOTE | 2024-05-05 18:07 | HPS.HSE ---
Family Physician
-
Family Physician: Jaspreet Echeverria
Chief Complaint
-
sob
History of Present Illness
73-year-old female with history of COPD, CAD status post CABG, cirrhosis with ascites, hypertension, and hyperlipidemia presents for evaluation of increased work of breathing which is worse with exertion for one week. she underwent paracentesis on
Wednesday. her sob persisted, which got worse with exertion. denied chest pain. denied fever, chills, runny nose, congestion, and cough. denied abdominal pain, worsening distention, n,v,d. d. denied dysuria or hematuria.
on arrival, she is requiring 2l of oxygen. admitting for further management for pleural effusion.
Medical History
Past Medical History
Past Medical History: Reports Other
Additional Past Medical History:
Hypertension
DM-II
NAFLD
Cirrhosis with Ascites
Chronic HFpEF
Hypothyroidism
History of GI Bleeding
Past Surgical History: Reports Other
Additional Past Surgical History:
ABG
Bilateral Humerus ORIF
Percutaneous Angiography with Stent (2 weeks ago)
Left Foot Surgery (one month ago)
Social History
Tobacco: Former Smoker
Alcohol: None
Drug: None
Living: With Family
Family History
Family History: Not pertinent
Allergies / Home Medications
Allergies reflects when Allergies were last updated in [employer].
Home Medications with original date entered in [employer]
Allergy/Medication List:
Allergies
Allergy/AdvReac Type Severity Reaction Status Date / Time
adhesive Allergy Itching Verified 05/05/24 15:03
Home Medications
albuterol sulfate 90 mcg/actuation aerosol inhaler 2 puff inhalation R Q4HPRN PRN sob/wheezing 09/10/23
diazepam 10 mg tablet 10 mg PO BIDPRN PRN anxiety 09/10/23
furosemide 20 mg tablet 20 mg PO DAILY@1400 Fluid Retention/Swelling 09/10/23
insulin glargine 100 unit/mL (3 mL) subcutaneous pen (Lantus Solostar U-100 Insulin) 12 - 15 unit SC HS diabetes 09/10/23
insulin lispro 100 unit/mL subcutaneous pen (Humalog KwikPen (U-100) Insulin) 15 unit SC AC diabetes 09/10/23
levothyroxine 50 mcg tablet 50 mcg PO DAILY Thyroid 09/10/23
metoprolol succinate 25 mg tablet,extended release 24 hr 25 mg PO DAILY Blood Pressure 09/10/23
omeprazole 20 mg capsule,delayed release 20 mg PO DAILY Gastrointestinal Issue 09/10/23
rifaximin 550 mg tablet (Xifaxan) 550 mg PO Q12H fatty liver disease/cirrhosis 09/10/23
aspirin 81 mg tablet,delayed release 81 mg PO DAILY Blood Clot Prevention/Tx 02/29/24
atorvastatin 20 mg tablet (Lipitor) 20 mg PO QPM High Cholesterol 02/29/24
clopidogrel 75 mg tablet (Plavix) 75 mg PO DAILY Blood Clot Prevention/Tx 02/29/24
lidocaine 4 % topical patch 1 patch topical DAILYPRN PRN topical pain 02/29/24
cefuroxime axetil 250 mg tablet 250 mg PO BID #14 tabs 03/13/24
lactulose 20 gram/30 mL oral solution 20 g (30 mL) PO BID #1,500 mL 03/13/24
sodium bicarbonate 650 mg tablet 650 mg PO TID #90 tabs 03/13/24
albuterol sulfate 2.5 mg/3 mL (0.083 %) solution for nebulization 2.5 mg inhalation R Q4HPRN PRN sob/wheezing 05/05/24
nitroglycerin 0.4 mg sublingual tablet 0.4 mg sublingual [id number] PRN chest pain 05/05/24
oxycodone 15 mg tablet 15 mg PO QIDPRN PRN moderate pain 05/05/24
Review of Systems
-
Constitutional: Reports No Symptoms
EENT: Reports No Symptoms
Respiratory: Reports Cough and Trouble Breathing
Cardiac: Reports No Symptoms
Abdomen/GI: Reports No Symptoms
: Reports No Symptoms
Musculoskeletal: Reports No Symptoms
Skin: Reports No Symptoms
Neurological: Reports No Symptoms
Endocrine: Reports No Symptoms
Hematologic/Lymphatic: Reports No Symptoms
Psych: Reports No Symptoms
Physical Exam
Vital Signs
Vital Signs
Temp Pulse Resp BP Pulse Ox
99.2 F 96 18 129/53 93
05/05/24 15:03 05/05/24 17:00 05/05/24 17:00 05/05/24 17:00 05/05/24 17:47
Physical Exam
General: Well Developed, Well Nourished and No Apparent Distress
HEENT: NormoCephalic, Moist mucous membranes and Atraumatic
Respiratory: Clear
Cardiac: S1/S2 and Regular Rhythm; No Murmur or Rub
GI: Soft, Non Tender, Non Distended and Normal Bowel Sounds; No Organomegaly
Rectal: Deferred by Provider
Musculoskeletal: No Clubbing, No Cyanosis and No Edema
Skin: No Rash
Neuro: AO x 3 and Nonfocal/grossly intact
Psych: Calm
Laboratory Results
-
05/05/24 17:07
05/05/24 17:07
Laboratory Results
Total Bilirubin 0.4 mg/dl (0.2-1.3) 05/05/24 17:07
AST 38 U/L (14-36) H 05/05/24 17:07
ALT 20 U/L (0-35) 05/05/24 17:07
Alkaline Phosphatase 235 U/L (38-126) H 05/05/24 17:07
Troponin I 0.014 ng/ml 05/05/24 17:07
Data Reviewed
-
Diagnostic Radiology: Report Reviewed by me
Lab Data: Labs Reviewed by me
Impression/Plan
-
# Acute hypoxia likely from large right pleural effusion
-Chest x-ray with impression of Complete opacification of the right hemithorax without significant midline shift. Findings may represent large pleural effusion/atelectasis rather than mucous plugging.
-Continue supplemental oxygen to keep sat greater than 95
-Wean as tolerated
-IR consulted
# Anemia of chronic disease
-S/p EGD/push enteroscopy 03/09 with banding of small esophageal varices and APC treatment of multiple AVMs (Dr. Draper). She has known history of varices and AVMs, previously treated with APC 01/28/24 at [facility] (Dr. Adriel Elkins).
Hemoglobin 7.7
No active bleeding
Continue to monitor
-consented for bloody transfusion, if hgb less than 7
# Acute kidney injury on CKD stage IIIb
-Creatinine 2.0
-Continue to monitor
-nephrology consulted
# Type 2 diabetes with hyperglycemia
# Diabetic neuropathy
-Glucose in 300s
-Lantus 10 units at bedtime
-Sliding scale
-Lispro 5 units with meals
-Gabapentin continue
#Decompensated cirrhosis secondary to KRAFT - ascites, esophageal varices, portal hypertensive gastropathy
- Continue lactulose, Xifaxan, PPI
-Hold diuretics
#CAD, h/o CABG 2012
#h/o NSTEMI 01/2024 s/p drug eluting stent placement at [place]
- Home meds include aspirin, statin
-Continue Plavix
# CHF-type unclear. compensated
-Patient not in acute exacerbation
-Strict JEN, daily weight
-Hold diuretic
# Essential Hypertension
- Continue home metoprolol 25mg daily with hold parameters
# Hypothyroidism
-continue Synthroid 50 mcg daily
# Emphysema
-nebs from home continued
# MALT lymphoma-got radiation 5 years ago. Sees at [facility].
# GERD
-PPI continued
# Ex Smoker
# DVT prophylaxis
-scd
# CODE STATUS
-full code
--- NOTE | 2024-05-05 18:10 | W.PN.UPDATE ---
Addendum entered and electronically signed by Sophie Nguyen MD 05/05/24 18:54:
she was on Cefuroxime for a small wound and completed course
Original Note:
Update Note
Progress Note Update
This is an addendum to H&P written by FILM AND VIDEO EDITOR Yaima Hudson
I saw and examined the patient.
The FILM AND VIDEO EDITOR's note was reviewed and I agree with the note.
Comment:
Ms. Lucinda Patterson is a 73 yo woman with history CAD s/p CABG, decompensated KRAFT cirrhosis with ascites (receives weekly paracentesis), esophageal varices status post banding, essential hypertension, DM II, admission 02/28-03/13 for acute on chronic
anemia in setting of GI bleed (s/p EGD with banding of small nonbleeding esophageal varices and APC treatment of AVM) presents to the ER with shortness of breath.
Triage VS: T 99.2, P 102, RR 16, BP 115/94, SpO2 89%
On exam patient is in no acute distress; decreased breath sounds right lung; abdomen distended, non-tender, no LE swelling
LABS: WBC 5.9, HG 7.7, PLT 175, Na 138, K+ 4.4, Cl 103, BUN 30, Cr 2.0 (baseline 1.3-1.5), Glucose 339, T. Bili 0.5, AST 38, ALT 20, Alk Phos 235, Top 0.014, BNP 494
CXR
IMPRESSION:
Complete opacification of the right hemithorax without significant midline shift. Findings may represent large pleural effusion/atelectasis rather than mucous plugging.
Large right pleural effusion likely 2/2 known chronic liver disease and ascites
Shortness of Breath
-admit to tele
-IR consulted for thoracentesis tomorrow AM
-will need adjustment of diuretics before discharge
Acute on Chronic Kidney Disease
-creatinine 2, baseline 1.5
-hold lasix for now (will remove fluid with thoracentesis tomorrow)
-Nephrology consult
-COMPUTER NUMERICAL CONTROL OPERATOR Bicarb
Acute on Chronic Anemia
-near baseline
-no e/o bleeding
-monitor and transfuse if Hg < 7
coronary Artery Disease s/p CABG and s/p PCI 01/25
-continue asa/plavix
-COMPUTER NUMERICAL CONTROL OPERATOR statin
-COMPUTER NUMERICAL CONTROL OPERATOR Metoprolol
Hx Decompensated KRAFT Cirrhosis with Ascites
-COMPUTER NUMERICAL CONTROL OPERATOR Lactulose and Xifaxan
Hx Esophageal Varices s/p banding
-COMPUTER NUMERICAL CONTROL OPERATOR PPI
Essential Hypertension
Hypothyroidism
-COMPUTER NUMERICAL CONTROL OPERATOR synthroid
DM II
Hyperglycemia
-home regimen: lantus 12-15 untis qhs; lispro 15 units AC
-lantus 10 units qhs; 5 units lispro pre-meals
-ISS low
-diabetic diet
DVT PPx SCD
DNR - discussed on admission
76 minutes spent on patient evaluation
[2024-05-05 19:00] VITALS: BP 122/79
[2024-05-05 20:09] VITALS: BP 141/87
[2024-05-05] MEDS: DUPHALAC/CHRONULAC 20 GRAMS PO (22:45)
[2024-05-05 22:50] LABS: Glucose - Point of Care 374 mg/dl (70-99)
[2024-05-05] MEDS: LANTUS 0.1 UNITS SC (23:33)
[2024-05-05] MEDS: NOVOLOG FLEXPEN 9 UNITS SC (23:34)
[2024-05-05 23:35] VITALS: BP 138/86
[2024-05-06] VITALS (8 sets, daily range): BP systolic 77–135; BP diastolic 44–78
[2024-05-06] MEDS: SYNTHROID 50 MCG PO (04:35)
[2024-05-06] MEDS: ROXICODONE 15 MG PO ×2 (04:37→16:34)
[2024-05-06 04:44] LABS: Glucose - Point of Care 139 mg/dl (70-99)
[2024-05-06 07:18] LABS: Hematocrit 24.6 % (37.0-47.0); Hemoglobin 7.4 g/dL (12.0-16.0); Mean Corp Hgb Conc. 30.1 g/dL (33.0-37.0); Mean Corpuscular Hgb 27.4 pg (27.0-31.0); Mean Corpuscular Volume 91.1 fL (81.0-99.0); Mean Platelet Volume 10.3 fL (7.4-10.4); Platelet Count 156 10^3/uL (130-400); Red Cell Dist. Width 18.4 % (11.5-14.5); White Blood Cell Count 5.9 10^3/uL (4.8-10.8)
[2024-05-06 07:54] LABS: Blood Urea Nitrogen 30 mg/dl (7-17); Calcium 8.6 mg/dl (8.4-10.2); Carbon Dioxide 30 mmol/L (22-30); Chloride 105 mmol/L (98-107); Estimated Creatinine Clearance 23 ml/min; Glucose 101 mg/dl (70-99); LDH 211 U/L (120-246); Potassium 4.4 mmol/L (3.5-5.1); Sodium 140 mmol/L (135-145); Total Protein 5.9 g/dl (6.3-8.2); eGFR 29.57
[2024-05-06 08:13] LABS: Glucose - Point of Care 123 mg/dl (70-99)
[2024-05-06 08:35] LABS: Glycohemoglobin (HgbA1c) 6.3 % (4.0-5.6)
[2024-05-06] MEDS: TOPROL XL 25 MG PO (09:05)
[2024-05-06] MEDS: PLAVIX 75 MG PO (09:05)
[2024-05-06] MEDS: XIFAXAN 550 MG PO ×2 (09:05→20:37)
[2024-05-06] MEDS: ASPIR LOW (ENTERIC COATED) 81 MG PO (09:05)
[2024-05-06] MEDS: PROTONIX 40 MG PO (09:06)
[2024-05-06] MEDS: DUPHALAC/CHRONULAC 20 GRAMS PO ×2 (09:06→20:37)
--- NOTE | 2024-05-06 09:52 | W.PN.HOSP.TC ---
Today's Communication/Plan
-
thoracentesis today
renal eval
Assessment / Plan
Assessment / Plan
Ms. Lucinda Patterson is a 73 yo woman with history CAD s/p CABG, decompensated KRAFT cirrhosis with ascites (receives weekly paracentesis), esophageal varices status post banding, essential hypertension, DM II, admission 02/28-03/13 for acute on chronic
anemia in setting of GI bleed (s/p EGD with banding of small nonbleeding esophageal varices and APC treatment of AVM) presents to the ER with shortness of breath.
CXR
IMPRESSION:
Complete opacification of the right hemithorax without significant midline shift. Findings may represent large pleural effusion/atelectasis rather than mucous plugging.
Large right pleural effusion likely 2/2 known chronic liver disease and ascites
Shortness of Breath
-admit to tele
-IR consulted for thoracentesis this AM - send off fluid studies
-will need adjustment of diuretics before discharge
Acute on Chronic Kidney Disease
-creatinine 2, baseline 1.5; down to 1.8 this AM
-hold lasix for now (will remove fluid with thoracentesis today)
-Nephrology consult
-LABORER CUTTING TOOL Bicarb
Acute on Chronic Anemia
-near baseline
-no e/o bleeding
-monitor and transfuse if Hg < 7
coronary Artery Disease s/p CABG and s/p PCI 01/25
-continue asa/plavix
-LABORER CUTTING TOOL statin
-LABORER CUTTING TOOL Metoprolol
Hx Decompensated KRAFT Cirrhosis with Ascites
-LABORER CUTTING TOOL Lactulose and Xifaxan
Hx Esophageal Varices s/p banding
-LABORER CUTTING TOOL PPI
Essential Hypertension
Hypothyroidism
-LABORER CUTTING TOOL synthroid
DM II
Hyperglycemia
-home regimen: lantus 12-15 untis qhs; lispro 15 units AC
-lantus 10 units qhs; 5 units lispro pre-meals
-ISS low
-diabetic diet
DVT PPx SCD
DNR - discussed on admission
76 minutes spent on patient evaluation
Anticipated Discharge: 24 - 48 hours
Subjective/Interval History
-
Date of Service: May 06, 2024
states she is feeling better today
sitting up and eating breakfast
Objective Data
-
Labs:
Laboratory Results
05/05/24 05/06/24
21:00 06:07
WBC 5.9
Hgb 7.4 L
Hct Cancelled 24.6 L
Plt Count 156
Sodium 140
Potassium 4.4
Chloride 105
Carbon Dioxide 30
BUN 30 H
Creatinine 1.8 H
Glucose Cancelled 101 H
Calcium 8.6
Vital Signs:
Vital Signs
Temp Pulse Resp BP Pulse Ox
97.8 F 85 16 124/62 100
05/06/24 07:50 05/06/24 09:05 05/06/24 07:50 05/06/24 09:05 05/06/24 07:50
I&O
05/05/24 05/06/24 05/07/24
06:59 06:59 05:59
Intake Total 480 / 480
Balance 480 / 480
Review of Systems
-
History Source: Patient
All other systems: Reviewed and negative
Physical Exam
-
General: No Apparent Distress and Appears Chronically Ill
HEENT: PERRLA
Respiratory: Decreased Breath Sounds (right lung)
Cardiac: Regular Rhythm and S1/S2
GI: Other (distended, non-tender )
Musculoskeletal: No Edema
Skin: Warm and Dry; Negative Rash
Neuro: AO x 3
Psych: Calm
Data Reviewed
-
Diagnostic Radiology: Report Reviewed by me
Labs: Labs Reviewed by me
[2024-05-06] MEDS: NOVOLOG FLEXPEN-MODERATE RESISTANCE SC ×3 (09:53→16:45)
[2024-05-06] MEDS: NOVOLOG FLEXPEN 5 UNITS SC ×2 (09:54→12:44)
[2024-05-06 10:22] LABS: Iron 35 ug/dl (37-170)
[2024-05-06 10:31] LABS: Percent Saturation 14 % (20-50); Total Iron Binding Capacity 241 ug/dl (265-497)
--- NOTE | 2024-05-06 11:02 | W.CON.NEPH ---
Consultation
-
Date/Time Consultation Requested: 05/06/24 0900
Date/Time Consultation Performed: 05/06/24 1100
Requesting Provider: Dr. Nguyen
Performing Provider: Dr. Shrestha
Reason for Consultation: ALIX
Medical History
-
Chief Complaint: ALIX
History of Present Illness:
Patient is a 73y F with MASH, cirrhosis requiring recurrent paracentesis for ascites, hypertension on a monotherapy regimen and DM2 (maintained on Insulin therapy) who presents to ED complaining of shortness of breath.
Last Wednesday but continued to remain short of breath. She denies any pain or abdominal distention. Blood work has shown elevated creatinine at 2.0 representing acute kidney injury from her CKD 3B baseline of 1.5.
She is also noted to be anemic with mild iron deficiency. This is slightly worse than previously. She was just in the hospital in March for volume issues.
Past Medical History
ASCVD
Hypertension
DM-II
NAFLD
Cirrhosis with Ascites
Chronic HFpEF
Hypothyroidism
History of GI Bleeding
Chronic kidney disease with baseline creatinine of 1.3
History of prior banding for esophageal varices
History of coronary artery disease status post CABG
History of recent non-ST elevation IN with coronary artery stenting in January 2024
Social History
Tobacco: Smoker
Alcohol: None
Drug: None
Family History
no CKD
Allergies / Home Medications
Allergy/AdvReac Type Severity Reaction Status Date / Time
adhesive Allergy Itching Verified 05/05/24 15:03
�Medication �Instructions �Recorded �Confirmed �Type
albuterol sulfate 90 mcg/actuation 2 puff inhalation R Q4HPRN PRN 09/10/23 05/05/24 History
aerosol inhaler sob/wheezing
diazepam 10 mg tablet 10 mg PO BIDPRN PRN anxiety 09/10/23 05/05/24 History
furosemide 20 mg tablet 20 mg PO DAILY@1400 Fluid 09/10/23 05/05/24 History
Retention/Swelling
insulin glargine 100 unit/mL (3 12 - 15 unit SC HS diabetes 09/10/23 05/05/24 History
mL) subcutaneous pen (Lantus
Solostar U-100 Insulin)
insulin lispro 100 unit/mL 15 unit SC AC diabetes 09/10/23 05/05/24 History
subcutaneous pen (Humalog KwikPen
(U-100) Insulin)
levothyroxine 50 mcg tablet 50 mcg PO DAILY Thyroid 09/10/23 05/05/24 History
metoprolol succinate 25 mg 25 mg PO DAILY Blood Pressure 09/10/23 05/05/24 History
tablet,extended release 24 hr
omeprazole 20 mg capsule,delayed 20 mg PO DAILY Gastrointestinal 09/10/23 05/05/24 History
release Issue
rifaximin 550 mg tablet (Xifaxan) 550 mg PO Q12H fatty liver 09/10/23 05/05/24 History
disease/cirrhosis
aspirin 81 mg tablet,delayed 81 mg PO DAILY Blood Clot 02/29/24 05/05/24 History
release Prevention/Tx
atorvastatin 20 mg tablet (Lipitor) 20 mg PO QPM High Cholesterol 02/29/24 05/05/24 History
clopidogrel 75 mg tablet (Plavix) 75 mg PO DAILY Blood Clot 02/29/24 05/05/24 History
Prevention/Tx
lidocaine 4 % topical patch 1 patch topical DAILYPRN PRN 02/29/24 05/05/24 History
topical pain
lactulose 20 gram/30 mL oral 20 g (30 mL) PO BID #1,500 mL 03/13/24 05/05/24 Rx
solution
sodium bicarbonate 650 mg tablet 650 mg PO TID #90 tabs 03/13/24 05/05/24 Rx
albuterol sulfate 2.5 mg/3 mL 2.5 mg inhalation R Q4HPRN PRN 05/05/24 05/05/24 History
(0.083 %) solution for nebulization sob/wheezing
nitroglycerin 0.4 mg sublingual 0.4 mg sublingual [id number] PRN 05/05/24 05/05/24 History
tablet chest pain
oxycodone 15 mg tablet 15 mg PO QIDPRN PRN moderate pain 05/05/24 05/05/24 History
Review of Systems
-
No chest pain, minimal shortness of breath
All other systems: Negative unless noted
Physical Exam
Vital Signs
Vital Signs
Temp Pulse Resp BP Pulse Ox
97.8 F 85 16 124/62 100
05/06/24 07:50 05/06/24 09:05 05/06/24 07:50 05/06/24 09:05 05/06/24 07:50
Lab Results
WBC 5.9 10^3/uL (4.8-10.8) 05/06/24 06:07
RBC 2.70 10^6/uL (4.20-5.40) L 05/06/24 06:07
Hgb 7.4 g/dL (12.0-16.0) L 05/06/24 06:07
Hct 24.6 % (37.0-47.0) L 05/06/24 06:07
Plt Count 156 10^3/uL (130-400) 05/06/24 06:07
Sodium 140 mmol/L (135-145) 05/06/24 06:07
Potassium 4.4 mmol/L (3.5-5.1) 05/06/24 06:07
Chloride 105 mmol/L (98-107) 05/06/24 06:07
Carbon Dioxide 30 mmol/L (22-30) 05/06/24 06:07
BUN 30 mg/dl (7-17) H 05/06/24 06:07
Creatinine 1.8 mg/dL (0.6-1.0) H 05/06/24 06:07
eGFR 29.57 11/02/24 06:07
Glucose 101 mg/dl (70-99) H 05/06/24 06:07
Calcium 8.6 mg/dl (8.4-10.2) 05/06/24 06:07
Xwh-I-Jhfkdfhnasg Pept 494 pg/ml 05/05/24 17:07
Albumin 2.6 g/dl (3.5-5.0) L 05/05/24 17:07
Laboratory Tests
03/13/24 05/06/24
07:30 06:07
Hgb 8.0 L
Carbon Dioxide 23
Creatinine 1.5 H
Iron 35 L
TIBC 241 L
% Saturation 14 L
Physical Exam
Patient is awake alert oriented and in no distress. Mood and affect were pleasant, insight and judgment were good. Pupils are equal round and reactive to light, extraocular movements are intact, sclera were anicteric. Hearing was normal, ears and
nose are intact. Oropharynx was clear. Neck was supple with trachea midline and no thyromegaly. Heart was regular rate and rhythm without rubs. Lower extremities without edema. Lungs were clear to auscultation on the left but only bronchial breath
sounds on the right and with normal excursion. Abdomen was soft, nontender, with normal active bowel sounds, and no hepatosplenomegaly. Skin was without rash and with normal turgor.
Data Reviewed
-
Radiology: Image Personally Visualized and interpreted (Chest x-ray on 05/05/2024 by my reading shows right hemithorax opacification, new since last x-ray March 03, 2024)
Medical Tests (Nuc Med, Echo etc): Image Personally Visualized and interpreted (EKG on 05/05/2024 by my reading shows normal sinus rhythm LVH)
Labs: Labs Reviewed by me
Old Records: Reviewed
Assessment/Plan
-
Impression:
Non gap metabolic acidosis
CKD stage IIIb
Anemia
Cirrhosis with recurrent ascites requiring chronic paracentesis
CAD with history of CABG 2012
HFpEF
COPD
Hypoalbuminemia
GERD
Hypothyroidism
History of MALT lymphoma
History of gastric and duodenal angioectasias
large right effusion
Plan:
follow BMP
ALIX may be related to recent LVP
holding lasix
for thoracentesis
dc bicarb
[2024-05-06 11:44] LABS: Glucose - Point of Care 80 mg/dl (70-99)
[2024-05-06 15:05] LABS: Body Fluid Mononuclear 88.5 %; Body Fluid Polymorphonuclear 11.5 %; Body Fluid WBC 244 /CUMM
[2024-05-06 15:09] LABS: Body Fluid pH 7.44
--- NOTE | 2024-05-06 15:10 | PTCARENOTE ---
patient returned from IR s/p right thoracentesis. right back with band aid c/d/i. reports 'soreness at site'. no c/o dizziness or lightheadedness, no sob at rest, vss, will continue to monitor.
[2024-05-06 15:27] LABS: Body Fluid Amylase < 30 U/L; Body Fluid Glucose 109 mg/dl; Body Fluid LDH 107 U/L; Body Fluid Protein < 2.0 g/dl; Body Fluid Triglycerides < 30 mg/dl
[2024-05-06 15:31] LABS: Body Fluid Second Tech ASW
[2024-05-06 16:43] LABS: Glucose - Point of Care 49 mg/dl (70-99)
[2024-05-06] MEDS: NOVOLOG FLEXPEN SC (16:45)
[2024-05-06 17:05] LABS: Glucose - Point of Care 49 mg/dl (70-99)
[2024-05-06 17:34] LABS: Glucose - Point of Care 63 mg/dl (70-99)
--- NOTE | 2024-05-06 17:34 | PTCARENOTE ---
patient was medicated with PRN Roxicodone for c/o of right upper back pain where thoracentesis was done. Pain decreased from 6 to 0/10, will continue to monitor.
[2024-05-06] MEDS: LIPITOR 20 MG PO (17:52)
[2024-05-06] MEDS: DEXTROSE 50% SYRINGE 12.5 GRAMS IV (18:07)
[2024-05-06 18:29] LABS: Glucose - Point of Care 146 mg/dl (70-99)
--- NOTE | 2024-05-06 18:30 | PTCARENOTE ---
patient's accucheck at 1642 was 46, no s/s of hypoglycemia at that time. able to take PO. 4oz juice given and rechecked at 1703 and was 49. another 4oz juice given and rechecked at 1732 and it was 63. Notified Dr. Santiago per protocol and she said
to give to already ordered Dextrose 50% syringe 12.5grams IV already ordered. at 1827, accucheck 146, will continue to monitor.
[2024-05-06] MEDS: LIDOCAINE 4% PATCH 1 PATCH TOPICAL (20:37)
[2024-05-06 21:39] LABS: Glucose - Point of Care 166 mg/dl (70-99)
[2024-05-06] MEDS: LANTUS 0.1 UNITS SC (21:53)
[2024-05-06] MEDS: VALIUM 5 MG PO (21:54)
[2024-05-07 02:31] LABS: Glucose - Point of Care 158 mg/dl (70-99)
--- NOTE | 2024-05-07 03:03 | PTCARENOTE ---
Tele monitor alarming for leads off. Patient found locked in the bathroom with gown, oxygen and tele monitor off. Requested to have patient open the door, patient responded 'I'm taking a shit, you dummy.' Again, patient asked to unlock the door in
order to have oxygen placed back on, patient again responded, 'No, dummy. Wait a minute.' Patient exited bathroom and almost fell forward into the sink, unsteady on feet. When back to bed, patient proceeded to call this RN and primary RN 'shit
heads' for waking her up. Patient confused at this time, thinking we are in her home and stating she is going to go downstairs. Reoriented to hospital. Bed alarm placed, oxygen placed back on patient and new tele leads placed on patient. Currently
patient is resting in bed, alarm maintained, call pacheco in reach.
[2024-05-07 03:35] VITALS: BP 128/57
[2024-05-07 05:07] LABS: Hematocrit 25.6 % (37.0-47.0); Mean Corp Hgb Conc. 31.3 g/dL (33.0-37.0); Mean Corpuscular Hgb 28.3 pg (27.0-31.0); Mean Corpuscular Volume 90.5 fL (81.0-99.0); Mean Platelet Volume 10.7 fL (7.4-10.4); Platelet Count 144 10^3/uL (130-400); Red Blood Cell Count 2.83 10^6/uL (4.20-5.40); Red Cell Dist. Width 17.7 % (11.5-14.5); White Blood Cell Count 7.8 10^3/uL (4.8-10.8)
[2024-05-07 05:30] LABS: Blood Urea Nitrogen 31 mg/dl (7-17); Calcium 8.3 mg/dl (8.4-10.2); Carbon Dioxide 26 mmol/L (22-30); Chloride 103 mmol/L (98-107); Estimated Creatinine Clearance 26 ml/min; Glucose 150 mg/dl (70-99); Potassium 4.9 mmol/L (3.5-5.1); Sodium 136 mmol/L (135-145); eGFR 34.05
[2024-05-07] MEDS: SYNTHROID 50 MCG PO (06:07)
[2024-05-07 07:25] VITALS: BP 108/44
[2024-05-07 08:56] LABS: Glucose - Point of Care 140 mg/dl (70-99)
[2024-05-07] MEDS: NOVOLOG FLEXPEN-MODERATE RESISTANCE SC (09:25)
[2024-05-07] MEDS: DUPHALAC/CHRONULAC 20 GRAMS PO ×2 (09:26→20:22)
[2024-05-07] MEDS: LASIX 40 MG PO (09:26)
[2024-05-07] MEDS: PROTONIX 40 MG PO (09:27)
[2024-05-07] MEDS: NICODERM TRANSDERMAL 7 MG TRANSDERM (09:27)
[2024-05-07] MEDS: XIFAXAN 550 MG PO ×2 (09:27→20:22)
[2024-05-07] MEDS: TOPROL XL PO (09:27)
[2024-05-07] MEDS: ASPIR LOW (ENTERIC COATED) 81 MG PO (09:28)
[2024-05-07] MEDS: PLAVIX 75 MG PO (09:28)
[2024-05-07] MEDS: NOVOLOG FLEXPEN 5 UNITS SC ×3 (09:28→17:27)
--- NOTE | 2024-05-07 09:31 | W.PN.HOSP.TC ---
Today's Communication/Plan
-
OK for DC if oxygen testing OK
Assessment / Plan
Assessment / Plan
Ms. Lucinda Patterson is a 73 yo woman with history CAD s/p CABG, decompensated KRAFT cirrhosis with ascites (receives weekly paracentesis), esophageal varices status post banding, essential hypertension, DM II, admission 02/28-03/13 for acute on chronic
anemia in setting of GI bleed (s/p EGD with banding of small nonbleeding esophageal varices and APC treatment of AVM) presents to the ER with shortness of breath.
CXR
IMPRESSION:
Complete opacification of the right hemithorax without significant midline shift. Findings may represent large pleural effusion/atelectasis rather than mucous plugging.
Large right pleural effusion likely 2/2 known chronic liver disease and ascites
Shortness of Breath
-admit to tele
-s/p IR guided thoracentesis - transudative
-increase lasix to 40mg PO QD
-patient will need close outpatient follow up
-home O2 testing this morning
Acute on Chronic Kidney Disease
-creatinine 2,
-now back to baseline
-Nephrology consult
-BIOLOGY DEPARTMENT CHAIR Bicarb
Acute on Chronic Anemia
-near baseline
-no e/o bleeding
-monitor and transfuse if Hg < 7
coronary Artery Disease s/p CABG and s/p PCI 01/25
-continue asa/plavix
-BIOLOGY DEPARTMENT CHAIR statin
-BIOLOGY DEPARTMENT CHAIR Metoprolol
Hx Decompensated KRAFT Cirrhosis with Ascites
-BIOLOGY DEPARTMENT CHAIR Lactulose and Xifaxan
Hx Esophageal Varices s/p banding
-BIOLOGY DEPARTMENT CHAIR PPI
Essential Hypertension
Hypothyroidism
-BIOLOGY DEPARTMENT CHAIR synthroid
DM II
Hyperglycemia
-home regimen: lantus 12-15 untis qhs; lispro 15 units AC
-lantus 10 units qhs; 5 units lispro pre-meals
-ISS low
-diabetic diet
DVT PPx SCD
DNR - discussed on admission
76 minutes spent on patient evaluation
Anticipated Discharge: Within 24 hours
Subjective/Interval History
-
Date of Service: May 07, 2024
feeling well and hoping to go home today
Objective Data
-
Labs:
Laboratory Results
05/07/24
04:55
WBC 7.8
Hgb 8.0 L
Hct 25.6 L
Plt Count 144
Sodium 136
Potassium 4.9
Chloride 103
Carbon Dioxide 26
BUN 31 H
Creatinine 1.6 H
Glucose 150 H
Calcium 8.3 L
Vital Signs:
Vital Signs
Temp Pulse Resp BP Pulse Ox
97.7 F 72 16 108/44 94
05/07/24 07:25 05/07/24 07:25 05/07/24 07:25 05/07/24 07:25 05/07/24 07:25
I&O
05/06/24 05/07/24 05/08/24
07:59 06:59 06:59
Intake Total
Balance
Review of Systems
-
History Source: Patient
All other systems: Reviewed and negative
Physical Exam
-
General: No Apparent Distress and Appears Chronically Ill
HEENT: PERRLA
Respiratory: Decreased Breath Sounds (right lung)
Cardiac: Regular Rhythm and S1/S2
GI: Other (distended, non-tender )
Musculoskeletal: No Edema
Skin: Warm and Dry; Negative Rash
Neuro: AO x 3
Psych: Calm
Data Reviewed
-
Diagnostic Radiology: Report Reviewed by me
Labs: Labs Reviewed by me
--- NOTE | 2024-05-07 10:12 | W.PN.NEPH.PH ---
Today's Communication / Plan
-
follow BMP
Assessment/Plan
-
Impression:
Non gap metabolic acidosis
CKD stage IIIb
Anemia
Cirrhosis with recurrent ascites requiring chronic paracentesis
CAD with history of CABG 2012
HFpEF
COPD
Hypoalbuminemia
GERD
Hypothyroidism
History of MALT lymphoma
History of gastric and duodenal angioectasias
large right effusion s/p thoracentesis 2L 05/05
Plan:
follow BMP
ALIX may be related to recent LVP
restart lasix
-
-
Date of Service: May 07, 2024
CC / HPI / ROS
-
Chief Complaint:
ALIX
History of Present Illness:
ALIX/Cr down to 1.6
BP stable
s/p thoracentesis right 2L
Review of Systems:
no CP/SOB
Labs
-
Labs:
WBC 7.8 10^3/uL (4.8-10.8) 05/07/24 04:55
RBC 2.83 10^6/uL (4.20-5.40) L 05/07/24 04:55
Hgb 8.0 g/dL (12.0-16.0) L 05/07/24 04:55
Hct 25.6 % (37.0-47.0) L 05/07/24 04:55
Plt Count 144 10^3/uL (130-400) 05/07/24 04:55
Sodium 136 mmol/L (135-145) 05/07/24 04:55
Potassium 4.9 mmol/L (3.5-5.1) 05/07/24 04:55
Chloride 103 mmol/L (98-107) 05/07/24 04:55
Carbon Dioxide 26 mmol/L (22-30) 05/07/24 04:55
BUN 31 mg/dl (7-17) H 05/07/24 04:55
Creatinine 1.6 mg/dL (0.6-1.0) H 05/07/24 04:55
eGFR 34.05 05/07/24 04:55
Glucose 150 mg/dl (70-99) H 05/07/24 04:55
Calcium 8.3 mg/dl (8.4-10.2) L 05/07/24 04:55
Tbo-T-Tepugtomwxb Pept 494 pg/ml 05/05/24 17:07
Albumin 2.6 g/dl (3.5-5.0) L 05/05/24 17:07
Physical Exam
-
Vital Signs:
Vital Signs
Temp Pulse Resp BP Pulse Ox
97.7 F 72 16 108/44 94
05/07/24 07:25 05/07/24 07:25 05/07/24 07:25 05/07/24 07:25 05/07/24 07:25
Cardiovascular:: Regular rate and rhythm
Respiratory:: Bilateral: Coarse (decreased right)
Lung Excursion:: Normal
Abdomen:: Nontender and Soft
Bowel Sounds:: Normal
Extremity Edema:: None: Bilateral:
--- NOTE | 2024-05-07 10:25 | RESPNOTE ---
Respiratory: patient's SpO2 on Room Air 87%, placed on 3 LPM Oxygen nasal cannula walked 150 ft. SpO2 93%. Tolerated well, no SOB with Oxygen.
[2024-05-07 11:05] VITALS: BP 108/38
[2024-05-07 11:48] LABS: Glucose - Point of Care 220 mg/dl (70-99)
--- NOTE | 2024-05-07 12:02 | W.PN.UPDATE ---
Update Note
Progress Note Update
Patient continues to require oxygen at rest (87% on room air). There continues to be fluid in lung. I discussed case with Dr. Adams who will try to drain more fluid tomorrow with repeat thoracentesis. Would like to try to avoid discharging
patient on home oxygen. I called patient and updated her, she understands. I left message for daughter to call me back.
IR consult placed for repeat thoracentesis.
[2024-05-07] MEDS: NOVOLOG FLEXPEN-MODERATE RESISTANCE 5 UNITS SC ×2 (14:25→17:28)
[2024-05-07 14:34] LABS: Glucose - Point of Care 293 mg/dl (70-99)
[2024-05-07 15:30] VITALS: BP 128/64
[2024-05-07 17:17] LABS: Glucose - Point of Care 258 mg/dl (70-99)
[2024-05-07] MEDS: LIPITOR 20 MG PO (17:28)
[2024-05-07 19:40] VITALS: BP 139/51
[2024-05-07 21:59] LABS: Glucose - Point of Care 122 mg/dl (70-99)
[2024-05-07] MEDS: LANTUS 0.1 UNITS SC (22:14)
[2024-05-07] MEDS: TYLENOL 650 MG PO (22:28)
[2024-05-07 23:57] VITALS: BP 131/93
[2024-05-08] VITALS (10 sets, daily range): BP systolic 76–153; BP diastolic 44–68; BMI 21.0
[2024-05-08] MEDS: TYLENOL 650 MG PO (05:26)
[2024-05-08] MEDS: SYNTHROID 50 MCG PO (05:26)
[2024-05-08 06:17] LABS: Blood Urea Nitrogen 31 mg/dl (7-17); Calcium 8.2 mg/dl (8.4-10.2); Carbon Dioxide 25 mmol/L (22-30); Chloride 105 mmol/L (98-107); Estimated Creatinine Clearance 22 ml/min; Glucose 137 mg/dl (70-99); Potassium 4.3 mmol/L (3.5-5.1); Sodium 138 mmol/L (135-145); eGFR 27.71
[2024-05-08 07:44] LABS: Glucose - Point of Care 246 mg/dl (70-99)
--- NOTE | 2024-05-08 08:50 | W.PN.HOSP.TC ---
Today's Communication/Plan
-
Right thoracentesis today. Plan to repeat abdominal paracentesis as well.
Assessment / Plan
Assessment / Plan
Physical exam:
General: Acute on chronically ill
HEENT: Normocephalic, Atraumatic and Moist Mucous Membranes
Respiratory: Decreased breath sounds on the right; Negative Wheezes, Rales or Rhonchi
Cardiac: Regular Rhythm and S1/S2
GI: Soft, Nontender and Distended, positive fluid wave
Musculoskeletal: No Clubbing, No Cyanosis and No Edema
Neuro: Awake, Alert and Oriented, no neurodeficits
Psych: Calm
A/P:
Ms. Lucinda Patterson is a 73 yo woman with history CAD s/p CABG, decompensated KRAFT cirrhosis with ascites (receives weekly paracentesis), esophageal varices status post banding, essential hypertension, DM II, admission 02/28-03/13 for acute on chronic
anemia in setting of GI bleed (s/p EGD with banding of small nonbleeding esophageal varices and APC treatment of AVM) presents to the ER with shortness of breath.
CXR
IMPRESSION:
Complete opacification of the right hemithorax without significant midline shift. Findings may represent large pleural effusion/atelectasis rather than mucous plugging.
Large right pleural effusion likely 2/2 known chronic liver disease and ascites
Shortness of Breath
-admit to tele
-s/p IR guided thoracentesis - transudative. Patient for repeat thoracentesis today.
-increase lasix to 40mg PO QD-hold for now until follow-up renal function
-patient will need close outpatient follow up
-home O2 testing
-Discussed with daughter over the phone today on 05/08
Abdominal ascites, recurrent
Consulted IR to repeat abdominal paracentesis today on 05/08
Albumin as needed
Acute on Chronic Kidney Disease
-creatinine 1.9. Hold diuretics until next renal function
-now back to baseline
-Nephrology consult
-RIVET TESTER Bicarb
Acute on Chronic Anemia
-near baseline
-no e/o bleeding
-monitor and transfuse if Hg < 7
coronary Artery Disease s/p CABG and s/p PCI 01/25
-continue asa/plavix
-RIVET TESTER statin
-RIVET TESTER Metoprolol
Hx Decompensated KRAFT Cirrhosis with Ascites
-RIVET TESTER Lactulose and Xifaxan
Hx Esophageal Varices s/p banding
-RIVET TESTER PPI
Essential Hypertension
Hypothyroidism
-RIVET TESTER synthroid
DM II
Hyperglycemia
-home regimen: lantus 12-15 untis qhs; lispro 15 units AC
-lantus 10 units qhs; 5 units lispro pre-meals
-ISS low
-diabetic diet
DVT PPx SCD
DNR
Total time spent on today's encounter was 52 minutes which included time spent in counseling the patient/family regarding diagnosis and treatment plan as listed above, goals of care, and symptom management. Case was discussed with nursing staff,
specialists, and care coordinators/case management. All labs and imaging personally reviewed by me. Remainder the time spent in detailed review of previous records, lab data, imaging, and other medical provider documentation.
Anticipated Discharge: 24 - 48 hours
Subjective/Interval History
-
Date of Service: May 08, 2024
Patient with less shortness of breath. Patient has some increased abdominal distention today.
Objective Data
-
Labs:
Laboratory Results
05/08/24
05:21
Sodium 138
Potassium 4.3
Chloride 105
Carbon Dioxide 25
BUN 31 H
Creatinine 1.9 H
Glucose 137 H
Calcium 8.2 L
Vital Signs:
Vital Signs
Temp Pulse Resp BP Pulse Ox
98.1 F 81 18 135/68 100
05/08/24 08:25 05/08/24 08:25 05/08/24 08:25 05/08/24 08:25 05/08/24 08:25
I&O
05/07/24 05/08/24 05/09/24
06:59 06:59 06:59
Intake Total 900 / 900
Balance 900 / 900
--- NOTE | 2024-05-08 09:09 | W.PN.NEPH.PH ---
Today's Communication / Plan
-
please check daily weights
For repeat thoracentesis today
Assessment/Plan
-
Impression:
Non gap metabolic acidosis
CKD stage IIIb
Anemia
Cirrhosis with recurrent ascites requiring chronic paracentesis
CAD with history of CABG 2012
HFpEF
COPD
Hypoalbuminemia
GERD
Hypothyroidism
History of MALT lymphoma
History of gastric and duodenal angioectasias
large right effusion s/p thoracentesis 2L 05/05
Plan:
follow BMP
Creatinine up to 1.9
ALIX may be related to recent LVP
lasix at 40 mg daily
Third spacing edema due to hypoalbuminemia in setting of end-stage liver disease
Neither urine output or weights have been recorded
-
-
Date of Service: May 08, 2024
CC / HPI / ROS
-
Chief Complaint:
ALIX
History of Present Illness:
ALIX/Cr up to 1.9
BP stable
s/p thoracentesis right 2L
Review of Systems:
no CP/SOB
Labs
-
Labs:
WBC 7.8 10^3/uL (4.8-10.8) 05/07/24 04:55
RBC 2.83 10^6/uL (4.20-5.40) L 05/07/24 04:55
Hgb 8.0 g/dL (12.0-16.0) L 05/07/24 04:55
Hct 25.6 % (37.0-47.0) L 05/07/24 04:55
Plt Count 144 10^3/uL (130-400) 05/07/24 04:55
Sodium 138 mmol/L (135-145) 05/08/24 05:21
Potassium 4.3 mmol/L (3.5-5.1) 05/08/24 05:21
Chloride 105 mmol/L (98-107) 05/08/24 05:21
Carbon Dioxide 25 mmol/L (22-30) 05/08/24 05:21
BUN 31 mg/dl (7-17) H 05/08/24 05:21
Creatinine 1.9 mg/dL (0.6-1.0) H 05/08/24 05:21
eGFR 27.71 05/08/24 05:21
Glucose 137 mg/dl (70-99) H 05/08/24 05:21
Calcium 8.2 mg/dl (8.4-10.2) L 05/08/24 05:21
Htv-H-Vpibsndbwfw Pept 494 pg/ml 05/05/24 17:07
Albumin 2.6 g/dl (3.5-5.0) L 05/05/24 17:07
Physical Exam
-
Vital Signs:
Vital Signs
Temp Pulse Resp BP Pulse Ox
98.1 F 85 16 153/57 97
05/08/24 08:25 05/08/24 08:50 05/08/24 08:50 05/08/24 08:50 05/08/24 09:06
Cardiovascular:: Regular rate and rhythm
Respiratory:: Bilateral: Coarse (decreased right)
Lung Excursion:: Normal
Abdomen:: Nontender and Soft
Bowel Sounds:: Normal
Extremity Edema:: None: Bilateral:
[2024-05-08] MEDS: NICODERM TRANSDERMAL 7 MG TRANSDERM (09:36)
[2024-05-08] MEDS: DUPHALAC/CHRONULAC 20 GRAMS PO ×2 (09:37→19:39)
[2024-05-08] MEDS: XIFAXAN 550 MG PO ×2 (09:37→19:39)
[2024-05-08] MEDS: PROTONIX 40 MG PO (09:37)
[2024-05-08] MEDS: ASPIR LOW (ENTERIC COATED) 81 MG PO (09:38)
[2024-05-08] MEDS: LASIX 40 MG PO (09:38)
[2024-05-08] MEDS: PLAVIX 75 MG PO (09:38)
[2024-05-08] MEDS: TOPROL XL 25 MG PO (09:39)
[2024-05-08] MEDS: NOVOLOG FLEXPEN-MODERATE RESISTANCE 3 UNITS SC (09:40)
[2024-05-08] MEDS: NOVOLOG FLEXPEN 5 UNITS SC ×3 (09:40→17:17)
[2024-05-08] MEDS: ROXICODONE 15 MG PO ×2 (09:45→17:54)
[2024-05-08 11:43] LABS: Glucose - Point of Care 268 mg/dl (70-99)
[2024-05-08 14:30] LABS: Body Fluid Mononuclear 91.9 %; Body Fluid Polymorphonuclear 8.1 %; Body Fluid WBC 87 /CUMM
[2024-05-08 14:32] LABS: Body Fluid Second Tech AMA
--- NOTE | 2024-05-08 14:35 | CM ---
Alert awake oriented patient who lives with her daughter Yasmin granddaughter Pati who lives in a one story 4 steps to enter.She is assisted in all activities of daily living.She has care givers 2 hrs daily with waiver with [employer].Offered VN she
declined.
No adaptive devices
Never had VN/SNF
Pharmacy [facility]
PCP Dr Echeverria
PLAN Home no needs. Watch for oxygen needs
[2024-05-08] MEDS: NOVOLOG FLEXPEN-MODERATE RESISTANCE 5 UNITS SC (14:48)
[2024-05-08 17:03] LABS: Glucose - Point of Care 86 mg/dl (70-99)
[2024-05-08] MEDS: NOVOLOG FLEXPEN-MODERATE RESISTANCE SC (17:18)
[2024-05-08] MEDS: LIPITOR 20 MG PO (17:19)
[2024-05-08 21:03] LABS: Glucose - Point of Care 67 mg/dl (70-99)
[2024-05-08 21:23] LABS: Glucose - Point of Care 69 mg/dl (70-99)
[2024-05-08 21:43] LABS: Glucose - Point of Care 90 mg/dl (70-99)
[2024-05-08] MEDS: LANTUS SC (22:05)
[2024-05-09] VITALS (7 sets, daily range): BP systolic 93–154; BP diastolic 42–67; PULSE 89; O2SAT 97; BMI 20.6
--- NOTE | 2024-05-09 00:03 | PTCARENOTE ---
Addendum entered by Maria Del Carmen Garcia RN 05/09/24 00:07:
Inital BG was 67.
Original Note:
This RN checked pt BG before administering scheduled Lantus dose. BG found to be 64, hypoglycemia protocol initiated, next BG check was 69. Additional orange juice given and BG rechecked, pt BG now 90. RON Salvador advised to hold Lantus
overnight. Pt resting comfortably in bed, asymptomatic, will continue to monitor.
[2024-05-09] MEDS: ROXICODONE 15 MG PO (00:10)
[2024-05-09 01:10] LABS: Glucose - Point of Care 157 mg/dl (70-99)
[2024-05-09 04:02] LABS: Glucose - Point of Care 213 mg/dl (70-99)
[2024-05-09] MEDS: SYNTHROID 50 MCG PO (05:35)
[2024-05-09 06:29] LABS: % Eosinophils 6.6 % (0-6); % Immature Granulocytes 0.4 % (0-0.5); % Lymphocytes 9.5 % (20.5-51.1); % Monocytes 9.3 % (1.7-9.3); % Neutrophils 73.2 % (42.2-75.2); Absolute Basophils 0.1 10^3/uL (0-0.2); Absolute Eosinophils 0.5 10^3/uL (0-0.7); Absolute Lymphocytes 0.8 10^3/uL (1.2-3.4); Absolute Monocytes 0.8 10^3/uL (0.1-0.6); Hematocrit 27.4 % (37.0-47.0); Hemoglobin 8.4 g/dL (12.0-16.0); Mean Corp Hgb Conc. 30.7 g/dL (33.0-37.0); Mean Corpuscular Hgb 26.9 pg (27.0-31.0); Mean Corpuscular Volume 87.8 fL (81.0-99.0); Mean Platelet Volume 10.6 fL (7.4-10.4); Nucleated Red Blood Cells % 0 %; Platelet Count 169 10^3/uL (130-400); Red Blood Cell Count 3.12 10^6/uL (4.20-5.40); Red Cell Dist. Width 17.9 % (11.5-14.5); White Blood Cell Count 8.2 10^3/uL (4.8-10.8)
[2024-05-09 06:39] LABS: INR 1.13; PT 14.3 Sec (11.4-14.6)
[2024-05-09 06:52] LABS: AST (SGOT) 49 U/L (14-36); Albumin 2.5 g/dl (3.5-5.0); Blood Urea Nitrogen 32 mg/dl (7-17); Calcium 8.3 mg/dl (8.4-10.2); Carbon Dioxide 25 mmol/L (22-30); Chloride 102 mmol/L (98-107); Direct Bilirubin 0.1 mg/dl (0.0-0.4); Estimated Creatinine Clearance 23 ml/min; Glucose 204 mg/dl (70-99); Potassium 4.9 mmol/L (3.5-5.1); Total Bilirubin 0.3 mg/dl (0.2-1.3); Total Protein 5.9 g/dl (6.3-8.2); eGFR 29.57
[2024-05-09 07:01] LABS: ALT (SGPT) 21 U/L (0-35); Alkaline Phosphatase 258 U/L (38-126); Sodium 137 mmol/L (135-145)
[2024-05-09 08:05] LABS: Glucose - Point of Care 231 mg/dl (70-99)
--- NOTE | 2024-05-09 08:27 | W.PN.HOSP.TC ---
Today's Communication/Plan
-
Resume diuretics. Nephrology reeval. PT OT
Assessment / Plan
Assessment / Plan
Physical exam:
General: Acute on chronically ill
HEENT: Normocephalic, Atraumatic and Moist Mucous Membranes
Respiratory: Decreased breath sounds on the right; Negative Wheezes, Rales or Rhonchi
Cardiac: Regular Rhythm and S1/S2
GI: Soft, Nontender and Distended, positive fluid wave
Musculoskeletal: No Clubbing, No Cyanosis and No Edema
Neuro: Awake, Alert and Oriented, no neurodeficits
Psych: Calm
A/P:
Ms. Lucinda Patterson is a 73 yo woman with history CAD s/p CABG, decompensated KRAFT cirrhosis with ascites (receives weekly paracentesis), esophageal varices status post banding, essential hypertension, DM II, admission 02/28-03/13 for acute on chronic
anemia in setting of GI bleed (s/p EGD with banding of small nonbleeding esophageal varices and APC treatment of AVM) presents to the ER with shortness of breath.
CXR
IMPRESSION:
Complete opacification of the right hemithorax without significant midline shift. Findings may represent large pleural effusion/atelectasis rather than mucous plugging.
Large right pleural effusion likely 2/2 known chronic liver disease and ascites
Shortness of Breath
-admit to tele
-s/p IR guided thoracentesis - transudative. Status post repeated thoracentesis on 05/08.
-increase lasix to 40mg PO QD-will resume today and will follow-up nephrology recommendations
-patient will need close outpatient follow up
-home O2 testing
-Discussed with daughter over the phone on 05/08
-PT OT eval
Abdominal ascites, recurrent
Status post repeated abdominal paracentesis on 05/08
Albumin as needed
Acute on Chronic Kidney Disease
-creatinine 1.8. Resume diuretics
-now back to baseline
-Nephrology consult
-BINGO MANAGER Bicarb
Acute on Chronic Anemia
-near baseline
-no e/o bleeding
-monitor and transfuse if Hg < 7
coronary Artery Disease s/p CABG and s/p PCI 01/25
-continue asa/plavix
-BINGO MANAGER statin
-BINGO MANAGER Metoprolol
Hx Decompensated KRAFT Cirrhosis with Ascites
-BINGO MANAGER Lactulose and Xifaxan
Hx Esophageal Varices s/p banding
-BINGO MANAGER PPI
Essential Hypertension
Hypothyroidism
-BINGO MANAGER synthroid
DM II
Hyperglycemia
-home regimen: lantus 12-15 untis qhs; lispro 15 units AC
-lantus 10 units qhs; 5 units lispro pre-meals
-ISS low
-diabetic diet
DVT PPx SCD
DNR
Anticipated Discharge: Within 24 hours
Subjective/Interval History
-
Date of Service: May 09, 2024
Patient denies any shortness of breath or nausea or vomiting.
Objective Data
-
Labs:
Laboratory Results
05/09/24
05:52
WBC 8.2
Hgb 8.4 L
Hct 27.4 L
Plt Count 169
PT 14.3
INR 1.13
Sodium 137
Potassium 4.9
Chloride 102
Carbon Dioxide 25
BUN 32 H
Creatinine 1.8 H
Glucose 204 H
Calcium 8.3 L
Total Bilirubin 0.3
AST 49 H
ALT 21
Alkaline Phosphatase 258 H
Vital Signs:
Vital Signs
Temp Pulse Resp BP Pulse Ox
98 F 73 16 104/57 92
05/09/24 07:40 05/09/24 07:40 05/09/24 07:40 05/09/24 07:40 05/09/24 07:40
I&O
05/08/24 05/09/24 05/10/24
06:59 06:59 06:59
Intake Total 900 / 900 1909
Balance 900 / 900 1909
[2024-05-09] MEDS: NOVOLOG FLEXPEN-MODERATE RESISTANCE 3 UNITS SC (09:13)
[2024-05-09] MEDS: NOVOLOG FLEXPEN 5 UNITS SC ×3 (09:13→17:57)
[2024-05-09] MEDS: XIFAXAN 550 MG PO ×2 (09:14→20:14)
[2024-05-09] MEDS: TOPROL XL PO (09:14)
[2024-05-09] MEDS: PROTONIX 40 MG PO (09:14)
[2024-05-09] MEDS: PLAVIX 75 MG PO (09:14)
[2024-05-09] MEDS: DUPHALAC/CHRONULAC 20 GRAMS PO ×2 (09:14→20:14)
[2024-05-09] MEDS: ASPIR LOW (ENTERIC COATED) 81 MG PO (09:14)
[2024-05-09] MEDS: NICODERM TRANSDERMAL 7 MG TRANSDERM (09:15)
[2024-05-09 12:19] LABS: Glucose - Point of Care 283 mg/dl (70-99)
[2024-05-09] MEDS: NOVOLOG FLEXPEN-MODERATE RESISTANCE 5 UNITS SC (14:00)
--- NOTE | 2024-05-09 15:06 | W.PN.NEPH.PH ---
Today's Communication / Plan
-
observe
Assessment/Plan
-
Impression:
Non gap metabolic acidosis
CKD stage IIIb
Anemia
Cirrhosis with recurrent ascites requiring chronic paracentesis
CAD with history of CABG 2012
HFpEF
COPD
Hypoalbuminemia
GERD
Hypothyroidism
History of MALT lymphoma
History of gastric and duodenal angioectasias
large right effusion s/p thoracentesis 2L 05/05
Plan:
follow BMP
Creatinine at 1.8
ALIX may be related to recent LVP
lasix at 40 mg daily
Third spacing edema due to hypoalbuminemia in setting of end-stage liver disease
uop not assessed: incontinent
weights down
-
-
Date of Service: May 09, 2024
CC / HPI / ROS
-
Chief Complaint:
ALIX
History of Present Illness:
ALIX/Cr at 1.8
BP lower today
s/p thoracentesis right 2L
Review of Systems:
no CP/SOB
Labs
-
Labs:
WBC 8.2 10^3/uL (4.8-10.8) 05/09/24 05:52
RBC 3.12 10^6/uL (4.20-5.40) L 05/09/24 05:52
Hgb 8.4 g/dL (12.0-16.0) L 05/09/24 05:52
Hct 27.4 % (37.0-47.0) L 05/09/24 05:52
Plt Count 169 10^3/uL (130-400) 05/09/24 05:52
Sodium 137 mmol/L (135-145) 05/09/24 05:52
Potassium 4.9 mmol/L (3.5-5.1) 05/09/24 05:52
Chloride 102 mmol/L (98-107) 05/09/24 05:52
Carbon Dioxide 25 mmol/L (22-30) 05/09/24 05:52
BUN 32 mg/dl (7-17) H 05/09/24 05:52
Creatinine 1.8 mg/dL (0.6-1.0) H 05/09/24 05:52
eGFR 29.57 05/09/24 05:52
Glucose 204 mg/dl (70-99) H 05/09/24 05:52
Calcium 8.3 mg/dl (8.4-10.2) L 05/09/24 05:52
Whd-D-Gfkoihvbker Pept 494 pg/ml 05/05/24 17:07
Albumin 2.5 g/dl (3.5-5.0) L 05/09/24 05:52
Physical Exam
-
Vital Signs:
Vital Signs
Temp Pulse Resp BP Pulse Ox
98.3 F 84 16 119/55 93
05/09/24 11:24 05/09/24 11:24 05/09/24 11:24 05/09/24 11:24 05/09/24 11:24
Cardiovascular:: Regular rate and rhythm
Respiratory:: Bilateral: Coarse (decreased right)
Lung Excursion:: Normal
Abdomen:: Nontender and Soft
Bowel Sounds:: Normal
Extremity Edema:: None: Bilateral:
Bravo Catheter: No
[2024-05-09 16:39] LABS: Glucose - Point of Care 134 mg/dl (70-99)
[2024-05-09] MEDS: NOVOLOG FLEXPEN-MODERATE RESISTANCE SC (17:59)
[2024-05-09] MEDS: LIPITOR 20 MG PO (17:59)
[2024-05-09 21:43] LABS: Glucose - Point of Care 205 mg/dl (70-99)
[2024-05-09] MEDS: LANTUS 0.1 UNITS SC (22:25)
[2024-05-10 03:45] VITALS: BP 103/46
[2024-05-10 05:55] LABS: Hematocrit 27.2 % (37.0-47.0); Hemoglobin 8.6 g/dL (12.0-16.0); Mean Corp Hgb Conc. 31.6 g/dL (33.0-37.0); Mean Corpuscular Hgb 27.2 pg (27.0-31.0); Mean Corpuscular Volume 86.1 fL (81.0-99.0); Mean Platelet Volume 10.4 fL (7.4-10.4); Platelet Count 179 10^3/uL (130-400); Red Blood Cell Count 3.16 10^6/uL (4.20-5.40); White Blood Cell Count 7.8 10^3/uL (4.8-10.8)
[2024-05-10 06:00] VITALS: BMI 20.8
[2024-05-10] MEDS: SYNTHROID 50 MCG PO (06:01)
[2024-05-10 06:02] LABS: PT 14.1 Sec (11.4-14.6)
[2024-05-10 06:23] LABS: ALT (SGPT) 21 U/L (0-35); AST (SGOT) 44 U/L (14-36); Albumin 2.5 g/dl (3.5-5.0); Alkaline Phosphatase 275 U/L (38-126); Blood Urea Nitrogen 38 mg/dl (7-17); Calcium 8.7 mg/dl (8.4-10.2); Carbon Dioxide 26 mmol/L (22-30); Chloride 102 mmol/L (98-107); Direct Bilirubin 0.1 mg/dl (0.0-0.4); Estimated Creatinine Clearance 23 ml/min; Glucose 233 mg/dl (70-99); Potassium 5.6 mmol/L (3.5-5.1); Sodium 134 mmol/L (135-145); Total Bilirubin 0.4 mg/dl (0.2-1.3); eGFR 29.57
[2024-05-10 07:10] LABS: Glucose - Point of Care 270 mg/dl (70-99)
[2024-05-10 08:29] VITALS: BP 135/62
--- NOTE | 2024-05-10 08:33 | W.PN.HOSP.TC ---
Today's Communication/Plan
-
Discharge planning today
Assessment / Plan
Assessment / Plan
Physical exam:
General: Chronically ill
HEENT: Normocephalic, Atraumatic and Moist Mucous Membranes
Respiratory: Clear to auscultation bilateral; Negative Wheezes, Rales or Rhonchi
Cardiac: Regular Rhythm and S1/S2
GI: Soft, Nontender and Nondistended
Musculoskeletal: No Clubbing, No Cyanosis and No Edema
Neuro: Awake, Alert and Oriented, no neurodeficits
Psych: Calm
A/P:
Ms. Lucinda Patterson is a 73 yo woman with history CAD s/p CABG, decompensated KRAFT cirrhosis with ascites (receives weekly paracentesis), esophageal varices status post banding, essential hypertension, DM II, admission 02/28-03/13 for acute on chronic
anemia in setting of GI bleed (s/p EGD with banding of small nonbleeding esophageal varices and APC treatment of AVM) presents to the ER with shortness of breath.
CXR
IMPRESSION:
Complete opacification of the right hemithorax without significant midline shift. Findings may represent large pleural effusion/atelectasis rather than mucous plugging.
Large right pleural effusion likely 2/2 known chronic liver disease and ascites
Shortness of Breath
-admit to tele
-s/p IR guided thoracentesis - transudative. Status post repeated thoracentesis on 05/08.
-increase lasix to 40mg PO QD-will resume today and will follow-up nephrology recommendations
-patient will need close outpatient follow up
-home O2 testing
-Discussed with daughter over the phone on 05/08
-PT OT eval
Abdominal ascites, recurrent
Status post repeated abdominal paracentesis on 05/08
Albumin as needed
Hyperkalemia
Give Lokelma--> repeat potassium in the afternoon and normal
Acute on Chronic Kidney Disease
-creatinine 1.8. Resume diuretics
-now back to baseline
-Nephrology consult
-SKIN LAP BONDER Bicarb but discontinued to avoid volume overload and can reevaluate as outpatient
Acute on Chronic Anemia
-near baseline
-no e/o bleeding
-monitor and transfuse if Hg < 7
coronary Artery Disease s/p CABG and s/p PCI 01/25
-continue asa/plavix
-SKIN LAP BONDER statin
-SKIN LAP BONDER Metoprolol
Hx Decompensated KRAFT Cirrhosis with Ascites
-SKIN LAP BONDER Lactulose and Xifaxan
Hx Esophageal Varices s/p banding
-SKIN LAP BONDER PPI
Essential Hypertension
Hypothyroidism
-SKIN LAP BONDER synthroid
DM II
Hyperglycemia
-home regimen: lantus 12-15 untis qhs; lispro 15 units AC
-lantus 10 units qhs; 5 units lispro pre-meals
-ISS low
-diabetic diet
DVT PPx SCD
DNR
Anticipated Discharge: Today
Subjective/Interval History
-
Date of Service: May 10, 2024
Patient no new complaints today.
Objective Data
-
Labs:
Laboratory Results
05/10/24
05:24
WBC 7.8
Hgb 8.6 L
Hct 27.2 L
Plt Count 179
PT 14.1
INR 1.10
Sodium 134 L
Potassium 5.6 H
Chloride 102
Carbon Dioxide 26
BUN 38 H
Creatinine 1.8 H
Glucose 233 H
Calcium 8.7
Total Bilirubin 0.4
AST 44 H
ALT 21
Alkaline Phosphatase 275 H
Vital Signs:
Vital Signs
Temp Pulse Resp BP Pulse Ox
97.8 F 78 16 135/62 95
05/10/24 08:29 05/10/24 08:29 05/10/24 08:29 05/10/24 08:29 05/10/24 08:29
I&O
05/09/24 05/10/24 05/11/24
06:59 06:59 06:59
Intake Total 1909 720 / 720 480 / 480
Balance 1909 720 / 720 480 / 480
[2024-05-10 08:52] VITALS: BP 143/67; PULSE 93; O2SAT 96
[2024-05-10] MEDS: NOVOLOG FLEXPEN 5 UNITS SC ×3 (09:07→17:49)
[2024-05-10] MEDS: NOVOLOG FLEXPEN-MODERATE RESISTANCE 5 UNITS SC (09:08)
[2024-05-10] MEDS: LASIX 40 MG PO (09:08)
[2024-05-10] MEDS: DUPHALAC/CHRONULAC 20 GRAMS PO (09:08)
[2024-05-10] MEDS: ASPIR LOW (ENTERIC COATED) 81 MG PO (09:09)
[2024-05-10] MEDS: XIFAXAN 550 MG PO (09:09)
[2024-05-10] MEDS: NICODERM TRANSDERMAL 7 MG TRANSDERM (09:09)
[2024-05-10] MEDS: LOKELMA 10 GRAM PO (09:09)
[2024-05-10] MEDS: PLAVIX 75 MG PO (09:09)
[2024-05-10] MEDS: TOPROL XL 25 MG PO (09:09)
[2024-05-10] MEDS: PROTONIX 40 MG PO (09:09)
--- NOTE | 2024-05-10 10:52 | W.PN.NEPH.PH ---
Today's Communication / Plan
-
follow BMP
Assessment/Plan
-
Impression:
Non gap metabolic acidosis
CKD stage IIIb
Anemia
Cirrhosis with recurrent ascites requiring chronic paracentesis
CAD with history of CABG 2012
HFpEF
COPD
Hypoalbuminemia
GERD
Hypothyroidism
History of MALT lymphoma
History of gastric and duodenal angioectasias
large right effusion s/p thoracentesis 2L 05/05
Plan:
follow BMP
treat K medically
lasix at 40 mg daily
Third spacing edema due to hypoalbuminemia in setting of end-stage liver disease
follow CXR
-
-
Date of Service: May 10, 2024
CC / HPI / ROS
-
Chief Complaint:
ALIX
History of Present Illness:
ALIX/Cr at 1.8 stable
K up to 5.6
Na down to 134
BP stable
s/p thoracentesis right 2L
Review of Systems:
no CP/SOB
Labs
-
Labs:
WBC 7.8 10^3/uL (4.8-10.8) 05/10/24 05:24
RBC 3.16 10^6/uL (4.20-5.40) L 05/10/24 05:24
Hgb 8.6 g/dL (12.0-16.0) L 05/10/24 05:24
Hct 27.2 % (37.0-47.0) L 05/10/24 05:24
Plt Count 179 10^3/uL (130-400) 05/10/24 05:24
Sodium 134 mmol/L (135-145) L 05/10/24 05:24
Potassium 5.6 mmol/L (3.5-5.1) H 11/06/24 05:24
Chloride 102 mmol/L (98-107) 05/10/24 05:24
Carbon Dioxide 26 mmol/L (22-30) 05/10/24 05:24
BUN 38 mg/dl (7-17) H 05/10/24 05:24
Creatinine 1.8 mg/dL (0.6-1.0) H 05/10/24 05:24
eGFR 29.57 05/10/24 05:24
Glucose 233 mg/dl (70-99) H 05/10/24 05:24
Calcium 8.7 mg/dl (8.4-10.2) 05/10/24 05:24
Ovc-J-Gjuvpneubzl Pept 494 pg/ml 05/05/24 17:07
Albumin 2.5 g/dl (3.5-5.0) L 05/10/24 05:24
Physical Exam
-
Vital Signs:
Vital Signs
Temp Pulse Resp BP Pulse Ox
97.8 F 78 16 135/62 95
05/10/24 08:29 05/10/24 08:29 05/10/24 08:29 05/10/24 08:29 05/10/24 08:29
Cardiovascular:: Regular rate and rhythm
Respiratory:: Bilateral: Coarse (decreased right) and Right: Coarse (decreased right)
Lung Excursion:: Normal
Abdomen:: Nontender and Soft
Bowel Sounds:: Normal
Extremity Edema:: +1: Bilateral:
[2024-05-10 11:46] LABS: Glucose - Point of Care 320 mg/dl (70-99)
[2024-05-10] MEDS: NOVOLOG FLEXPEN-MODERATE RESISTANCE 7 UNITS SC (12:33)
[2024-05-10 13:26] LABS: Blood Urea Nitrogen 40 mg/dl (7-17); Calcium 8.9 mg/dl (8.4-10.2); Carbon Dioxide 23 mmol/L (22-30); Chloride 99 mmol/L (98-107); Estimated Creatinine Clearance 23 ml/min; Glucose 258 mg/dl (70-99); Potassium 4.8 mmol/L (3.5-5.1); Sodium 135 mmol/L (135-145); eGFR 29.57
--- NOTE | 2024-05-10 14:36 | W.DCSUMMARY ---
Discharge Summary
Discharge Data
Date of Admission: 05/05/24
Date of Discharge: 05/10/24
-
Pending Results: No
Hospital Course
Patient is 73 years old female with past medical history of Lemus cirrhosis requiring recurrent paracentesis, hypertension, diabetes mellitus, mild lymphoma, hypothyroidism, GERD, hyperlipidemia, COPD, HFpEF, CAD, anemia, CKD stage IIIb 8, nongap
metabolic acidosis, presented to the hospital with shortness of breath and worsening renal failure. Patient was admitted to the hospital and found to have a large pleural effusion. IR consulted and she underwent thoracentesis x 2. Her follow-up
chest x-ray in 05/08 shows significant improvement. Results were transudative in nature likely related to hepatic hydrothorax. Fluid culture is negative for any significant abnormality from [facility] and from [facility]. Patient oxygenation improved and she
was off oxygen after thoracentesis. Patient also required abdominal paracentesis while in the hospital. Nephrology was consulted and they felt that her ALIX was most likely related to large-volume paracentesis prior to admission. Her renal
function improved slightly but more importantly remained stable. Her oral diuretics was increased to prevent reaccumulation of fluid and she tolerated current doses of diuretics. She might benefit from adding spironolactone but needs to monitor
renal function first and electrolytes as outpatient to see if she would be a good candidate for it. Patient did well with PT and OT as well. She is going to be discharged in relatively stable condition today.
Discharge duration: 35 minutes
Discharge Plan
-
Patient Disposition: Home with Home Care
Discharge Diagnosis/Procedures: right pleural effusion status post thoracentesis; hepatic hydrothorax; ascites status post paracentesis; acute kidney injury on chronic kidney disease stage IIIb; liver cirrhosis; hyperkalemia, resolved.
Diet: 2 Gram Sodium and Restrict fluids to 48 oz
Activity: As tolerated
Driving Restrictions: As prior to admission
Blood Work: Please PCP to order CBC, CMP, INR within 1 week
Others Tests: A close follow up chest x-ray needs to be ordered by your outpatient provider in order to monitor effusion
Specialty Instructions: Weigh Daily- Call MD for wt gain/loss 3 lbs overnight/5 lbs in 1 week
Referrals:
Jaspreet Echeverria DO [Family Provider] - in less than 1 week
Christopher Shrestha MD [Active] - in one to two weeks
Additional Discharge Medication Instructions: Lasix is increased from 20mg daily to 40mg daily
Prescriptions:
New
furosemide 40 mg Tablet
40 mg PO DAILY Qty: 30 0RF
Continued
levothyroxine 50 mcg Tablet
50 mcg PO DAILY
omeprazole 20 mg Capsule,Delayed Release(Dr/Ec)
20 mg PO DAILY
metoprolol succinate 25 mg Tablet Extended Release 24 Hr
25 mg PO DAILY
diazepam 10 mg Tablet
10 mg PO BIDPRN PRN (Reason: anxiety)
Patient Comments:
05/05/2024: last filled 03/28/24, 90 tabs for 30 days from [facility]
albuterol sulfate 90 mcg/actuation Hfa Aerosol Inhaler
2 puff INHALATION R Q4HPRN PRN (Reason: sob/wheezing)
insulin lispro [Humalog KwikPen Insulin] 100 unit/mL Insulin Pen
15 unit SC AC
insulin glargine [Lantus Solostar U-100 Insulin] 100 unit/mL (3 mL) Insulin Pen
12 - 15 unit SC HS
Xifaxan 550 mg Tablet
550 mg PO Q12H
atorvastatin [Lipitor] 20 mg Tablet
20 mg PO QPM
clopidogrel [Plavix] 75 mg Tablet
75 mg PO DAILY
aspirin 81 mg Tablet,Delayed Release (Dr/Ec)
81 mg PO DAILY
lidocaine 4 % adhesive patch,medicated
1 patch topical DAILYPRN PRN (Reason: topical pain)
lactulose 20 gram/30 mL Solution
20 g PO BID Qty: 1500 0RF
albuterol sulfate 2.5 mg /3 mL (0.083 %) solution for nebulization
2.5 mg inhalation R Q4HPRN PRN (Reason: sob/wheezing)
nitroglycerin 0.4 mg tablet, sublingual
0.4 mg sublingual [id number] PRN (Reason: chest pain)
oxycodone 15 mg tablet
15 mg PO QIDPRN PRN (Reason: moderate pain )
Patient Comments:
05/05/2024: last filled 04/25/24, 150 tabs for 30 days from [facility]
Discontinued
furosemide 20 mg Tablet
20 mg PO DAILY@1400
sodium bicarbonate 650 mg Tablet
650 mg PO TID Qty: 90 0RF
Discharge Orders:
Discharge Patient (As Directed); Ordered 05/10/24
Ordered By: Slava Olmstead
Discharge Date and Time
Discharge Date/Time: 05/10/24 19:32
Print Language: DIVEHI
--- NOTE | 2024-05-10 14:53 | CM ---
MD entered order for dc.
Daughter Bella called Reviewed that pt was discharged.
IMM reviewed and Bella agreed with dc and IMM.
Bella requested [facility] . Spoke with Viviana at [facility] she said she can accept.Referral in care port.
PCP Dr Jaspreet Gao.
Bella will drive her home at 5 pm today.
PLAN Home with [facility] fax [phone]
[2024-05-10 15:34] VITALS: BP 108/49
[2024-05-10 16:46] LABS: Glucose - Point of Care 111 mg/dl (70-99)
[2024-05-10] MEDS: NOVOLOG FLEXPEN-MODERATE RESISTANCE SC (17:21)
[2024-05-10] MEDS: LIPITOR 20 MG PO (17:49)
--- NOTE | 2024-05-10 18:37 | PTCARENOTE ---
Dgtr came to [facility] patient for discharge at 181, IV removed and patient toileted. Patient moved bowels, small amount dark brown/red color noted, lot of toilet paper in bowl as well. Patient reports always have a little blood with hemorrhoids
-daughter concerned to take patient home with this - reports this is much more blood than usual. TT to Dr. Olmstead with above, agreeable to hold discharge and monitor overnight.
--- NOTE | 2024-05-10 19:05 | PTCARENOTE ---
Pt's daughter now has changed mind and is agreeable to discharge. She spoke with other family member involved in care who confirmed with patient that blood is not new and her labs had been improving, no need for concern. Discharge instructions
reviewed, script provided. Patient transported to [facility] via w/c and staff assist x 1.
== END 2024-05-10 19:32 | disposition home health service (06) | DRG 187 ==
LOC: 3 WEST ACU 18:55
PROVIDERS: Physician Assistant; Radiology Diagnostic Radiology; Radiology Vascular & Interventional Radiology; Registered Nurse; ADMITTING PHYSICIAN Student in an Organized Health Care Education/Training Program; ATTENDING PHYSICIAN Hospitalist; CONSULT PHYSICIAN Specialist; EMERGENCY PHYSICIAN Emergency Medicine; FAMILY PHYSICIAN Family Medicine
PROC: 0W993ZZ Drainage of Right Pleural Cavity, Percutaneous Approach (ICD-10-PCS; 2024-05-06)
PROC: 0W9G3ZZ Drainage of Peritoneal Cavity, Percutaneous Approach (ICD-10-PCS; 2024-05-08)
DX: J90 Pleural effusion, not elsewhere classified (principal); E87.20 Acidosis, unspecified; R18.8 Other ascites; I13.0 Hypertensive heart and chronic kidney disease with heart failure and stage 1 through stage 4 chronic kidney disease, or unspecified chronic kidney disease; I50.32 Chronic diastolic (congestive) heart failure; N17.9 Acute kidney failure, unspecified; K76.6 Portal hypertension; J98.11 Atelectasis; J43.9 Emphysema, unspecified; I25.10 Atherosclerotic heart disease of native coronary artery without angina pectoris; K75.81 Nonalcoholic steatohepatitis (NASH); K74.60 Unspecified cirrhosis of liver; E78.00 Pure hypercholesterolemia, unspecified; N18.32 Chronic kidney disease, stage 3b; F17.200 Nicotine dependence, unspecified, uncomplicated; F32.A Depression, unspecified; F41.9 Anxiety disorder, unspecified; M54.2 Cervicalgia; M54.9 Dorsalgia, unspecified; D50.9 Iron deficiency anemia, unspecified; E03.9 Hypothyroidism, unspecified; E11.40 Type 2 diabetes mellitus with diabetic neuropathy, unspecified; E11.65 Type 2 diabetes mellitus with hyperglycemia; K21.9 Gastro-esophageal reflux disease without esophagitis; E88.09 Other disorders of plasma-protein metabolism, not elsewhere classified; D63.8 Anemia in other chronic diseases classified elsewhere; E11.22 Type 2 diabetes mellitus with diabetic chronic kidney disease; R09.02 Hypoxemia; K31.89 Other diseases of stomach and duodenum; E87.5 Hyperkalemia; Z66 Do not resuscitate; Z79.890 Hormone replacement therapy; Z79.4 Long term (current) use of insulin; Z95.1 Presence of aortocoronary bypass graft; Z79.82 Long term (current) use of aspirin; Z79.02 Long term (current) use of antithrombotics/antiplatelets; Z87.19 Personal history of other diseases of the digestive system; Z91.048 Other nonmedicinal substance allergy status; I25.2 Old myocardial infarction; Z95.5 Presence of coronary angioplasty implant and graft; Z85.72 Personal history of non-Hodgkin lymphomas; Z92.3 Personal history of irradiation
CPT/HCPCS: 88305; 32555; 49083; 71045; 71046; 80048; 80053; 82150; 82248; 82728; 82945; 82947; 82962; 83036; 83540; 83550; 83615; 83880; 83986; 84155; 84157; 84478; 84484; 85014; 85025; 85027; 85610; 86850; 86900; 86901; 87015; 87070; 87102; 87116; 87205; 87206; 88112; 89051; 93005; 97162; 97166; 99285; 99406

== ENCOUNTER 2024-11-26 01:33 | Inpatient (IN) | payer MEDICARE, SELFPAY ==
[2024-11-25] VITALS (10 sets, daily range): BP systolic 111–158; BP diastolic 52–86
--- NOTE | 2024-11-25 20:16 | ED.GENMED ---
History of Present Illness
General
Chief Complaint: Change in Mental Status
Source: family
Exam Limitations: altered mental status
Time Seen by Provider: 11/25/24 20:06
History of Present Illness
History of Present Illness:
See MDM
Past History
Past History
ED Past Medical History: CAD, COPD, HTN, Hypercholesterolemia, IDDM, Hypothyroidism, Psychiatric (Anxiety, Depression) and Other (Back and neck pain, Cirrhosis of the liver, glaucoma, Anemia, )
ED Past Surgical History: Cardiac (CABG X 3, cardia stents) and Tonsilectomy
Social History
Tobacco: Smoker (2 daily)
Alcohol: None
Drug: None
Personal:
Living: with family
Employment: Retired
Phy Exam
Physical Exam
Physical Exam:
See MDM
Sepsis
Sepsis Screening
Sepsis Assessment: Severe Sepsis
Sepsis Screening: Lactate >2mmol/L
Sepsis Screen
Sepsis Screen: Severe Sepsis
Date: 11/25/24
Time: 20:30
Course
Orders/Labs/Results
Orders:
Orders
11/25/24 20:04
EKG [Electrocardiogram (*1)] Urgent
Reason for Study: Fatigue / Weakness
11/25/24 20:05
EKG- Treatment ONCE
11/25/24 20:07
CT Head W/o Iv Contrast Urgent
Comment:
Reason For Exam: altered
CR Chest Portable - 1 View Urgent
Comment:
Reason For Exam: altered, hx pleural effusion
Reason Study Needs to be Portable: Patient Unstable
11/25/24 20:10
Blood Culture Q30M
[place] Source: Blood/Venous
Specimen Description:
Blood Culture Q30M
[place] Source: Blood/Venous
Specimen Description:
11/25/24 20:11
Ammonia Urgent
Complete Blood Count/With Diff Urgent
Comprehensive Metabolic Panel Urgent
Lactic Acid Q4H
Comment: CANCEL 2nd LACTIC ACID IF 1st LACTIC ACID IS LESS THAN 2
11/25/24 20:58
ABG [Arterial Blood Gas] Urgent
%Oxygen/Room Air: room
11/25/24 21:24
Sodium Bicarbonate 50 meq IV NOW STA
11/25/24 21:28
0.9% Sodium Chloride 1000 ml [Nss] 1,000 ml IV BOLUS
11/25/24 21:35
CT Abd/pel Without Iv Or Oral Urgent
Comment: altered
Reason For Exam: abd distention
11/25/24 22:58
Piperacillin/Tazo 3.375 Gram [Zosyn] 3.375 gram in 50 ml IV NOW
Vancomycin [Vancocin] 1,500 mg 0.9% Sodium Chloride 500 ml [Nss] 500 ml IV NOW
11/25/24 23:00
0.9% Sodium Chloride 1000 ml [Nss] 1,000 ml IV BOLUS
11/26/24 00:15
Lactic Acid Q4H
Comment: CANCEL 2nd LACTIC ACID IF 1st LACTIC ACID IS LESS THAN 2
Abnormal Lab Results
11/25/24 11/25/24
20:11 20:58
WBC 19.5 H 10^3/uL
(4.8-10.8)
MCH 25.6 L pg
(27.0-31.0)
MCHC 31.1 L g/dL
(33.0-37.0)
RDW 20.6 H %
(11.5-14.5)
Abs Immat Gran (auto) 0.1 H 10^3/uL
(0-0.05)
Absolute Neuts (auto) 17.2 H 10^3/uL
(1.4-6.5)
Absolute Lymphs (auto) 0.7 L 10^3/uL
(1.2-3.4)
Absolute Monos (auto) 1.2 H 10^3/uL
(0.1-0.6)
Immature Gran % 0.7 H %
(0-0.5)
Neutrophils % 88.1 H %
(42.2-75.2)
Lymphocytes % 3.4 L %
(20.5-51.1)
pCO2 24 L mmHg
(32-35)
pO2 74 L mmHg
(83-108)
HCO3 13.6 L* mmol/L
(21-28)
ABG O2 Sat (Measured) 98.5 H %
(94-98)
Chloride 113 H mmol/L
(98-107)
Carbon Dioxide 13 L* mmol/L
(22-30)
BUN 48 H mg/dl
(7-17)
Creatinine 2.4 H mg/dL
(0.6-1.0)
Glucose 203 H mg/dl
(70-99)
Lactic Acid 7.8 H* mmol/L
(0.7-2.0)
Alkaline Phosphatase 371 H U/L
(38-126)
Ammonia 40 H umol/L
(9-30)
Total Protein 8.4 H g/dl
(6.3-8.2)
Albumin 3.0 L g/dl
(3.5-5.0)
11/25/24 20:11
11/25/24 20:11
Vital Signs
Initial and Last Documented VS:
Initial Vital Signs
Pulse Resp Pulse Ox
145 24 96
11/25/24 20:05 11/25/24 20:05 11/25/24 20:05
Last Documented Vital Signs
Temp Pulse Resp BP Pulse Ox
99.1 F 118 33 146/65 94
11/25/24 20:29 11/25/24 22:35 11/25/24 22:35 11/25/24 22:35 11/25/24 22:35
MDM/Problems Addressed
Differential Diagnosis Includes:
HPI and MDM Narrative:
74-year-old female presenting with daughter as altered mental status. Patient was brought in by private vehicle and she had to be helped out of the car. Daughter states that she had altered mental status that worsened over the past 2 days.
Patient is significantly altered and I question whether this really happened within 2 hours. Daughter does acknowledge that she has been getting more confused over the past week. Prior records indicates she has a history of cirrhosis and pleural
effusion. She does have a pleural VAC that daughter states has been relatively dry over the past several weeks. Her abdomen has been more distended recently per daughter. I also question whether or not she takes her lactulose. Daughter does
acknowledge that patient is noncompliant
Given her altered mental status and her prior history, will obtain CT head and chest x-ray. Will obtain ammonia level
Physical exam
General: Altered, confused, lethargic
HEENT: protecting airway
Neck: supple
CV: No evidence of cyanosis. Tachycardic
Resp: No accessory muscle use. No respiratory distress
Abd: Distended but not firm
Extremities: No deformities
Neuro: Altered and confused
Psych: Flat affect
Skin: Intact
Problems Addressed including Acute and Chronic Conditions affecting care:
1. Altered mental status
Acuity: acute
Prognosis: unstable
Details: Given her prior history and history of medication noncompliance, patient likely has hepatic encephalopathy.
Updates
Given the altered mental status and the low bicarb, ABG was performed to rule out any evidence of hypercapnia. CO2 is actually low but pH within normal limits. Bicarb is also low. Will give dose of bicarb. Given the elevated lactic acid and low
bicarb, will obtain CT abdomen/pelvis to rule out any evidence of intra-abdominal infection. Patient has had decreased urination. Will give IV fluid
Radiology called indicating no obvious pathology other than cirrhosis.
Will start broad-spectrum antibiotics and admit
Given the elevated ammonia level, will order lactulose enema
Differential Diagnosis (but not limited to): Hepatic encephalopathy, intracranial hemorrhage, pneumonia
Testing considered: CT abdomen/pelvis
Drug therapy (if applicable): OTC meds, please see d/c instruction regarding Rx drugs
Amount and/or Complexity of Data Reviewed
Clinical info obtained from: Daughter
External data reviewed: History of cirrhosis
Labs I independently reviewed (but not limited to): Elevated lactic acid, low bicarb, low CO2, elevated ammonia
Radiology: The CT scan was personally and independently reviewed. In addition, official CT report reviewed.
Pulse Ox: not hypoxic
EKG independently reviewed: Sinus tachycardia, left axis, no STEMI
Purchasing Officer: Sinus tachycardia
Critical Care: The high probability of a clinically significant, sudden or life threatening deterioration of the cardiovascular/GI system(s) required my full and direct attention, intervention and personal management. The aggregate critical care
time was 55 minutes. This time is in addition to time spent performing reported procedures but includes the following:
[x] Data Review and interpretation
[x] Patient assessment and monitoring of vital signs
[x] Documentation
[x] Medication orders and management
Risk of Complication:
Social Determinants of health: Good social support
Discussed with other providers: hospitalist
Escalation of Care includes Admit/Obs: Given the altered mental status with lab abnormalities, will admit
Occasional wrong word or 'sound a like' substitutions may have occurred due to the inherent limitations of voice recognition software. Read the chart carefully and recognize, using context, where substitutions have occurred.
*Critical Care Note
Total Time (30-74mins, 75-104mins- exclusive of procedures): 55 min
ED Attending Note
-
Portions of this chart may have been created with voice recognition software.� Occasional wrong word or��sound alike� substitutions may have occurred due to the inherent limitations of voice recognition software.
Discharge Plan
Departure
Patient Disposition: Admit
Date of Disposition: 11/25/24
Time of Disposition: 23:09
Admit to: IMU
Presentation/result/management discussed w/ accepting MD/DO: Hospitalist
Discharge Problem:
Sepsis, Acute hepatic encephalopathy
Prescriptions:
No Action
levothyroxine 50 mcg Tablet
50 mcg PO DAILY
omeprazole 20 mg Capsule,Delayed Release(Dr/Ec)
20 mg PO DAILY
metoprolol succinate 25 mg Tablet Extended Release 24 Hr
25 mg PO DAILY
diazepam 10 mg Tablet
10 mg PO BIDPRN PRN (Reason: anxiety)
Patient Comments:
05/05/2024: last filled 03/28/24, 90 tabs for 30 days from [facility]
albuterol sulfate 90 mcg/actuation Hfa Aerosol Inhaler
2 puff INHALATION R Q4HPRN PRN (Reason: sob/wheezing)
insulin lispro [Humalog KwikPen Insulin] 100 unit/mL Insulin Pen
15 unit SC AC
insulin glargine [Lantus Solostar U-100 Insulin] 100 unit/mL (3 mL) Insulin Pen
12 - 15 unit SC HS
Xifaxan 550 mg Tablet
550 mg PO Q12H
atorvastatin [Lipitor] 20 mg Tablet
20 mg PO QPM
clopidogrel [Plavix] 75 mg Tablet
75 mg PO DAILY
aspirin 81 mg Tablet,Delayed Release (Dr/Ec)
81 mg PO DAILY
lidocaine 4 % adhesive patch,medicated
1 patch topical DAILYPRN PRN (Reason: topical pain)
lactulose 20 gram/30 mL Solution
20 g PO BID Qty: 1500 0RF
albuterol sulfate 2.5 mg /3 mL (0.083 %) solution for nebulization
2.5 mg inhalation R Q4HPRN PRN (Reason: sob/wheezing)
nitroglycerin 0.4 mg tablet, sublingual
0.4 mg sublingual [id number] PRN (Reason: chest pain)
oxycodone 15 mg tablet
15 mg PO QIDPRN PRN (Reason: moderate pain )
Patient Comments:
05/05/2024: last filled 04/25/24, 150 tabs for 30 days from [facility]
furosemide 40 mg Tablet
40 mg PO DAILY Qty: 30 0RF
Referrals:
[facility], [Other]
Jaspreet Echeverria, [Family Provider] -
Interventions
Interventions:
*Risk Screen - Suicide Last Done: 11/25/24 20:11
*General Assessment Last Done: 11/25/24 20:11
*Neglect/Abuse Screening Last Done: 11/25/24 20:11
*ED- Fall Risk Assessment Last Done: 11/25/24 20:11
*ED COVID-19 Vaccine History Last Done: 11/25/24 20:11
ED- Neurological Assessment Last Done: 11/25/24 20:14
ED Swallowing Screen Last Done: 11/25/24 20:13
Discharge Date and Time
Print Language: WELSH
[2024-11-25 20:25] LABS: % Basophils 0.6 % (0-2); % Eosinophils 0.8 % (0-6); % Immature Granulocytes 0.7 % (0-0.5); % Lymphocytes 3.4 % (20.5-51.1); % Monocytes 6.4 % (1.7-9.3); % Neutrophils 88.1 % (42.2-75.2); Absolute Basophils 0.1 10^3/uL (0-0.2); Absolute Eosinophils 0.2 10^3/uL (0-0.7); Absolute Immature Granulocytes 0.1 10^3/uL (0-0.05); Absolute Lymphocytes 0.7 10^3/uL (1.2-3.4); Absolute Monocytes 1.2 10^3/uL (0.1-0.6); Absolute Neutrophils 17.2 10^3/uL (1.4-6.5); Hematocrit 39.2 % (37.0-47.0); Hemoglobin 12.2 g/dL (12.0-16.0); Mean Corp Hgb Conc. 31.1 g/dL (33.0-37.0); Mean Corpuscular Hgb 25.6 pg (27.0-31.0); Mean Corpuscular Volume 82.4 fL (81.0-99.0); Nucleated Red Blood Cells % 0 %; Platelet Count 231 10^3/uL (130-400); Red Blood Cell Count 4.76 10^6/uL (4.20-5.40); Red Cell Dist. Width 20.6 % (11.5-14.5); White Blood Cell Count 19.5 10^3/uL (4.8-10.8)
[2024-11-25 20:36] LABS: Ammonia 40 umol/L (9-30)
[2024-11-25 20:40] LABS: Lactic Acid 7.8 mmol/L (0.7-2.0)
[2024-11-25 20:44] LABS: AST (SGOT) 34 U/L (14-36); Alkaline Phosphatase 371 U/L (38-126); Blood Urea Nitrogen 48 mg/dl (7-17); Calcium 8.8 mg/dl (8.4-10.2); Carbon Dioxide 13 mmol/L (22-30); Chloride 113 mmol/L (98-107); Estimated Creatinine Clearance 18 ml/min; Glucose 203 mg/dl (70-99); Potassium 5.1 mmol/L (3.5-5.1); Sodium 141 mmol/L (135-145); Total Bilirubin 1.3 mg/dl (0.2-1.3); Total Protein 8.4 g/dl (6.3-8.2)
[2024-11-25 21:05] LABS: B.E. -10.2 mmol/L; O2 Saturation % 98.5 % (94-98); PCO2 24 mmHg (32-35); PO2 74 mmHg (83-108); pH 7.36 (7.35-7.45)
[2024-11-25 21:11] LABS: HCO3 13.6 mmol/L (21-28)
[2024-11-25 21:19] LABS: ALT (SGPT) 26 U/L (0-35)
[2024-11-25] MEDS: SODIUM BICARBONATE 50 MEQ IV (21:35)
[2024-11-25] MEDS: NSS 1000 IV ×2 (21:36→23:05)
[2024-11-25] MEDS: ZOSYN 50 IV (23:08)
[2024-11-25] MEDS: VANCOCIN 530 MG IV (23:51)
[2024-11-26] VITALS (26 sets, daily range): BP systolic 93–198; BP diastolic 54–87; BMI 22.8
--- NOTE | 2024-11-26 00:22 | HPS.HSE ---
Family Physician
-
Family Physician: Jaspreet Echeverria
Chief Complaint
-
Altered mental status
History of Present Illness
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
the emergency department with 1 day history of altered mental status.
Patient has been having a right thoracic drain placed in July. Family reported that they usually drain about 1 L every day up until about 4 weeks ago when she started having minimal drainage from the thorax. Since then she has been having more
abdominal distention now requiring frequent paracentesis. Family. That she takes about 3 to 6 L of fluid off every 4 to 8 days at another hospital. The last paracentesis was 4 days ago. The records indicated no fluid samples been sent. She did
well following the paracentesis but reaccumulated very quickly and her daughter stated that the degree of distention is similar to 3 paracentesis presentation. Patient had arose this morning in apparent usual state of health except complaint of
more back pain than usual. She has chronic back pain for which she is on tizanidine and baclofen. Family believes that she may have taken extra doses of these 2 medications. She knows to not take extra doses of opioids. This afternoon the
patient started getting confused and belligerent and then became very sleepy. In addition the patient has not been compliant with her lactulose for several days. She was stopped taking 30 mg 3 times daily, more recently she has been only been
taking 20 and in the last few days has not taken the lactulose at all. Found to have loose stool with the yellow jelly colored material today. By the time she arrived in the emergency department she become more obtunded. She was not able to
provide any history. Family denies any fevers. Denies any known sick contact. They describe decreased urine output but no complaints of dysuria, frequency or urgency. She has had decreased p.o. intake overall. She is on Lasix 20 mg daily now
and as needed for increased lower extremity edema.
In the emergency department she had a Tmax of 99.1, blood pressure was 146/65 with a pulse rate in the 110s. She was satting 95% on room air.
CBC was notable for a white count of 19.5 with otherwise normal hemoglobin and platelets. Electrolytes showed a potassium of 5.1 which is similar to prior. Bicarb was 13 which is down from 22 on November 21. BUN and creatinine were similar to what she
had previously with last creatinine on November 21 being 2.7. She has lactic acid of 7.8. LFTs show a normal AST and ALT. Alk phos is elevated 371. Total protein is elevated at 8.4 with albumin of 3.0.
Blood gas shows pH 7.3 12/26/13.6. Anion gap 17. Ammonia level 40.
CT head without any acute intracranial process. CT of the abdomen pelvis noncontrast shows moderate to large amount of abdominal ascites, cirrhosis, probable esophageal varices stool was evaluated without contrast. Mild diffuse anasarca.
Edematous appearance of small bowel diffusely which may be secondary to diffuse edematous state/ascites in this context. No evidence of pneumatosis pneumobilia or pneumoperitoneum.
Medical History
Past Medical History
Past Medical History: Reports Other
Additional Past Medical History:
Hypertension
DM-II
NAFLD
Cirrhosis with Ascites
Chronic HFpEF
Hypothyroidism
History of GI Bleeding
Past Surgical History: Reports Other
Additional Past Surgical History:
ABG
Bilateral Humerus ORIF
Percutaneous Angiography with Stent (2 weeks ago)
Left Foot Surgery (one month ago)
Social History
Tobacco: Non-smoker
Alcohol: None
Drug: None
Living: With Family
Family History
Family History: Not pertinent
Allergies / Home Medications
Allergies reflects when Allergies were last updated in [facility].
Home Medications with original date entered in [facility]
Allergy/Medication List:
Allergies
Allergy/AdvReac Type Severity Reaction Status Date / Time
adhesive Allergy Itching Verified 05/05/24 15:03
Home Medications
insulin glargine 100 unit/mL (3 mL) subcutaneous pen (Lantus Solostar U-100 Insulin) 30 unit SC HS diabetes
insulin lispro 100 unit/mL subcutaneous pen (Humalog KwikPen (U-100) Insulin) 15 unit SC AC diabetes 09/10/23
levothyroxine 50 mcg tablet 50 mcg PO DAILY Thyroid 09/10/23
metoprolol succinate 25 mg tablet,extended release 24 hr 25 mg PO DAILY Blood Pressure 09/10/23
omeprazole 20 mg capsule,delayed release 20 mg PO DAILY Gastrointestinal Issue 09/10/23
rifaximin 550 mg tablet (Xifaxan) 550 mg PO Q12H fatty liver disease/cirrhosis 09/10/23
lactulose 20 gram/30 mL oral solution 20 g (30 mL) PO BID #1,500 mL 03/13/24
oxycodone 15 mg tablet 15 mg PO QIDPRN PRN moderate pain 05/05/24
furosemide 20 mg tablet 40 mg PO DAILY
Review of Systems
-
Unable to obtain full review of systems at this time due to: Acuity
History Source: Family
EENT: Reports No Symptoms
Respiratory: Reports No Symptoms
Cardiac: Reports No Symptoms
Abdomen/GI: Reports Other (Abdominal distention)
: Reports No Symptoms
Musculoskeletal: Reports Edema
Skin: Reports No Symptoms
Physical Exam
Vital Signs
Vital Signs
Temp Pulse Resp BP Pulse Ox
99.1 F 118 33 146/65 94
11/25/24 20:29 11/25/24 22:35 11/25/24 22:35 11/25/24 22:35 11/25/24 22:35
Physical Exam
General: Other (obtunded but arousable)
HEENT: NormoCephalic, Moist mucous membranes and Atraumatic
Respiratory: Clear
Cardiac: S1/S2 and Tachycardia; No Murmur or Rub
GI: Soft, Normal Bowel Sounds and Distended; No Organomegaly
Rectal: Deferred by Provider
Genito-urinary: Deferred by me
Musculoskeletal: No Clubbing, No Cyanosis, Edema, Left Lower Extremity and Edema, Right Lower Extremity
Skin: No Rash
Neuro: Other (obtunded)
Psych: Calm
Laboratory Results
-
11/25/24 20:11
11/25/24 20:11
Laboratory Results
pH 7.36 (7.35-7.45) 11/25/24 20:58
pCO2 24 mmHg (32-35) L 11/25/24 20:58
pO2 74 mmHg (83-108) L 11/25/24 20:58
HCO3 13.6 mmol/L (21-28) L* 11/25/24 20:58
Lactic Acid 7.8 mmol/L (0.7-2.0) H* 11/25/24 20:11
Total Bilirubin 1.3 mg/dl (0.2-1.3) 11/25/24 20:11
AST 34 U/L (14-36) 11/25/24 20:11
ALT 26 U/L (0-35) 11/25/24 20:11
Alkaline Phosphatase 371 U/L (38-126) H 11/25/24 20:11
Data Reviewed
-
CT Scan: Report Reviewed by me
Lab Data: Labs Reviewed by me
Old Records: Reviewed
Impression/Plan
-
IMPRESSION:
74 y.o female with KRAFT cirrhosis complicated by large volume ascites and hepatic hydrothorax s/p R thoracic drain and pending possible peritoneal drain presents to ED with 1 day of altered mental status.
PLAN:
AMS -clearly toxic metabolic, etiology possibilities include intoxication with tizanidine/baclofen, hepatic encephalopathy, sepsis/infection. No evidence of acute stroke.
- admit to IMU
- Infectious w/u as below
- abx as below
- holding offending medications
- will start lactulose 30 tid as enema for now until levels normalize or mental status improved
Decompensated Cirrhosis - S/P LVP on Wednesday. No fluid analysis per records. Moderately tense ascites now with peripheral edema. Encephalopathic. AST/ALT/T bili normal.
- presumed SBP vs secondary bacterial peritonitis vs urinary tract infection, no recent abx use.
- fairly ill with leukocytosis and elevated lactic acid level
- blood cultures sent
- continue with vancomycin and zosyn for now
- IR consult for diagnostic tap in am
- no evidence of bleed
- possible enteritis on CT but likely from anasarca
- lactulose enema now, repeat ammonia and repeat enema as needed in am
- npo due to obtundation but protecting airways for now with Mixed respiratory alkalosis and metabolic acidosis
- lactic acidemia likely 2/2 decompensated cirrhosis, trend for now
- will give albumin for now, low bicarb gtt with holding of diuretics temporarily, no hypoxia
- GI consultation
DM II
- sliding scale insulin q 6 hours for now
Progressive renal dysfunction - In November 21 Cr was 2.7, today 2.4. last year 1.8. Unlikely HRS 1, but cannot rule out 2. She has edema and anasarca so does not require aggressive fluid resuscitation. Hemodynamically stable.
- holding lasix po for now
- albumin with paracentesis
- avoid nephrotoxins
- monitor creatinine
Metabolic acidosis - He has anion gap acidosis with additional respiratory alkalosis likely on the basis of advanced cirrhosis
- trend lactate for now
- gently bicarb supplementation
- treat possible infection
DVT PPX - heparin sq
Code status - Full Code
[2024-11-26] MEDS: LACTULOSE ENEMA 300 ML RECTAL ×3 (00:27→21:22)
[2024-11-26 00:33] LABS: Lactic Acid 3.2 mmol/L (0.7-2.0)
[2024-11-26] MEDS: SODIUM BICARBONATE 1150 MEQ IV (02:33)
[2024-11-26] MEDS: FLEXBUMIN 100 IV (02:47)
[2024-11-26 03:24] LABS: Hemoglobin 11.8 g/dL (12.0-16.0); Mean Corp Hgb Conc. 31.9 g/dL (33.0-37.0); Mean Corpuscular Hgb 25.9 pg (27.0-31.0); Mean Corpuscular Volume 81.1 fL (81.0-99.0); Mean Platelet Volume 10.7 fL (7.4-10.4); Platelet Count 199 10^3/uL (130-400); Red Blood Cell Count 4.56 10^6/uL (4.20-5.40); Red Cell Dist. Width 20.6 % (11.5-14.5)
[2024-11-26 03:33] LABS: INR 1.36
[2024-11-26 03:43] LABS: Ammonia 13 umol/L (9-30); Lactic Acid 3.5 mmol/L (0.7-2.0)
[2024-11-26 03:44] LABS: Blood Urea Nitrogen 48 mg/dl (7-17); Calcium 8.3 mg/dl (8.4-10.2); Carbon Dioxide 17 mmol/L (22-30); Chloride 116 mmol/L (98-107); Estimated Creatinine Clearance 20 ml/min; Glucose 212 mg/dl (70-99); Potassium 5.6 mmol/L (3.5-5.1); Sodium 142 mmol/L (135-145); eGFR 23.09
[2024-11-26 04:36] LABS: Magnesium 1.6 mg/dl (1.6-2.3)
[2024-11-26] MEDS: DEXTROSE 50% SYRINGE 25 GRAMS IV (04:37)
[2024-11-26] MEDS: NOVOLIN R 0.1 UNITS IV (04:42)
[2024-11-26] MEDS: LASIX 40 MG IV (04:45)
[2024-11-26 04:48] LABS: Glucose - Point of Care 236 mg/dl (70-99)
[2024-11-26] MEDS: LOPRESSOR 2.5 MG IV ×3 (05:05→17:09)
[2024-11-26] MEDS: ZOSYN 50 IV ×4 (05:13→23:10)
[2024-11-26 05:57] LABS: Glucose - Point of Care 266 mg/dl (70-99)
[2024-11-26] MEDS: NOVOLOG FLEXPEN-LOW RESISTANCE 2 UNITS SC ×3 (06:36→17:14)
[2024-11-26 06:50] LABS: Glucose - Point of Care 226 mg/dl (70-99)
--- NOTE | 2024-11-26 07:14 | PTCARENOTE ---
Received verbal report from MARIANELA Melendrez. Pt arrived to floor via stretcher. Pt nonverbal and only responsive to deep pain on arrival. Na Bicarb infusing @ 75 mL/hr. K 5.6, patient is hypertensive and tachycardic. AG Erazo made aware. Rx received for
IV Lasix, IV Dextrose, IV insulin and IV Toprol. Medications administered (see MAR). Blood glucose monitored per protocol
--- NOTE | 2024-11-26 07:34 | W.PN.UPDATE ---
Update Note
Progress Note Update
74-year-old female with a past medical history of Lemus cirrhosis, ascites requiring weekly paracentesis, hepatic hydrothorax status post right chest tube, esophageal varices with prior banding, prior GI bleeding due to AVM's, chronic anemia, HTN,
prior CABG/stents, DM type II, COPD, PAD, tobacco abuse, ASCVD, and hypothyroidism presented with altered mental status.
Patient with leukocytosis and elevated lactic acid upon admission, concerning for sepsis.
Continue vancomycin, Zosyn.
Ammonia level noted to be 13.
Consult IR for paracentesis to rule out SBP.
Consult GI.
Patient has ALIX, likely due to sepsis.
Continue IV fluids, supportive measures.
[2024-11-26] MEDS: HEPARIN 5000 UNITS SC ×3 (07:44→23:10)
[2024-11-26] MEDS: NSS (PRESERVATIVE FREE) 10 ML IV (07:44)
[2024-11-26] MEDS: PROTONIX IV 40 MG IV (07:44)
--- NOTE | 2024-11-26 07:45 | PHA.VAN.IN ---
Assessment
- Assessment
Renal Function: Appears elevated from baseline
Maximum Temperature: 99.1
Minimum Temperature: 98.3
Concomitant Antimicrobials: Piperacillin-tazobactam
Plan
- Plan
Initial / Loading Dose: Vanc 1500mg--given 11/25 at 2351
Maintenance Regimen: Dose by level. No Vanc today.
Monitoring: Random level 11/27
Pharmacokinetics Vancomycin I
- -
Patient Age: 74
Patient Sex: Female
Vancomycin Day #: 1
Indication: Gi / Intra-Abdominal
Requesting Provider: Sebastián
Height / Weight:
Height 5 ft 4 in
Actual Weight 60.3 kg
IBW in k.7
Adjusted BW in k.9
Pertinent Past Medical History: Nonalcoholic steatohepatitis req frequent paracentesis
- Vital Signs / Lab Results
Temp Pulse Resp BP Pulse Ox
98.3 F 94 11 147/65 98
11/26/24 03:00 11/26/24 06:00 11/26/24 06:00 11/26/24 06:00 11/26/24 06:19
Lab Results - Hematology
11/25/24 11/26/24
20:11 03:10
WBC 19.5 H 22.0 H
Lab Results - Chemistry
11/25/24 11/26/24
20:11 03:10
BUN 48 H 48 H
Creatinine 2.4 H 2.2 H
Estimated Creat Clear 18 20
Albumin 3.0 L
11/25/24 11/26/24 11/26/24
20:11 00:10 03:10
Lactic Acid 7.8 H* 3.2 H 3.5 H
Lab Results - Urine
11/25/24
20:30
Urine Nitrite (Reflex) Cancelled
Leukocyte Esterase Rfl Cancelled
[2024-11-26 08:12] LABS: Venous Blood Gas B.E. -6.3 mmol/L (-4 to +4); Venous Blood Gas HCO3 20.2 mmol/L (22-27); Venous Blood Gas O2 Sat % 85.2 %; Venous Blood Gas pCO2 43 mmHg (35-48); Venous Blood Gas pH 7.28 (7.32-7.43); Venous Blood Gas pO2 53 mmHg (30-50)
[2024-11-26 08:13] LABS: Venous Blood Gas O2 Therapy RA
[2024-11-26 08:22] LABS: Blood Urea Nitrogen 47 mg/dl (7-17); Calcium 8.1 mg/dl (8.4-10.2); Carbon Dioxide 20 mmol/L (22-30); Chloride 114 mmol/L (98-107); Estimated Creatinine Clearance 21 ml/min; Glucose 219 mg/dl (70-99); Potassium 4.2 mmol/L (3.5-5.1); Sodium 143 mmol/L (135-145); eGFR 24.42
--- NOTE | 2024-11-26 08:35 | PTCARENOTE ---
Patient received from pot pusher. Patient resting comfortably in bed. Patient not arousable or if anything minimally. VSS. No events noted over night. No visual cues of pain. BiCarb in sterile water through IV. AM lab work completed.
Continuing ABX. Remains NPO. No testing scheduled at this time. Call pacheco in reach.
[2024-11-26 08:55] LABS: Glucose - Point of Care 212 mg/dl (70-99)
[2024-11-26 11:05] LABS: Glucose - Point of Care 187 mg/dl (70-99)
[2024-11-26] MEDS: ZOFRAN 4 MG IV (11:17)
[2024-11-26] MEDS: NOVOLOG FLEXPEN-LOW RESISTANCE 1 UNITS SC ×2 (11:18→23:10)
--- NOTE | 2024-11-26 11:56 | CON.GI ---
Consultation
-
Date/Time Consultation Requested: 11/26/24
Date/Time Consultation Performed: 11/26/24
Requesting Provider:
Performing Provider:
Reason for Consultation: change in mental status
Medical History
Chief Complaint / HPI
Chief Complaint: altered mental status
History of Present Illness:
Pt is a 74yo with with NAFLD, cirrhosis with ascites, esophageal varices with prior banding, prior GI bleeding due to AVM's, chronic anemia, HTN, prior CABG/stents, DM type II, COPD, PAD, tobacco abuse, ASCVD, hypothyroidism, and recent stent
(peripheral vs cardiac) placement with Plavix therapy brought in by family for altered mental status. Patient lives in [place], follows up at [facility] and also [facility] with Dr. Nae Aernas. She came to her granddaughter's
house in [place] and as per daughter, has been lethargic, has not been eating or drinking much and not taking her lactulose either and brought in with change in mental status. As per daughter, patient was admitted at [facility] in August for
possible GI bleed, had colonoscopy and unclear if she had AVM that was cauterized. She follows up with [facility] for anemia and gets periodic IV iron infusion and last 1 was about 3 weeks ago. Follows up with her fur pointer at
[facility], has right pleural catheter which was placed in July for hepatic hydrothorax and apparantly used to drain from the catheter through her daily but 3 weeks ago that stopped working. At that time she started accumulating more ascites and
has been getting paracentesis twice a week. Baseline elevated creatinine, not on diuretics. She was told by [facility] that she is not a transplant candidate.
Patient is not able to give any history as she has been lethargic here.
She was admitted to [facility] in May 2024 for GI bleeding, EGD at that time showed small esophageal varices status post banding, portal hypertensive gastropathy, angiectasias in the stomach and small bowel that were cauterized. We do
not have more recent labs as she follows up at [facility] and lives in [place].
Past Medical History
Past Medical History: CHF, COPD, HTN, Hypothyroidism, NIDDM and Other (NAFLD, cirrhosis with ascites, prior esophageal banding, ASCVD, hx GI bleed, tobacco abuse, PAD )
Past Surgical History: Other (Cardiac (CABG, recent stent ), Orthopedic (left foot surgery ) and Other (percutaneous angiography with stent ))
Social History
Tobacco: Former Smoker
Alcohol: None
Family History
Family History: Reviewed & Not Pertinent
Allergies / Home Medications
Allergy/AdvReac Type Severity Reaction Status Date / Time
adhesive Allergy Itching Verified 05/05/24 15:03
�Medication �Instructions �Recorded
albuterol sulfate 90 mcg/actuation 2 puff inhalation R Q4HPRN PRN 09/10/23
aerosol inhaler sob/wheezing
diazepam 10 mg tablet 10 mg PO BIDPRN PRN anxiety 09/10/23
insulin glargine 100 unit/mL (3 12 - 15 unit SC HS diabetes 09/10/23
mL) subcutaneous pen (Lantus
Solostar U-100 Insulin)
insulin lispro 100 unit/mL 15 unit SC AC diabetes 09/10/23
subcutaneous pen (Humalog KwikPen
(U-100) Insulin)
levothyroxine 50 mcg tablet 50 mcg PO DAILY Thyroid 09/10/23
metoprolol succinate 25 mg 25 mg PO DAILY Blood Pressure 09/10/23
tablet,extended release 24 hr
omeprazole 20 mg capsule,delayed 20 mg PO DAILY Gastrointestinal 09/10/23
release Issue
rifaximin 550 mg tablet (Xifaxan) 550 mg PO Q12H fatty liver 09/10/23
disease/cirrhosis
aspirin 81 mg tablet,delayed 81 mg PO DAILY Blood Clot 02/29/24
release Prevention/Tx
atorvastatin 20 mg tablet (Lipitor) 20 mg PO QPM High Cholesterol 02/29/24
clopidogrel 75 mg tablet (Plavix) 75 mg PO DAILY Blood Clot 02/29/24
Prevention/Tx
lidocaine 4 % topical patch 1 patch topical DAILYPRN PRN 02/29/24
topical pain
lactulose 20 gram/30 mL oral 20 g (30 mL) PO BID #1,500 mL 03/13/24
solution
albuterol sulfate 2.5 mg/3 mL 2.5 mg inhalation R Q4HPRN PRN 05/05/24
(0.083 %) solution for nebulization sob/wheezing
nitroglycerin 0.4 mg sublingual 0.4 mg sublingual [id number] PRN 05/05/24
tablet chest pain
oxycodone 15 mg tablet 15 mg PO QIDPRN PRN moderate pain 05/05/24
furosemide 40 mg tablet 40 mg PO DAILY #30 tabs 05/07/24
Review of Systems
-
Unable to obtain full review of systems at this time due to: Other (Patient lethargic)
Vital Signs
Temp Pulse Resp BP Pulse Ox
97.5 F 93 19 168/76 93
11/26/24 11:41 11/26/24 11:41 11/26/24 11:41 11/26/24 11:41 11/26/24 11:41
Physical Exam
Exam
Cardiac: S1/S2 and Regular Rhythm
GI: Soft and Distended (mild distention with ascites s/p paracentesis, no guarding or rigidity)
Musculoskeletal: Edema
Neuro: Other (lethargic)
Results
WBC 22.0 10^3/uL (4.8-10.8) H 11/26/24 03:10
Hgb 11.8 g/dL (12.0-16.0) L 11/26/24 03:10
Hct 37.0 % (37.0-47.0) 11/26/24 03:10
MCV 81.1 fL (81.0-99.0) 11/26/24 03:10
Plt Count 199 10^3/uL (130-400) 11/26/24 03:10
Absolute Neuts (auto) 17.2 10^3/uL (1.4-6.5) H 11/25/24 20:11
PT 17.0 Sec (11.4-14.6) H 11/26/24 03:10
INR 1.36 11/26/24 03:10
Sodium 143 mmol/L (135-145) 11/26/24 07:56
Potassium 4.2 mmol/L (3.5-5.1) 11/26/24 07:56
Chloride 114 mmol/L (98-107) H 11/26/24 07:56
Carbon Dioxide 20 mmol/L (22-30) L 11/26/24 07:56
BUN 47 mg/dl (7-17) H 11/26/24 07:56
Creatinine 2.1 mg/dL (0.6-1.0) H 11/26/24 07:56
Calcium 8.1 mg/dl (8.4-10.2) L 11/26/24 07:56
Total Bilirubin 1.3 mg/dl (0.2-1.3) 11/25/24 20:11
AST 34 U/L (14-36) 11/25/24 20:11
ALT 26 U/L (0-35) 11/25/24 20:11
Alkaline Phosphatase 371 U/L (38-126) H 11/25/24 20:11
Diagnostic Image Results: CT A/P 11/26/24-Massive ascites.
Markedly limited evaluation of organs of the abdomen including the liver with lobulated hepatic contour suggesting cirrhotic morphology. Space-occupying hepatic lesion although not identified, cannot be excluded, particularly without intravenous
contrast. Probable esophageal varices.
Somewhat edematous appearance of nondilated small bowel most likely secondary to ascites. Enteritis cannot be excluded. No evidence of small bowel pneumatosis, obstruction or free air. No secondary signs of small bowel ischemia, evaluation overall
markedly limited without oral or intravenous contrast.
Right-sided chest tube incompletely included on this study with tiny right pleural effusion and some right basilar subsegmental atelectasis.
Prior GI Procedures:
EGD: 03/09/24-- Small (< 5 mm) esophageal varices with red ck
sign. Incompletely eradicated. Banded.
- Two non-bleeding angioectasias in the stomach.
Treated with argon plasma coagulation (APC).
- Portal hypertensive gastropathy.
- A single angioectasia in the duodenum. Treated with
argon plasma coagulation (APC).
- Three non-bleeding angioectasias in the jejunum.
Treated with argon plasma coagulation (APC).
Colonoscopy: At [facility] 2024 ; not clear regarding findings, no report available
Assessment / Plan
-
Pt is a 74yo with with NAFLD, cirrhosis with ascites-currently not on diuretics due to baseline elevation in creatinine, history of hydrops pneumothorax status post pleural catheter, esophageal varices with prior banding, prior GI bleeding from
AVMs status post cautery May 2024, chronic anemia, HTN, prior CABG/stents, DM type II, COPD, PAD, tobacco abuse, ASCVD, hypothyroidism, and stent (peripheral vs cardiac) placement with Plavix therapy brought in by family with change in
mental status poor p.o. intake, and lethargy.
Leukocytosis noted without any fevers.
-MASH cirrhosis with decompensation-11/25/24 Admission MELD 3.0-19
-ascites s/p paracentesis 4800ml 11/26/24
- Peripheral artery disease with stent placement
-hx Esophageal varices with prior banding
-Elevated creatinine
other med problems:
-CABG and prior cardiac stents
-DM type II
-PAD
-prior tobacco abuse
-hypothyroidism
Plan
Decompensated liver disease with MASH cirrhosis, requiring large-volume paracentesis, not candidate for diuretics given baseline elevated creatinine, not a transplant candidate as per daughter, follows up at [facility]ospital presenting with change in mental status , hepatic encephalopathy like picture.
With leukocytosis, need to find source of infection. No fevers, blood cultures so far negative, chest x-ray and head CT negative as well.
CT abdomen and pelvis showing large volume of ascites without any hepatic lesions identified on noncontrast study.
Now status post paracentesis, await PMN's to rule out SBP as a trigger, await cultures, added cytology as well. No previous known history of SBP.
Started IV albumin every 8 hours.
Lactulose enema twice a day as patient still lethargic.Will add Xifaxan 550mg po twice a day if able to take it by mouth.
Currently on broad-spectrum antibiotic
NPO for now
Given elevated creatinine, requested for nephrology input as well.
Noted patient on IV beta-demetris elevated blood pressure, this could potentially increase risk of HRS with history of large volume ascites. So should be used cautiously.
Patient currently on IMU for close monitoring.
d/w pt's daughter
Will follow-up
-
-
Thank you for consultation and allowing me to participate in the patient's care. Please call the distribution field technician GI physician during the after hours with any questions or concerns.
[2024-11-26] MEDS: FLEXBUMIN 50 IV ×2 (13:55→21:21)
[2024-11-26 14:43] LABS: Body Fluid Polymorphonuclear 16.1 %; Body Fluid WBC 31 /CUMM
[2024-11-26 14:44] LABS: Body Fluid Mononuclear 83.9 %
[2024-11-26 14:46] LABS: Body Fluid Second Tech CS
[2024-11-26 14:48] LABS: Body Fluid Albumin < 1.0 g/dl; Body Fluid Protein < 2.0 g/dl
--- NOTE | 2024-11-26 16:09 | CM ---
Patient with Hx nonalcoholic steatohepatitis, cirrhosis, ascites, hepatic hydrothorax, right thoracic drain with Dx Altered Mental Status. Room air. Right sided chest tube. Per nurse; lethargic, non-verbal.
Met with patient, 2 daughters and grand-daughter with information per daughter Bella;
the patient resides with her daughter Bella in daughters 3 story house with 1 outside step and first floor bedroom/bath.
For the past 2 weeks patient was staying with grand-dtr in [place] with plan to return to daughter Bella's house.
Patient is usually alert/oriented at home however on day of admission she became drowsy and agitated.
The patient was assisted with ADLs and ambulatory with her RW, using w/c when out.
Bella had been emptying chest tube drain.
Family members provide 24 hr care and supervision.
DME - RW, w/c, chest tube drain and supplies
Prior [facility] - daughter wishes to resume at d/c
No prior SNF or Acute rehab.
PCP - Jaspreet Echeverria
Pharmacy - [facility]
Patient appears to have good family support with 4 children, 11 grand-children and many great-grand children.
Spoke with nurse receptionist Dulce Maria Perez who confirms that they had this patient on service previously - referral can be made to usual office.
Plan follow patient's mentation, chest tube needs, mobility.
--- NOTE | 2024-11-26 16:13 | W.CON.NEPH ---
Consultation
-
Date/Time Consultation Requested: 11/26/24 1156
Date/Time Consultation Performed: 11/26/24 1645
Requesting Provider: Etta Freeman
Performing Provider: Suze Avila
Reason for Consultation: ALIX with ckd
Medical History
-
Chief Complaint: AMS
History of Present Illness:
74yo with with NAFLD, cirrhosis with ascites, esophageal varices with prior banding, prior GI bleeding due to AVM's, chronic anemia, HTN on BB, prior CABG/stents on ASA and plavix with recent h/o stenting, DM type II on insulin, COPD, PAD, tobacco
abuse, ASCVD, hypothyroidism, Known CKD stage IIIB baseline creatinine lately at 1.8 in 05/2024, brought in by family for altered mental status. Patient lives in [place], follows up at [facility]. She came to her granddaughter's house in
[place] and as per daughter, has been lethargic, has not been eating or drinking much and not taking her lactulose either and brought in with change in mental status. Per daughter she was twitching. Does not know if she had any dysuria, no
reported fever. She was in normal state of health one day prior to admission.
Last hospitalization was at [facility] in August for possible GI bleed, had colonoscopy. She follows up with her board certified arts therapist at [facility], has right pleural catheter which was placed in July for hepatic hydrothorax and apparantly used to drain
from the catheter through her daily but 3 weeks ago that stopped working when she went to [place]. At that time she started accumulating more ascites and has been getting paracentesis twice a week. She was told by [facility] that she is not a transplant
candidate. She follows up with [facility] for anemia and gets periodic IV iron infusion and last 1 was about 3 weeks ago.
She is currently treated with lactulose enema with a concern of hepatic encephalopathy. Also had paracentesis a 4.8 L today. receiving antibiotics zosyn.
On admission her creatinine was at 2.4, lactic acid 7.8 with a bicarbonate of 13 she received IV fluids with improvement of creatinine to 2.1, lactic acid 3, bicarbonate of 20. Given ALIX nephrology consulted. the patient is currently very
lethargic and does not communicate. She has frequent twitching of her right hand. This is been the same since yesterday according to the family.
Past Medical History
ASCVD
Hypertension
DM-II
NAFLD
Cirrhosis with Ascites
Chronic HFpEF
Hypothyroidism
History of GI Bleeding
Chronic kidney disease with baseline creatinine of 1.8 05/2024
History of prior banding for esophageal varices
History of coronary artery disease status post CABG
History of recent non-ST elevation [place] with coronary artery stenting in January 2024
Past Surgical History: Other (Bilateral Humerus ORIF Percutaneous Angiography with Stent (2 weeks ago) Left Foot Surgery (one month ago))
Social History
Tobacco: Smoker
Alcohol: None
Drug: None
Family History
no CKD
Family History: Not Pertinent
Allergies / Home Medications
Allergy/AdvReac Type Severity Reaction Status Date / Time
adhesive Allergy Itching Verified 05/05/24 15:03
�Medication �Instructions �Recorded �Confirmed �Type
albuterol sulfate 90 mcg/actuation 2 puff inhalation R Q4HPRN PRN 09/10/23 05/05/24 History
aerosol inhaler sob/wheezing
diazepam 10 mg tablet 10 mg PO BIDPRN PRN anxiety 09/10/23 05/05/24 History
insulin glargine 100 unit/mL (3 12 - 15 unit SC HS diabetes 09/10/23 05/05/24 History
mL) subcutaneous pen (Lantus
Solostar U-100 Insulin)
insulin lispro 100 unit/mL 15 unit SC AC diabetes 09/10/23 05/05/24 History
subcutaneous pen (Humalog KwikPen
(U-100) Insulin)
levothyroxine 50 mcg tablet 50 mcg PO DAILY Thyroid 09/10/23 05/05/24 History
metoprolol succinate 25 mg 25 mg PO DAILY Blood Pressure 09/10/23 05/05/24 History
tablet,extended release 24 hr
omeprazole 20 mg capsule,delayed 20 mg PO DAILY Gastrointestinal 09/10/23 05/05/24 History
release Issue
rifaximin 550 mg tablet (Xifaxan) 550 mg PO Q12H fatty liver 09/10/23 05/05/24 History
disease/cirrhosis
aspirin 81 mg tablet,delayed 81 mg PO DAILY Blood Clot 02/29/24 05/05/24 History
release Prevention/Tx
atorvastatin 20 mg tablet (Lipitor) 20 mg PO QPM High Cholesterol 02/29/24 05/05/24 History
clopidogrel 75 mg tablet (Plavix) 75 mg PO DAILY Blood Clot 02/29/24 05/05/24 History
Prevention/Tx
lidocaine 4 % topical patch 1 patch topical DAILYPRN PRN 02/29/24 05/05/24 History
topical pain
lactulose 20 gram/30 mL oral 20 g (30 mL) PO BID #1,500 mL 03/13/24 05/05/24 Rx
solution
albuterol sulfate 2.5 mg/3 mL 2.5 mg inhalation R Q4HPRN PRN 05/05/24 05/05/24 History
(0.083 %) solution for nebulization sob/wheezing
nitroglycerin 0.4 mg sublingual 0.4 mg sublingual [id number] PRN 05/05/24 05/05/24 History
tablet chest pain
oxycodone 15 mg tablet 15 mg PO QIDPRN PRN moderate pain 05/05/24 05/05/24 History
furosemide 40 mg tablet 40 mg PO DAILY #30 tabs 05/07/24 Rx
Review of Systems
-
Patient is altered and unable to provide history
Physical Exam
Vital Signs
Vital Signs
Temp Pulse Resp BP Pulse Ox
97.2 F 94 12 161/57 93
11/26/24 15:10 05/25/25 12:24 11/26/24 12:24 11/26/24 12:24 11/26/24 11:41
Lab Results
WBC 22.0 10^3/uL (4.8-10.8) H 11/26/24 03:10
RBC 4.56 10^6/uL (4.20-5.40) 11/26/24 03:10
Hgb 11.8 g/dL (12.0-16.0) L 11/26/24 03:10
Hct 37.0 % (37.0-47.0) 11/26/24 03:10
Plt Count 199 10^3/uL (130-400) 11/26/24 03:10
Sodium 143 mmol/L (135-145) 11/26/24 07:56
Potassium 4.2 mmol/L (3.5-5.1) 11/26/24 07:56
Chloride 114 mmol/L (98-107) H 11/26/24 07:56
Carbon Dioxide 20 mmol/L (22-30) L 11/26/24 07:56
BUN 47 mg/dl (7-17) H 11/26/24 07:56
Creatinine 2.1 mg/dL (0.6-1.0) H 11/26/24 07:56
eGFR 24.42 11/26/24 07:56
Glucose 219 mg/dl (70-99) H 11/26/24 07:56
Calcium 8.1 mg/dl (8.4-10.2) L 11/26/24 07:56
Albumin 3.0 g/dl (3.5-5.0) L 11/25/24 20:11
Physical Exam
General: Other ( very lethargic)
HEENT: Anicteric, Facial Symmetry and Neck Supple
Respiratory: Normal Excursion, Nonlabored Respirations and Other ( and decreased breath sounds bilaterally)
Cardiac: S1/S2 and Regular Rate/Rhythm
Breast: Deferred by me
Abdomen: Soft, Nontender and Other ( with mild distention status post paracentesis today)
Musculoskeletal: No Cyanosis and Edema
Skin: No Rash
Neuro: Other
Psych: Other ( unable to assess)
Data Reviewed
-
Radiology: Report Reviewed by me and Discussed with Family
Labs: Labs Reviewed by me and Discussed with Patient
Assessment/Plan
-
Impression:
AMS r/o hepatic encephalopathy vs sepsis
Leukocytosis
Decompensated Cirrhosis - S/P LVP 6days ago
A gap Metabolic acidosis
ALIX with CKD stage IIIb cr 1.8
Anemia
CAD with history of CABG 2012
HFpEF
COPD
Hypoalbuminemia
GERD
Hypothyroidism
History of MALT lymphoma
History of gastric and duodenal angioectasias
h/o recurrent right effusion s/p pleural catheter
Plan:
A/w AMS, possible multifactorial
ALIX-check UA and Fena, suspect prerenal, can not r/o HRS but seem less likely
agree with IV alb course, cr already improving to 2.1 with IVF
L acidosis is improving , she is nothing by mouth hence we'll switch IV fluids to half normal with a bicarbonate
holding lasix
Hyperkalemia improved s/p lasix
Bp on high range on Iv bb, hydralazine
not trasnplant candidate per GI note
With her ongoing twitches and altered mental status-consider neurology evaluation
d/w daughter and family granddaughter who is a nurse at [employer]
follow labs
[2024-11-26 17:24] LABS: Glucose - Point of Care 200 mg/dl (70-99)
[2024-11-26] MEDS: SODIUM BICARBONATE IV (19:50)
--- NOTE | 2024-11-26 19:51 | CON.NEURO ---
Neuro Assessment/Plan
Assessment
Head CT imgs rev'd,
spoke with patient's family, agree with dx of hepatic encephalopathy. presence of asterixis consistent with the effect of liver disease on the brain; in someone who is chronically ill, neurological recovery can be slow/incomplete after acute medical
illness. the video shown, and the description of left arm and contralateral leg concurrent jerking movements would not be consistent with seizure
Plan
check EEG
Consultation
Order
Date of Consultation: 11/26/24
Requesting Provider: Suze Silva
Reason for Consult: altered mental status
Subjective/Objective
Subjective Data
Date of Service: November 26, 2024
from h&p:
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
the emergency department with 1 day history of altered mental status.
Patient has been having a right thoracic drain placed in July. Family reported that they usually drain about 1 L every day up until about 4 weeks ago when she started having minimal drainage from the thorax. Since then she has been having more
abdominal distention now requiring frequent paracentesis. Family. That she takes about 3 to 6 L of fluid off every 4 to 8 days at another hospital. The last paracentesis was 4 days ago. The records indicated no fluid samples been sent. She did
well following the paracentesis but reaccumulated very quickly and her daughter stated that the degree of distention is similar to 3 paracentesis presentation. Patient had arose this morning in apparent usual state of health except complaint of
more back pain than usual. She has chronic back pain for which she is on tizanidine and baclofen. Family believes that she may have taken extra doses of these 2 medications. She knows to not take extra doses of opioids. This afternoon the
patient started getting confused and belligerent and then became very sleepy. In addition the patient has not been compliant with her lactulose for several days. She was stopped taking 30 mg 3 times daily, more recently she has been only been
taking 20 and in the last few days has not taken the lactulose at all. Found to have loose stool with the yellow jelly colored material today. By the time she arrived in the emergency department she become more obtunded. She was not able to
provide any history. Family denies any fevers. Denies any known sick contact. They describe decreased urine output but no complaints of dysuria, frequency or urgency. She has had decreased p.o. intake overall. She is on Lasix 20 mg daily now
and as needed for increased lower extremity edema.
family showed me a video of of medium amplitude jerky movements of the left arm, repetitive, ~1/second, and report that the right leg was also concurrently jerking with lower amplitude. She was admitted last evening and with lactulose ammonia
improved from 40-->13, however mental status has not improved. they report that at baseline, patient is AAOx4, and needs some assistance with ADLs
PMH: NAFLD, cirrhosis with ascites, esophageal varices with prior banding, prior GI bleeding due to AVM's, chronic anemia, HTN, prior CABG/stents, DM type II, COPD, PAD, tobacco abuse, ASCVD, hypothyroidism, and recent stent (peripheral vs
cardiac) placement
Objective Data
Vital Signs
Temp Pulse Resp BP Pulse Ox
36.4 C 95 17 176/78 97
11/26/24 19:36 11/26/24 18:00 11/26/24 18:00 11/26/24 18:00 11/26/24 18:00
Lab Results
11/26/24 03:10
11/26/24 07:56
PT 17.0 Sec (11.4-14.6) H 11/26/24 03:10
INR 1.36 11/26/24 03:10
Sodium 143 mmol/L (135-145) 11/26/24 07:56
Potassium 4.2 mmol/L (3.5-5.1) 11/26/24 07:56
BUN 47 mg/dl (7-17) H 11/26/24 07:56
Glucose 219 mg/dl (70-99) H 11/26/24 07:56
Calcium 8.1 mg/dl (8.4-10.2) L 11/26/24 07:56
Patient Allergies
adhesive Allergy (Verified 05/05/24 15:03)
Itching
Physical Exam
-
obtunded, nonsensical speech
localizes and withdraws bilaterally
+negative myoclonus (asterixis)
Medications
-
Active Medications
Generic Name Dose Route Start Last Admin
Trade Name Freq PRN Reason Stop Dose Admin
Acetaminophen 650 mg 11/26/24 02:03
Acetaminophen 650 Mg Rectal Suppository RECTAL 12/24/24 02:02
Q6HPRN PRN
mild pain/TOVAR/temp> 100.4F
Albuterol/Ipratropium 3 ml 11/26/24 03:41
Ipratropium 0.5/Albuterol 3 Mg (3 Ml Ampul) INH
R Q4HPRN PRN
sob/wheeze
Protocol
Dextrose 12.5 grams 11/26/24 03:55
Dextrose 50% (0.5 Grams/Ml) 50 Ml Syringe IV 12/24/24 03:54
[id number] PRN
hypoglycemia (BG < 70 mg/dL)
Protocol
Glucagon 1 mg 11/26/24 03:00
Glucagon 1 Mg Vial IM 12/24/24 02:59
PRN PRN
hypoglycemia - no IV access
Protocol
Heparin Sodium 5,000 units 11/26/24 08:00 11/26/24 17:09
Heparin 5,000 Units/Ml 1 Ml Vial SC 12/24/24 07:59 5,000 units
Q8 LOLA Administration
Hydralazine HCl 10 mg 11/26/24 13:24
Hydralazine 20 Mg/Ml Vial IV 12/24/24 13:23
Q4HPRN PRN
SBP > 180 mmHg
Hydralazine HCl 5 mg 11/26/24 13:24
Hydralazine 20 Mg/Ml Vial IV 12/24/24 13:23
Q4HPRN PRN
SBP > 160
Hydromorphone HCl 0.5 mg 11/26/24 02:03
Hydromorphone 0.5 Mg/0.5 Ml Syringe IV 12/10/24 02:02
Q4HPRN PRN
severe pain
Piperacillin Sod/Tazobactam Sod 2.25 grams in 50 mls @ 100 mls/hr 11/26/24 06:00 11/26/24 17:10
Zosyn IV 50 mls
Q6H LOLA Administration
Vancomycin HCl 1 each/ Device 0 mls @ 0 mls/hr 11/26/24 02:03
IV
PER PROTOCOL LOLA
Protocol
As Directed
Albumin Human 12.5 grams in 50 mls @ 60 mls/hr 11/26/24 12:30 11/26/24 13:55
Flexbumin IV 11/27/24 12:29 50 mls
Q8H LOLA Administration
Sodium Bicarbonate 75 meq/ 1,075 mls @ 60 mls/hr 11/26/24 17:45
Sodium Chloride IV
[id number] LOLA
Insulin Aspart 0 units 11/26/24 06:00 11/26/24 17:14
Insulin Aspart Low Resistance 300 Units/3 Ml Pen.Injctr SC 12/24/24 05:59 2 units
Q6 LOLA Administration
Protocol
Lactulose 300 ml 11/26/24 13:00 11/26/24 13:55
Lactulose Enema 300 Ml Bottle RECTAL 12/24/24 12:59 300 ml
BID LOLA Administration
Metoprolol Tartrate 2.5 mg 11/26/24 06:00 11/26/24 17:09
Metoprolol 5 Mg/5 Ml Vial IV 12/24/24 05:59 2.5 mg
Q6 LOLA Administration
Ondansetron HCl 4 mg 11/26/24 02:03 11/26/24 11:17
Ondansetron 4 Mg/2 Ml Vial IV 12/24/24 02:02 4 mg
Q6HPRN PRN Administration
nausea and vomiting
Pantoprazole Sodium 40 mg 11/26/24 08:00 11/26/24 07:44
Pantoprazole Sodium 40 Mg/10 Ml Vial IV 12/24/24 07:59 40 mg
DAILY LOLA Administration
Rifaximin 550 mg 11/26/24 20:00
Rifaximin 550 Mg Tablet PO
BID LOLA
Sodium Chloride 0 flush 11/26/24 03:00
Sodium Chloride 0.9% (Flush) Syringe IV 12/24/24 02:59
PER PROTOCOL LOLA
Sodium Chloride 10 ml 11/26/24 08:00 11/26/24 07:44
Sodium Chloride 0.9% (Preservative Free) 10 Ml Vial IV 12/24/24 07:59 10 ml
DAILY LOLA Administration
Home Medications
�Medication �Instructions �Recorded
albuterol sulfate 90 mcg/actuation 2 puff inhalation R Q4HPRN PRN 09/10/23
aerosol inhaler sob/wheezing
diazepam 10 mg tablet 10 mg PO BIDPRN PRN anxiety 09/10/23
insulin glargine 100 unit/mL (3 12 - 15 unit SC HS diabetes 09/10/23
mL) subcutaneous pen (Lantus
Solostar U-100 Insulin)
insulin lispro 100 unit/mL 15 unit SC AC diabetes 09/10/23
subcutaneous pen (Humalog KwikPen
(U-100) Insulin)
levothyroxine 50 mcg tablet 50 mcg PO DAILY Thyroid 09/10/23
metoprolol succinate 25 mg 25 mg PO DAILY Blood Pressure 09/10/23
tablet,extended release 24 hr
omeprazole 20 mg capsule,delayed 20 mg PO DAILY Gastrointestinal 09/10/23
release Issue
rifaximin 550 mg tablet (Xifaxan) 550 mg PO Q12H fatty liver 09/10/23
disease/cirrhosis
aspirin 81 mg tablet,delayed 81 mg PO DAILY Blood Clot 02/29/24
release Prevention/Tx
atorvastatin 20 mg tablet (Lipitor) 20 mg PO QPM High Cholesterol 02/29/24
clopidogrel 75 mg tablet (Plavix) 75 mg PO DAILY Blood Clot 02/29/24
Prevention/Tx
lidocaine 4 % topical patch 1 patch topical DAILYPRN PRN 02/29/24
topical pain
lactulose 20 gram/30 mL oral 20 g (30 mL) PO BID #1,500 mL 03/13/24
solution
albuterol sulfate 2.5 mg/3 mL 2.5 mg inhalation R Q4HPRN PRN 05/05/24
(0.083 %) solution for nebulization sob/wheezing
nitroglycerin 0.4 mg sublingual 0.4 mg sublingual [id number] PRN 05/05/24
tablet chest pain
oxycodone 15 mg tablet 15 mg PO QIDPRN PRN moderate pain 05/05/24
furosemide 40 mg tablet 40 mg PO DAILY #30 tabs 05/07/24
[2024-11-26] MEDS: TYLENOL/FEVERALL 650 MG RECTAL (19:56)
[2024-11-26] MEDS: SODIUM BICARBONATE 1075 MEQ IV (19:56)
[2024-11-26] MEDS: XIFAXAN PO (20:05)
[2024-11-26] MEDS: APRESOLINE 5 MG IV (22:03)
[2024-11-26] MEDS: LOPRESSOR IV (22:57)
--- NOTE | 2024-11-26 23:07 | W.PN.UPDATE ---
Update Note
Progress Note Update
-Patient had episodes of bradycardia with pauses up to 3.89 sec, hr down to 30s- 40s for sec then up to 90s.
-Patient with pmh of COPD, Cardiac CHF, CAD, CABG, cardia stents. Patient does not have sleep apnea diagnosis listed. Per son, patient had normal sleep study but was advised to repeated but the patient never f/u. Patient asymptomatic.
CPAP ordered.
Patient currently on Lopressor 2.5mg q6hrs will hold.
Ekg Ordered
Cardio consult was placed.
[2024-11-26 23:11] LABS: Glucose - Point of Care 173 mg/dl (70-99)
--- NOTE | 2024-11-26 23:19 | PTCARENOTE ---
assumed care of patient. pt is AAOx1- pt does respond to tactile stimuli with a moan or a yelling out, does not give any meaningful conversation. family at bedside. bed alarm on. pt NSR/ST with movement. some PVC's and bigeminy noted. pt with some
pauses too, HR drops to high 30s-low 40s, longest pause measured 3.89seconds. notified covering [employer]- advised to hold 0000 dose of Lopressor. pt does have some periods of low respirations, son at bedside and talked to his sister, said patient was
worked up awhile ago outpatient for sleep apnea and it was normal. said patient was advised to get worked up again and patient never followed up. CPAP order placed. lactulose enema given per order. pt remains on 1L NC 99%. inc. of bowel and bladder.
IV fluids infusing. pt does have occasional twitching of left arm and left leg. for EEG in the AM. care ongoing.
[2024-11-27] VITALS (14 sets, daily range): BP systolic 129–185; BP diastolic 60–99; PULSE 103; BMI 20.9
--- NOTE | 2024-11-27 01:07 | PTCARENOTE ---
pt only lasted 30 mins on bipap, pt starting to try to pull mask off and getting very restless. son at bedside. asking for mask to come off patient. pt placed back on 1L NC at this time.
[2024-11-27] MEDS: FLEXBUMIN 50 IV ×3 (03:37→19:54)
--- NOTE | 2024-11-27 04:10 | PTCARENOTE ---
pt is much more awake as shift progresses, pt able to open eyes and look at staff, still does not give any meaningful conversation but yells out with care. bed alarm remains on, son remains at bedside.
[2024-11-27 04:27] LABS: Hematocrit 31.3 % (37.0-47.0); Hemoglobin 10.1 g/dL (12.0-16.0); Mean Corp Hgb Conc. 32.3 g/dL (33.0-37.0); Mean Corpuscular Hgb 26.2 pg (27.0-31.0); Mean Corpuscular Volume 81.3 fL (81.0-99.0); Platelet Count 161 10^3/uL (130-400); Red Blood Cell Count 3.85 10^6/uL (4.20-5.40); Red Cell Dist. Width 20.6 % (11.5-14.5); White Blood Cell Count 10.6 10^3/uL (4.8-10.8)
--- NOTE | 2024-11-27 04:40 | PTCARENOTE ---
pt trialed off oxygen because pt kept trying to take it off. oxygen did drop to 82% while sleeping. 2L reapplied, oxygen now 98%.
[2024-11-27 04:55] LABS: ALT (SGPT) 15 U/L (0-35); AST (SGOT) 31 U/L (14-36); Albumin 2.7 g/dl (3.5-5.0); Alkaline Phosphatase 170 U/L (38-126); Blood Urea Nitrogen 49 mg/dl (7-17); Calcium 8.1 mg/dl (8.4-10.2); Carbon Dioxide 21 mmol/L (22-30); Chloride 112 mmol/L (98-107); Estimated Creatinine Clearance 20 ml/min; Glucose 180 mg/dl (70-99); Magnesium 1.6 mg/dl (1.6-2.3); Phosphorus 4.6 mg/dl (2.5-4.5); Potassium 3.9 mmol/L (3.5-5.1); Sodium 143 mmol/L (135-145); Total Bilirubin 1.2 mg/dl (0.2-1.3); Total Protein 6.1 g/dl (6.3-8.2); eGFR 23.09
[2024-11-27 04:56] LABS: Vancomycin Random 14.8 ug/ml
[2024-11-27] MEDS: NOVOLOG FLEXPEN-LOW RESISTANCE 1 UNITS SC ×2 (05:42→11:26)
[2024-11-27] MEDS: ZOSYN 50 IV ×4 (05:42→23:04)
[2024-11-27 05:47] LABS: Glucose - Point of Care 178 mg/dl (70-99)
--- NOTE | 2024-11-27 07:35 | W.PN.HOSP.TC ---
Today's Communication/Plan
-
see A/P
Assessment / Plan
Assessment / Plan
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
anemia, HTN, prior CABG/stents, DM type II, COPD, PAD, tobacco abuse, ASCVD, and hypothyroidism presented with altered mental status.
A/P:
# AMS/ acute toxic metabolic encephalopathy, etiology possibilities include intoxication with tizanidine/baclofen, hepatic encephalopathy, sepsis/infection.
# Decompensated KRAFT Cirrhosis
No evidence of acute stroke.
s/p para 11/26, removed 4800 ml ascitic fluid. Negative for SBP
Follow para fluid culture
Blood cultures so far negative
holding offending medications
restarted lactulose enema BID for now per GI, added Xifaxan 550mg po twice a day if able to take it by mouth.
Cont broad spectrum antibiotics Vanc/Zosyn
Monitor MS, SPL eval when appropriate
noted ammonia level normalized from 40 to 13
# Sinus bradycardia with pauses, asymptomatic.
Lopressor 2.5mg q6hrs held
Card consult placed.
# DM II
sliding scale insulin q 6 hours for now
# Progressive renal dysfunction
# ALIX on CKD stage 4
Cr 2.4 from admission, today at 2.2, baseline ?1.5
holding lasix for now
Cont albumin every 8 hours.
avoid nephrotoxins
Renal on board
# Improved metabolic acidosis
Bicarb drip per renal
DVT PPX - heparin sq
Code status - Full Code
DW RN
called daughter Bella to update, calls not answered
total time 51 min
Anticipated Discharge: > 48 hours
Subjective/Interval History
-
Date of Service: November 27, 2024
Objective Data
-
Labs:
Laboratory Results
11/27/24
04:01
WBC 10.6
Hgb 10.1 L
Hct 31.3 L
Plt Count 161
Sodium 143
Potassium 3.9
Chloride 112 H
Carbon Dioxide 21 L
BUN 49 H
Creatinine 2.2 H
Glucose 180 H
Calcium 8.1 L
Total Bilirubin 1.2
AST 31
ALT 15
Alkaline Phosphatase 170 H
Vital Signs:
Vital Signs
Temp Pulse Resp BP Pulse Ox
36.4 C 96 11 154/64 98
11/27/24 04:05 11/27/24 06:00 11/27/24 06:00 11/27/24 06:00 11/27/24 06:00
I&O
11/26/24 11/27/24 11/28/24
06:59 06:59 06:59
Intake Total 525 / 525 200 / 200
Balance 525 / 525 200 / 200
Review of Systems
-
Unable to obtain full review of systems at this time due to: Acuity
Physical Exam
-
General: Comfortable and Appears Chronically Ill; Negative Conversant (groans)
HEENT: Oxygen (2L NC)
Respiratory: Non Labored Respirations; Negative Accessory Resp Muscle Use
Cardiac: Regular Rhythm and S1/S2
GI: Soft, Nontender, Nondistended and Normal Bowel Sounds
Skin: Warm and Dry; Negative Rash
Neuro: Awake; Negative AO x 3
Psych: Confused; Negative Intact Judgement/Insight
Data Reviewed
-
CT Scan: Report Reviewed by me
Labs: Labs Reviewed by me
--- NOTE | 2024-11-27 07:57 | PHA.VAN.FU ---
Vancomycin Assessment / Plan
- Assessment
Renal Function: Stable
WBC's are: Trending Down
In the past 24 hrs, patient has been: Afebrile
Concomitant Antimicrobials: Piperacillin-tazobactam; Rifaximin
- Assessment - Therapeutic Drug Monitoring
Random Level: 14.8 ~28 hrs post Vanc 1500mg
- Dosing Plan
Continue: Dose by level
Dosing by Level: Re-dose today (Vanc 500mg today)
- Monitoring Plan
Random Level: 11/28 AM
- Follow Up
Pharmacy will continue to follow.
Vancomycin Follow UP
- -
Patient Age: 74
Patient Sex: Female
Vancomycin Day #: 2
Indication: Gi / Intra-Abdominal
Requesting Provider: Sebastián
Height / Weight:
Height 5 ft 4 in
Actual Weight 55.2 kg
IBW in k.7
Adjusted BW in k.9
Pertinent Past Medical History: Nonalcoholic steatohepatitis req frequent paracentesis
- Vital Signs / Lab Results
Temp Pulse Resp BP Pulse Ox
97.6 F 96 11 154/64 98
11/27/24 04:05 11/27/24 06:00 11/27/24 06:00 11/27/24 06:00 11/27/24 06:00
Lab Results - Hematology
11/25/24 11/26/24 11/27/24
20:11 03:10 04:01
WBC 19.5 H 22.0 H 10.6
Lab Results - Chemistry
11/25/24 11/26/24 11/26/24
20:11 03:10 07:56
BUN 48 H 48 H 47 H
Creatinine 2.4 H 2.2 H 2.1 H
Estimated Creat Clear 18 20 21
Albumin 3.0 L
11/27/24
04:01
BUN 49 H
Creatinine 2.2 H
Estimated Creat Clear 20
Albumin 2.7 L
11/25/24 11/26/24 11/26/24
20:11 00:10 03:10
Lactic Acid 7.8 H* 3.2 H 3.5 H
11/26/24 11/26/24
07:56 15:51
Lactic Acid 3.0 H 2.0
Microbiology Results
11/25/24 20:10 Blood Culture - Preliminary
Blood/Venous No Growth in 24 hours- Final report to follow
11/25/24 20:10 Blood Culture - Preliminary
Blood/Venous No Growth in 24 hours- Final report to follow
11/26/24 12:04 Gram Stain - Preliminary
Peritoneal Fluid
Therapeutic Drug Monitoring
Random Vancomycin 14.8 ug/ml 11/27/24 04:01
[2024-11-27] MEDS: PROTONIX IV 40 MG IV (07:58)
[2024-11-27] MEDS: XIFAXAN PO (07:58)
[2024-11-27] MEDS: HEPARIN 5000 UNITS SC ×3 (07:58→23:04)
[2024-11-27] MEDS: NSS (PRESERVATIVE FREE) 10 ML IV (07:58)
[2024-11-27] MEDS: LACTULOSE ENEMA 300 ML RECTAL (07:59)
--- NOTE | 2024-11-27 08:23 | CON.CAR ---
Consultation
Consultation Request
Date/Time Consultation Requested: 11/27/2024
Date/Time Consultation Performed: 11/27/2024
Reason for Consultation: Pauses
Medical History
-
Chief Complaint: Altered mental status
History of Present Illness:
74-year-old woman with nonalcoholic steatohepatitis cirrhosis with history of large volume ascites and hepatic hydrothorax requiring frequent paracenteses presented with altered mental status. Patient does have a history of prior GI bleeding,
chronic anemia, hypertension on beta-blockers, history of coronary disease status post CABG and stents currently on aspirin, Plavix, diabetes mellitus, on insulin, COPD, PAD, tobacco abuse, hypothyroidism, CKD stage IIIb, who was hospitalized for
acute toxic metabolic encephalopathy has undergone paracentesis on 11/26/2024 with removal of around 5 L of ascitic fluid. Patient is also on Lopressor 2.5 mg every 6 hour which has been held after noticing significant bradycardia and few pauses.
Patient longest pause was 4-second with frequent pauses following PVC.
Next currently patient is being treated for spontaneous bacterial peritonitis with Zosyn, on bicarb drip and has recently started on Xifaxan. Cardiology was consulted for the evaluation of bradycardia. Patient herself is lying in bed and not able to
respond to me. We discussed in detail with the patient, son who is at bedside.
Past Medical History
Past Medical History: Arrhythmias, CAD (Status post PCI in January 2024, history of CABG.), CHF (Heart failure with preserved ejection fraction), GERD, HTN, NIDDM, Renal Failure (CKD stage III) and Other (Cirrhosis nonalcoholic, prior banding of the
esophageal varices)
Past Surgical History: Cardiac
Social History
Tobacco: Smoker
Alcohol: None
Drug: None
Family History
Family History: Reviewed & Not Pertinent
Allergies / Home Medications
Allergy/AdvReac Type Severity Reaction Status Date / Time
adhesive Allergy Itching Verified 05/05/24 15:03
�Medication �Instructions �Recorded �Confirmed �Type
albuterol sulfate 90 mcg/actuation 2 puff inhalation R Q4HPRN PRN 09/10/23 05/05/24 History
aerosol inhaler sob/wheezing
diazepam 10 mg tablet 10 mg PO BIDPRN PRN anxiety 09/10/23 05/05/24 History
insulin glargine 100 unit/mL (3 12 - 15 unit SC HS diabetes 09/10/23 05/05/24 History
mL) subcutaneous pen (Lantus
Solostar U-100 Insulin)
insulin lispro 100 unit/mL 15 unit SC AC diabetes 09/10/23 05/05/24 History
subcutaneous pen (Humalog KwikPen
(U-100) Insulin)
levothyroxine 50 mcg tablet 50 mcg PO DAILY Thyroid 09/10/23 05/05/24 History
metoprolol succinate 25 mg 25 mg PO DAILY Blood Pressure 09/10/23 05/05/24 History
tablet,extended release 24 hr
omeprazole 20 mg capsule,delayed 20 mg PO DAILY Gastrointestinal 09/10/23 05/05/24 History
release Issue
rifaximin 550 mg tablet (Xifaxan) 550 mg PO Q12H fatty liver 09/10/23 05/05/24 History
disease/cirrhosis
aspirin 81 mg tablet,delayed 81 mg PO DAILY Blood Clot 02/29/24 05/05/24 History
release Prevention/Tx
atorvastatin 20 mg tablet (Lipitor) 20 mg PO QPM High Cholesterol 02/29/24 05/05/24 History
clopidogrel 75 mg tablet (Plavix) 75 mg PO DAILY Blood Clot 02/29/24 05/05/24 History
Prevention/Tx
lidocaine 4 % topical patch 1 patch topical DAILYPRN PRN 02/29/24 05/05/24 History
topical pain
lactulose 20 gram/30 mL oral 20 g (30 mL) PO BID #1,500 mL 03/13/24 05/05/24 Rx
solution
albuterol sulfate 2.5 mg/3 mL 2.5 mg inhalation R Q4HPRN PRN 05/05/24 05/05/24 History
(0.083 %) solution for nebulization sob/wheezing
nitroglycerin 0.4 mg sublingual 0.4 mg sublingual [id number] PRN 05/05/24 05/05/24 History
tablet chest pain
oxycodone 15 mg tablet 15 mg PO QIDPRN PRN moderate pain 05/05/24 05/05/24 History
furosemide 40 mg tablet 40 mg PO DAILY #30 tabs 05/07/24 Rx
Review of Systems
-
History Source: Family
All other systems: Negative unless noted
Physical Exam
Vital Signs
Temp Pulse Resp BP Pulse Ox
97.6 F 96 11 154/64 98
11/27/24 04:05 11/27/24 06:00 11/27/24 06:00 11/27/24 06:00 11/27/24 06:00
Lab Results
11/27/24 04:01
11/27/24 04:01
Physical Exam
General: Well Developed, No Apparent Distress and Other (Bedsores on the heels bilaterally with bandages in place.)
HEENT: Normocephalic
Respiratory: Crackles, Rhonchi and Non Labored Respirations
Cardiac: S1/S2 and Regular Rhythm
GI: Soft and Distended
Musculoskeletal: No Clubbing, No Cyanosis and No Edema
Skin: Warm and Dry
Neuro: Awake, Nonfocal/Grossly Intact and Other (Confused)
Impression / Plan
-
Sinus bradycardia with pauses
- Patient sinus bradycardia appears to be asymptomatic.
- Longest pause was 4 seconds. There are multiple pauses noted especially following the PVC.
- The pauses are significant but not associated with any hemodynamic compromise.
- We discussed different options including conservative management and observation versus proceeding with a pacemaker.
- At this time patient's does not need a pacemaker. In case she starts having significant longer pauses (longer than 4 seconds) or having symptoms, we can consider revisiting the need for a pacemaker.
- Pacemaker was discussed in detail with the patient's son who is in agreement to stay conservative and not pursue any pacemaker at this time.
- Last echo 09/13/2023 shows LVEF of 60%. Mild valvular insufficiency with PA pressure of ~50 mmHg.
Coronary artery disease
- Currently patient is on metoprolol 2.5 mg every 6 hours, rifaximin 550 twice a day, heparin 5000 units every 8 hours
SBP
- On Zosyn and vancomycin
Data Reviewed
-
EKG: Report Reviewed by me, Discussed with Physician, Discussed with Nurse, Discussed with Patient and Discussed with Family
Labs: Labs Reviewed by me
Old Records: Reviewed
[2024-11-27] MEDS: VANCOCIN HCL 500 MG 100 IV (08:52)
[2024-11-27] MEDS: APRESOLINE 5 MG IV (08:52)
[2024-11-27 08:57] LABS: Urine Albumin 3+ (Neg - Trace); Urine Bilirubin Negative (Negative); Urine Character Clear (Clear); Urine Color Yellow; Urine Glucose Negative (Negative); Urine Ketone Negative (Negative); Urine Leukocyte 3+ (Negative); Urine Nitrite Negative (Negative); Urine Occult Blood 4+ (Negative); Urine Urobilinogen Negative (Neg - 1+)
[2024-11-27 09:26] LABS: Urine Sodium 44 mmol/L (30-90)
--- NOTE | 2024-11-27 09:53 | PTCARENOTE ---
One time straight cath order placed by MD to be able to send urine sample due to patient being incontinent. Patient bladder scanned for 95 mL. Straight cath completed and 100 mL of yellow urine out. Care ongoing.
--- NOTE | 2024-11-27 09:54 | PTCARENOTE ---
Lactulose enema completed per order and patient had 2 large liquid stools after. Care ongoing.
[2024-11-27 09:57] LABS: Urine Squamous Cell >30 /LPF (Few)
[2024-11-27 09:58] LABS: Urine Red Blood Cell 16-20 /HPF (0-2); Urine White Cell 40-50 /HPF (0-5)
[2024-11-27 09:59] LABS: Urine Bacteria Moderate (Negative); Urine Yeast Few (Negative)
[2024-11-27 10:06] LABS: Amphetamines Negative (Negative); Barbiturates Negative (Negative); Benzodiazepines Negative (Negative); Buprenorphine Negative (Negative); Cocaine Negative (Negative); Marijuana Negative (Negative); Methadone Negative (Negative); Methamphetamines Negative (Negative); Opiates Negative (Negative); Phencyclidine Negative (Negative); Tricyclic Antidepressants Negative (Negative)
--- NOTE | 2024-11-27 10:14 | PTCARENOTE ---
Patients BP was 167/67. PRN hydralazine given per order. Repeat BP approx 1 hour after 137/79. Care ongoing.
--- NOTE | 2024-11-27 10:43 | W.PN.GI.CBS2 ---
Today's Communication / Plan
-
Plan
Decompensated liver disease with [facility] cirrhosis, requiring large-volume paracentesis, not candidate for diuretics given baseline elevated creatinine, not a transplant candidate as per daughter, follows up at [facility]
Hospital presenting with change in mental status , hepatic encephalopathy like picture.
Leukocytosis resolved, no evidence of SBP on paracentesis. No fevers, blood cultures so far negative, chest x-ray and head CT negative as well.
CT abdomen and pelvis showing large volume of ascites without any hepatic lesions identified on noncontrast study.
No previous known history of SBP.
Continue IV albumin every 8 hours.
Lactulose enema twice a day, patient slightly more awake. Will add lactulose 20 mL twice a day apart from the lactulose enemas and once patient is able to take the oral lactulose without refusing, we can stop enemas and use lactulose every 8 hours
or so to titrate based on bowel movements. Continue Xifaxan 550mg po twice a day if able to take it by mouth.
Currently on broad-spectrum antibiotic
NPO for now but if mental status continues to improve, we could try clear liquid diet.
Creatinine still elevated at 2.2, will continue IV albumin every 8 hours.
Noted beta-demetris on hold for bradycardia
Patient currently on IMU for close monitoring.
d/w pt's son who is in the room with patient
Will follow
Assessment / Plan
-
Pt is a 74yo with with NAFLD, cirrhosis with ascites-currently not on diuretics due to baseline elevation in creatinine, history of hydrops pneumothorax status post pleural catheter, esophageal varices with prior banding, prior GI bleeding from
AVMs status post cautery May 2024, chronic anemia, HTN, prior CABG/stents, DM type II, COPD, PAD, tobacco abuse, ASCVD, hypothyroidism, and stent (peripheral vs cardiac) placement with Plavix therapy brought in by family with change in
mental status poor p.o. intake, and lethargy.
Leukocytosis noted without any fevers.
-MASH cirrhosis with decompensation-11/25/24 Admission MELD 3.0-19
-ascites s/p paracentesis 4800ml 11/26/24
- Peripheral artery disease with stent placement
-hx Esophageal varices with prior banding
-Elevated creatinine
other med problems:
-CABG and prior cardiac stents
-DM type II
-PAD
-prior tobacco abuse
-hypothyroidism
Plan
Decompensated liver disease with [facility] cirrhosis, requiring large-volume paracentesis, not candidate for diuretics given baseline elevated creatinine, not a transplant candidate as per daughter, follows up at [facility]
Hospital presenting with change in mental status , hepatic encephalopathy like picture.
Leukocytosis resolved, no evidence of SBP on paracentesis. No fevers, blood cultures so far negative, chest x-ray and head CT negative as well.
CT abdomen and pelvis showing large volume of ascites without any hepatic lesions identified on noncontrast study.
No previous known history of SBP.
Continue IV albumin every 8 hours.
Lactulose enema twice a day, patient slightly more awake. Will add lactulose 20 mL twice a day apart from the lactulose enemas and once patient is able to take the oral lactulose without refusing, we can stop enemas and use lactulose every 8 hours
or so to titrate based on bowel movements. Continue Xifaxan 550mg po twice a day if able to take it by mouth.
Currently on broad-spectrum antibiotic
NPO for now but if mental status continues to improve, we could try clear liquid diet.
Creatinine still elevated at 2.2, will continue IV albumin every 8 hours.
Noted beta-demetris on hold for bradycardia
Patient currently on IMU for close monitoring.
d/w pt's son who is in the room with patient
Will follow
Subjective
Subjective
Date of Service: November 27, 2024
patient slightly more awake today, had small bowel movements with lactulose enemas. No fevers or chills.
Objective
Data Reviewed
Laboratory Data:
Laboratory Results
11/27/24 04:01
11/27/24 04:01
Laboratory Results
PT 17.0 Sec (11.4-14.6) H 11/26/24 03:10
INR 1.36 11/26/24 03:10
Phosphorus 4.6 mg/dl (2.5-4.5) H 11/27/24 04:01
Magnesium 1.6 mg/dl (1.6-2.3) 11/27/24 04:01
Total Bilirubin 1.2 mg/dl (0.2-1.3) 11/27/24 04:01
AST 31 U/L (14-36) 11/27/24 04:01
ALT 15 U/L (0-35) 11/27/24 04:01
Alkaline Phosphatase 170 U/L (38-126) H 11/27/24 04:01
Vital Signs and I&O:
Vital Signs
Temp Pulse Resp BP Pulse Ox
97.6 F 121 28 137/79 96
11/27/24 04:05 11/27/24 10:00 11/27/24 10:00 11/27/24 10:00 11/27/24 10:00
I&O
11/26/24 11/27/24 11/28/24
06:59 06:59 06:59
Intake Total 525 / 525 200 / 200
Output Total 100 / 100
Balance 525 / 525 200 / 200 -100 / -100
Physical Exam
Physical Exam
GI: Soft, Distended (Mildly distended with fluid) and Non Tender
Extremities: Edema
[2024-11-27] MEDS: DUPHALAC/CHRONULAC 20 GRAMS PO ×2 (11:17→19:54)
--- NOTE | 2024-11-27 11:25 | W.PN.NEPH.PH ---
Today's Communication / Plan
-
cont IVF and follow labs
Assessment/Plan
-
Impression:
AMS r/o hepatic encephalopathy vs sepsis
Leukocytosis
Decompensated Cirrhosis - S/P LVP 6days ago
A gap Metabolic acidosis
ALIX with CKD stage IIIb cr 1.8
Anemia
CAD with history of CABG 2012
HFpEF
COPD
Hypoalbuminemia
GERD
Hypothyroidism
History of MALT lymphoma
History of gastric and duodenal angioectasias
h/o recurrent right effusion s/p pleural catheter
Plan:
A/w AMS, possible multifactorial
ALIX- UA UTI sample, Fena low 0.8, suspect prerenal, can not r/o HRS but seem less likely
cont IV alb course, cr no sig change and UOP can not be measured with incontinence
cont IVF for now as po intake is poor
holding lasix
Bp on high range on Iv bb, hydralazine
not transplant candidate per GI note
improving twitches and altered mental status-appt neuro input
d/w son at bedside and nursing
follow labs
-
-
Date of Service: November 27, 2024
CC / HPI / ROS
-
Chief Complaint:
ALIX with CKD
History of Present Illness:
cr no sig change at 2.2, no fever
Urine incontinence
BP stable
bicarb at 21, k 3.9
WBC improving to 10.6
Review of Systems:
more awake, improving twitching
still confused
Labs
-
Labs:
WBC 10.6 10^3/uL (4.8-10.8) 11/27/24 04:01
RBC 3.85 10^6/uL (4.20-5.40) L 11/27/24 04:01
Hgb 10.1 g/dL (12.0-16.0) L 11/27/24 04:01
Hct 31.3 % (37.0-47.0) L 11/27/24 04:01
Plt Count 161 10^3/uL (130-400) 11/27/24 04:01
Sodium 143 mmol/L (135-145) 11/27/24 04:01
Potassium 3.9 mmol/L (3.5-5.1) 11/27/24 04:01
Chloride 112 mmol/L (98-107) H 11/27/24 04:01
Carbon Dioxide 21 mmol/L (22-30) L 11/27/24 04:01
BUN 49 mg/dl (7-17) H 11/27/24 04:01
Creatinine 2.2 mg/dL (0.6-1.0) H 11/27/24 04:01
eGFR 23.09 11/27/24 04:01
Glucose 180 mg/dl (70-99) H 11/27/24 04:01
Calcium 8.1 mg/dl (8.4-10.2) L 11/27/24 04:01
Phosphorus 4.6 mg/dl (2.5-4.5) H 11/27/24 04:01
Albumin 2.7 g/dl (3.5-5.0) L 11/27/24 04:01
Physical Exam
-
Vital Signs:
Vital Signs
Temp Pulse Resp BP Pulse Ox
97.6 F 121 28 137/79 96
11/27/24 04:05 11/27/24 10:00 11/27/24 10:00 11/27/24 10:00 11/27/24 10:00
Cardiovascular:: Regular rate and rhythm
Lung Excursion:: Normal (decreased bilat)
Abdomen:: Nontender and Soft
Bowel Sounds:: Normal
Extremity Edema:: None: Bilateral:
Bravo Catheter: No
[2024-11-27 11:33] LABS: Glucose - Point of Care 180 mg/dl (70-99)
--- NOTE | 2024-11-27 12:00 | PTOTSP ---
Speech Language Pathology
Pt seen for clinical bedside swallow evaluation. Son present at bedside who reported pt has dentures, but he does not think she wears them to eat. P.O. trials of puree and thin liquids provided. Pt constantly yelling out 'ma,' but able to
visually fixate on [employer] and answer 2 direct yes/no questions during evaluation. Did not follow commands. Sat upright in bed. Took sips of thin water without any difficulty. When tsp of puree provided, pt pursed lips as if she was going to drink
from straw. Required cueing to open oral cavity and accept tsp. No overt signs of aspiration. Deferred regular solids given edentulous status and mentation.
Recommend:
(1) Thin liquids (limited to clear liquids per GI at this time)
(2) When cleared for solids, can advance to IDDSI Level 4 (Puree) and thin liquids
(3) Aspiration precautions: sit upright, slow rate
(4) Meds as tolerated
(5) [employer] to continue to follow
[2024-11-27] MEDS: SODIUM BICARBONATE 1075 MEQ IV (12:01)
[2024-11-27] MEDS: TYLENOL 650 MG PO (13:06)
--- NOTE | 2024-11-27 14:46 | PTCARENOTE ---
Patient AOx1 (self). Patient constantly yelling out 'mom' in a garbled voice. Patient is restless, anxious, and forgetful. Bed alarm on and audible. Sinus tach on monitor with PVC's. 2L NC with SpO2 greater than 92%. Incontinent to bowel and
bladder. Patient tolerating IDDSI 4 diet. IVF running per order. Son at bedside throughout shift and updated on plan of care. Call pacheco within reach, bed in lowest position, and bed of wheels locked.
--- NOTE | 2024-11-27 15:02 | PTCARENOTE ---
Patient having frequent liquid/watery stools post PO lactulose and lactulose enema. Fecal management system placed. Care ongoing.
[2024-11-27] MEDS: LIDOCAINE 4% PATCH 1 PATCH TOPICAL (15:37)
[2024-11-27] MEDS: TORADOL 15 MG IV (15:38)
[2024-11-27] MEDS: APRESOLINE 10 MG IV ×2 (16:41→20:07)
[2024-11-27] MEDS: NOVOLOG FLEXPEN-LOW RESISTANCE 5 UNITS SC (16:53)
[2024-11-27 17:03] LABS: Glucose - Point of Care 388 mg/dl (70-99)
[2024-11-27] MEDS: ALPRAZOLAM ODT 0.25 MG PO (18:38)
--- NOTE | 2024-11-27 19:00 | PTCARENOTE ---
Patient's BP 176/77. Patient is very anxious and tearful yelling out. Patient is not due for PRN hydralazine yet. BP rechecked in 10 minutes and is 162/126. Dr. Coello made aware. PRN xanax ordered and administered to patient. Emotional support
provided to patient. Care ongoing.
[2024-11-27] MEDS: XIFAXAN 550 MG PO (19:54)
[2024-11-27] MEDS: LACTULOSE ENEMA RECTAL (20:00)
[2024-11-27 21:58] LABS: Glucose 491 mg/dl (70-99)
[2024-11-27] MEDS: NOVOLOG FLEXPEN 6 UNITS SC (22:12)
--- NOTE | 2024-11-27 23:27 | PTCARENOTE ---
assumed care of patient. pt is oriented to self, knows she is in the hospital but does not know which one. lots of family at bedside. VSS. BP elevated at start of shift. PRN hydralazine given with good result. pt was able to take pills with
applesauce, and was able to take PO lactulose tonight. family asking to not have the enema since she took it PO. fecal management device intact. inc. of urine. IV fluids infusing without issues. HS sugar check reading RR high, STAT glucose drawn,
491. notified covering HOME HEALTH CARE COORDINATOR- 6 unit of insulin given. pt very anxious and restless in the bed. constantly saying 'i'm dying, please don't let me '. positive environment maintained. will answer questions appropriately. bed alarm on. care ongoing.
[2024-11-28] VITALS (23 sets, daily range): BP systolic 93–172; BP diastolic 46–91; PULSE 98; BMI 21.5
[2024-11-28 00:46] LABS: Glucose - Point of Care 301 mg/dl (70-99)
[2024-11-28] MEDS: NOVOLOG FLEXPEN 4 UNITS SC (00:53)
[2024-11-28] MEDS: ALPRAZOLAM ODT 0.25 MG PO ×3 (00:53→17:40)
--- NOTE | 2024-11-28 00:59 | PTCARENOTE ---
pt woke up crying, screaming for 'mommy' and continuously saying 'please don't let me '. grandaughter at bedside. PRN xanax given per MAR. positive environment maintained. care ongoing.
[2024-11-28] MEDS: FLEXBUMIN 50 IV (04:26)
[2024-11-28] MEDS: SODIUM BICARBONATE 1075 MEQ IV (05:48)
[2024-11-28] MEDS: ZOSYN 50 IV ×3 (05:48→20:38)
[2024-11-28 06:20] LABS: Hematocrit 31.1 % (37.0-47.0); Hemoglobin 9.8 g/dL (12.0-16.0); Mean Corp Hgb Conc. 31.5 g/dL (33.0-37.0); Mean Corpuscular Hgb 25.4 pg (27.0-31.0); Mean Corpuscular Volume 80.6 fL (81.0-99.0); Mean Platelet Volume 9.7 fL (7.4-10.4); Platelet Count 159 10^3/uL (130-400); Red Blood Cell Count 3.86 10^6/uL (4.20-5.40); Red Cell Dist. Width 21.1 % (11.5-14.5); White Blood Cell Count 8.3 10^3/uL (4.8-10.8)
[2024-11-28 06:26] LABS: Vancomycin Random 15.4 ug/ml
[2024-11-28 06:37] LABS: Blood Urea Nitrogen 47 mg/dl (7-17); Calcium 8.3 mg/dl (8.4-10.2); Carbon Dioxide 25 mmol/L (22-30); Chloride 110 mmol/L (98-107); Estimated Creatinine Clearance 19 ml/min; Glucose 105 mg/dl (70-99); Magnesium 1.7 mg/dl (1.6-2.3); Potassium 3.3 mmol/L (3.5-5.1); Sodium 142 mmol/L (135-145)
[2024-11-28] MEDS: LIDOCAINE 4% PATCH 1 PATCH TOPICAL (07:35)
[2024-11-28] MEDS: PROTONIX IV 40 MG IV (07:35)
[2024-11-28] MEDS: TORADOL 15 MG IV ×2 (07:35→21:31)
[2024-11-28] MEDS: DUPHALAC/CHRONULAC 20 GRAMS PO ×3 (07:35→20:38)
[2024-11-28] MEDS: NSS (PRESERVATIVE FREE) 10 ML IV (07:36)
[2024-11-28] MEDS: XIFAXAN 550 MG PO ×2 (07:36→20:38)
[2024-11-28] MEDS: HEPARIN 5000 UNITS SC ×2 (07:36→15:56)
[2024-11-28] MEDS: LACTULOSE ENEMA RECTAL (07:38)
[2024-11-28] MEDS: NOVOLOG FLEXPEN-LOW RESISTANCE SC (07:39)
[2024-11-28 07:50] LABS: Glucose - Point of Care 124 mg/dl (70-99)
[2024-11-28 08:06] LABS: Glucose - Point of Care 456 mg/dl (70-99)
[2024-11-28] MEDS: MAGNESIUM SULFATE 100 IV (08:16)
--- NOTE | 2024-11-28 08:22 | W.PN.HOSP.TC ---
Today's Communication/Plan
-
see A/P
Assessment / Plan
Assessment / Plan
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
anemia, HTN, prior CABG/stents, DM type II, COPD, PAD, tobacco abuse, ASCVD, and hypothyroidism presented with altered mental status.
A/P:
# AMS/ acute toxic metabolic encephalopathy, etiology possibilities include intoxication with tizanidine/baclofen, hepatic encephalopathy, sepsis/infection.
# Decompensated KRAFT Cirrhosis
No evidence of acute stroke.
s/p para 11/26, removed 4800 ml ascitic fluid. Negative for SBP
Follow para fluid culture, so far negative for growth
Blood cultures negative
holding offending medications
lactulose enema BID for now per GI, added Xifaxan 550mg po twice a day
Cont broad spectrum antibiotics Vanc/Zosyn
Monitor MS,
started pureed per SPL eval
noted ammonia level normalized from 40 to 13
For repeat paracentesis today 11/28 per GI
# Sinus bradycardia with pauses, asymptomatic.
Lopressor 2.5mg q6hrs held
Appreciate card input
# DM II
sliding scale insulin q 6 hours for now
# Progressive renal dysfunction
# ALIX on CKD stage 4
Cr 2.4 from admission, today at 2.3, baseline ?1.5
holding lasix for now
Cont albumin every 8 hours.
avoid nephrotoxins
Renal on board
# metabolic acidosis, resolved
DC further bicarb drip
# Hypokalemia
replete
# Anxiety
started low dose xanax PRN
# IDDM
restart decreased dose Lantus 5 units HS (AIR TRAFFIC COORDINATOR 12-15 units HS)
restart short acting insulin 5 units AC (AIR TRAFFIC COORDINATOR 15 units AC)
DVT PPX - heparin sq
Code status - Full Code
Dispo: PT OT eval
DW RN
total time 51 min
Anticipated Discharge: > 48 hours
Subjective/Interval History
-
Date of Service: November 28, 2024
Objective Data
-
Labs:
Laboratory Results
11/27/24 11/28/24
21:24 05:58
WBC 8.3
Hgb 9.8 L
Hct 31.1 L
Plt Count 159
Sodium 142
Potassium 3.3 L
Chloride 110 H
Carbon Dioxide 25
BUN 47 H
Creatinine 2.3 H
Glucose 491 H* 105 H
Calcium 8.3 L
Vital Signs:
Vital Signs
Temp Pulse Resp BP Pulse Ox
36.2 C 92 14 169/77 94
11/28/24 03:10 11/28/24 06:00 11/28/24 06:00 11/28/24 06:00 11/28/24 04:00
I&O
11/27/24 11/28/24 11/29/24
06:59 06:59 06:59
Intake Total 200 / 200 1590 / 1590 100 / 100
Output Total 100 / 100
Balance 200 / 200 1490 / 1490 100 / 100
Review of Systems
-
Unable to obtain full review of systems at this time due to: Acuity
Physical Exam
-
General: Comfortable and Appears Chronically Ill
HEENT: Oxygen (2L NC)
Respiratory: Non Labored Respirations; Negative Accessory Resp Muscle Use
Cardiac: Regular Rhythm and S1/S2
GI: Soft, Nontender, Nondistended and Normal Bowel Sounds
Skin: Warm and Dry; Negative Rash
Neuro: Awake; Negative AO x 3
Psych: Confused; Negative Intact Judgement/Insight
Data Reviewed
-
CT Scan: Report Reviewed by me
Labs: Labs Reviewed by me
[2024-11-28] MEDS: APRESOLINE 10 MG IV ×2 (08:31→16:07)
--- NOTE | 2024-11-28 08:58 | PHA.VAN.FU ---
Vancomycin Assessment / Plan
- Assessment
Renal Function: SCR Increasing (2.1->2.2->2.3)
WBC's are: WNL
In the past 24 hrs, patient has been: Afebrile
Concomitant Antimicrobials: pip/tazo - renally dosed
- Assessment - Therapeutic Drug Monitoring
Random Level: 15.4 (11/28 557) - after 500 mg given 08:52 11/27/24
- Dosing Plan
Continue: dose by random level
Dosing by Level: Hold off on dosing today (due to rising SCr)
- Monitoring Plan
Random Level: repeat random level am 11/29
- Follow Up
Pharmacy will continue to follow.
Vancomycin Follow UP
- -
Patient Age: 74
Patient Sex: Female
Vancomycin Day #: 3
Indication: Gi / Intra-Abdominal
Requesting Provider: Sebastián
Height / Weight:
Height 5 ft 4 in
Actual Weight 56.9 kg
IBW in k.7
Adjusted BW in k.9
Pertinent Past Medical History: Nonalcoholic steatohepatitis req frequent paracentesis
- Vital Signs / Lab Results
Temp Pulse Resp BP Pulse Ox
97.1 F 92 14 172/75 94
11/28/24 03:10 11/28/24 06:00 11/28/24 06:00 11/28/24 08:31 11/28/24 04:00
Lab Results - Hematology
11/25/24 11/26/24 11/27/24
20:11 03:10 04:01
WBC 19.5 H 22.0 H 10.6
11/28/24
05:58
WBC 8.3
Lab Results - Chemistry
11/25/24 11/26/24 11/26/24
20:11 03:10 07:56
BUN 48 H 48 H 47 H
Creatinine 2.4 H 2.2 H 2.1 H
Estimated Creat Clear 18 20 21
Albumin 3.0 L
11/27/24 11/28/24
04:01 05:58
BUN 49 H 47 H
Creatinine 2.2 H 2.3 H
Estimated Creat Clear 20 19
Albumin 2.7 L
11/25/24 11/26/24 11/26/24
20:11 00:10 03:10
Lactic Acid 7.8 H* 3.2 H 3.5 H
11/26/24 11/26/24
07:56 15:51
Lactic Acid 3.0 H 2.0
Lab Results - Urine
11/27/24 11/27/24 11/27/24
08:20 08:20 08:20
Urine Nitrite (Reflex) Negative Cancelled
Leukocyte Esterase Rfl 3+ A Cancelled
Ur Squamous Epith Cells >30
Microbiology Results
11/25/24 20:10 Blood Culture - Preliminary
Blood/Venous No Growth in 48 hours- Final report to follow
11/25/24 20:10 Blood Culture - Preliminary
Blood/Venous No Growth in 48 hours- Final report to follow
11/26/24 12:04 Body Fluid Culture - Preliminary
Peritoneal Fluid No Growth After 18-24 Hours
Gram Stain - Preliminary
Therapeutic Drug Monitoring
Random Vancomycin 15.4 ug/ml 11/28/24 05:58
--- NOTE | 2024-11-28 09:37 | W.PN.GI.CBS2 ---
Today's Communication / Plan
-
Paracentesis today
Increase lactulose to TID
Ammonia level tomorrow
Assessment / Plan
-
Lucinda is a 74yo with with NAFLD, cirrhosis with ascites-currently not on diuretics due to baseline elevation in creatinine, history of hydrops pneumothorax status post pleural catheter, esophageal varices with prior banding, prior GI bleeding
from AVMs status post cautery May 2024, chronic anemia, HTN, prior CABG/stents, DM type II, COPD, PAD, tobacco abuse, ASCVD, hypothyroidism, and stent (peripheral vs cardiac) placement with Plavix therapy brought in by family with change in
mental status poor p.o. intake, and lethargy.
Leukocytosis noted without any fevers.
Impression
-MASH cirrhosis
-Hepatic encephalopathy with decompensation-11/25/24 Admission MELD 3.0-19
-Ascites s/p paracentesis 4800ml 11/26/24
Gets LVP outpatient basis
-Peripheral artery disease with stent placement
-hx Esophageal varices with prior banding
-Elevated creatinine
-CABG and prior cardiac stents
-DM type II
-PAD
-prior tobacco abuse
-hypothyroidism
Plan
- Repeat paracentesis today.
- C/w puree diet
- Increase lactulose to oral TID. C/w xifaximin
- Stop lactulose enemas
- She was evaluated at [facility] and not OLT candidate. Her OP GI care is in [facility]
- Await rest of infectious workup thus far negative.
Will follow with you
Subjective
Subjective
Date of Service: November 28, 2024
No acute events overnight. Per RN copious BM through [facility] system. Family declined enema yesterday. She did tolerate puree diet and taking her oral lactulose. Following more instructions today
Objective
Data Reviewed
Laboratory Data:
Laboratory Results
11/28/24 05:58
11/28/24 05:58
Laboratory Results
PT 17.0 Sec (11.4-14.6) H 11/26/24 03:10
INR 1.36 11/26/24 03:10
Phosphorus 4.6 mg/dl (2.5-4.5) H 11/27/24 04:01
Magnesium 1.7 mg/dl (1.6-2.3) 11/28/24 05:58
Total Bilirubin 1.2 mg/dl (0.2-1.3) 11/27/24 04:01
AST 31 U/L (14-36) 11/27/24 04:01
ALT 15 U/L (0-35) 11/27/24 04:01
Alkaline Phosphatase 170 U/L (38-126) H 11/27/24 04:01
Vital Signs and I&O:
Vital Signs
Temp Pulse Resp BP Pulse Ox
97.1 F 92 14 172/75 94
11/28/24 03:10 11/28/24 06:00 11/28/24 06:00 11/28/24 08:31 11/28/24 04:00
I&O
11/27/24 11/28/24 11/29/24
06:59 06:59 06:59
Intake Total 200 / 200 1590 / 1590 100 / 100
Output Total 100 / 100
Balance 200 / 200 1490 / 1490 100 / 100
Physical Exam
Physical Exam
GEN: No acute distress, conversant but sleepy
HEENT: +icteric, extraocular movements intact, clear oropharynx without exudates
GI: soft, moderately distended, not tender to palpation, normal active bowel sounds, no hepatosplenomegaly
EXT: warm, well perfused, trace edema bilaterally
NEURO: AAOx2, non-focal
[2024-11-28] MEDS: KCL 270 MEQ IV (09:39)
--- NOTE | 2024-11-28 10:33 | W.PN.NEPH.PH ---
Today's Communication / Plan
-
Pending paracentesis
Continue albumin
Assessment/Plan
-
Impression:
AMS r/o hepatic encephalopathy vs sepsis
Leukocytosis
Decompensated Cirrhosis - S/P LVP 6days ago
A gap Metabolic acidosis
ALIX with CKD stage IIIb cr 1.8
Anemia
CAD with history of CABG 2012
HFpEF
COPD
Hypoalbuminemia
GERD
Hypothyroidism
History of MALT lymphoma
History of gastric and duodenal angioectasias
h/o recurrent right effusion s/p pleural catheter
Plan:
A/w AMS, possible multifactorial
ALIX- UA UTI sample, Fena low 0.8, suspect prerenal, can not r/o HRS but seem less likely
cont IV alb course, cr no sig change and UOP can not be measured with incontinence
holding lasix
not transplant candidate per GI note
Paracentesis 11/26 4.8 L
Repeat paracentesis today pending 11/28
Creatinine remained stable
follow labs
-
-
Date of Service: November 28, 2024
CC / HPI / ROS
-
Chief Complaint:
ALIX with CKD
History of Present Illness:
cr no sig change at 2.2, no fever
Urine incontinence
BP stable
Review of Systems:
more awake, improving twitching
still confused
Labs
-
Labs:
WBC 8.3 10^3/uL (4.8-10.8) 11/28/24 05:58
RBC 3.86 10^6/uL (4.20-5.40) L 11/28/24 05:58
Hgb 9.8 g/dL (12.0-16.0) L 11/28/24 05:58
Hct 31.1 % (37.0-47.0) L 11/28/24 05:58
Plt Count 159 10^3/uL (130-400) 11/28/24 05:58
Sodium 142 mmol/L (135-145) 11/28/24 05:58
Potassium 3.3 mmol/L (3.5-5.1) L 11/28/24 05:58
Chloride 110 mmol/L (98-107) H 11/28/24 05:58
Carbon Dioxide 25 mmol/L (22-30) 11/28/24 05:58
BUN 47 mg/dl (7-17) H 11/28/24 05:58
Creatinine 2.3 mg/dL (0.6-1.0) H 11/28/24 05:58
eGFR 21.90 11/28/24 05:58
Glucose 105 mg/dl (70-99) H 11/28/24 05:58
Calcium 8.3 mg/dl (8.4-10.2) L 11/28/24 05:58
Phosphorus 4.6 mg/dl (2.5-4.5) H 11/27/24 04:01
Albumin 2.7 g/dl (3.5-5.0) L 11/27/24 04:01
Physical Exam
-
Vital Signs:
Vital Signs
Temp Pulse Resp BP Pulse Ox
97.2 F 86 11 112/46 93
11/28/24 07:45 11/28/24 09:05 11/28/24 09:05 11/28/24 09:06 11/28/24 09:05
Cardiovascular:: Regular rate and rhythm
Respiratory:: Bilateral: Coarse
Lung Excursion:: Normal (decreased bilat)
Abdomen:: Nontender and Soft
Bowel Sounds:: Normal
Extremity Edema:: None: Bilateral:
Bravo Catheter: No
--- NOTE | 2024-11-28 11:02 | EEG.RPT ---
Electroencephalogram Report
Report
LESS THAN 1 HOUR EEG REPORT
EEG INTERPRETATION:
Moderately abnormal EEG for age in wakefulness through drowsiness due to diffuse bihemispheric slowing and frontally predominant triphasic waves.
CLINICAL CORRELATION:
This study was suggestive of diffuse cortical dysfunction without focal abnormality which may be metabolic in origin. No clear seizure activity was recorded.
Clinical correlation is advised.
METHODS:
A 21 channel digitized electroencephalogram (EEG) was performed in the Clinical Neurophysiology Laboratory. The 10/20 international system of electrode placement was used with ECG and lateral/vertical eye movements recorded. Video was recorded.
[employer] quantitative EEG system was utilized.
QUALITY OF STUDY:
Fair
ELECTROENCEPHALOGRAPHER IMPRESSION(S):
Background
There was a medium amplitude poorly organized anterior-posterior voltage gradient of theta activity at maximum
There were no significant asymmetries of background activity noted.
Sleep
Drowsiness present
Photic Stimulation
Failed to activate the record.
Abnormal EEG Activity
Rarely seen were bursts of left frontally predominant generalizing triphasic waves at times in trains of up to 7 seconds.
ECG
Normal sinus rhythm
--- NOTE | 2024-11-28 11:45 | PTCARENOTE ---
Patient bladder scanned due to having a distended bladder and not urinating since nightshift. Patient bladder scanned for 833 mL. Straight cath output of 350 mL yellow urine. Patient due to have paracentesis today and abdomen is distended. Will
continue to monitor. Care ongoing.
[2024-11-28] MEDS: NOVOLOG FLEXPEN-LOW RESISTANCE 1 UNITS SC (11:53)
[2024-11-28] MEDS: NOVOLOG FLEXPEN 5 UNITS SC ×2 (11:54→17:36)
[2024-11-28 12:03] LABS: Glucose - Point of Care 177 mg/dl (70-99)
--- NOTE | 2024-11-28 12:50 | PTCARENOTE ---
Patient transferred to IR via stretcher for paracentesis. Verbal report given to Radha BEAR in IR. Care ongoing.
--- NOTE | 2024-11-28 14:15 | PTCARENOTE ---
Patient arrived back to IMU from IR via stretcher. Bandaid on L lower abdomen C/DI. VSS. Care ongoing.
--- NOTE | 2024-11-28 15:09 | PTCARENOTE ---
Patient AOx2 (self and place). Patient is restless, anxious and forgetful. PRN xanax provided per order. Bed alarm on and audible. NSR on monitor. Patient is tachy when she is anxious. 2L NC with SpO2 greater than 92%. Incontinent to bowel and
bladder. Rectal trumpet in place draining liquid stool. Patient tolerating IDDSI 4 diet. Patient stood at side of bed with PT/OT assist x2. Family at bedside throughout shift and updated on plan of care. Call pacheco within reach, bed in lowest
position, and bed of wheels locked.
[2024-11-28 15:25] LABS: Body Fluid WBC 50 /CUMM
[2024-11-28 15:36] LABS: Body Fluid Second Tech DW
[2024-11-28 15:38] LABS: Body Fluid Albumin < 1.0 g/dl; Body Fluid Amylase 32 U/L; Body Fluid LDH 60 U/L; Body Fluid Protein < 2.0 g/dl
[2024-11-28 17:20] LABS: Glucose - Point of Care 242 mg/dl (70-99)
[2024-11-28] MEDS: NOVOLOG FLEXPEN-LOW RESISTANCE 2 UNITS SC (17:36)
--- NOTE | 2024-11-28 17:47 | PTCARENOTE ---
Patient woke up anxious and tearful yelling 'please don't let me ' over and over again. Emotional support provided to patient. Safe environment maintained. PRN xanax administered per SEP. Care ongoing.
[2024-11-28] MEDS: LANTUS 0.05 UNITS SC (21:25)
[2024-11-28 21:30] LABS: Glucose - Point of Care 153 mg/dl (70-99)
--- NOTE | 2024-11-28 22:29 | PTCARENOTE ---
assumed care of patient. VSS. pt is AAOx1/2, pt sleeping at shift change but once son/family comes in patient gets very anxious/restless and screaming out about dying. bed alarm on. son asking this RN if he came get his mom juice, educated on the
fact that patient is a diabetic and sugars need to be controlled. on 2L NC 96%. meds crushed in puree. fecal management system draining liquid stool, flushed and intact. pt inc of urine. IV toradol given for pain to left hip. care ongoing.
[2024-11-28] MEDS: HEPARIN SC (23:01)
[2024-11-29] VITALS (13 sets, daily range): BP systolic 114–153; BP diastolic 53–75; PULSE 102; O2SAT 98; BMI 21.1
[2024-11-29] MEDS: ALPRAZOLAM ODT 0.25 MG PO ×3 (01:12→21:10)
[2024-11-29] MEDS: ZOSYN 50 IV ×3 (04:27→20:46)
[2024-11-29 06:24] LABS: Hematocrit 32.1 % (37.0-47.0); Mean Corp Hgb Conc. 31.2 g/dL (33.0-37.0); Mean Corpuscular Volume 83.4 fL (81.0-99.0); Mean Platelet Volume 10.6 fL (7.4-10.4); Platelet Count 152 10^3/uL (130-400); Red Blood Cell Count 3.85 10^6/uL (4.20-5.40); White Blood Cell Count 6.4 10^3/uL (4.8-10.8)
[2024-11-29 06:36] LABS: Ammonia 14 umol/L (9-30)
[2024-11-29 06:49] LABS: Blood Urea Nitrogen 44 mg/dl (7-17); Calcium 7.7 mg/dl (8.4-10.2); Carbon Dioxide 25 mmol/L (22-30); Chloride 104 mmol/L (98-107); Estimated Creatinine Clearance 16 ml/min; Glucose 336 mg/dl (70-99); Potassium 3.8 mmol/L (3.5-5.1); Sodium 137 mmol/L (135-145); eGFR 18.06
[2024-11-29 08:07] LABS: Glucose - Point of Care 333 mg/dl (70-99)
--- NOTE | 2024-11-29 08:25 | W.PN.HOSP.TC ---
Today's Communication/Plan
-
see A/P
Assessment / Plan
Assessment / Plan
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
anemia, HTN, prior CABG/stents, DM type II, COPD, PAD, tobacco abuse, ASCVD, and hypothyroidism presented with altered mental status.
A/P:
# AMS/ acute toxic metabolic encephalopathy, etiology possibilities include intoxication with tizanidine/baclofen, hepatic encephalopathy, sepsis/infection.
# Decompensated KRAFT Cirrhosis
No evidence of acute stroke.
s/p para 11/26, removed 4800 ml ascitic fluid. Negative for SBP. Fluid culture no growth.
Blood cultures negative
holding offending medications
lactulose enema to PO TID
added Xifaxan 550mg po twice a day
Cont broad spectrum antibiotics Vanc/Zosyn, cover for 5 days total
Monitor MS, improving, now conversant but not fully orientated (suspect she is back to her baseline MS)
cont pureed per SPL
noted ammonia level normalized from 40 to 14
s/p repeat paracentesis 11/28 due to rapid reaccumulation, removed 2800 cc of clear yellow ascitic fluid. Negative for SBP
# Sinus bradycardia with pauses, asymptomatic.
Lopressor 2.5mg q6hrs held
Appreciate card input
# IDDM
resumed insulin: Lantus 15 units HS (same home dose), Aspart 10 units AC
cover with ISS
# Progressive renal dysfunction
# ALIX on CKD stage 4
Cr 2.4 on admission, today at 2.7, baseline ?1.5
holding lasix for now
s/p albumin
avoid nephrotoxins
Renal on board
# metabolic acidosis, resolved
DC further bicarb drip
# Hypokalemia
repleted
# Anxiety
started low dose xanax PRN
DVT PPX - heparin sq
Code status - Full Code
Dispo: PT OT eval recc HH vs SNF. Family elected for HH.
DW RN
DW son at bedside
DW Renal
total time 51 min
Anticipated Discharge: 24 - 48 hours
Subjective/Interval History
-
Date of Service: November 29, 2024
Objective Data
-
Labs:
Laboratory Results
11/29/24
06:05
WBC 6.4
Hgb 10.0 L
Hct 32.1 L
Plt Count 152
Sodium 137
Potassium 3.8
Chloride 104
Carbon Dioxide 25
BUN 44 H
Creatinine 2.7 H
Glucose 336 H
Calcium 7.7 L
Vital Signs:
Vital Signs
Temp Pulse Resp BP Pulse Ox
36.6 C 89 14 153/55 98
11/29/24 03:14 11/29/24 06:00 11/29/24 06:00 11/29/24 06:00 11/29/24 06:00
I&O
11/28/24 11/29/24 11/30/24
06:59 06:59 06:59
Intake Total 1590 / 1590 1120 / 1120
Output Total 100 / 100 350 / 350
Balance 1490 / 1490 770 / 770
Review of Systems
-
Unable to obtain full review of systems at this time due to: Acuity
Physical Exam
-
General: Comfortable and Appears Chronically Ill
HEENT: Oxygen (2L NC)
Respiratory: Non Labored Respirations; Negative Accessory Resp Muscle Use
Cardiac: Regular Rhythm and S1/S2
GI: Soft, Nontender, Nondistended and Normal Bowel Sounds
Skin: Warm and Dry; Negative Rash
Neuro: Awake; Negative AO x 3
Psych: Confused; Negative Intact Judgement/Insight
Data Reviewed
-
CT Scan: Report Reviewed by me
Labs: Labs Reviewed by me
--- NOTE | 2024-11-29 08:34 | W.PN.GI.CBS2 ---
Today's Communication / Plan
-
Mental status back to baseline. Ammonia level normal
Counseled pt and son importance of lactulose compliance at home
No new GI recs will sign off please call for ?
Assessment / Plan
-
Lucinda is a 74yo with with NAFLD, cirrhosis with ascites-currently not on diuretics due to baseline elevation in creatinine, history of hydrops pneumothorax status post pleural catheter, esophageal varices with prior banding, prior GI bleeding
from AVMs status post cautery May 2024, chronic anemia, HTN, prior CABG/stents, DM type II, COPD, PAD, tobacco abuse, ASCVD, hypothyroidism, and stent (peripheral vs cardiac) placement with Plavix therapy brought in by family with change in
mental status poor p.o. intake, and lethargy.
Leukocytosis noted without any fevers.
Impression
-MASH cirrhosis
-Hepatic encephalopathy with decompensation-11/25/24 Admission MELD 3.0-19
-Ascites s/p paracentesis 4800ml 11/26/24
Gets LVP outpatient basis
-Peripheral artery disease with stent placement
-hx Esophageal varices with prior banding
-Elevated creatinine
-CABG and prior cardiac stents
-DM type II
-PAD
-prior tobacco abuse
-hypothyroidism
Plan
- Repeat paracentesis 11/28 neg for SBP. She has LVP done outpatient basis every 2wks.
- Not tolerant of diuretics due to CKD
- C/w puree diet
- C/w lactulose to oral TID. C/w xifaximin. Ammonia is normal and mental status is back to baseline.
- She was evaluated at [facility] and not OLT candidate. Her OP GI care is in [facility]
Close FU with her GI in [facility]
No new GI recs will sign off please call for ?
Subjective
Subjective
Date of Service: November 29, 2024
She feels well. Denies abd pain nausea/vomiting.
Objective
Data Reviewed
Laboratory Data:
Laboratory Results
11/29/24 06:05
11/29/24 06:05
Laboratory Results
PT 17.0 Sec (11.4-14.6) H 11/26/24 03:10
INR 1.36 11/26/24 03:10
Phosphorus 4.6 mg/dl (2.5-4.5) H 11/27/24 04:01
Magnesium 1.7 mg/dl (1.6-2.3) 11/28/24 05:58
Total Bilirubin 1.2 mg/dl (0.2-1.3) 11/27/24 04:01
AST 31 U/L (14-36) 11/27/24 04:01
ALT 15 U/L (0-35) 11/27/24 04:01
Alkaline Phosphatase 170 U/L (38-126) H 11/27/24 04:01
Vital Signs and I&O:
Vital Signs
Temp Pulse Resp BP Pulse Ox
98 F 89 14 153/55 98
11/29/24 03:14 11/29/24 06:00 11/29/24 06:00 11/29/24 06:00 11/29/24 06:00
I&O
11/28/24 11/29/24 11/30/24
06:59 06:59 06:59
Intake Total 1590 / 1590 1120 / 1120
Output Total 100 / 100 350 / 350
Balance 1490 / 1490 770 / 770
Physical Exam
Physical Exam
GEN: No acute distress, conversant, pleasant
HEENT: +icteric, extraocular movements intact, clear oropharynx without exudates
GI: soft, mildly-distended, not tender to palpation, normal active bowel sounds, no hepatosplenomegaly
EXT: warm, well perfused, trace edema bilaterally
NEURO: AAOx3, non-focal
--- NOTE | 2024-11-29 08:45 | PTCARENOTE ---
Patient received from night shift supervisor. Patient resting comfortably in bed. Patient much more alert and able to have a conversation although its confused. Son at bedside and stayed overnight. VSS. No events noted over night. No visual cues of pain.
IV fluids discontinued. Continuing ABX. Patient on a pureed diet, reached out to speech to re-eval and possibly advance. No testing scheduled at this time. Call pacheco in reach.
[2024-11-29] MEDS: DUPHALAC/CHRONULAC 20 GRAMS PO ×3 (08:51→20:47)
[2024-11-29] MEDS: LIDOCAINE 4% PATCH 1 PATCH TOPICAL (08:51)
[2024-11-29] MEDS: XIFAXAN 550 MG PO ×2 (08:51→20:47)
[2024-11-29] MEDS: HEPARIN 5000 UNITS SC ×3 (08:51→23:21)
[2024-11-29] MEDS: PROTONIX 40 MG PO (08:51)
[2024-11-29] MEDS: NOVOLOG FLEXPEN-LOW RESISTANCE 4 UNITS SC (09:06)
[2024-11-29] MEDS: NOVOLOG FLEXPEN 10 UNITS SC ×3 (09:07→17:00)
[2024-11-29] MEDS: NOVOLOG FLEXPEN SC (09:21)
--- NOTE | 2024-11-29 10:39 | W.PN.NEPH.PH ---
Today's Communication / Plan
-
see plan
Assessment/Plan
-
Impression:
AMS r/o hepatic encephalopathy vs sepsis
Leukocytosis
Decompensated Cirrhosis - S/P LVP 6days ago
A gap Metabolic acidosis
ALIX with CKD stage IIIb cr 1.8
Anemia
CAD with history of CABG 2012
HFpEF
COPD
Hypoalbuminemia
GERD
Hypothyroidism
History of MALT lymphoma
History of gastric and duodenal angioectasias
h/o recurrent right effusion s/p pleural catheter
Plan:
A/w AMS, possible multifactorial
ALIX- UA UTI sample, Fena low 0.8, suspect prerenal, can not r/o HRS but seem less likely with out hypotension
restart IV alb course, cr increasing trend to 2.4 and UOP can not be measured with incontinence
cont to hold lasix
recheck urine studies, trial IVF if FEna low since po intake is less
not transplant candidate per GI note, should her renal function worsens not candidate for [employer]
Paracentesis 11/26 and 11/28
follow labs
-
-
Date of Service: November 29, 2024
CC / HPI / ROS
-
Chief Complaint:
ALIX with CKD
History of Present Illness:
cr up at 2.7, no fever
Urine incontinence
BP stable
Review of Systems:
more awake,
still confused
no fever
Labs
-
Labs:
WBC 6.4 10^3/uL (4.8-10.8) 11/29/24 06:05
RBC 3.85 10^6/uL (4.20-5.40) L 11/29/24 06:05
Hgb 10.0 g/dL (12.0-16.0) L 11/29/24 06:05
Hct 32.1 % (37.0-47.0) L 11/29/24 06:05
Plt Count 152 10^3/uL (130-400) 11/29/24 06:05
Sodium 137 mmol/L (135-145) 11/29/24 06:05
Potassium 3.8 mmol/L (3.5-5.1) 11/29/24 06:05
Chloride 104 mmol/L (98-107) 11/29/24 06:05
Carbon Dioxide 25 mmol/L (22-30) 11/29/24 06:05
BUN 44 mg/dl (7-17) H 11/29/24 06:05
Creatinine 2.7 mg/dL (0.6-1.0) H 11/29/24 06:05
eGFR 18.06 11/29/24 06:05
Glucose 336 mg/dl (70-99) H 11/29/24 06:05
Calcium 7.7 mg/dl (8.4-10.2) L 11/29/24 06:05
Phosphorus 4.6 mg/dl (2.5-4.5) H 11/27/24 04:01
Albumin 2.7 g/dl (3.5-5.0) L 11/27/24 04:01
Physical Exam
-
Vital Signs:
Vital Signs
Temp Pulse Resp BP Pulse Ox
98.2 F 89 14 153/55 97
11/29/24 07:20 11/29/24 06:00 11/29/24 06:00 11/29/24 06:00 11/29/24 09:28
Cardiovascular:: Regular rate and rhythm
Respiratory:: Bilateral: Coarse
Lung Excursion:: Normal (decreased bilat)
Abdomen:: Distended, Nontender and Soft
Bowel Sounds:: Normal
Extremity Edema:: None: Bilateral:
Bravo Catheter: No
[2024-11-29 12:08] LABS: Glucose - Point of Care 230 mg/dl (70-99)
[2024-11-29] MEDS: NOVOLOG FLEXPEN-LOW RESISTANCE 2 UNITS SC (12:23)
--- NOTE | 2024-11-29 15:47 | PTCARENOTE ---
Assumed care of Pt at 1500 - Pt was working with PT at the time. Informed that FMS came out during therapy. Cleaned up BSC, patient and bed. New FMS placed. Bladderscan performed for >400, questionable scan due to large amount of ascites.
Straight cath performed - 350ml's of naresh urine removed. Urine sample sent as per orders. Will continue to monitor and assess.
--- NOTE | 2024-11-29 16:01 | PHA.VAN.FU ---
Vancomycin Assessment / Plan
- Assessment
Renal Function: SCR Increasing
WBC's are: WNL
In the past 24 hrs, patient has been: Afebrile
Concomitant Antimicrobials: piperacillin/tazobactam
- Assessment - Therapeutic Drug Monitoring
Random Level: 13 - drawn ~45H after previous dose of 500mg
- Dosing Plan
Dosing by Level: Re-dose today (Vanc 500mg)
Dosing Comments: likely final dose based on current duration
- Monitoring Plan
No level(s) ordered at this time: consider random level in next few days if duration extended
- Follow Up
Pharmacy will continue to follow.
Vancomycin Follow UP
- -
Patient Age: 74
Patient Sex: Female
Vancomycin Day #: 4
Indication: Gi / Intra-Abdominal
Requesting Provider: Sebastián
Pertinent Antimicrobial Allergies:
no pertinent antibiotic allergies
Height / Weight:
Height 5 ft 4 in
Actual Weight 55.7 kg
Pertinent Past Medical History: DM II, Cirrhosis
- Vital Signs / Lab Results
Temp Pulse Resp BP Pulse Ox
98.2 F 89 14 153/55 97
11/29/24 07:20 11/29/24 06:00 11/29/24 06:00 11/29/24 06:00 11/29/24 09:28
Lab Results - Hematology
11/27/24 11/28/24 11/29/24
04:01 05:58 06:05
WBC 10.6 8.3 6.4
Lab Results - Chemistry
11/27/24 11/28/24 11/29/24
04:01 05:58 06:05
BUN 49 H 47 H 44 H
Creatinine 2.2 H 2.3 H 2.7 H
Estimated Creat Clear 20 19 16
Albumin 2.7 L
11/26/24
15:51
Lactic Acid 2.0
Microbiology Results
11/27/24 08:20 Urine Culture - Final
Urine Yeast
11/26/24 12:04 Body Fluid Culture - Final
Peritoneal Fluid No Growth After 72 Hours
Gram Stain - Final
11/28/24 13:31 Body Fluid Culture - Preliminary
Peritoneal Fluid No Growth After 18-24 Hours
Gram Stain - Preliminary
11/25/24 20:10 Blood Culture - Preliminary
Blood/Venous No Growth in 72 hours- Final report to follow
11/25/24 20:10 Blood Culture - Preliminary
Blood/Venous No Growth in 72 hours- Final report to follow
Therapeutic Drug Monitoring
Random Vancomycin 13.0 ug/ml 11/29/24 06:05
[2024-11-29] MEDS: FLEXBUMIN 50 IV ×2 (16:52→23:22)
[2024-11-29] MEDS: NOVOLOG FLEXPEN-LOW RESISTANCE SC (17:00)
[2024-11-29 17:12] LABS: Glucose - Point of Care 118 mg/dl (70-99)
[2024-11-29 17:57] LABS: Urine Sodium 21 mmol/L (30-90)
[2024-11-29 18:07] LABS: Protein/creatinine Ratio 1.8; Urine Protein 262 mg/dl
[2024-11-29] MEDS: VANCOCIN HCL 500 MG 100 IV (18:41)
[2024-11-29 20:54] LABS: Glucose - Point of Care 94 mg/dl (70-99)
[2024-11-29] MEDS: LANTUS 0.15 UNITS SC (20:58)
--- NOTE | 2024-11-29 22:24 | PTCARENOTE ---
Patient able to state where she is and the date but confused to situation. Pt tearful and constantly asking for 'Dimas'. PRN xanax given. Daughter Yasmin at bedside to stay with pt overnight to help with anxiety and support pt. Pt asking if she is
dying. emotional support given.
CHG done. Barrier cream applied generously as FMS is not working; removed. Sacrum with approximately pea-sized stage 2 and excoriation mitchel wound. pt denies any pain. repositioning frequently; heels floated.
[2024-11-30] VITALS (17 sets, daily range): BP systolic 127–220; BP diastolic 63–95; BMI 21.5
[2024-11-30] MEDS: ZOSYN 50 IV ×3 (03:50→19:07)
[2024-11-30] MEDS: ALPRAZOLAM ODT 0.25 MG PO ×2 (04:01→22:23)
--- NOTE | 2024-11-30 04:08 | PTCARENOTE ---
Patient has been awake all night. demanded to speak with a doctor this morning. able to calm down and is now waiting for her 'family to arrive'. pt continues to ask for her son (iDmas). Daughter, Yasmin, remains at bedside.
Pt requesting [employer]aero music.
[2024-11-30 04:37] LABS: Hematocrit 31.2 % (37.0-47.0); Hemoglobin 9.7 g/dL (12.0-16.0); Mean Corp Hgb Conc. 31.1 g/dL (33.0-37.0); Mean Corpuscular Hgb 26.1 pg (27.0-31.0); Mean Corpuscular Volume 83.9 fL (81.0-99.0); Mean Platelet Volume 10.5 fL (7.4-10.4); Platelet Count 139 10^3/uL (130-400); Red Blood Cell Count 3.72 10^6/uL (4.20-5.40); Red Cell Dist. Width 21.2 % (11.5-14.5); White Blood Cell Count 8.3 10^3/uL (4.8-10.8)
[2024-11-30 04:58] LABS: Blood Urea Nitrogen 49 mg/dl (7-17); Carbon Dioxide 22 mmol/L (22-30); Chloride 107 mmol/L (98-107); Estimated Creatinine Clearance 14 ml/min; Glucose 219 mg/dl (70-99); Potassium 4.4 mmol/L (3.5-5.1); Sodium 137 mmol/L (135-145); eGFR 15.92
--- NOTE | 2024-11-30 08:11 | PHA.VAN.FU ---
Vancomycin Assessment / Plan
- Assessment
Renal Function: SCR Increasing
WBC's are: WNL
In the past 24 hrs, patient has been: Afebrile
Concomitant Antimicrobials: piperacillin/tazobactam
- Dosing Plan
Dosing by Level: Hold off on dosing today
- Monitoring Plan
No level(s) ordered at this time: likely no further dosing or levels based on duration plans & clearance
- Follow Up
Pharmacy will continue to follow.
Vancomycin Follow UP
- -
Patient Age: 74
Patient Sex: Female
Vancomycin Day #: 5
Indication: Gi / Intra-Abdominal
Requesting Provider: Sebastián
Pertinent Antimicrobial Allergies:
no pertinent antibiotic allergies
Height / Weight:
Height 5 ft 4 in
Actual Weight 56.7 kg
IBW in k.7
Adjusted BW in k.9
Pertinent Past Medical History: DM II, Cirrhosis
- Vital Signs / Lab Results
Temp Pulse Resp BP Pulse Ox
98.5 F 97 15 149/70 97
11/30/24 07:26 11/30/24 04:00 11/30/24 04:00 11/30/24 04:00 11/30/24 04:00
Lab Results - Hematology
11/28/24 11/29/24 11/30/24
05:58 06:05 03:49
WBC 8.3 6.4 8.3
Lab Results - Chemistry
11/28/24 11/29/24 11/30/24
05:58 06:05 03:49
BUN 47 H 44 H 49 H
Creatinine 2.3 H 2.7 H 3.0 H
Estimated Creat Clear 19 16 14
Microbiology Results
11/25/24 20:10 Blood Culture - Preliminary
Blood/Venous No Growth in 4 days- Final report to follow
11/25/24 20:10 Blood Culture - Preliminary
Blood/Venous No Growth in 4 days- Final report to follow
11/27/24 08:20 Urine Culture - Final
Urine Yeast
11/26/24 12:04 Body Fluid Culture - Final
Peritoneal Fluid No Growth After 72 Hours
Gram Stain - Final
11/28/24 13:31 Body Fluid Culture - Preliminary
Peritoneal Fluid No Growth After 18-24 Hours
Gram Stain - Preliminary
Therapeutic Drug Monitoring
Random Vancomycin 13.0 ug/ml 11/29/24 06:05
--- NOTE | 2024-11-30 08:14 | W.PN.HOSP.TC ---
Today's Communication/Plan
-
see A/P
MS appear to be back to baseline
ALIX with progressively worsening SCr is the current active issue
Assessment / Plan
Assessment / Plan
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
anemia, HTN, prior CABG/stents, DM type II, COPD, PAD, tobacco abuse, ASCVD, and hypothyroidism presented with altered mental status.
A/P:
# AMS/ acute toxic metabolic encephalopathy, etiology possibilities include intoxication with tizanidine/baclofen, hepatic encephalopathy, sepsis/infection.
# Decompensated KRAFT Cirrhosis
No evidence of acute stroke.
s/p para 11/26, removed 4800 ml ascitic fluid. Negative for SBP. Fluid culture no growth.
Blood cultures negative
holding offending medications
lactulose enema to PO TID
added Xifaxan 550mg po twice a day
Cont broad spectrum antibiotics Vanc/Zosyn, cover for 5 days total
Monitor MS, improving, now conversant but not fully orientated (suspect she is back to her baseline MS)
advanced to solid diet per SPL
noted ammonia level normalized from 40 to 14
s/p repeat paracentesis 11/28 due to rapid reaccumulation, removed 2800 cc of clear yellow ascitic fluid. Negative for SBP
# Sinus bradycardia with pauses, asymptomatic.
Lopressor 2.5mg q6hrs held
Appreciate card input
# IDDM
resumed insulin: Lantus 15 units HS (same home dose), Aspart 10 units AC
cover with ISS
# Progressive renal dysfunction
# ALIX on CKD stage 4
Cr 2.4 on admission, today at 3.0, baseline ?1.5
holding lasix for now
cont albumin
avoid nephrotoxins
Renal on board
# metabolic acidosis, resolved
DC further bicarb drip
# Hypokalemia
repleted
# Anxiety
started low dose xanax PRN
DVT PPX - heparin sq
Code status - Full Code
Dispo: PT OT eval recc HH vs SNF. Family elected for HH.
DW RN
DW daughter at bedside
Anticipated Discharge: > 48 hours
Subjective/Interval History
-
Date of Service: November 30, 2024
Objective Data
-
Labs:
Laboratory Results
11/30/24
03:49
WBC 8.3
Hgb 9.7 L
Hct 31.2 L
Plt Count 139
Sodium 137
Potassium 4.4
Chloride 107
Carbon Dioxide 22
BUN 49 H
Creatinine 3.0 H
Glucose 219 H
Calcium 8.0 L
Vital Signs:
Vital Signs
Temp Pulse Resp BP Pulse Ox
36.9 C 97 15 149/70 97
11/30/24 07:26 11/30/24 04:00 11/30/24 04:00 11/30/24 04:00 11/30/24 04:00
I&O
11/29/24 11/30/24 12/01/24
06:59 06:59 06:59
Intake Total 1120 / 1120 80 / 80
Output Total 350 / 350
Balance 770 / 770 80 / 80
Review of Systems
-
All other systems: Reviewed and negative
Constitutional: Reports No Symptoms
Physical Exam
-
General: Comfortable and Appears Chronically Ill
HEENT: Oxygen (2L NC)
Respiratory: Non Labored Respirations; Negative Accessory Resp Muscle Use
Cardiac: Regular Rhythm and S1/S2
GI: Soft, Nontender, Nondistended and Normal Bowel Sounds
Skin: Warm and Dry; Negative Rash
Neuro: Awake and Alert
Psych: Calm
Data Reviewed
-
CT Scan: Report Reviewed by me
Labs: Labs Reviewed by me
[2024-11-30 09:04] LABS: Glucose - Point of Care 162 mg/dl (70-99)
[2024-11-30] MEDS: NOVOLOG FLEXPEN 10 UNITS SC (09:16)
[2024-11-30] MEDS: NOVOLOG FLEXPEN-LOW RESISTANCE 1 UNITS SC (09:16)
[2024-11-30] MEDS: HEPARIN 5000 UNITS SC ×3 (09:17→23:07)
[2024-11-30] MEDS: XIFAXAN 550 MG PO ×2 (09:17→19:07)
[2024-11-30] MEDS: PROTONIX 40 MG PO (09:17)
[2024-11-30] MEDS: LIDOCAINE 4% PATCH 1 PATCH TOPICAL (09:17)
[2024-11-30] MEDS: DUPHALAC/CHRONULAC 20 GRAMS PO ×3 (09:17→21:21)
[2024-11-30] MEDS: FLEXBUMIN 50 IV (09:19)
[2024-11-30] MEDS: NOVOLOG FLEXPEN-LOW RESISTANCE SC (12:25)
[2024-11-30] MEDS: NOVOLOG FLEXPEN SC (12:25)
[2024-11-30 12:32] LABS: Glucose - Point of Care 63 mg/dl (70-99)
--- NOTE | 2024-11-30 12:35 | W.PN.NEPH.PH ---
Today's Communication / Plan
-
see plan
Assessment/Plan
-
Impression:
AMS r/o hepatic encephalopathy vs sepsis
Leukocytosis
Decompensated Cirrhosis - S/P LVP 6days ago
A gap Metabolic acidosis
ALIX with CKD stage IIIb cr 1.8
Anemia
CAD with history of CABG 2012
HFpEF
COPD
Hypoalbuminemia
GERD
Hypothyroidism
History of MALT lymphoma
History of gastric and duodenal angioectasias
h/o recurrent right effusion s/p pleural catheter
Plan:
A/w AMS, possible multifactorial-now resolved
ALIX- UA UTI sample, Fena remains low, U na 30, suspect prerenal, can not r/o HRS as cr cont to rise at 3
cont IV alb course, UOP can not be measured with incontinence
cont to hold lasix
will give gentle IVF of NS 1lit today and start octreotide
if no response in 72hrs likely d/c Octreo
long d/w pt and daughter on phone
If deemed HRS prognosis is poor-family aware
not transplant candidate per GI note, should her renal function worsens not candidate for [employer] either
pt insists to keep all efforts to keep her alive-not sure if she has understanding severity of her disease, needs more C discussion
follow labs
high risk encounter
-
-
Date of Service: November 30, 2024
CC / HPI / ROS
-
Chief Complaint:
ALIX with CKD
History of Present Illness:
cr up at 3, no fever
Urine incontinence
BP stable
Review of Systems:
more awake at baseline, per daughter still some confusion
no fever
Labs
-
Labs:
WBC 8.3 10^3/uL (4.8-10.8) 11/30/24 03:49
RBC 3.72 10^6/uL (4.20-5.40) L 11/30/24 03:49
Hgb 9.7 g/dL (12.0-16.0) L 11/30/24 03:49
Hct 31.2 % (37.0-47.0) L 11/30/24 03:49
Plt Count 139 10^3/uL (130-400) 11/30/24 03:49
Sodium 137 mmol/L (135-145) 11/30/24 03:49
Potassium 4.4 mmol/L (3.5-5.1) 11/30/24 03:49
Chloride 107 mmol/L (98-107) 11/30/24 03:49
Carbon Dioxide 22 mmol/L (22-30) 11/30/24 03:49
BUN 49 mg/dl (7-17) H 11/30/24 03:49
Creatinine 3.0 mg/dL (0.6-1.0) H 11/30/24 03:49
eGFR 15.92 11/30/24 03:49
Glucose 219 mg/dl (70-99) H 11/30/24 03:49
Calcium 8.0 mg/dl (8.4-10.2) L 11/30/24 03:49
Phosphorus 4.6 mg/dl (2.5-4.5) H 11/27/24 04:01
Albumin 2.7 g/dl (3.5-5.0) L 11/27/24 04:01
Physical Exam
-
Vital Signs:
Vital Signs
Temp Pulse Resp BP Pulse Ox
98.3 F 97 15 149/70 95
11/30/24 11:51 11/30/24 04:00 11/30/24 04:00 11/30/24 04:00 11/30/24 10:21
Cardiovascular:: Regular rate and rhythm
Respiratory:: Bilateral: CTA (decreased BS)
Lung Excursion:: Normal (decreased bilat)
Abdomen:: Distended, Nontender and Soft
Bowel Sounds:: Normal
Extremity Edema:: None: Bilateral:
Bravo Catheter: No
[2024-11-30 12:59] LABS: Glucose - Point of Care 114 mg/dl (70-99)
[2024-11-30] MEDS: NSS 1000 IV (14:15)
--- NOTE | 2024-11-30 14:34 | CM ---
Patient with Dx Altered Mental Status, Decompensated KRAFT Cirrhosis s/p paracentesis. O2 2L. Receiving IV Abx, started on octreotide. PT/OT; SNF vs Home PT. Per nurse; Pleurex cath in place, confused, forgetful.
Met with patient yesterday while son was present; no requests or complaints at that time.
Spoke with Bella, daughter; she is hoping she will be able to take her mother home at discharge, depending on how she is. She has been getting updates from the doctors on her mother's status, and says kidney doctor told her they were trialing a med
for 3 days to see if it helps her.
Plan follow patient's progress and continue contact with daughter to confirm discharge to home.
Plan probable d[facility] to [facility].
--- NOTE | 2024-11-30 14:44 | PTCARENOTE ---
Spoke with Bella, patients daughter and POA. Incident yesterday involved patients daughter and son in which a CODE purple was called and son escorted out of building and not allowed to re-enter. Bella has agreed, that when she is not here, the son
(her brother) would be able to visit for an hour or 2. Security has been updated on the situation.
[2024-11-30 15:58] LABS: Glucose - Point of Care 352 mg/dl (70-99)
[2024-11-30] MEDS: SANDOSTATIN 100 MCG SC ×2 (17:06→23:01)
[2024-11-30 17:21] LABS: Glucose - Point of Care 428 mg/dl (70-99)
[2024-11-30 17:46] LABS: Glucose 395 mg/dl (70-99)
[2024-11-30] MEDS: NOVOLOG FLEXPEN-LOW RESISTANCE 6 UNITS SC (18:02)
[2024-11-30] MEDS: APRESOLINE 10 MG IV ×2 (19:07→23:01)
[2024-11-30 20:08] LABS: Glucose - Point of Care 349 mg/dl (70-99)
[2024-11-30] MEDS: NOVOLOG FLEXPEN 8 UNITS SC (21:48)
[2024-11-30] MEDS: LANTUS 0.1 UNITS SC (22:21)
[2024-12-01] VITALS (33 sets, daily range): BP systolic 110–173; BP diastolic 45–105; BMI 23.4
[2024-12-01 04:18] LABS: Glucose - Point of Care 139 mg/dl (70-99)
[2024-12-01 04:35] LABS: Hematocrit 32.4 % (37.0-47.0); Hemoglobin 10.5 g/dL (12.0-16.0); Mean Corp Hgb Conc. 32.4 g/dL (33.0-37.0); Mean Corpuscular Hgb 26.6 pg (27.0-31.0); Mean Corpuscular Volume 82.2 fL (81.0-99.0); Mean Platelet Volume 9.9 fL (7.4-10.4); Platelet Count 134 10^3/uL (130-400); Red Blood Cell Count 3.94 10^6/uL (4.20-5.40); Red Cell Dist. Width 21.2 % (11.5-14.5); White Blood Cell Count 11.9 10^3/uL (4.8-10.8)
[2024-12-01 05:01] LABS: Blood Urea Nitrogen 48 mg/dl (7-17); Calcium 8.3 mg/dl (8.4-10.2); Carbon Dioxide 22 mmol/L (22-30); Chloride 102 mmol/L (98-107); Estimated Creatinine Clearance 15 ml/min; Glucose 155 mg/dl (70-99); Potassium 4.6 mmol/L (3.5-5.1); Sodium 130 mmol/L (135-145); eGFR 17.29
[2024-12-01] MEDS: ALPRAZOLAM ODT 0.25 MG PO ×3 (05:46→22:28)
--- NOTE | 2024-12-01 08:14 | W.PN.HOSP.TC ---
Addendum entered and electronically signed by Tabitha Coello MD 12/01/24 16:46:
# Sacrum Stage 1 Pressure Injury POA
Original Note:
Today's Communication/Plan
-
see A/P
Assessment / Plan
Assessment / Plan
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
anemia, HTN, prior CABG/stents, DM type II, COPD, PAD, tobacco abuse, ASCVD, and hypothyroidism presented with altered mental status.
A/P:
# AMS/ acute toxic metabolic encephalopathy, etiology possibilities include intoxication with tizanidine/baclofen, hepatic encephalopathy, sepsis/infection.
# Decompensated KRAFT Cirrhosis
No evidence of acute stroke.
s/p para 11/26, removed 4800 ml ascitic fluid. Negative for SBP. Fluid culture no growth.
Blood cultures negative
holding offending medications, would NOT restart [employer] Atarax
Cont lactulose PO TID, emphasized on strict compliance
added Xifaxan 550mg po twice a day
s/p broad spectrum antibiotics Vanc/Zosyn x5 days total
Monitor MS, improving, now conversant but somewhat orientated (suspect she is back to her baseline MS)
advanced to solid diet per SPL
noted ammonia level normalized from 40 to 14
s/p repeat paracentesis 11/28 due to rapid reaccumulation, removed 2800 cc of clear yellow ascitic fluid. Negative for SBP
IRAD CS for peritoneal port 2/2 needing recurrent paracentesis
# Sinus bradycardia with pauses, asymptomatic.
Lopressor 2.5mg q6hrs held
Appreciate card input
# IDDM
resumed insulin: adjusted Lantus to 10 units HS (same home dose), and Aspart to 5 units AC
cover with ISS
# Progressive renal dysfunction
# ALIX on CKD stage 4
Cr baseline ~1.5, was at 2.4 on admission, peaked to 3.0, today at 2.8
holding lasix for now
s/p albumin,
added Octreotide
avoid nephrotoxins
Renal on board
# metabolic acidosis, resolved
DCed further bicarb drip
# Hypokalemia
repleted
# Anxiety
started low dose xanax PRN
# HTN
Add Norvasc 5 mg, increase dose if needed
IV hydralazine PRN
Not on BB due to bradycardia
DVT PPX - heparin sq
Code status - Full Code
Dispo: PT OT eval recc HH vs SNF. Family elected for HH.
DW RN
DW son at bedside
total time spent 51 min
Anticipated Discharge: > 48 hours
Subjective/Interval History
-
Date of Service: December 01, 2024
Objective Data
-
Labs:
Laboratory Results
12/01/24
04:16
WBC 11.9 H
Hgb 10.5 L
Hct 32.4 L
Plt Count 134
Sodium 130 L
Potassium 4.6
Chloride 102
Carbon Dioxide 22
BUN 48 H
Creatinine 2.8 H
Glucose 155 H
Calcium 8.3 L
Vital Signs:
Vital Signs
Temp Pulse Resp BP Pulse Ox
36.9 C 106 22 193/91 96
12/01/24 08:13 11/30/24 23:01 11/30/24 18:00 11/30/24 23:01 11/30/24 20:49
I&O
11/30/24 12/01/24 12/02/24
06:59 06:59 06:59
Intake Total 80 / 80 240 / 240
Balance 80 / 80 240 / 240
--- NOTE | 2024-12-01 08:29 | PTCARENOTE ---
Pt sleeping on walking rounds, son asleep on couch. Report states son has been banned from hospital due to violent behavior. If any inappropriate behavior security will be called. Report also states Pt wants son in room. NM and splicing supervisor aware of
situation and concern for my own safety
[2024-12-01 09:03] LABS: Glucose - Point of Care 130 mg/dl (70-99)
[2024-12-01] MEDS: NOVOLOG FLEXPEN-LOW RESISTANCE SC (09:11)
[2024-12-01] MEDS: XIFAXAN 550 MG PO ×2 (09:12→19:59)
[2024-12-01] MEDS: DUPHALAC/CHRONULAC 20 GRAMS PO ×3 (09:12→19:59)
[2024-12-01] MEDS: PROTONIX 40 MG PO (09:12)
[2024-12-01] MEDS: NOVOLOG FLEXPEN 5 UNITS SC ×3 (09:13→16:30)
[2024-12-01] MEDS: SANDOSTATIN 100 MCG SC ×3 (09:16→19:59)
[2024-12-01] MEDS: HEPARIN 5000 UNITS SC ×3 (09:16→23:06)
[2024-12-01] MEDS: LIDOCAINE 4% PATCH 1 PATCH TOPICAL (09:17)
--- NOTE | 2024-12-01 10:29 | PTCARENOTE ---
Son left room
--- NOTE | 2024-12-01 10:50 | PTCARENOTE ---
Son back in room. Pt is AAOx3 forgetful and confused at times. Pt is grateful for all care.
[2024-12-01 11:51] LABS: Glucose - Point of Care 182 mg/dl (70-99)
--- NOTE | 2024-12-01 12:05 | W.PN.UPDATE ---
Update Note
Progress Note Update
We received a request for abdominal Asept on this patient. She presently has a chest Pleurex which requires different supplies. We reached out to the ordering providers and CM and we are waiting for the following to be documented: managing
physician, drainage frequency orders and confirmed discharge planning for Asept placement. We also need confirmation that her accepting facility or VN is able to manage both a Pleurex and Asept
--- NOTE | 2024-12-01 12:13 | W.PN.NEPH.PH ---
Today's Communication / Plan
-
Continue to hold diuretics
Assessment/Plan
-
Impression:
AMS r/o hepatic encephalopathy vs sepsis
Leukocytosis
Decompensated Cirrhosis - S/P LVP 6days ago
A gap Metabolic acidosis
ALIX with CKD stage IIIb cr 1.8
Anemia
CAD with history of CABG 2012
HFpEF
COPD
Hypoalbuminemia
GERD
Hypothyroidism
History of MALT lymphoma
History of gastric and duodenal angioectasias
h/o recurrent right effusion s/p pleural catheter
Plan:
A/w AMS, possible multifactorial-now resolved
ALIX- UA UTI sample, Fena remains low, U na 30, suspect prerenal, can not r/o HRS as cr cont to rise at 3
cont IV alb course, UOP can not be measured with incontinence
cont to hold lasix
Octreotide
if no response in 72hrs likely d/c Octreo
Dr. Silva had long d/w pt and daughter on phone
Prognosis is poor-family aware
not transplant candidate per GI note, should her renal function worsens not candidate for FLOORING PROFESSIONAL either
Potentially will get abdominal Asept
Creatinine is stable
Sodium now 130 and abdomen increasing in size will require another paracentesis
-
-
Date of Service: December 01, 2024
CC / HPI / ROS
-
Chief Complaint:
ALIX with CKD
History of Present Illness:
cr up at 3, no fever
Urine incontinence
BP stable
Review of Systems:
more awake at baseline, per daughter still some confusion
no fever
Labs
-
Labs:
WBC 11.9 10^3/uL (4.8-10.8) H 12/01/24 04:16
RBC 3.94 10^6/uL (4.20-5.40) L 12/01/24 04:16
Hgb 10.5 g/dL (12.0-16.0) L 12/01/24 04:16
Hct 32.4 % (37.0-47.0) L 12/01/24 04:16
Plt Count 134 10^3/uL (130-400) 12/01/24 04:16
Sodium 130 mmol/L (135-145) L 12/01/24 04:16
Potassium 4.6 mmol/L (3.5-5.1) 12/01/24 04:16
Chloride 102 mmol/L (98-107) 12/01/24 04:16
Carbon Dioxide 22 mmol/L (22-30) 12/01/24 04:16
BUN 48 mg/dl (7-17) H 12/01/24 04:16
Creatinine 2.8 mg/dL (0.6-1.0) H 12/01/24 04:16
eGFR 17.29 12/01/24 04:16
Glucose 155 mg/dl (70-99) H 12/01/24 04:16
Calcium 8.3 mg/dl (8.4-10.2) L 12/01/24 04:16
Phosphorus 4.6 mg/dl (2.5-4.5) H 11/27/24 04:01
Albumin 2.7 g/dl (3.5-5.0) L 11/27/24 04:01
Physical Exam
-
Vital Signs:
Vital Signs
Temp Pulse Resp BP Pulse Ox
98.5 F 101 17 136/64 96
12/01/24 08:13 12/01/24 08:30 12/01/24 08:30 12/01/24 08:30 12/01/24 10:00
Cardiovascular:: Regular rate and rhythm
Respiratory:: Bilateral: CTA (decreased BS)
Lung Excursion:: Normal (decreased bilat)
Abdomen:: Distended, Nontender and Soft
Bowel Sounds:: Normal
Extremity Edema:: None: Bilateral:
Bravo Catheter: No
[2024-12-01] MEDS: NOVOLOG FLEXPEN-LOW RESISTANCE 1 UNITS SC (12:19)
--- NOTE | 2024-12-01 13:03 | CM ---
Addendum entered by Ambika Hollis RN 12/01/24 16:11:
Spoke with [facility]; they are declining this referral due to need for teaching of Asept catheter.
Spoke with Bella again; provided update that [facility] declined. She agrees to referrals to whichever agency can accept. Informed daughter referrals made to [facility] and [facility]. She is aware Asept catheter is on hold today.
Plan follow up with [facility] and [facility] for acceptance.
Original Note:
Patient with Dx Altered Mental Status, Decompensated KRAFT Cirrhosis s/p paracentesis. O2 2L. Pleurex pleural catheter in place. Plan IR for Asept Abdominal catheter. PT/OT; SNF vs Home PT.
Spoke with daughter Bella; she confirms she wants to take her mother home with the Pleurex pleural catheter and new Asept catheter in abdomen. She is very comfortable managing Pleurex and has had no insurance issues or problems getting supplies from
[facility], and [facility] had fully trained her and had made themselves available to assist as needed. Bella understands new catheter would be Asept and she would need nre teaching and she agrees. Provided update that [facility] has
referral requesting service with nurse for both catheters, and we are waiting for them to confirm.
Bella is asking for MD to call with update---> message sent to Dr Coello.
Bella wants to remind the entire team that her brother who is at the bedside is not a contact for updates on the patient - Bella is the contact. Bella says her brother is a drug addict and is not to be given the patient's information. Message to
Dr Coello, nurse and Nava from IR.
Spoke with Nurse Jade Haynes [facility] (ph [phone], fax [phone]); they will review the referral. Provided update possible d/c over weekend per MD.
Plan follow up with [facility] for acceptance and nurse availability for home teaching visit for Asept Catheter.
Plan probable home with Asept & Pleurex catheters, with [facility].
[2024-12-01] MEDS: APRESOLINE 10 MG IV (15:18)
[2024-12-01 16:26] LABS: Glucose - Point of Care 207 mg/dl (70-99)
[2024-12-01] MEDS: NOVOLOG FLEXPEN-LOW RESISTANCE 2 UNITS SC (16:29)
--- NOTE | 2024-12-01 16:35 | PN.CDI ---
CDI
- -
CDI:
Physician Documentation Request
Admit Date: 11/26/24 01:33
Dear Doctor Oumou,
Clinical Indicators:
Patient admitted with decompensated KRAFT Cirrhosis.
11/26 - 11/28 RN skin/wound assessments: Sacrum Stage 1 Pressure Injury POA
Physician documentation of the type and location of wounds is required for compliant documentation. Based on the above clinical findings and your assessment, please provide the following in your progress note:
1. Location of the ulcer/wound, including laterality.
2. Type (etiology) of ulcer/wound:
- Pressure (decubitus) ulcer
- Other
3. If a pressure ulcer, please also include the stage* of the ulcer:
- Stage 1 - Skin intact, non-blanchable redness
- Stage 2 - Partial thickness loss of dermis, includes intact or open blister
- Stage 3 - Full thickness tissue not including bone, tendon or muscle
- Stage 4 - Full thickness tissue loss, including exposed bone, tendon or muscle
- Unstageable - Full thickness loss in which the base of the ulcer is covered by slough (yellow, victor, grant, green or brown) and/or eschar (victor, brown or black) in the wound bed.
- Unable to determine
Use of terms such as suspected, likely, concern for, or probable (associated with a specific diagnosis that is being evaluated, monitored, or treated as if it exists) are acceptable and can be coded in the inpatient setting, when documented at the
time of discharge.
Thank you,
AMILCAR Wilson RN
CDI Specialist
available via tiger text
Please use your independent medical judgment in providing your response.
*Source: National Pressure Ulcer Advisory Panel (NPUAP)
[2024-12-01 21:35] LABS: Glucose - Point of Care 352 mg/dl (70-99)
[2024-12-01] MEDS: LANTUS 0.1 UNITS SC (22:28)
[2024-12-01] MEDS: NOVOLOG FLEXPEN 8 UNITS SC (23:06)
[2024-12-02] VITALS (26 sets, daily range): BP systolic 115–178; BP diastolic 57–92; BMI 23.0
[2024-12-02] MEDS: TYLENOL 650 MG PO ×3 (04:43→19:57)
--- NOTE | 2024-12-02 04:48 | PTCARENOTE ---
Pt states she is having increased discomfort in her abdomen; expressing difficulty taking a deep breath. Abd is firm and distended. Family concerned about whether or not pt will be getting a paracentesis prior to discharge. Pain 8; Tylenol
given for discomfort (see MAR).
[2024-12-02 05:08] LABS: Hematocrit 31.7 % (37.0-47.0); Hemoglobin 10.3 g/dL (12.0-16.0); Mean Corp Hgb Conc. 32.5 g/dL (33.0-37.0); Mean Corpuscular Hgb 26.4 pg (27.0-31.0); Mean Corpuscular Volume 81.3 fL (81.0-99.0); Mean Platelet Volume 11.1 fL (7.4-10.4); Platelet Count 143 10^3/uL (130-400); Red Cell Dist. Width 21.3 % (11.5-14.5); White Blood Cell Count 14.1 10^3/uL (4.8-10.8)
[2024-12-02 05:21] LABS: Blood Urea Nitrogen 54 mg/dl (7-17); Carbon Dioxide 22 mmol/L (22-30); Chloride 101 mmol/L (98-107); Estimated Creatinine Clearance 14 ml/min; Glucose 203 mg/dl (70-99); Potassium 5.2 mmol/L (3.5-5.1); Sodium 131 mmol/L (135-145); eGFR 15.92
[2024-12-02] MEDS: ROXICODONE 5 MG PO ×2 (05:45→21:33)
--- NOTE | 2024-12-02 07:52 | W.PN.HOSP.TC ---
Today's Communication/Plan
-
Request for case management to help answer question about post discharge nursing care of new port.
Assessment / Plan
Assessment / Plan
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
anemia, HTN, prior CABG/stents, DM type II, COPD, PAD, tobacco abuse, ASCVD, and hypothyroidism presented with altered mental status.
A/P:
1. AMS/ acute toxic metabolic encephalopathy, etiology possibilities include intoxication with tizanidine/baclofen, hepatic encephalopathy, sepsis/infection.
complicated by decompensated KRAFT Cirrhosis
No evidence of acute stroke.
s/p para 11/26, removed 4800 ml ascitic fluid. Negative for SBP. Fluid culture no growth.
Blood cultures negative
holding offending medications
Do NOT restart REVENUE CYCLE ADMINISTRATOR Atarax
Cont lactulose PO TID, emphasized on strict compliance
Xifaxan 550mg po twice a day
s/p broad spectrum antibiotics Vanc/Zosyn x5 days total
Monitor MS, improving, now conversant (back to her baseline MS)
Diet to solid diet per SPL
ammonia level normalized from 40 to 14
s/p repeat paracentesis 11/28 due to rapid reaccumulation, removed 2800 cc of clear yellow ascitic fluid. Negative for SBP
IRAD CS for peritoneal port 2/2 needing recurrent paracentesis
Port placement pending confirmation of nursing care post discharge
Case management consult to help answer this question
If answer not available soon, she may need another tap while waiting for port
2. Sinus bradycardia with pauses, asymptomatic.
Lopressor 2.5mg q6hrs held
Appreciate card input
3. IDDM
resumed insulin: adjusted Lantus to 10 units HS (same home dose), and Aspart to 5 units AC
cover with ISS
4. Progressive renal dysfunction with ALIX on CKD stage 4
Cr baseline ~1.5, was at 2.4 on admission, then to 3.0, today at 3.0
holding lasix for now
s/p albumin
added Octreotide
avoid nephrotoxins
Renal consult appreciated
5. metabolic acidosis, resolved
DCed further bicarb drip
6. Hypokalemia
repleted, now mild hyperkalemia
Check daily
treat as required
7. Anxiety - chronic
started low dose xanax PRN
8. HTN - benign, chronic
Added Norvasc 5 mg, increase dose if needed
IV hydralazine PRN
Not on BB due to bradycardia
DVT PPX - heparin sq
Code status - Full Code
Dispo: PT OT eval recc HH vs SNF. Family elected for HH.
DW RN
DW daughter on the phone
total time spent 51 min
Anticipated Discharge: > 48 hours
Subjective/Interval History
-
Date of Service: December 02, 2024
Has back pain, but otherwise feels better.
Objective Data
-
Labs:
Laboratory Results
12/02/24
04:38
WBC 14.1 H
Hgb 10.3 L
Hct 31.7 L
Plt Count 143
Sodium 131 L
Potassium 5.2 H
Chloride 101
Carbon Dioxide 22
BUN 54 H
Creatinine 3.0 H
Glucose 203 H
Calcium 9.0
Vital Signs:
Vital Signs
Temp Pulse Resp BP Pulse Ox
97.6 F 105 15 145/69 100
12/02/24 07:52 12/02/24 04:45 12/02/24 04:45 12/02/24 04:45 12/02/24 04:45
I&O
12/01/24 12/02/24 12/03/24
06:59 06:59 06:59
Intake Total 240 / 240
Balance 240 / 240
Review of Systems
-
History Source: Patient
All other systems: Reviewed and negative
Physical Exam
-
General: Well Developed, Well Nourished, No Apparent Distress and Comfortable
HEENT: Normocephalic, Atraumatic, Moist Mucous Membranes, Nose Appears Normal and Ears Appear Normal
Respiratory: Decreased Breath Sounds
Cardiac: Regular Rhythm and S1/S2
GI: Soft, Nontender and Distended
Musculoskeletal: No Clubbing, No Cyanosis and No Edema
Skin: Warm and Dry
Neuro: Awake, Alert and Oriented
Psych: Calm
Data Reviewed
-
Labs: Labs Reviewed by me
[2024-12-02 07:56] LABS: Glucose - Point of Care 159 mg/dl (70-99)
--- NOTE | 2024-12-02 08:46 | CM ---
CM spoke with Dr Dinh-he is asking for VN assistance for new pleurx cath
Port placement on hold until VN can be arranged
Per prior CM notes, [facility] declined pt for service
Referrals made to [facility] and [facility]
Per [facility], [facility] accepted for service and [facility] no response
Call with [facility] [phone]
She confirmed acceptance of pt for new pleurx and service in the
Update to Dr Dinh and payton/Bella
Discharge Disposition- home with Bayharini and new pleurx
[2024-12-02] MEDS: XIFAXAN 550 MG PO ×2 (08:57→19:57)
[2024-12-02] MEDS: HEPARIN 5000 UNITS SC (08:58)
[2024-12-02] MEDS: SANDOSTATIN 100 MCG SC ×3 (08:58→21:27)
[2024-12-02] MEDS: DUPHALAC/CHRONULAC 20 GRAMS PO ×3 (08:58→21:27)
[2024-12-02] MEDS: PROTONIX 40 MG PO (08:58)
[2024-12-02] MEDS: LIDOCAINE 4% PATCH 1 PATCH TOPICAL (09:01)
[2024-12-02] MEDS: NOVOLOG FLEXPEN 5 UNITS SC ×3 (09:02→17:31)
[2024-12-02] MEDS: NOVOLOG FLEXPEN-LOW RESISTANCE 1 UNITS SC ×2 (09:03→17:32)
[2024-12-02] MEDS: ALPRAZOLAM ODT 0.25 MG PO ×2 (09:06→17:30)
[2024-12-02 09:49] LABS: Glycohemoglobin (HgbA1c) 9.2 % (4.0-5.6)
--- NOTE | 2024-12-02 10:01 | W.PN.NEPH.PH ---
Today's Communication / Plan
-
AM labs
Assessment/Plan
-
Impression:
AMS r/o hepatic encephalopathy vs sepsis
Leukocytosis
Decompensated Cirrhosis - S/P LVP 6days ago
A gap Metabolic acidosis
ALIX with CKD stage IIIb cr 1.8
Anemia
CAD with history of CABG 2012
HFpEF
COPD
Hypoalbuminemia
GERD
Hypothyroidism
History of MALT lymphoma
History of gastric and duodenal angioectasias
h/o recurrent right effusion s/p pleural catheter
Plan:
A/w AMS, possible multifactorial-now resolved
ALIX- UA UTI sample, Fena remains low, U na 30, suspect prerenal, can not r/o HRS as cr cont to rise at 3
cont to hold lasix
Octreotide
if no response in 72hrs likely d/c Octreo
Dr. Silva had long d/w pt and daughter on phone
Prognosis is poor-family aware
not transplant candidate per GI note, should her renal function worsens not candidate for RETAIL KEY HOLDER either
IRAD CS for peritoneal port
Creatinine is stable
-
-
Date of Service: December 02, 2024
CC / HPI / ROS
-
Chief Complaint:
ALIX with CKD
History of Present Illness:
cr up at 3, no fever
Urine incontinence
BP stable
Review of Systems:
Encephalopathy resolved
no fever
Labs
-
Labs:
WBC 14.1 10^3/uL (4.8-10.8) H 12/02/24 04:38
RBC 3.90 10^6/uL (4.20-5.40) L 12/02/24 04:38
Hgb 10.3 g/dL (12.0-16.0) L 12/02/24 04:38
Hct 31.7 % (37.0-47.0) L 12/02/24 04:38
Plt Count 143 10^3/uL (130-400) 12/02/24 04:38
Sodium 131 mmol/L (135-145) L 12/02/24 04:38
Potassium 5.2 mmol/L (3.5-5.1) H 12/02/24 04:38
Chloride 101 mmol/L (98-107) 12/02/24 04:38
Carbon Dioxide 22 mmol/L (22-30) 12/02/24 04:38
BUN 54 mg/dl (7-17) H 12/02/24 04:38
Creatinine 3.0 mg/dL (0.6-1.0) H 12/02/24 04:38
eGFR 15.92 12/02/24 04:38
Glucose 203 mg/dl (70-99) H 12/02/24 04:38
Calcium 9.0 mg/dl (8.4-10.2) 12/02/24 04:38
Phosphorus 4.6 mg/dl (2.5-4.5) H 11/27/24 04:01
Albumin 2.7 g/dl (3.5-5.0) L 11/27/24 04:01
Physical Exam
-
Vital Signs:
Vital Signs
Temp Pulse Resp BP Pulse Ox
97.6 F 99 16 116/71 100
12/02/24 07:52 12/02/24 07:45 12/02/24 07:45 12/02/24 08:30 12/02/24 07:45
Cardiovascular:: Regular rate and rhythm
Respiratory:: Bilateral: CTA (decreased BS)
Lung Excursion:: Normal (decreased bilat)
Abdomen:: Distended, Nontender and Soft
Bowel Sounds:: Normal
Extremity Edema:: None: Bilateral:
Bravo Catheter: No
[2024-12-02 12:52] LABS: Glucose - Point of Care 227 mg/dl (70-99)
[2024-12-02] MEDS: NOVOLOG FLEXPEN-LOW RESISTANCE 2 UNITS SC (13:01)
--- NOTE | 2024-12-02 16:19 | PTCARENOTE ---
Has had 2 moderate nose bleeds today, stopped by pt with tissues / dabbing. D/w Dr. Dinh- holding 1600 dose of sc Heparin.
AAO, forgetful- inappropriate comments at times- demanding every staff member that came to help her was now banded from her room- boundaries placed and pt apologetic. Cooperative with meds. PRN Xanax and Tylenol x1 so far. Will offer again this
shift. Weaned off O2 maintaining 95% on RAIR. Abdomen is grossly distended. Incontinent of bowel/bladder- encouraged toileting q2.
[2024-12-02 17:08] LABS: Glucose - Point of Care 158 mg/dl (70-99)
[2024-12-02 21:16] LABS: Glucose - Point of Care 176 mg/dl (70-99)
[2024-12-02] MEDS: LANTUS 0.1 UNITS SC (21:28)
[2024-12-02] MEDS: APRESOLINE 10 MG IV (22:54)
[2024-12-03] VITALS (29 sets, daily range): BP systolic 97–141; BP diastolic 44–78
[2024-12-03] MEDS: ROXICODONE 5 MG PO ×4 (04:36→21:53)
[2024-12-03 04:59] LABS: Hematocrit 27.8 % (37.0-47.0); Mean Corp Hgb Conc. 32.4 g/dL (33.0-37.0); Mean Corpuscular Hgb 25.9 pg (27.0-31.0); Mean Corpuscular Volume 79.9 fL (81.0-99.0); Platelet Count 135 10^3/uL (130-400); Red Blood Cell Count 3.48 10^6/uL (4.20-5.40); Red Cell Dist. Width 21.3 % (11.5-14.5); White Blood Cell Count 12.3 10^3/uL (4.8-10.8)
[2024-12-03 05:09] LABS: Blood Urea Nitrogen 62 mg/dl (7-17); Calcium 8.7 mg/dl (8.4-10.2); Carbon Dioxide 21 mmol/L (22-30); Chloride 103 mmol/L (98-107); Estimated Creatinine Clearance 14 ml/min; Glucose 217 mg/dl (70-99); Magnesium 2.3 mg/dl (1.6-2.3); Potassium 5.8 mmol/L (3.5-5.1); Sodium 131 mmol/L (135-145); eGFR 14.73
[2024-12-03] MEDS: DEXTROSE 50% SYRINGE 25 GRAMS IV (05:33)
[2024-12-03] MEDS: NOVOLIN R 0.1 UNITS IV (05:34)
[2024-12-03 05:35] LABS: Glucose - Point of Care 220 mg/dl (70-99)
--- NOTE | 2024-12-03 05:45 | PTCARENOTE ---
patient's potassium this AM was 5.8. Hyperkalemia protocol followed. POWER BENDER OPERATOR TT. New orders, see MAR. Continuing to monitor. call pacheco in reach.
[2024-12-03 06:27] LABS: Glucose - Point of Care 286 mg/dl (70-99)
--- NOTE | 2024-12-03 07:58 | W.PN.HOSP.TC ---
Today's Communication/Plan
-
Doing well. Port placement my IR tomorrow. NPO after midnight.
Assessment / Plan
Assessment / Plan
74-year-old female with a past medical history of:
Kraft cirrhosis,
ascites requiring weekly paracentesis,
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
esophageal varices with prior banding,
prior GI bleeding due to AVM's,
chronic anemia,
Essential HTN,
prior CABG/stents,
DM type II,
COPD,
PAD, t
obacco abuse,
ASCVD,
hypothyroidism
presented with altered mental status.
A/P:
1. AMS/ acute toxic metabolic encephalopathy, etiology possibilities included intoxication with tizanidine/baclofen, hepatic encephalopathy, sepsis/infection.
complicated by decompensated KRAFT Cirrhosis
No evidence of acute stroke.
s/p para 11/26, removed 4800 ml ascitic fluid. Negative for SBP. Fluid culture no growth.
Blood cultures negative
holding offending medications
Do NOT restart MANAGER LAW Atarax
Cont lactulose PO TID, emphasized on strict compliance
Xifaxan 550mg po twice a day
s/p broad spectrum antibiotics Vanc/Zosyn x5 days total (no longer active)
Monitor MS, improving, now conversant (back to her baseline MS)
Diet to solid diet per SPL
ammonia level normalized from 40 to 14
s/p repeat paracentesis 11/28 due to rapid reaccumulation, removed 2800 cc of clear yellow ascitic fluid. Negative for SBP
IRAD CS for peritoneal port 2/2 needing recurrent paracentesis
Port placement pending for 12/04. Confirmation of nursing care post discharge has been done, they can take care of port.
NPO P MN
2. Sinus bradycardia with pauses, asymptomatic.
Lopressor 2.5mg q6hrs held
Appreciate card input
3. IDDM
resumed insulin: adjusted Lantus to 10 units HS (same home dose), and Aspart to 5 units AC
cover with ISS
4. Progressive renal dysfunction with ALIX on CKD stage 4
Cr baseline ~1.5, was at 2.4 on admission, then to 3.0, today at 3.0
holding lasix for now
s/p albumin
added Octreotide
avoid nephrotoxins
Renal consult appreciated
5. metabolic acidosis, resolved
DCed further bicarb drip
6. Hypokalemia
repleted, now mild hyperkalemia
Check daily
treat as required
7. Anxiety - chronic
started low dose xanax PRN
8. HTN - benign, chronic
Added Norvasc 5 mg, increase dose if needed
IV hydralazine PRN
Not on BB due to bradycardia
DVT PPX - heparin sq
Code status - Full Code
Dispo: PT OT eval recc HH vs SNF. Family elected for HH.
total time spent 51 min
Anticipated Discharge: 24 - 48 hours
Subjective/Interval History
-
Date of Service: December 03, 2024
Feels ok, no new issues.
Objective Data
-
Labs:
Laboratory Results
12/03/24 12/03/24
04:18 07:44
WBC 12.3 H
Hgb 9.0 L
Hct 27.8 L
Plt Count 135
Sodium 131 L
Potassium 5.8 H Pending
Chloride 103
Carbon Dioxide 21 L
BUN 62 H
Creatinine 3.2 H
Glucose 217 H
Calcium 8.7
Vital Signs:
Vital Signs
Temp Pulse Resp BP Pulse Ox
97.8 F 110 18 123/56 93
12/03/24 06:33 12/03/24 07:45 06/01/25 07:45 12/03/24 07:45 12/03/24 07:45
I&O
12/02/24 12/03/24 12/04/24
06:59 06:59 06:59
Intake Total 1060 / 1060
Balance 1060 / 1060
Review of Systems
-
History Source: Patient
All other systems: Reviewed and negative
Physical Exam
-
General: Well Developed, Well Nourished, No Apparent Distress and Appears Chronically Ill
HEENT: Nose Appears Normal and Ears Appear Normal
Respiratory: Crackles and Decreased Breath Sounds
Cardiac: Regular Rhythm and S1/S2
GI: Nontender and Distended
Musculoskeletal: No Clubbing, No Cyanosis and No Edema
Skin: Warm and Dry
Neuro: Awake, Alert and Oriented
Psych: Calm
Data Reviewed
-
Labs: Labs Reviewed by me
[2024-12-03 08:06] LABS: Glucose - Point of Care 165 mg/dl (70-99)
[2024-12-03] MEDS: NOVOLOG FLEXPEN-LOW RESISTANCE 1 UNITS SC ×2 (08:16→12:30)
[2024-12-03] MEDS: NOVOLOG FLEXPEN 5 UNITS SC ×3 (08:16→18:35)
[2024-12-03] MEDS: XIFAXAN 550 MG PO ×2 (08:17→20:17)
[2024-12-03] MEDS: DUPHALAC/CHRONULAC 20 GRAMS PO ×3 (08:17→21:56)
[2024-12-03] MEDS: SANDOSTATIN 100 MCG SC ×3 (08:17→21:54)
[2024-12-03] MEDS: LIDOCAINE 4% PATCH 1 PATCH TOPICAL (08:17)
[2024-12-03] MEDS: PROTONIX 40 MG PO (08:17)
[2024-12-03 11:41] LABS: Glucose - Point of Care 166 mg/dl (70-99)
--- NOTE | 2024-12-03 14:47 | W.PN.NEPH.PH ---
Today's Communication / Plan
-
Lokelma 10 g ordered
Assessment/Plan
-
Impression:
AMS r/o hepatic encephalopathy vs sepsis
Leukocytosis
Decompensated Cirrhosis - S/P LVP 6days ago
A gap Metabolic acidosis
ALIX with CKD stage IIIb cr 1.8
Anemia
CAD with history of CABG 2012
HFpEF
COPD
Hypoalbuminemia
GERD
Hypothyroidism
History of MALT lymphoma
History of gastric and duodenal angioectasias
h/o recurrent right effusion s/p pleural catheter
Plan:
A/w AMS, possible multifactorial-now resolved
ALIX- UA UTI sample, Fena remains low, U na 30, suspect prerenal, can not r/o HRS as cr cont to rise at 3
cont to hold lasix
Octreotide
Dr. Silva had long d/w pt and daughter on phone
Prognosis is poor-family aware
not transplant candidate per GI note, should her renal function worsens not candidate for FULL CHARGE BOOKKEEPER either
IRAD CS for peritoneal port likely tomorrow
Creatinine is stable.
Potassium 5.9, ordered Lokelma
-
-
Date of Service: December 03, 2024
CC / HPI / ROS
-
Chief Complaint:
ALIX with CKD
History of Present Illness:
cr up at 3, no fever
Urine incontinence
BP stable
Review of Systems:
Encephalopathy resolved
no fever
Labs
-
Labs:
WBC 12.3 10^3/uL (4.8-10.8) H 12/03/24 04:18
RBC 3.48 10^6/uL (4.20-5.40) L 12/03/24 04:18
Hgb 9.0 g/dL (12.0-16.0) L 12/03/24 04:18
Hct 27.8 % (37.0-47.0) L 12/03/24 04:18
Plt Count 135 10^3/uL (130-400) 12/03/24 04:18
Sodium 131 mmol/L (135-145) L 12/03/24 04:18
Potassium Cancelled 12/03/24 07:44
Chloride 103 mmol/L (98-107) 12/03/24 04:18
Carbon Dioxide 21 mmol/L (22-30) L 12/03/24 04:18
BUN 62 mg/dl (7-17) H 12/03/24 04:18
Creatinine 3.2 mg/dL (0.6-1.0) H 12/03/24 04:18
eGFR 14.73 12/03/24 04:18
Glucose 217 mg/dl (70-99) H 12/03/24 04:18
Calcium 8.7 mg/dl (8.4-10.2) 12/03/24 04:18
Phosphorus 4.6 mg/dl (2.5-4.5) H 11/27/24 04:01
Albumin 2.7 g/dl (3.5-5.0) L 11/27/24 04:01
Physical Exam
-
Vital Signs:
Vital Signs
Temp Pulse Resp BP Pulse Ox
97.8 F 110 18 123/56 95
12/03/24 11:40 12/03/24 07:45 12/03/24 07:45 12/03/24 07:45 12/03/24 10:57
Cardiovascular:: Regular rate and rhythm
Respiratory:: Bilateral: CTA (decreased BS)
Lung Excursion:: Normal (decreased bilat)
Abdomen:: Distended, Nontender and Soft
Bowel Sounds:: Normal
Extremity Edema:: None: Bilateral:
Bravo Catheter: No
[2024-12-03] MEDS: LOKELMA 10 GRAM PO (15:42)
[2024-12-03 16:26] LABS: Glucose - Point of Care 129 mg/dl (70-99)
[2024-12-03] MEDS: NOVOLOG FLEXPEN-LOW RESISTANCE SC (17:14)
[2024-12-03] MEDS: LANTUS 0.1 UNITS SC (21:52)
[2024-12-03 22:01] LABS: Glucose - Point of Care 196 mg/dl (70-99)
[2024-12-04] VITALS (31 sets, daily range): BP systolic 98–159; BP diastolic 42–99; PULSE 89–114; O2SAT 96; BMI 23.6
--- NOTE | 2024-12-04 02:59 | PTCARENOTE ---
Pt received from daysndft RN. Pt AA0x3, forgetful at times. cont to have moderate amount of loose soft BM's. abdomen round and distended. assessment as documented. call light in reach. safe environment maintained.
[2024-12-04 05:15] LABS: Glucose - Point of Care 190 mg/dl (70-99)
[2024-12-04 07:36] LABS: Hematocrit 26.5 % (37.0-47.0); Hemoglobin 8.3 g/dL (12.0-16.0); Mean Corp Hgb Conc. 31.3 g/dL (33.0-37.0); Mean Corpuscular Hgb 26.7 pg (27.0-31.0); Mean Corpuscular Volume 85.2 fL (81.0-99.0); Mean Platelet Volume 10.9 fL (7.4-10.4); Platelet Count 140 10^3/uL (130-400); Red Blood Cell Count 3.11 10^6/uL (4.20-5.40); Red Cell Dist. Width 22.3 % (11.5-14.5); White Blood Cell Count 10.8 10^3/uL (4.8-10.8)
[2024-12-04] MEDS: NOVOLOG FLEXPEN SC ×2 (07:55→11:16)
[2024-12-04 08:33] LABS: Blood Urea Nitrogen 69 mg/dl (7-17); Calcium 8.3 mg/dl (8.4-10.2); Carbon Dioxide 19 mmol/L (22-30); Chloride 102 mmol/L (98-107); Estimated Creatinine Clearance 12 ml/min; Glucose 164 mg/dl (70-99); Potassium 5.7 mmol/L (3.5-5.1); Sodium 131 mmol/L (135-145); eGFR 12.79
[2024-12-04] MEDS: NOVOLOG FLEXPEN-LOW RESISTANCE 1 UNITS SC ×2 (09:49→14:02)
[2024-12-04] MEDS: XIFAXAN 550 MG PO ×2 (09:50→20:45)
[2024-12-04] MEDS: LIDOCAINE 4% PATCH TOPICAL (09:50)
[2024-12-04] MEDS: PROTONIX 40 MG PO (09:50)
[2024-12-04] MEDS: DUPHALAC/CHRONULAC 20 GRAMS PO ×3 (09:51→21:22)
[2024-12-04] MEDS: SANDOSTATIN 100 MCG SC ×3 (09:51→21:22)
[2024-12-04] MEDS: NOVOLOG FLEXPEN-LOW RESISTANCE SC (10:00)
--- NOTE | 2024-12-04 10:20 | W.PN.NEPH.PH ---
Today's Communication / Plan
-
await family to arrive today for GOC discussion with progressing ALIX
Assessment/Plan
-
Impression:
AMS r/o hepatic encephalopathy vs sepsis
Leukocytosis
Decompensated Cirrhosis - S/P LVP 6days ago
A gap Metabolic acidosis
ALIX with CKD stage IIIb cr 1.8
Anemia
CAD with history of CABG 2012
HFpEF
COPD
Hypoalbuminemia
GERD
Hypothyroidism
History of MALT lymphoma
History of gastric and duodenal angioectasias
h/o recurrent right effusion s/p pleural catheter
Plan:
A/w AMS, possible multifactorial-now resolved
ALIX- UA UTI sample, Fena remains low, U na 30, suspect prerenal, can not r/o HRS as cr cont to rise at 3.6
no response to vol expansion or albumin or octreotide
recent onset of hyponatremia, Bp stable
hyperkalemia-cotn Lokelma course and low k diet
suspect she could be in HRS which carries poor prognosis
IRAD CS for peritoneal port likely today
cont to hold lasix
will need discussion with family regarding GOC
d/w nursing
-
-
Date of Service: December 04, 2024
CC / HPI / ROS
-
Chief Complaint:
ALIX with CKD
History of Present Illness:
cr up at 3.6, no fever
Urine incontinence
BP stable
k high 5.7 still s/p LOkelma on 12/03
Review of Systems:
Encephalopathy resolved
no fever
no n/v
no cp or sob
Labs
-
Labs:
WBC 10.8 10^3/uL (4.8-10.8) 12/04/24 05:08
RBC 3.11 10^6/uL (4.20-5.40) L 12/04/24 05:08
Hgb 8.3 g/dL (12.0-16.0) L 12/04/24 05:08
Hct 26.5 % (37.0-47.0) L 12/04/24 05:08
Plt Count 140 10^3/uL (130-400) 12/04/24 05:08
Sodium 131 mmol/L (135-145) L 12/04/24 05:08
Potassium 5.7 mmol/L (3.5-5.1) H 12/04/24 05:08
Chloride 102 mmol/L (98-107) 12/04/24 05:08
Carbon Dioxide 19 mmol/L (22-30) L 12/04/24 05:08
BUN 69 mg/dl (7-17) H 12/04/24 05:08
Creatinine 3.6 mg/dL (0.6-1.0) H 12/04/24 05:08
eGFR 12.79 12/04/24 05:08
Glucose 164 mg/dl (70-99) H 12/04/24 05:08
Calcium 8.3 mg/dl (8.4-10.2) L 12/04/24 05:08
Phosphorus 4.6 mg/dl (2.5-4.5) H 11/27/24 04:01
Albumin 2.7 g/dl (3.5-5.0) L 11/27/24 04:01
Physical Exam
-
Vital Signs:
Vital Signs
Temp Pulse Resp BP Pulse Ox
98 F 100 16 138/55 98
12/04/24 11:20 12/04/24 11:20 12/04/24 11:20 12/04/24 11:20 12/04/24 12:20
Cardiovascular:: Regular rate and rhythm
Respiratory:: Bilateral: CTA (decreased BS)
Lung Excursion:: Normal (decreased bilat)
Abdomen:: Distended, Nontender and Soft
Bowel Sounds:: Normal
Extremity Edema:: None: Bilateral:
Bravo Catheter: No
[2024-12-04] MEDS: LOKELMA 10 GRAM PO ×2 (13:51→17:36)
--- NOTE | 2024-12-04 14:04 | W.PN.HOSP.TC ---
Today's Communication/Plan
-
Assessment / Plan
Assessment / Plan
NAD
Scleral Anicteric
MMM
No JVD
CTABL
RRR, S1/S2
Protuberant abdomen, nontender, distended, ascitic fluid wave
Warm, Dry
AAOx3
Calm
Altered mental status has resolved.
� Is unclear as to potential cause but likely multifactorial in setting of hepatic encephalopathy along with tizanidine/baclofen use and potential sepsis/infection
Continue lactulose 3 times daily rifaximin. Goal bowel movements 2-3 daily
Do not resume Atarax
Completed Vanco Zosyn x 5 days
Decompensated cirrhosis complicated by esophageal varices portal hypertension hepatic encephalopathy and recurrent ascites/pleural effusions
Not a candidate for TIPS due to hepatic encephalopathy history
Continue lactulose rifaximin
Not a candidate for Aldactone nor Lasix due to renal dysfunction
Not a candidate for beta-demetris therapy due to bradycardia history
Per GI not a candidate for OLT
Will need continued follow-up with outpatient GI in [facility]
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
Status post albumin octreotide
Fortunately blood pressure holding hold off on vasopressin/midodrine at this time
Continue to monitor urinary output
Avoid nephrotoxins hypotension
Nephrology following
Hyperkalemia
5.7 increasing on daily basis start Lokelma 3 times daily
Avoid K sparing agents
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
Outpatient GI follow up
COPD
Without active wheezing
Continue goal SpO2 88 to 92%
Continue MDIs
Pulmonary nodule
Via [employer] services was able to pull up chart from [facility] in [facility]
Has known pulmonary nodule with CT chest demonstrating a spiculated nodule in the right upper lobe measuring 1.6 x 1.5 x 1.3 cm highly suspicious for malignancy
Daughter was aware of this
Will need outpatient follow-up with [facility] pulmonary team
Type 2 diabetes
Accu-Chek sliding scale goal blood glucose 140-180 carb controlled diet
Anxiety�chronic
Low-dose Xanax
Hypertension
Continue antihypertensives
Anticipated Discharge: > 48 hours
Subjective/Interval History
-
Date of Service: December 04, 2024
Seen and examined. No new complaints. No acute overnight events.
Objective Data
-
Labs:
Laboratory Results
12/04/24
05:08
WBC 10.8
Hgb 8.3 L
Hct 26.5 L
Plt Count 140
Sodium 131 L
Potassium 5.7 H
Chloride 102
Carbon Dioxide 19 L
BUN 69 H
Creatinine 3.6 H
Glucose 164 H
Calcium 8.3 L
Vital Signs:
Vital Signs
Temp Pulse Resp BP Pulse Ox
98.4 F 98 18 130/70 98
12/04/24 13:05 12/04/24 13:05 12/04/24 13:05 12/04/24 13:05 12/04/24 13:05
I&O
12/03/24 12/04/24 12/05/24
06:59 06:59 06:59
Intake Total 1060 / 1060
Balance 1060 / 1060
[2024-12-04 14:13] LABS: Glucose - Point of Care 197 mg/dl (70-99)
--- NOTE | 2024-12-04 16:11 | W.PN.UPDATE ---
Update Note
Progress Note Update
Spoke with Grand daughter (who is a nurse [employer]) in detail regarding ALIX with high suspicion of HRS
she is not liver transplant candidate
suspect she will do poorly on HD and we will not be able to manage her fluid status-ie..ascites
overall outcome will not improve with dialysis and infact she will likely will go through more suffering
family aware prognosis and will talk to rest of the family and likely will have some decision tomorrow
d/w nursing
[2024-12-04] MEDS: NOVOLOG FLEXPEN 5 UNITS SC (17:16)
[2024-12-04] MEDS: NOVOLOG FLEXPEN-LOW RESISTANCE 5 UNITS SC (17:16)
[2024-12-04 17:26] LABS: Glucose - Point of Care 384 mg/dl (70-99)
--- NOTE | 2024-12-04 17:33 | CM ---
Patient with Dx Altered Mental Status, Decompensated KRAFT Cirrhosis s/p paracentesis. Plan IR for Asept Abdominal catheter. O2 2L. Per nurse; AA0x3, forgetful. PT/OT recommend HH.
Nurse confirms patient had Asept catheter placed today and grand-daughter came in for teaching.
Messages from Nava Jackman, [facility] IR who expressed concern with CM notes from the weekend suggesting patient was going home with a new Pleurex catheter, as new catheter will be Asept. CM confirmed already knowledgeable about the Asept catheter and
that Cha QUACH was also already aware of this, however will relay to [facility] again re; Asept.
Spoke with Cha Hoffman; relayed that Asept catheter will be placed today and family will be taught. She is aware patient will be sent home with 4 Asept drainage bottles.
Relayed back message to Nava from Cha: [facility] was already apprised of the catheters again today. Her main concern is amount of drainage, how many bottles she will be sent home with, and that daughter is taught before discharge.
Plan home with Asept Catheter & Pleurex catheter, with Cha QUACH.
--- NOTE | 2024-12-04 17:56 | PTCARENOTE ---
Rec'd pt this AM. tolerated IRAD procedure for cath placement. Pt with minimal urine output today. bladder scan for 408 after a moderate incontinent episode, straight cath with 120ml output. Pt with ascites, 2200ml out today in IR. Goals of care
discussions ongoing with family. Pt's family brought her high carb and high sugar foods today, resulting in high blood sugar, education provided.
[2024-12-04] MEDS: ROXICODONE 5 MG PO (21:23)
[2024-12-04] MEDS: LANTUS 0.1 UNITS SC (21:24)
[2024-12-04 21:33] LABS: Glucose - Point of Care 307 mg/dl (70-99)
[2024-12-05] VITALS (12 sets, daily range): BP systolic 93–158; BP diastolic 47–94; BMI 23.4
[2024-12-05] MEDS: ALPRAZOLAM ODT 0.25 MG PO ×2 (00:21→20:34)
--- NOTE | 2024-12-05 01:01 | PTCARENOTE ---
Addendum entered by Alea Almaguer RN 12/05/24 06:22:
Pt continues to have blood from hemorrhoid, night SETTER OFF ordered Preparation H.
Original Note:
Assumed care of Pt from Day RN. Pt AAOx3 forgetful and confused about details at times, able to make needs known. Pt incont of B&B. While being changed Pt having what appears to be bleeding hemorrhoid. Per Pt she has known hemorrhoids and the 'feel
better' now than they did earlier. Area cleaned and gauze applied for pressure. Night SETTER OFF made aware incase further intervention is needed.
[2024-12-05] MEDS: ROXICODONE 5 MG PO ×2 (03:06→18:17)
[2024-12-05] MEDS: LOKELMA 10 GRAM PO ×3 (05:52→17:50)
--- NOTE | 2024-12-05 06:16 | W.PN.UPDATE ---
Update Note
Progress Note Update
Asked by RN to see patient for bleeding hemorrhoids. Observed patient had actively bleeding hemorrhoid on outer rectum. Bleeding intermittently, noted Coviden had large area of blood. Patient stated she has chronic hemorrhoids, pain at this time is
improved since earlier in shift. Ordered preparation H for comfort. Monitor am labs for drop in Hgb.
[2024-12-05 06:43] LABS: Blood Urea Nitrogen 71 mg/dl (7-17); Calcium 7.9 mg/dl (8.4-10.2); Carbon Dioxide 20 mmol/L (22-30); Chloride 102 mmol/L (98-107); Estimated Creatinine Clearance 12 ml/min; Glucose 391 mg/dl (70-99); Potassium 5.1 mmol/L (3.5-5.1); Sodium 128 mmol/L (135-145); eGFR 13.23
[2024-12-05 07:16] LABS: % Basophils 1.1 % (0-2); % Eosinophils 5.6 % (0-6); % Immature Granulocytes 1.6 % (0-0.5); % Lymphocytes 11.1 % (20.5-51.1); % Monocytes 16.6 % (1.7-9.3); Absolute Basophils 0.1 10^3/uL (0-0.2); Absolute Eosinophils 0.5 10^3/uL (0-0.7); Absolute Immature Granulocytes 0.1 10^3/uL (0-0.05); Absolute Monocytes 1.4 10^3/uL (0.1-0.6); Absolute Neutrophils 5.5 10^3/uL (1.4-6.5); Hematocrit 23.7 % (37.0-47.0); Hemoglobin 7.5 g/dL (12.0-16.0); Mean Corp Hgb Conc. 31.6 g/dL (33.0-37.0); Mean Corpuscular Hgb 26.8 pg (27.0-31.0); Mean Corpuscular Volume 84.6 fL (81.0-99.0); Mean Platelet Volume 11.3 fL (7.4-10.4); Nucleated Red Blood Cells % 0 %; Platelet Count 151 10^3/uL (130-400); Red Cell Dist. Width 22.3 % (11.5-14.5); White Blood Cell Count 8.5 10^3/uL (4.8-10.8)
[2024-12-05 07:49] LABS: Anisocytosis 1+; Hypochromasia 1+; Normal RBC Morphology No; Ovalocytes Few
[2024-12-05] MEDS: LIDOCAINE 4% PATCH TOPICAL (08:08)
[2024-12-05] MEDS: PROTONIX 40 MG PO (08:08)
[2024-12-05] MEDS: SANDOSTATIN 100 MCG SC ×3 (08:08→20:22)
[2024-12-05] MEDS: DUPHALAC/CHRONULAC 20 GRAMS PO ×3 (08:08→20:26)
[2024-12-05] MEDS: XIFAXAN 550 MG PO ×2 (08:08→20:22)
[2024-12-05 08:09] LABS: Glucose - Point of Care 435 mg/dl (70-99)
[2024-12-05 08:35] LABS: Glucose 405 mg/dl (70-99)
--- NOTE | 2024-12-05 08:49 | PTCARENOTE ---
Patient received from night patrol inspector. Patient resting comfortably in bed. Patient grandson stayed the night. AAO, somewhat confused, VSS. No events noted over night. Continuing with lactulose and Sandostatin. Monitoring Accuchecks, which was >400
this AM, see worklist. No testing scheduled at this time. Call pacheco in reach.
[2024-12-05] MEDS: NOVOLOG FLEXPEN-LOW RESISTANCE 6 UNITS SC (09:26)
[2024-12-05] MEDS: NOVOLOG FLEXPEN 5 UNITS SC ×2 (09:26→11:45)
--- NOTE | 2024-12-05 09:53 | W.PN.NEPH.PH ---
Today's Communication / Plan
-
follow BMP
Assessment/Plan
-
Impression:
AMS r/o hepatic encephalopathy vs sepsis
Leukocytosis
Decompensated Cirrhosis - S/P LVP 6days ago
A gap Metabolic acidosis
ALIX with CKD stage IIIb cr 1.8
Anemia
CAD with history of CABG 2012
HFpEF
COPD
Hypoalbuminemia
GERD
Hypothyroidism
History of MALT lymphoma
History of gastric and duodenal angioectasias
h/o recurrent right effusion s/p pleural catheter
Plan:
complete lokelma course
follow BMP
continue octreotide
BP stable
not a candidate for HD fdc
Dr Silva d/w daughter 12/04
-
-
Date of Service: December 05, 2024
CC / HPI / ROS
-
Chief Complaint:
ALIX with CKD
History of Present Illness:
ALIX/Cr stable 3.5
BP stable
k better to 5.1 with lokelma
hgb lower 7.5
Na down to 128
Review of Systems:
good appetite
Encephalopathy resolved
no fever
no n/v
no cp or sob
only reports pruritus of left abdomen
Labs
-
Labs:
WBC 8.5 10^3/uL (4.8-10.8) 12/05/24 06:05
RBC 2.80 10^6/uL (4.20-5.40) L 12/05/24 06:05
Hgb 7.5 g/dL (12.0-16.0) L 12/05/24 06:05
Hct 23.7 % (37.0-47.0) L 12/05/24 06:05
Plt Count 151 10^3/uL (130-400) 12/05/24 06:05
Sodium 128 mmol/L (135-145) L 12/05/24 06:05
Potassium 5.1 mmol/L (3.5-5.1) 12/05/24 06:05
Chloride 102 mmol/L (98-107) 12/05/24 06:05
Carbon Dioxide 20 mmol/L (22-30) L 12/05/24 06:05
BUN 71 mg/dl (7-17) H 12/05/24 06:05
Creatinine 3.5 mg/dL (0.6-1.0) H 12/05/24 06:05
eGFR 13.23 12/05/24 06:05
Glucose 405 mg/dl (70-99) H 12/05/24 08:05
Calcium 7.9 mg/dl (8.4-10.2) L 12/05/24 06:05
Phosphorus 4.6 mg/dl (2.5-4.5) H 11/27/24 04:01
Albumin 2.7 g/dl (3.5-5.0) L 11/27/24 04:01
Physical Exam
-
Vital Signs:
Vital Signs
Temp Pulse Resp BP Pulse Ox
99.1 F 107 19 146/58 92
12/05/24 07:24 12/05/24 06:01 12/05/24 06:01 12/05/24 06:01 12/05/24 06:01
Cardiovascular:: Regular rate and rhythm
Respiratory:: Bilateral: CTA
Lung Excursion:: Normal
Abdomen:: Distended, Nontender and Soft
Bowel Sounds:: Normal
Extremity Edema:: None: Bilateral:
--- NOTE | 2024-12-05 10:33 | W.PN.GI.CBS2 ---
Addendum entered and electronically signed by Lisa Smith MD 12/05/24 13:10:
I saw and examined the patient.
The [employer]'s note was reviewed and I agree with the note.
Comment: We are reconsulted for rectal bleeding last night and a couple more episodes since then and on exam was noted to have external hemorrhoids and prolapsed internal hemorrhoids also thrombosed hemorrhoids noted. She did have a recent fecal
management device which was removed. Most likely source is hemorrhoidal bleeding cannot rule out rectal varices but less likely. She does have decompensated MASH cirrhosis with hepatic encephalopathy, recurrent ascites requiring paracenteses
periodically, pleural effusion, ALIX, hyperkalemia and rest as listed below. On exam she does have ascites and will likely need another paracenteses her last para was on 11/26/2024. She is unable to get diuretics because of ALIX. she also has a
history of GI bleed and had endoscopy in March 2024 with banding of esophageal varices and also gastric and duodenal and jejunal angioectasias were treated with APC. She currently has no melena. Hemoglobin only slightly dropped to 7.5 from 8.3
yesterday. Overall has a poor prognosis given end-stage liver disease and not a transplant candidate and noted input from renal not a candidate for hemodialysis. need to address GOC
Original Note:
Today's Communication / Plan
-
Hydrocortisone suppositories twice daily
Tucks pads
Sitz bath's
Assessment / Plan
-
Lucinda is a 74yo with with NAFLD, cirrhosis with ascites-currently not on diuretics due to baseline elevation in creatinine, history of hydrops pneumothorax status post pleural catheter, esophageal varices with prior banding, prior GI bleeding
from AVMs status post cautery May 2024, chronic anemia, HTN, prior CABG/stents, DM type II, COPD, PAD, tobacco abuse, ASCVD, hypothyroidism, and stent (peripheral vs cardiac) placement with Plavix therapy brought in by family with change in
mental status poor p.o. intake, and lethargy.
Leukocytosis noted without any fevers.
12/05/24
--Asked to reevaluate patient for rectal bleeding. On exam patient has prolapse with external hemorrhoids, internal hemorrhoids and stigmata of recent bleeding on hemorrhoid. Bleeding started approximately 24 hours ago. Patient states that she
has had hemorrhoidal bleeding. Recently had fecal management system in place.
Impression
-MASH cirrhosis
-Hepatic encephalopathy with decompensation-11/25/24 Admission MELD 3.0-19
-Ascites s/p paracentesis 4800ml 11/26/24
Gets LVP outpatient basis
-Peripheral artery disease with stent placement
-hx Esophageal varices with prior banding
-Elevated creatinine
-CABG and prior cardiac stents
-DM type II
-PAD
-prior tobacco abuse
-hypothyroidism
-Rectal Bleeding with hemorrhoids
Plan
-Add hydrocortisone suppositories twice daily
Can use Tucks pads
Can use sitz bath's
- Not tolerant of diuretics due to CKD
- C/w lactulose to oral TID. C/w xifaximin.
- She was evaluated at [facility] and not OLT candidate. Her OP GI care is in [facility]
-Follow up with Primary GI in [facility]
-
Subjective
Subjective
Date of Service: December 05, 2024
Asked to see patient again for rectal bleeding. Patient had fecal management device in 4 loose stools. This is since been removed. Discussed with nursing. She had episode of rectal bleeding yesterday. Prior to this has had continuous brown
stools. Even had brown stool this morning. Nurse practitioner overnight was called as she had episode of bright red blood. Note was reviewed and there was blood oozing from hemorrhoid. Rectal exam performed by myself showed prolapsing thrombosed
external hemorrhoids with red blood on pad below. With provocation there was an area of red spot from external hemorrhoid. Patient has green-brown soft stool in rectal vault.
Objective
Data Reviewed
Laboratory Data:
Laboratory Results
12/05/24 06:05
12/05/24 08:05
Laboratory Results
PT 17.0 Sec (11.4-14.6) H 11/26/24 03:10
INR 1.36 11/26/24 03:10
Phosphorus 4.6 mg/dl (2.5-4.5) H 11/27/24 04:01
Magnesium 2.3 mg/dl (1.6-2.3) 12/03/24 04:18
Total Bilirubin 1.2 mg/dl (0.2-1.3) 11/27/24 04:01
AST 31 U/L (14-36) 11/27/24 04:01
ALT 15 U/L (0-35) 11/27/24 04:01
Alkaline Phosphatase 170 U/L (38-126) H 11/27/24 04:01
Vital Signs and I&O:
Vital Signs
Temp Pulse Resp BP Pulse Ox
99.1 F 107 19 146/58 92
12/05/24 07:24 12/05/24 06:01 12/05/24 06:01 12/05/24 06:01 12/05/24 06:01
I&O
12/04/24 12/05/24 12/06/24
06:59 06:59 06:59
Intake Total 720 / 720
Output Total 120 / 120
Balance 600 / 600
Physical Exam
Physical Exam
Cardiology: Normal Sinus Rhythm (Tachycardic at 106)
Pulmonary: Clear
GI: Soft, Distended (Ascites), Non Tender and Normal Bowel Sounds
Rectal: Other (Rectal prolapse with external hemorrhoids, prolapsed internal hemorrhoid, stigmata of recent bleeding on 2 of thrombosed hemorrhoids)
[2024-12-05] MEDS: NOVOLOG FLEXPEN-LOW RESISTANCE 2 UNITS SC (11:45)
[2024-12-05] MEDS: ANUSOL HC 25 MG RECTAL ×2 (11:46→20:22)
[2024-12-05 11:50] LABS: Glucose - Point of Care 247 mg/dl (70-99)
--- NOTE | 2024-12-05 12:54 | W.PN.HOSP.TC ---
Today's Communication/Plan
-
Assessment / Plan
Assessment / Plan
NAD
Scleral Anicteric
MMM
No JVD
CTABL
RRR, S1/S2
Protuberant abdomen, nontender, distended, ascitic fluid wave
Warm, Dry
AAOx3
Calm
Altered mental status has resolved.
� Is unclear as to potential cause but likely multifactorial in setting of hepatic encephalopathy along with tizanidine/baclofen use and potential sepsis/infection
Continue lactulose 3 times daily rifaximin. Goal bowel movements 2-3 daily
Do not resume Atarax
Completed Vanco Zosyn x 5 days
Decompensated cirrhosis complicated by esophageal varices portal hypertension hepatic encephalopathy and recurrent ascites/pleural effusions
Not a candidate for TIPS due to hepatic encephalopathy history
Continue lactulose rifaximin
Not a candidate for Aldactone nor Lasix due to renal dysfunction
Not a candidate for beta-demetris therapy due to bradycardia history
Per GI not a candidate for OLT
Will need continued follow-up with outpatient GI in [facility]
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
Status post albumin octreotide
Fortunately blood pressure holding hold off on vasopressin/midodrine at this time
Continue to monitor urinary output
Avoid nephrotoxins hypotension
Nephrology following
Hyperkalemia, improved to 5.1 after 3 times daily Lokelma
Avoid K sparing agents
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
Outpatient GI follow up
COPD
Without active wheezing
Continue goal SpO2 88 to 92%
Continue MDIs
Pulmonary nodule
Via [employer] services was able to pull up chart from [facility] in [facility]
Has known pulmonary nodule with CT chest demonstrating a spiculated nodule in the right upper lobe measuring 1.6 x 1.5 x 1.3 cm highly suspicious for malignancy
Daughter was aware of this
[facility] need [facility]
Type 2 diabetes
Accu-Chek sliding scale goal blood glucose 140-180 carb controlled diet
Anxiety�chronic
Low-dose Xanax
Hypertension
Continue antihypertensives
Awaiting family decision as far as discussions with nephrology. Unlikely to have significant benefit from initiating dialysis and likely would be more detrimental to overall health.
Anticipated Discharge: Within 24 hours
Subjective/Interval History
-
Date of Service: December 05, 2024
Seen and examined. No new complaints. No acute overnight events.
Objective Data
-
Labs:
Laboratory Results
12/05/24 12/05/24
06:05 08:05
WBC 8.5
Hgb 7.5 L
Hct 23.7 L
Plt Count 151
Sodium 128 L
Potassium 5.1
Chloride 102
Carbon Dioxide 20 L
BUN 71 H
Creatinine 3.5 H
Glucose 391 H 405 H
Calcium 7.9 L
Vital Signs:
Vital Signs
Temp Pulse Resp BP Pulse Ox
98.7 F 107 19 146/58 92
12/05/24 11:08 12/05/24 06:01 12/05/24 06:01 12/05/24 06:01 12/05/24 06:01
I&O
12/04/24 12/05/24 12/06/24
06:59 06:59 06:59
Intake Total 720 / 720
Output Total 120 / 120
Balance 600 / 600
--- NOTE | 2024-12-05 13:32 | CM ---
Discharge POC: Home with family with Cha [facility] for Asept/Pleurex catheter care.
--- NOTE | 2024-12-05 13:38 | CM ---
Discharge POC: Home with family and Cha MAYES RN for Asept catheter care.
[2024-12-05] MEDS: NOVOLOG FLEXPEN SC (16:55)
[2024-12-05] MEDS: NOVOLOG FLEXPEN-MODERATE RESISTANCE SC (16:55)
[2024-12-05 16:56] LABS: Glucose - Point of Care 61 mg/dl (70-99)
[2024-12-05 17:18] LABS: Glucose - Point of Care 73 mg/dl (70-99)
[2024-12-05 19:19] LABS: Glucose - Point of Care 104 mg/dl (70-99)
[2024-12-05] MEDS: BENADRYL 25 MG PO (20:34)
[2024-12-05 21:17] LABS: Glucose - Point of Care 236 mg/dl (70-99)
[2024-12-05] MEDS: LANTUS 0.12 UNITS SC (22:20)
[2024-12-06] VITALS (8 sets, daily range): BP systolic 105–142; BP diastolic 46–61; BMI 23.6
[2024-12-06 03:07] LABS: Glucose - Point of Care 194 mg/dl (70-99)
[2024-12-06 03:42] LABS: Mean Corp Hgb Conc. 30.8 g/dL (33.0-37.0); Mean Corpuscular Hgb 26.4 pg (27.0-31.0); Mean Corpuscular Volume 85.8 fL (81.0-99.0); Mean Platelet Volume 10.4 fL (7.4-10.4); Platelet Count 146 10^3/uL (130-400); Red Blood Cell Count 3.03 10^6/uL (4.20-5.40); White Blood Cell Count 8.6 10^3/uL (4.8-10.8)
[2024-12-06 04:18] LABS: Blood Urea Nitrogen 75 mg/dl (7-17); Carbon Dioxide 18 mmol/L (22-30); Chloride 102 mmol/L (98-107); Estimated Creatinine Clearance 11 ml/min; Glucose 206 mg/dl (70-99); Potassium 5.1 mmol/L (3.5-5.1); Sodium 132 mmol/L (135-145); eGFR 11.99
[2024-12-06] MEDS: LOKELMA 10 GRAM PO (05:43)
[2024-12-06 08:26] LABS: Glucose - Point of Care 390 mg/dl (70-99)
[2024-12-06] MEDS: ANUSOL HC 25 MG RECTAL (08:42)
[2024-12-06] MEDS: XIFAXAN 550 MG PO (08:42)
[2024-12-06] MEDS: DUPHALAC/CHRONULAC 20 GRAMS PO (08:42)
[2024-12-06] MEDS: PROTONIX 40 MG PO (08:42)
[2024-12-06] MEDS: SANDOSTATIN 100 MCG SC (08:43)
[2024-12-06] MEDS: LIDOCAINE 4% PATCH 1 PATCH TOPICAL (08:43)
[2024-12-06 09:08] LABS: Glucose - Point of Care 412 mg/dl (70-99)
[2024-12-06 09:37] LABS: Glucose 398 mg/dl (70-99)
[2024-12-06] MEDS: NOVOLOG FLEXPEN 5 UNITS SC ×2 (09:57→12:41)
[2024-12-06] MEDS: NOVOLOG FLEXPEN-MODERATE RESISTANCE 9 UNITS SC (09:58)
--- NOTE | 2024-12-06 10:46 | CM ---
Addendum entered by Ambika Hollis RN 12/06/24 11:52:
Bella informed and Hospice nurse that she is declining hospice. She wants to take the patient home today with Cha MAYES. IMM completed. Daughter will do the Asept catheter care.
Nurse Tonia confirmed with IR that grand-daughter was taught Asept Catheter care and took home the 4 drainage bottles.
Spoke with Cha Hoffman; they need orders for max amount of drainage/day and frequency of drainage. Cha will coordinate teaching visit with daughter and grand-daughter.
Plan home today with Cha QUACH with daughter.
Original Note:
Patient with Dx Altered Mental Status, Decompensated KRAFT Cirrhosis s/p paracentesis, s/p tunneled peritoneal catheter placement/Asept Abdominal catheter, ALIX.
Spoke with Dr Reyes; he had [facility] discussion today with patient/daughter who agreed to hospice consult. He contacted Bita from Hospice to see the patient/daughter.
Met with patient and daughter Bella [facility]osp[facility] nurse Bita already present;
deferred hospice philosophy & benefits explanation to hospice nurse.
Patient/daughter agreed to speaking with hospice nurse.
Plan follow up after seen by Hospice.
--- NOTE | 2024-12-06 10:55 | HOSPNOTE ---
Met with family and patient and they are in agreement with hospice however they live out of our service area. I updated CM and they will place a referral to a different hospice company.
--- NOTE | 2024-12-06 11:06 | W.PN.NEPH.PH ---
Today's Communication / Plan
-
Discontinue octreotide
Assessment/Plan
-
Impression:
AMS r/o hepatic encephalopathy vs sepsis
Leukocytosis
Decompensated Cirrhosis - S/P LVP 6days ago
A gap Metabolic acidosis
ALIX with CKD stage IIIb cr 1.8
Anemia
CAD with history of CABG 2012
HFpEF
COPD
Hypoalbuminemia
GERD
Hypothyroidism
History of MALT lymphoma
History of gastric and duodenal angioectasias
h/o recurrent right effusion s/p pleural catheter
Status post abdominal peritoneal catheter 12-04-2024
Plan:
follow BMP
Discontinue octreotide
BP stable
not a candidate for HD [employer] terminal as discussed with her daughter again today 12/06
-
-
Date of Service: December 06, 2024
CC / HPI / ROS
-
Chief Complaint:
ALIX with CKD
History of Present Illness:
ALIX/Cr stable 3.5
BP stable
k better to 5.1 with lokelma
hgb lower 7.5
Na down to 128
Review of Systems:
good appetite
Encephalopathy resolved
no fever
no n/v
no cp or sob
Labs
-
Labs:
WBC 8.6 10^3/uL (4.8-10.8) 12/06/24 03:23
RBC 3.03 10^6/uL (4.20-5.40) L 12/06/24 03:23
Hgb 8.0 g/dL (12.0-16.0) L 12/06/24 03:23
Hct 26.0 % (37.0-47.0) L 12/06/24 03:23
Plt Count 146 10^3/uL (130-400) 12/06/24 03:23
Sodium 132 mmol/L (135-145) L 12/06/24 03:23
Potassium 5.1 mmol/L (3.5-5.1) 12/06/24 03:23
Chloride 102 mmol/L (98-107) 12/06/24 03:23
Carbon Dioxide 18 mmol/L (22-30) L 12/06/24 03:23
BUN 75 mg/dl (7-17) H 12/06/24 03:23
Creatinine 3.8 mg/dL (0.6-1.0) H 12/06/24 03:23
eGFR 11.99 12/06/24 03:23
Glucose 398 mg/dl (70-99) H 12/06/24 09:11
Calcium 8.0 mg/dl (8.4-10.2) L 12/06/24 03:23
Phosphorus 4.6 mg/dl (2.5-4.5) H 11/27/24 04:01
Albumin 2.7 g/dl (3.5-5.0) L 11/27/24 04:01
Physical Exam
-
Vital Signs:
Vital Signs
Temp Pulse Resp BP Pulse Ox
98.2 F 95 17 133/58 98
12/06/24 07:29 12/06/24 06:00 12/06/24 06:00 12/06/24 06:00 12/06/24 06:00
Cardiovascular:: Regular rate and rhythm
Respiratory:: Bilateral: CTA
Lung Excursion:: Normal
Abdomen:: Distended, Nontender and Soft
Bowel Sounds:: Normal
Extremity Edema:: None: Bilateral:
--- NOTE | 2024-12-06 11:44 | W.PN.GI.CBS2 ---
Today's Communication / Plan
-
continue anusol supp
Assessment / Plan
-
Lucinda is a 74yo with with NAFLD, cirrhosis with ascites-currently not on diuretics due to baseline elevation in creatinine, history of hydrops pneumothorax status post pleural catheter, esophageal varices with prior banding, prior GI bleeding
from AVMs status post cautery May 2024, chronic anemia, HTN, prior CABG/stents, DM type II, COPD, PAD, tobacco abuse, ASCVD, hypothyroidism, and stent (peripheral vs cardiac) placement with Plavix therapy brought in by family with change in
mental status poor p.o. intake, and lethargy.
Leukocytosis noted without any fevers.
12/05/24
--Asked to reevaluate patient for rectal bleeding. On exam patient has prolapse with external hemorrhoids, internal hemorrhoids and stigmata of recent bleeding on hemorrhoid. Bleeding started approximately 24 hours ago. Patient states that she
has had hemorrhoidal bleeding. Recently had fecal management system in place.
Impression
-MASH cirrhosis
-Hepatic encephalopathy with decompensation-11/25/24 Admission MELD 3.0-19
-Ascites s/p paracentesis 4800ml 11/26/24
Gets LVP outpatient basis
-Peripheral artery disease with stent placement
-hx Esophageal varices with prior banding
-Elevated creatinine
-CABG and prior cardiac stents
-DM type II
-PAD
-prior tobacco abuse
-hypothyroidism
-Rectal Bleeding with hemorrhoids
Plan
-Continue hydrocortisone suppositories and Tucks pads with sitz bath as needed
-Continue lactulose and Xifaxan for prior history of HE
-Not tolerant of diuretics due to CKD
-Gets paracenteses every 2 weeks as needed
-She was evaluated at [facility] and not OLT candidate. Her OP GI care is in [facility]
-Noted input from renal not a candidate for HD
-she also has a history of GI bleed and had endoscopy in March 2024 with banding of esophageal varices and also gastric and duodenal and jejunal angioectasias were treated with APC. She currently has no melena.
-Overall poor prognosis given multiple comorbidities and end-stage liver disease
-Follow up with Primary GI in [facility]
- Will s/o and will be available as needed
-
Subjective
Subjective
Date of Service: December 06, 2024
She only had a small smear of blood on the pad yesterday no further rectal bleeding had brown bowel movement
Objective
Data Reviewed
Laboratory Data:
Laboratory Results
12/06/24 03:23
12/06/24 09:11
Laboratory Results
PT 17.0 Sec (11.4-14.6) H 11/26/24 03:10
INR 1.36 11/26/24 03:10
Phosphorus 4.6 mg/dl (2.5-4.5) H 11/27/24 04:01
Magnesium 2.3 mg/dl (1.6-2.3) 12/03/24 04:18
Total Bilirubin 1.2 mg/dl (0.2-1.3) 11/27/24 04:01
AST 31 U/L (14-36) 11/27/24 04:01
ALT 15 U/L (0-35) 11/27/24 04:01
Alkaline Phosphatase 170 U/L (38-126) H 11/27/24 04:01
Vital Signs and I&O:
Vital Signs
Temp Pulse Resp BP Pulse Ox
98.0 F 95 17 133/58 98
12/06/24 11:13 12/06/24 06:00 12/06/24 06:00 12/06/24 06:00 12/06/24 06:00
I&O
12/05/24 12/06/24 12/07/24
06:59 06:59 06:59
Intake Total 720 / 720 360 / 360
Output Total 120 / 120
Balance 600 / 600 360 / 360
Physical Exam
Physical Exam
Cardiology: S1 and S2
Pulmonary: Clear
GI: Soft, Distended, Non Tender, Normal Bowel Sounds and Other (ascites)
--- NOTE | 2024-12-06 11:52 | PN.IRAD.UPD ---
Update Note - IRAD
- -
On 12/04 post Asept placement, I reviewed Asept catheter drainage/teaching with the patients granddaughter bedside. This is whom the patient stated would be helping at home along with Cha QUACH. The granddaughter was comfortable with the draining
procedure as she is an RN at [employer] and stated she knows how to drain the pleural Pleurx she currently has. I reviewed the difference between Asept and Pleurx supplies, gave her a folder with information regarding Asept drainage, logs and
frequently asked questions. I gave her a discharge Asept form that has the contact information for ordering bottles and IRAD's contact info. A starter box including 5 drainage packs was left in the room with the granddaughter. The Asept was
drained for 2200 ml's of chylus fluid in the IR lab before going back to IMU. Discharge planning discussed at length with SANDRA (Trini Ortiz).
--- NOTE | 2024-12-06 12:04 | W.PN.HOSP.TC ---
Today's Communication/Plan
-
More than 30 minutes spent in discharge including
Final examination of the patient
Summarizing hospital stay
Instructions for continuing care to all relevant caregivers
Preparation of discharge records, prescriptions, and referral forms
Total time spent (in minutes): 33mins
Assessment / Plan
Assessment / Plan
NAD
Scleral Anicteric
MMM
No JVD
CTABL
RRR, S1/S2
Protuberant abdomen, nontender, distended, ascitic fluid wave
Warm, Dry
AAOx3
Calm
Altered mental status has resolved.
� Is unclear as to potential cause but likely multifactorial in setting of hepatic encephalopathy along with tizanidine/baclofen use and potential sepsis/infection
Continue lactulose 3 times daily rifaximin. Goal bowel movements 2-3 daily
Do not resume Atarax
Completed Vanco Zosyn x 5 days
Decompensated cirrhosis complicated by esophageal varices portal hypertension hepatic encephalopathy and recurrent ascites/pleural effusions
Not a candidate for TIPS due to hepatic encephalopathy history
Continue lactulose rifaximin
Not a candidate for Aldactone nor Lasix due to renal dysfunction
Not a candidate for beta-demetris therapy due to bradycardia history
Per GI not a candidate for OLT
Will need continued follow-up with outpatient GI in [facility]
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
Status post albumin octreotide
Fortunately blood pressure holding hold off on vasopressin/midodrine at this time
Continue to monitor urinary output
Avoid nephrotoxins hypotension
Nephrology following
Hyperkalemia, improved to 5.1 after 3 times daily Lokelma
Avoid K sparing agents
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
Outpatient GI follow up
COPD
Without active wheezing
Continue goal SpO2 88 to 92%
Continue MDIs
Pulmonary nodule
[facility] [employer] [facility] was able to pull up chart from [facility] in [facility]
Has known pulmonary nodule with CT chest demonstrating a spiculated nodule in the right upper lobe measuring 1.6 x 1.5 x 1.3 cm highly suspicious for malignancy
Daughter was aware of this
Will need outpatient follow-up with [facility] pulmonary team
Type 2 diabetes
Accu-Chek sliding scale goal blood glucose 140-180 carb controlled diet
Anxiety�chronic
Low-dose Xanax
Hypertension
Continue antihypertensives
Family and Ms. Oquendo do not want HD. They would like to go home. Offered Hospice and declined.
DC home
Anticipated Discharge: Today
Subjective/Interval History
-
Date of Service: December 06, 2024
seen and examiend. no new complaints. no acute overnight events
[facility]
Objective Data
-
Labs:
Laboratory Results
12/06/24 12/06/24
03:23 09:11
WBC 8.6
Hgb 8.0 L
Hct 26.0 L
Plt Count 146
Sodium 132 L
Potassium 5.1
Chloride 102
Carbon Dioxide 18 L
BUN 75 H
Creatinine 3.8 H
Glucose 206 H 398 H
Calcium 8.0 L
Vital Signs:
Vital Signs
Temp Pulse Resp BP Pulse Ox
98.0 F 95 17 133/58 98
12/06/24 11:13 12/06/24 06:00 12/06/24 06:00 12/06/24 06:00 12/06/24 06:00
I&O
12/05/24 12/06/24 12/07/24
06:59 06:59 06:59
Intake Total 720 / 720 360 / 360
Output Total 120 / 120
Balance 600 / 600 360 / 360
--- NOTE | 2024-12-06 12:07 | W.DCSUMMARY ---
Discharge Summary
Discharge Data
Date of Admission: 11/26/24
Date of Discharge: 12/06/24
-
Pending Results: No
Hospital Course
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
Presented with evidence of decompensated cirrhosis and change in mental status. Suspected secondary to hepatic encephalopathy lactulose rifaximin started with improvement in mental status. Received multiple paracentesis and eventually a
paracentesis catheter was placed. Fluid analysis negative for SBP. During the hospitalization renal function continued to worsen. Nephrology was consulted. Concern for hepatorenal syndrome and was started on albumin and treated with decline
without improvement. Discussions were completed about dialysis however determined not a candidate and would likely what he said condition. Additionally treated for hyperkalemia as K was 5.7. Improved with Lokelma low potassium diet. Hospice was
offered however declined. Will DC home with [facility] for assistance of drainage from Asept Catheter. Drain 2-3L, no more then 3L and as needed.
Head CT
IMPRESSION:
No acute intracranial abnormalities.
Findings compatible with diffuse cortical atrophy with nonspecific white matter changes as described above.
Abdominal Pelvis CT
IMPRESSION:
Overall markedly limited evaluation due to several factors, as detailed above.
Massive ascites.
Markedly limited evaluation of organs of the abdomen including the liver with lobulated hepatic contour suggesting cirrhotic morphology. Space-occupying hepatic lesion although not identified, cannot be excluded, particularly without intravenous
contrast. Probable esophageal varices.
Somewhat edematous appearance of nondilated small bowel most likely secondary to ascites. Enteritis cannot be excluded. No evidence of small bowel pneumatosis, obstruction or free air. No secondary signs of small bowel ischemia, evaluation overall
markedly limited without oral or intravenous contrast.
Right-sided chest tube incompletely included on this study with tiny right pleural effusion and some right basilar subsegmental atelectasis.
Discharge Plan
-
Patient Disposition: Home with Home Care
Discharge Diagnosis/Procedures: Decompensated cirrhosis
Condition: Serious
Diet: As tolerated, Low Sodium, Diabetic, Carb Controlled, No added salt and Restrict fluids to 48 oz
Additional Diets: Low Potassium Diet
Activity Restrictions/Additional Instructions:
Presented with evidence of decompensated cirrhosis and change in mental status. Suspected secondary to hepatic encephalopathy lactulose rifaximin started with improvement in mental status. Received multiple paracentesis and eventually a
paracentesis catheter was placed. Fluid analysis negative for SBP. During the hospitalization renal function continued to worsen. Nephrology was consulted. Concern for hepatorenal syndrome and was started on albumin and treated with decline
without improvement. Discussions were completed about dialysis however determined not a candidate and would likely what he said condition. Additionally treated for hyperkalemia as K was 5.7. Improved with Lokelma low potassium diet. Hospice was
offered however declined. Will DC home with [facility] for assistance of drainage from Asept Catheter. Drain 2-3L, no more then 3L and as needed.
Head CT
IMPRESSION:
No acute intracranial abnormalities.
Findings compatible with diffuse cortical atrophy with nonspecific white matter changes as described above.
Abdominal Pelvis CT
IMPRESSION:
Overall markedly limited evaluation due to several factors, as detailed above.
Massive ascites.
Markedly limited evaluation of organs of the abdomen including the liver with lobulated hepatic contour suggesting cirrhotic morphology. Space-occupying hepatic lesion although not identified, cannot be excluded, particularly without intravenous
contrast. Probable esophageal varices.
Somewhat edematous appearance of nondilated small bowel most likely secondary to ascites. Enteritis cannot be excluded. No evidence of small bowel pneumatosis, obstruction or free air. No secondary signs of small bowel ischemia, evaluation overall
markedly limited without oral or intravenous contrast.
Right-sided chest tube incompletely included on this study with tiny right pleural effusion and some right basilar subsegmental atelectasis.
Referrals:
Jaspreet Echeverria DO [[facility]]
Prescriptions:
New
hydrocortisone acetate 25 mg Suppository
25 mg CO BID Qty: 24 0RF
lactulose 10 gram/15 mL Solution
20 g PO TID Qty: 90 0RF
Preparation H Maximum Strength 0.25-1 % Cream
1 applic CO Q6HPRN PRN (Reason: hemorrhoids) Qty: 26 0RF
pantoprazole 40 mg Tablet,Delayed Release (Dr/Ec)
40 mg PO DAILY Qty: 60 0RF
Lokelma 10 gram powder in packet
10 g PO .mwf Qty: 30 0RF
Continued
levothyroxine 50 mcg Tablet
50 mcg PO DAILY
omeprazole 20 mg Capsule,Delayed Release(Dr/Ec)
20 mg PO DAILY
metoprolol succinate 25 mg Tablet Extended Release 24 Hr
25 mg PO DAILY
albuterol sulfate 90 mcg/actuation Hfa Aerosol Inhaler
2 puff INHALATION R Q4HPRN PRN (Reason: sob/wheezing)
insulin lispro [Humalog KwikPen Insulin] 100 unit/mL Insulin Pen
15 unit SC AC
insulin glargine [Lantus Solostar U-100 Insulin] 100 unit/mL (3 mL) Insulin Pen
12 - 15 unit SC HS
Xifaxan 550 mg Tablet
550 mg PO Q12H
lidocaine 4 % adhesive patch,medicated
1 patch topical DAILYPRN PRN (Reason: topical pain)
lactulose 20 gram/30 mL Solution
20 g PO BID Qty: 1500 0RF
nitroglycerin 0.4 mg tablet, sublingual
0.4 mg sublingual [id number] PRN (Reason: chest pain)
oxycodone 15 mg tablet
20 mg PO QIDPRN PRN (Reason: moderate pain )
Patient Comments:
05/05/2024: last filled 04/25/24, 150 tabs for 30 days from [facility]
furosemide 40 mg Tablet
40 mg PO DAILY Qty: 30 0RF
hydroxyzine HCl 25 mg Tablet
25 mg PO TID PRN (Reason: itching)
megestrol 20 mg Tablet
20 mg PO BID
Discontinued
atorvastatin [Lipitor] 20 mg Tablet
20 mg PO QPM
Discharge Date and Time
Print Language: LITHUANIAN
[2024-12-06 12:16] LABS: Glucose - Point of Care 305 mg/dl (70-99)
[2024-12-06] MEDS: NOVOLOG FLEXPEN-MODERATE RESISTANCE 7 UNITS SC (12:41)
--- NOTE | 2024-12-06 13:42 | PTCARENOTE ---
Patients acu check read HI this morning before breakfast. Stat venous glucose completed- result 398. Discussed results with Dr. Reyes and current doses of insulin administered.
== END 2024-12-06 15:46 | disposition home health service (06) | DRG 441 ==
LOC: IMU 01:33
PROVIDERS: Family Medicine; Internal Medicine; Internal Medicine Gastroenterology; Nurse Practitioner Family; Radiology Diagnostic Radiology; Radiology Vascular & Interventional Radiology; Specialist; ADMITTING PHYSICIAN Internal Medicine; ATTENDING PHYSICIAN Hospitalist; CONSULT PHYSICIAN Internal Medicine; CONSULT PHYSICIAN Internal Medicine Gastroenterology; CONSULT PHYSICIAN Psychiatry & Neurology Clinical Neurophysiology; EMERGENCY PHYSICIAN Student in an Organized Health Care Education/Training Program; FAMILY PHYSICIAN Family Medicine; OTHER PHYSICIAN Internal Medicine Cardiovascular Disease
PROC: 0W9G3ZZ Drainage of Peritoneal Cavity, Percutaneous Approach (ICD-10-PCS; 2024-11-26)
PROC: 0WHG33Z Insertion of Infusion Device into Peritoneal Cavity, Percutaneous Approach (ICD-10-PCS; 2024-12-04)
DX: K75.81 Nonalcoholic steatohepatitis (NASH) (principal); G92.8 Other toxic encephalopathy; R18.8 Other ascites; I50.32 Chronic diastolic (congestive) heart failure; N17.9 Acute kidney failure, unspecified; E87.4 Mixed disorder of acid-base balance; N18.4 Chronic kidney disease, stage 4 (severe); E87.1 Hypo-osmolality and hyponatremia; I85.00 Esophageal varices without bleeding; F17.200 Nicotine dependence, unspecified, uncomplicated; K76.82 Hepatic encephalopathy; K74.60 Unspecified cirrhosis of liver; N18.32 Chronic kidney disease, stage 3b; E11.22 Type 2 diabetes mellitus with diabetic chronic kidney disease; E11.51 Type 2 diabetes mellitus with diabetic peripheral angiopathy without gangrene; E03.9 Hypothyroidism, unspecified; F41.9 Anxiety disorder, unspecified; E87.6 Hypokalemia; L89.151 Pressure ulcer of sacral region, stage 1; E87.5 Hyperkalemia; J44.9 Chronic obstructive pulmonary disease, unspecified
CPT/HCPCS: 88305; 49083; 49418; 51701; 70450; 71045; 74176; 80048; 80053; 80202; 80306; 81003; 81015; 82042; 82140; 82150; 82570; 82805; 82947; 82962; 83036; 83605; 83615; 83735; 84100; 84156; 84157; 84300; 85025; 85027; 85610; 87015; 87040; 87070; 87086; 87205; 88112; 89051; 92526; 92610; 93005; 94660; 95816; 96361; 96365; 96375; 97163; 97167; 97530; 97535; 99152; 99291; J7030; P9047